=== PATIENT | female | born 1945 | race Caucasian/White ===

== ENCOUNTER → 2017-11-16 14:58 | Outpatient (CLI) | payer MEDICARE, OTHER, SELFPAY ==
--- NOTE | 2017-11-16 15:06 | RAD_ITS ---
STUDY: X-RAY - RIGHT KNEE REASON FOR EXAM: Female, 71 years old. Fall one month ago. Continued pain TECHNIQUE: 4 view(s) of the knee. COMPARISON: None. FINDINGS: Normal visualized distal femur. Normal visualized proximal tibia and fibula. Normal proximal tibiofibular articulation. Normal medial femorotibial compartment. There is mild degenerative arthrosis of the lateral femorotibial compartment. There is moderate degenerative arthrosis of the patellofemoral articulation. There is no demonstrated joint effusion. The soft tissue structures are unremarkable. RAD/Knee 4 or More Views IMPRESSION: Mild arthrosis of the lateral compartment. Moderate arthrosis of the patellofemoral joint. No acute lesions are seen Electronically Signed: Bran Harry MD, FACR at 15:43 EST , Service support ,
== END ==
PROVIDERS: Family Provider Family Medicine Geriatric Medicine; PCP Family Medicine Geriatric Medicine; Visit Provider Family Medicine Geriatric Medicine
DX: M25.561 Pain in right knee (principal)
CPT/HCPCS: 73564

== ENCOUNTER 2017-11-21 12:14 | Emergency (ER) | payer MEDICARE, OTHER, SELFPAY ==
[2017-11-21 12:16] VITALS: BP 106/62; PULSE 72; RESP 16; TEMP 36.5; O2SAT 100; BMI 28.3
--- NOTE | 2017-11-21 13:49 | ED.RN ---
ATTEMPTED TO AMBULATE PATIENT WITH WALKER. GAIT STEADY BUT VERY SLOW. TOOK APPROX 5 STEPS IN 2-3 MINUTES. C/O SEVERE PAIN TO RIGHT KNEE. DR. JHONY CHAUDHARY.
--- NOTE | 2017-11-21 14:20 | ED.VISSUMM ---
- ER Visit Summary Date of Service: 11/21/17 Chief Complaint: Right knee pain and inability to bear weight History of Present Illness: The patient is a 71 F seen by her PCP and had x-rays of the knee on Monday. X-rays were reviewed prior to seeing the patient and there is evidence of osteoarthritis. No fracture is noted. Patient complains of severe pain. She denies fever, chills night sweats. She denies history of gout or pseudogout. She does have history of fibromyalgia. She does walk with a walker. She has an appointment with her PCP that is scheduled for today as well as Dr. Piper her pain management physician. Physical Examination: Vital signs were noted and unremarkable. Right knee is swollen compared to left. She is able to extend 180? and flex to 90?. The patella is not ballotable. There is no effusion. She has minimal joint line tenderness. There is no laxity with varus valgus stress testing. Denita's test is negative. Modified Mar's test is negative. There is no pain the patient the popliteal fossa. There is no palpable pulsatile mass in the popliteal fossa. Distal pulses were palpable. Test Results: None since she had x-rays on Monday that were reviewed Emergency Department Course and Treatment: Was medicated with morphine. I was informed at 1420 the patient was able to make her way to Dr. Piper's office. Treatment Plan: Patient left prior to her receiving home-going instructions Disposition: Discharge to see position at his office Impression: Right knee pain secondary to osteoarthritis This note was generated with [employer] dictation software. It may contain incorrect words, spelling, and punctuation that were not noted in review of the chart prior to signing ED Disposition - Plan for ED Patient: Chief Complaint: Other, Pain/Inj Referrals: Abhijit Jett Chi, MD [Primary Care Provider] -
--- NOTE | 2017-11-21 14:24 | ED.DCSUM_ITS ---
- ER Visit Summary Date of Service: 11/21/17 Chief Complaint: Right knee pain and inability to bear weight History of Present Illness: The patient is a 71 F seen by her PCP and had x- rays of the knee on Monday. X-rays were reviewed prior to seeing the patient and there is evidence of osteoarthritis. No fracture is noted. Patient complains of severe pain. She denies fever, chills night sweats. She denies history of gout or pseudogout. She does have history of fibromyalgia. She does walk with a walker. She has an appointment with her PCP that is scheduled for today as well as Dr. Piper her pain management physician. Physical Examination: Vital signs were noted and unremarkable. Right knee is swollen compared to left. She is able to extend 180? and flex to 90?. The patella is not ballotable. There is no effusion. She has minimal joint line tenderness. There is no laxity with varus valgus stress testing. Denita's test is negative. Modified Mar's test is negative. There is no pain the patient the popliteal fossa. There is no palpable pulsatile mass in the popliteal fossa. Distal pulses were palpable. Test Results: None since she had x-rays on Monday that were reviewed Emergency Department Course and Treatment: Was medicated with morphine. I was informed at 1420 the patient was able to make her way to Dr. Piper's office. Treatment Plan: Patient left prior to her receiving home-going instructions Disposition: Discharge to see position at his office Impression: Right knee pain secondary to osteoarthritis This note was generated with [employer] dictation software. It may contain incorrect words, spelling, and punctuation that were not noted in review of the chart prior to signing ED Disposition - Plan for ED Patient: Chief Complaint: Other, Pain/Inj Referrals: Abhijit Jett Chi, MD [Primary Care Provider] -
== END 2017-11-21 14:33 | disposition home or self-care (01) ==
LOC: ED 12:31
PROVIDERS: Emergency Provider Emergency Medicine; Family Provider Family Medicine Geriatric Medicine; PCP Family Medicine Geriatric Medicine
DX: M17.11 Unilateral primary osteoarthritis, right knee (principal); M25.561 Pain in right knee; I25.10 Atherosclerotic heart disease of native coronary artery without angina pectoris; I13.2 Hypertensive heart and chronic kidney disease with heart failure and with stage 5 chronic kidney disease, or end stage renal disease; N18.6 End stage renal disease; I50.9 Heart failure, unspecified; I25.2 Old myocardial infarction; E78.00 Pure hypercholesterolemia, unspecified; M79.7 Fibromyalgia; M06.9 Rheumatoid arthritis, unspecified; K58.9 Irritable bowel syndrome, unspecified; Z79.899 Other long term (current) drug therapy
CPT/HCPCS: 96374; 99284; A4216

== ENCOUNTER 2017-12-27 09:27 | Inpatient (IN) | payer MEDICARE, OTHER, SELFPAY ==
[2017-12-27] VITALS (16 sets, daily range): BP systolic 88–124; BP diastolic 43–77; PULSE 64–75; RESP 9–18; TEMP 35.9–37.3; O2SAT 80–97; BMI 28.7; BMI 27.9
--- NOTE | 2017-12-27 09:44 | RAD_ITS ---
STUDY: X-RAY CHEST REASON FOR EXAM: Female, 72 years old. Hypoxia. Hypotension. TECHNIQUE: Single AP portable view of the chest. COMPARISON: Comparison is made with prior study dated October 08, 2017. FINDINGS: EKG electrodes are seen. Elevation of the right hemidiaphragm. There is no demonstrated pleural abnormality. There is borderline cardiomegaly. There are calcified mediastinal lymph nodes. Normal visualized pulmonary arteries. There is atherosclerotic tortuosity of the aortic arch and descending thoracic aorta. Normal visualized thoracic spine. Normal visualized ribs, clavicles, and shoulders. There is no demonstrated abnormality of the visualized soft tissue structures of the upper abdomen. RAD/Chest 1 View (Portable) IMPRESSION: No acute abnormality is seen. Electronically Signed: Yony Bonds MD at 10:08 EDT Tel [phone], Service support ,
--- NOTE | 2017-12-27 09:44 | EKG12_ITS ---
Test Reason : SOB Blood Pressure : / mmHG Vent. Rate : 113 BPM Atrial Rate : 082 BPM P-R Int : 188 ms QRS Dur : 074 ms QT Int : 410 ms P-R-T Axes : 047 027 015 degrees QTc Int : 562 ms Normal sinus rhythm Low voltage QRS Inferior infarct , age undetermined Prolonged QT Abnormal ECG Confirmed by MOODY VALVERDE ([id number]), medical transcription editor AVEL REYES ([id number]) on 01/01/2018 2:00:48 PM Referred By: TERRI Confirmed By:MOODY VALVERDE
[2017-12-27 10:03] LABS: Absolute Lymphocyte Count 2.71 X10^3/ul (0.83-4.51); Absolute Neutrophil Count 13.6 X10^3/uL (2.0-7.7); Basophil# 0.01 X10^3/uL; Basophil% 0.1 % (0-1); Eosinophil# 0.01 X10^3/uL; Eosinophils% 0.1 % (0-5); Hematocrit 37.1 % (37-47); Hemoglobin 11.4 g/dl (12.0-15.0); Lymphocyte # 2.71 X10^3/ul (4.0); Lymphocyte % 15.3 % (19-41); Mean Corp Hgb Conc 30.7 g/gl (32-36); Mean Corpuscular Hgb 27.9 pg (27.0-32.0); Mean Corpuscular Volume 90.9 fL (81-99); Monocyte# 1.33 X10^3/uL; Monocyte% 7.5 % (0-10); Neutrophil # 13.59 X10^3/uL (2.7-7.7); Neutrophil % 76.7 % (47-70); POSITIVE COUNT NO; POSITIVE DIFFERENTIAL NO; POSITIVE MORPHOLOGY NO; Platelet Count 247 K/mm3 (150-450); RBC Distribution Width CV 13.9 % (11.6-14.6); RBC Distribution Width SD 46.1 fl (35.1-43.9); Red Blood Count 4.08 M/mm3 (4.2-5.4); White Blood Count 17.7 K/mm3 (4.4-11.0)
[2017-12-27] MEDS: 0.9% Normal Saline 1,000 ML 150 ML IV (10:10)
[2017-12-27 10:11] LABS: International Normalized Ratio 1.3; Prothrombin Time (Protime)PT. 16.3 SECONDS (11.7-14.9)
[2017-12-27 10:12] LABS: Partial Thromboplast Time 42.1 Seconds (24.1-36.2)
[2017-12-27 10:23] LABS: Lactic Acid 1.4 mmol/L (0.4-2.0)
[2017-12-27 10:24] LABS: ALB/GLOB Ratio 0.9 RATIO (0.9-2.4); AST(SGOT) 241 U/L (15-37); Alanine Aminotransfer ALT/SGPT 131 U/L (13-56); Albumin, Serum 2.9 g/dL (3.2-5.0); Alkaline Phosphatase 156 U/L (45-117); Anion Gap 11 (5-15); BUN 29 mg/dL (7-18); BUN/Creat Ratio 11.3 RATIO (10-20); Chloride 96 mmol/L (98-107); Creatinine, Serum 2.56 mg/dL (0.55-1.02); EST Glomerular Filtration Rate 20 mL/min (>60); Est Glom Filt Rate - Afr Amer 24 mL/min (>60); Estimated Creatinine Clearance 18.05 ml/min; Globulin 3.3 g/dL (2.2-4.2); Glucose 96 mg/dL (74-106); Potassium 6.8 mmol/L (3.5-5.1); Protein, Total 6.2 g/dL (6.4-8.2); Sodium Level 133 mmol/L (136-145)
[2017-12-27] MEDS: Albuterol 2.5 MG/3 ML VIAL.NEB. INHALATION (10:44)
[2017-12-27 10:50] LABS: Color, Urine Yellow (Yellow); Glucose, Dipstick Normal (Normal); Ketone-Dipstick Negative (Negative); Leukocyte Esterase-Dipstick 500 /ul (Negative); Mucous, Urine 0 SEEN /hpf (<or=2+); Nitrite-Dipstick Positive (Negative); Occult Blood-Urine 10 /ul (Negative); Protein-Dipstick 30 mg/dl (Negative); Urine Bilirubin Dipstick Negative (Negative); Urine Clarity Sl. Cloudy (Clear); Urine Urobilinogen Normal (Normal)
[2017-12-27 10:59] LABS: Red Blood Cells-Urine 0-5 SEEN /hpf (0-5); White Blood Cells >100 SEEN /hpf (0-5)
[2017-12-27 11:00] LABS: Bacteria 4+ /hpf (None Seen); Squamous Epithelial Cells - UA 0-5 SEEN /hpf (5-10)
--- NOTE | 2017-12-27 11:18 | ED.DCSUM_ITS ---
- ER Visit Summary Date of Service: 12/27/17 Chief Complaint: Low blood pressure and oxygen saturation History of Present Illness: The patient is a [address] Jett. [facility] reports that this morning the patient has had a low blood pressure and a pulse ox of 81%. He also reports patient has not had any urine output for the past 24 hours. The patient is a poor informant. Patient complains of subjective fever and chills. She does admit to abdominal pain, but states I do not know the severity. She has had nausea and vomiting. She denies any diarrhea or melena. She has a headache that is 9 out of 10 severity. Physical Examination: Vitals: Stable. Afebrile. General: Well-nourished and well-developed. Head: Normocephalic atraumatic. Neck: Supple, no lymphadenopathy. No JVD. Nontender. Cardiovascular: Regular rate and rhythm. 2 out of 6 systolic murmur. Respiratory: No respiratory distress. Clear to auscultation bilaterally. Abdominal: Soft, nontender, nondistended, normal bowel sounds. No guarding, rebound, or peritoneal signs. Back: Nontender. Extremities: Nontender, no edema. Skin: Normal color, no rash. Neurologic: Alert and oriented ?3. Cranial nerves II through XII are intact. Normal strength and sensation. Psych: Normal affect. Test Results: EKG is sinus in the 70s with nonspecific ST changes and her QRS interval was 74. Chem-7 is marked for potassium was 6.8, BUN 29, creatinine 2.56. 2017 her creatinine ranged between 1.212.58. LFTs marked for total protein 6.2, albumin 2.9, alk phos 156, ALT 131, AST of 241. INR is 1.3. UA is obviously infected with greater than 100 whites and 4+ bacteria. CBC is marked for white count 17.7 hemoglobin 11.4. Chest x-ray shows chronic changes. Lactic acid is 1.4. Emergency Department Course and Treatment: Patient responded well to 500 cc bolus of normal saline. Her systolic pressures in the 140s. The fpc sent along the urine culture from December 22 that shows Klebsiella is resistant to ampicillin only. She was treated with Rocephin IV. Her hyperkalemia was treated with albuterol aerosol, D50, and insulin IV. She is resting comfortably. Treatment Plan: Due to the fact the patient's creatinine has more than doubled from her baseline she meets criteria for severe sepsis. She will be admitted to the hospital for further evaluation and treatment. Disposition: Admitted in improved condition. Impression: 1. Severe sepsis. 2. Pyelonephritis. 3. Hypoxia. 4. Hyperkalemia. 5. Acute kidney injury. 6. Critical care time 30 minutes. This note was generated with [employer] dictation software. It may contain incorrect words, spelling, and punctuation that were not noted in review of the chart prior to signing ED Disposition - Plan for ED Patient: Chief Complaint: Hypotension Referrals: Abhijit Jett Chi, MD [Primary Care Provider] -
[2017-12-27] MEDS: Dextrose 50%-Water 25 GM/50 ML DISP.SYRIN IV (11:24)
[2017-12-27] MEDS: SUMAtriptan 6 MG/0.5 ML Vial SC (11:24)
--- NOTE | 2017-12-27 11:24 | NURSING ---
DR AVILA MURRAY
--- NOTE | 2017-12-27 11:28 | NURSING ---
PCU UTI, HYPERKALEMIA AVILA
[2017-12-27] MEDS: Sodium Polystyrene Sulfonate 15 GM/60 ML UDC 30 GM PO (11:37)
--- NOTE | 2017-12-27 12:17 | HP.PCM_ITS ---
Problem List (1) IBS (irritable bowel syndrome) Status: Chronic (2) Metabolic acidosis Status: Chronic (3) CKD (chronic kidney disease), stage III Status: Chronic (4) Cephalalgia Status: Chronic (5) Diastolic CHF Status: Chronic (6) Dyslipidemia Status: Chronic (7) Fibromyalgia Status: Chronic (8) HTN (hypertension) Status: Chronic (9) History of radiofrequency ablation (RFA) procedure for cardiac arrhythmia Status: Chronic (10) Myocardial infarct, old Status: Chronic (11) Osteoarthritis Status: Chronic (12) Rheumatoid arthritis Status: Chronic Comment: on no medications for RA - diagnosed in [place] many years ago (13) Sjogren's syndrome Status: Chronic (14) history of PULMONARY EMBOLI Status: Chronic (15) PUD (peptic ulcer disease) Status: Suspected (16) UTI (urinary tract infection) Status: Acute (17) Hyperkalemia Status: Acute History of Present Illness Date of Admission: 12/27/17 Chief Complaint: Low blood pressure The patient is a 72 year old F who comorbidities currently residing at an extended care facility who was brought to the emergency department from an [facility] with low blood pressure. Patient had apparently been diagnosed with a bladder infection a couple of days prior to his admission urine cultures since grew Klebsiella patient was apparently treated with antibiotics. However on the morning of her presentation found to be more lethargic than usual blood pressure was apparently in the 70s the squad was called and patient was brought to the emergency department in the ED patient patient systolic blood pressure was in the mid 100s. She was found to have impaired kidney function with hyperkalemia treatment of hyperkalemia was initiated in the ED prior to patient being admitted. She was also found to have acute cystitis started on Rocephin and admitted to monitored bed for further management. Past Medical History Past Medical History (Chronic Problems): Chronic Problems (Last Updated 10/25/17 @ 16:34 by Noris Nunez) Fibromyalgia (Chronic) HTN (hypertension) (Chronic) Rheumatoid arthritis (Chronic) on no medications for RA - diagnosed in [place] many years ago Dyslipidemia (Chronic) Sjogren's syndrome (Chronic) Myocardial infarct, old (Chronic) CKD (chronic kidney disease), stage III (Chronic) history of PULMONARY EMBOLI (Chronic) Diastolic CHF (Chronic) Cephalalgia (Chronic) Metabolic acidosis (Chronic) IBS (irritable bowel syndrome) (Chronic) Osteoarthritis (Chronic) History of radiofrequency ablation (RFA) procedure for cardiac arrhythmia ( Chronic) Allergies acetaminophen [From Tylox] Allergy (Verified 08/20/17 11:47) Other amoxicillin Allergy (Verified 08/20/17 11:47) Hives ciprofloxacin [From Cipro] Allergy (Verified 08/20/17 11:46) Other ciprofloxacin HCl [From Cipro] Allergy (Verified 08/20/17 11:46) Other indomethacin Allergy (Verified 12/27/17 09:39) Unknown nortriptyline HCl [From Pamelor] Allergy (Verified 08/20/17 11:46) Unknown oxycodone [From Tylox] Allergy (Verified 08/20/17 11:47) Other Sulfa (Sulfonamide Antibiotics) Allergy (Verified 08/20/17 11:46) Unknown iodine Adverse Reaction (Verified 08/20/17 11:46) Itching nortriptyline [Nortriptyline] Adverse Reaction (Verified 08/20/17 11:46) Itching warfarin sodium [From Coumadin] Adverse Reaction (Verified 08/20/17 11:46) Itching Home Medications: Ambulatory Orders Medication Instructions Recorded Alendronate Sodium [Fosamax] 70 mg PO QWEEK 11/21/17 Atorvastatin Calcium 20 mg PO DAILY 11/21/17 Hydroxyzine HCl 50 mg PO DAILY PRN 11/21/17 Methadone HCl [(None)] 10 mg PO 4X/DAY 11/21/17 Multivit-Min/FA/Lycopen/Lutein 1 each PO DAILY 11/21/17 [Centrum Silver Tablet] Pregabalin [Lyrica] 100 mg PO BID 11/21/17 Sertraline HCl [Zoloft] 100 mg PO DAILY 11/21/17 Sodium Bicarbonate 1 tab PO DAILY 11/21/17 Sumatriptan Succinate [Imitrex] 100 mg PO .X1 PRN 11/21/17 Timolol 0.5% [Timoptic] 1 drop EACH EYE BID 11/21/17 Topiramate [Topamax] 25 mg PO DAILY 11/21/17 Ascorbic Acid [Vitamin C] 500 mg PO DAILY@0800 12/27/17 Calcium Carbonate/Vitamin D3 1 each PO BID 12/27/17 [Calcium 600 with Vit D Chew Tb] Ferrous Sulfate 325 mg PO DAILY@0800 12/27/17 Surgical History: angioplasty - pt denies this - she says that she only had an ablation and she does not have any hx of CAD., appendectomy, hysterectomy, total hip arthroplasty - recent right hip replacement, tonsillectomy, - - craniotomy to remove blood clots after a fall. 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 Dyspnea Respiratory: Denies: Cough, Shortness of breath at rest, Shortness of breath upon exertion, Sputum production Gastrointestinal: Denies: Abdominal Pain, Hematemesis, Hematochezia, Nausea, Melena, Vomiting Genitourinary: Denies: Dysuria, Frequency, Hematuria, Urgency Musculoskeletal: Reports: Joint swelling Skin: Denies: Rash Psychiatric: Denies: Homicidal Ideations, Suicidal Ideations Hematologic/ Lymphatic: Denies: Easy Bruising, Easy Bleeding VTE Information - Inpt Only VTE Present on Admission: No VTE Mechan Device Prophylaxis: Knee High LUIS M Hose VTE Pharm Prophylaxis ordered?: Yes Patient Problems: Active and Suspected Problems (Last Updated 10/25/17 @ 16:34 by Noris Nunez) Hyperkalemia (Acute) Objective: GENERAL: cooperative and alert, HEENT: neck is supple, normal thyroid, CHEST: Diminished to auscultation bilaterally, HEART: Regular S1 S2, no audible murmurs and rubs, ABDOMEN: soft, non-tender, normoactive bowel sounds, RECTAL: deferred EXTREMITIES: Right ankle bruised and slightly swollen and tender PLUMBING AND HEATING MECHANIC: Awake, alert and oriented to time, SKIN: As described above - Physical Exam Vital Signs Temp Pulse Resp BP Pulse Ox 99.2 F H 66 18 105/70 93 12/27/17 11:27 12/27/17 12:07 12/27/17 11:27 12/27/17 12:07 12/27/17 12:07 Oxygen Flow Rate (L/min) 2 Oxygen Delivery Method Nasal Cannula Assessment/Plan Active and Suspected Problems (Last Updated 10/25/17 @ 16:34 by Noris Nunez) Hyperkalemia (Acute) Patient is a 72-year-old lady resident of an [facility] with multiple comorbidities who was brought to the emergency department with progressive generalized weakness and associated hypotension patient was found to have acute kidney injury, acute cystitis as well as hyperkalemia admitted to a monitored bed for further management 1. Acute cystitis patient urine cultures have recently grown Klebsiella repeat cultures obtained and admission started on Rocephin 2. Acute kidney injury patient has underlying history of chronic kidney disease stage III with baseline creatinine around 1.5. Started on IV hydration with monitoring of electrolyte 3. Hyperkalemia secondary to #2 patient did receive treatment in the ED in addition to Kayexalate ordered serial BMPs to follow potassium levels which is already trending now 4. Chronic diastolic congestive heart failure currently compensated 5. Hypertension blood pressure stable at this point 6. Sjogren's syndrome by history 7. Rheumatoid Arthritis by history 8. GERD: Continue omeprazole 9. History of bilateral hip replacement 10. Dyslipidemia-patient is on statin therapy, continued at home dose 11. Chronic kidney disease stage III 12. History of paroxysmal A. fib status post ablation 13. History of DVT 14. Recent Trauma involving the right ankle imaging studies ordered with consultation placed to orthopedic surgery 15. DVT prophylaxis:SC Heparin Code Visit Inpatient E&M: 74702 Init Hosp L3
[2017-12-27] MEDS: 0.9% Normal Saline 1,000 ML 100 ML IV ×2 (13:08→22:19)
[2017-12-27 13:25] LABS: Anion Gap 7 (5-15); BUN 28 mg/dL (7-18); BUN/Creat Ratio 10.3 RATIO (10-20); Calcium,Total 8.2 mg/dL (8.5-10.1); Chloride 98 mmol/L (98-107); Creatinine, Serum 2.72 mg/dL (0.55-1.02); EST Glomerular Filtration Rate 18 mL/min (>60); Est Glom Filt Rate - Afr Amer 22 mL/min (>60); Estimated Creatinine Clearance 16.99 ml/min; Glucose 129 mg/dL (74-106); Potassium 4.9 mmol/L (3.5-5.1); Sodium Level 133 mmol/L (136-145)
--- NOTE | 2017-12-27 15:55 | RAD_ITS ---
STUDY: X-RAY - RIGHT ANKLE REASON FOR EXAM: Female, 72 years old. Pain. Fall. History of previous fracture. TECHNIQUE: 3 view(s) of the ankle. COMPARISON: Right ankle, November 04, 2015. FINDINGS: There is evidence of an old healed fracture of the distal fibula. There is no evidence of acute fracture or dislocation. Normal medial and lateral malleoli. Normal tibiotalar articulation and ankle mortise. Normal visualized talus and calcaneus. The visualized subtalar, talonavicular, calcaneocuboid and tarsal articulations are normal. Question of minimal soft tissue prominence over the lateral ankle. RAD/Ankle min 3 Views IMPRESSION: Question minimal lateral soft tissue prominence. There is no acute fracture or dislocation. There is interval healing of the fibular fracture noted on the previous study. Electronically Signed: Jatinder Hinkle DO at 16:47 EDT Tel [phone], Service support ,
--- NOTE | 2017-12-27 16:10 | RAD_ITS ---
STUDY: X-RAY - RIGHT KNEE REASON FOR EXAM: Female, 72 years old. Pain. History of fall. TECHNIQUE: 2 view(s) of the knee. COMPARISON: Right knee, November 16, 2017. FINDINGS: Normal visualized distal femur. Normal visualized proximal tibia and fibula. Normal proximal tibiofibular articulation. There is no acute fracture, dislocation or destructive osseous pathology. Normal medial femorotibial compartment. There is mild degenerative arthrosis of the lateral femorotibial compartment. There is moderate degenerative arthrosis of the patellofemoral articulation. There is no demonstrated joint effusion. The soft tissue structures are unremarkable. RAD/Knee 1 or 2 Views IMPRESSION: Stable degenerative changes right knee without acute fracture or dislocation. Electronically Signed: Jatinder Hinkle DO at 17:03 EDT Tel [phone], Service support ,
[2017-12-27] MEDS: Calcium Carb/Vitamin D 1 TABLET Tablet PO (17:28)
[2017-12-27] MEDS: Atorvastatin Calcium 20 MG Tablet PO (22:20)
[2017-12-27] MEDS: Heparin Injection 5,000 UNITS/ML Syringe 5000 UNITS SC (22:20)
[2017-12-27] MEDS: Pregabalin 50 MG Capsule 100 MG PO (22:21)
[2017-12-27] MEDS: Timolol 0.5% 5ML OPTH.BTL 1 DRP EACH EYE (22:21)
[2017-12-28] VITALS (12 sets, daily range): BP systolic 98–120; BP diastolic 52–73; PULSE 50–79; RESP 12–16; TEMP 36.7–36.9; O2SAT 95–99
[2017-12-28] MEDS: Methadone 10 MG Tablet PO ×5 (00:15→23:20)
[2017-12-28] MEDS: Acetaminophen 325 MG Tablet 650 MG PO (04:36)
[2017-12-28 08:13] LABS: Hematocrit 30.1 % (37-47); Hemoglobin 9.4 g/dl (12.0-15.0); Mean Corp Hgb Conc 31.2 g/gl (32-36); Mean Corpuscular Volume 89.6 fL (81-99); Mean Platelet Vol. 9.2 fl (6.2-12.0); Platelet Count 215 K/mm3 (150-450); RBC Distribution Width SD 45.7 fl (35.1-43.9); Red Blood Count 3.36 M/mm3 (4.2-5.4); White Blood Count 10.5 K/mm3 (4.4-11.0)
[2017-12-28 08:14] LABS: Scan Indicated on CBC? Y/N NO
[2017-12-28 08:19] LABS: Anion Gap 9 (5-15); BUN 25 mg/dL (7-18); BUN/Creat Ratio 13.8 RATIO (10-20); Calcium,Total 7.5 mg/dL (8.5-10.1); Chloride 105 mmol/L (98-107); Creatinine, Serum 1.81 mg/dL (0.55-1.02); EST Glomerular Filtration Rate 29 mL/min (>60); Est Glom Filt Rate - Afr Amer 35 mL/min (>60); Estimated Creatinine Clearance 25.53 ml/min; Glucose 97 mg/dL (74-106); Potassium 3.7 mmol/L (3.5-5.1); Sodium Level 140 mmol/L (136-145)
[2017-12-28] MEDS: Senna/Docusate Sodium 1 Tablet 2 TABLET PO (08:38)
[2017-12-28] MEDS: 0.9% Normal Saline 1,000 ML 100 ML IV ×2 (08:38→18:42)
[2017-12-28] MEDS: Ferrous Sulfate 325 MG Tablet PO (08:39)
[2017-12-28] MEDS: Multivitamins,Ther W-Minerals Tablet 1 TABLET PO (08:39)
[2017-12-28] MEDS: Calcium Carb/Vitamin D 1 TABLET Tablet PO ×2 (08:39→17:07)
[2017-12-28] MEDS: Ascorbic Acid 500 MG Tablet PO (08:39)
--- NOTE | 2017-12-28 08:44 | PCM.CONS.R ---
Consultation - Renal 12/28/17 PCP/ Referring MD: Requesting physician: Devin Simon Primary care physician: Abhijit Jett Reason for Consultation:: [place] - History of Present Illness History of Present Illness: The patient is a 72 year old F known to me with CKD stage III baseline creatinine 1.0 back in 2016 when she was last seen in my office presents with hypotension and hyperkalemia. She is at [facility] following right ankle injury from a recent fall. She denied any diarrhea. She denied consuming foods high in potassium. She states her urine output was down past 24 hours prior to admission. She denied any lightheadedness or dizziness. Potassium improved from 6.8-3.7 with Kayexalate. Blood pressure is improved with IV fluid resuscitation. Renal function improved from creatinine of 2.7-1.8 today. She has a history of Klebsiella UTI. She denied any urinary complaints. Lethargic on presentation to emergency room. Her mental status returned to baseline today. She is a poor historian. Chart reviewed. Leukocytosis improved with IV antibiotic therapy on admission. - Allergies Allergies: Allergies acetaminophen [From Tylox] Allergy (Verified 08/20/17 11:47) Other amoxicillin Allergy (Verified 08/20/17 11:47) Hives ciprofloxacin [From Cipro] Allergy (Verified 08/20/17 11:46) Other ciprofloxacin HCl [From Cipro] Allergy (Verified 08/20/17 11:46) Other indomethacin Allergy (Verified 12/27/17 09:39) Unknown nortriptyline HCl [From Pamelor] Allergy (Verified 08/20/17 11:46) Unknown oxycodone [From Tylox] Allergy (Verified 08/20/17 11:47) Other Sulfa (Sulfonamide Antibiotics) Allergy (Verified 08/20/17 11:46) Unknown iodine Adverse Reaction (Verified 08/20/17 11:46) Itching nortriptyline [Nortriptyline] Adverse Reaction (Verified 08/20/17 11:46) Itching warfarin sodium [From Coumadin] Adverse Reaction (Verified 08/20/17 11:46) Itching - Current Medications Current Medications: Current Medications Acetaminophen (Tylenol) 650 mg PO Q6H PRN PRN PRN Reason: Mild Pain (scale 0-3)/T>100.7 Last Admin: 12/28/17 04:36 Dose: 650 mg Al Hydroxide/Mg Hydroxide (Mylanta Ii) 30 ml PO Q6H PRN PRN PRN Reason: Gastric burning Ascorbic Acid (Vitamin C) 500 mg PO DAILY@0800 [facility] Last Admin: 12/28/17 08:39 Dose: 500 mg Atorvastatin Calcium (Lipitor) 20 mg PO HS [facility] Last Admin: 12/27/17 22:20 Dose: 20 mg Calcium/Vitamin D ([facility]mg + D[facility] Admin: 12/28/17 08:39 Dose: 1 tablet Ferrous Sulfate (Ferrous Sulfate) 325 mg PO DAILY@0800 [facility] Last Admin: 12/28/17 08:39 Dose: 325 mg Heparin Sodium (Porcine) () 5,000 units SC BID [facility] Last Admin: 12/27/17 22:20 Dose: 5,000 units Hydroxyzine Pamoate (Vistaril) 50 mg PO DAILY PRN PRN PRN Reason: ITCHING Ceftriaxone Sodium (Rocephin) 1 gm in 50 mls @ 100 mls/hr IV Q24 [facility] Sodium Chloride () 1,000 mls @ 100 mls/hr IV .Q10H [facility] Last Admin: 12/28/17 08:38 Dose: 100 mls/hr Magnesium Hydroxide (Milk Of Magnesia) 30 ml PO DAILY PRN PRN Reason: Constipation Methadone HCl () 10 mg PO Q6 [facility] Last Admin: 12/28/17 06:06 Dose: 10 mg Multivitamins/Minerals (Multivitamin With Minerals) 1 tablet PO DAILY@0800 [facility] Last Admin: 12/28/17 08:39 Dose: 1 tablet Pregabalin (Lyrica) 100 mg PO BID [facility] Last Admin: 12/27/17 22:21 Dose: 100 mg Promethazine HCl (Phenergan (Ll)) 12.5 mg IV Q6H PRN PRN PRN Reason: NAUSEA/VOMITING Psyllium Hydrophilic Mucilloid (Metamucil) 1 packet PO DAILY PRN PRN PRN Reason: CONSTIPATION Senna/Docusate Sodium (Senokot-S, Jade-Colace) 2 tablet PO BID [facility] Last Admin: 12/28/17 08:38 Dose: 2 tablet Sertraline HCl (Zoloft) 100 mg PO DAILY [facility] Sodium Chloride () 5 - 30 ml IV UD PRN PRN Reason: SALINE FLUSH Timolol Maleate (Timoptic) 1 drop EACH EYE BID [facility] Last Admin: 12/27/17 22:21 Dose: 1 drop Topiramate (Topamax) 25 mg PO DAILY [facility] Zolpidem Tartrate (Ambien (Generic)) 5 mg PO QHS PRN PRN PRN Reason: INSOMNIA - Past Medical History Past Medical History (Chronic Problems): Chronic Problems (Last Updated 10/25/17 @ 16:34 by Noris Nunez) Fibromyalgia (Chronic) HTN (hypertension) (Chronic) Rheumatoid arthritis (Chronic) on no medications for RA - diagnosed in [place] many years ago Dyslipidemia (Chronic) Sjogren's syndrome (Chronic) Myocardial infarct, old (Chronic) CKD (chronic kidney disease), stage III (Chronic) history of PULMONARY EMBOLI (Chronic) Diastolic CHF (Chronic) Cephalalgia (Chronic) Metabolic acidosis (Chronic) IBS (irritable bowel syndrome) (Chronic) Osteoarthritis (Chronic) History of radiofrequency ablation (RFA) procedure for cardiac arrhythmia (Chronic) - Past Surgical History Surgical History: angioplasty - pt denies this - she says that she only had an ablation and she does not have any hx of CAD., appendectomy, hysterectomy, total hip arthroplasty - recent right hip replacement, tonsillectomy, - - craniotomy to remove blood clots after a fall. - Social History Smoking Status: Former smoker - Family History Sibling History Items: COPD Maternal History Items: No pertinent history, - Review of Systems Constitutional: Reports: Weakness, - - History of frequent falls. Denies: Anorexia, Chills, Fever HEENT: Denies: Difficulty Hearing, Head Aches Cardiovascular: Denies: Chest Pain, Edema Respiratory: Denies: Cough, Shortness of Breath Gastrointestinal: Denies: Abdominal Pain, Diarrhea, Nausea, Vomiting Genitourinary: Reports: - - Recently treated for Klebsiella UTI. Denies: Dysuria Skin: Denies: Rash Neurological: Reports: Balance problems, - - Frequent falls Psychiatric: Reports: Anxiety, Depression Hematologic/ Lymphatic: Reports: Anemia Patient Problems: Active and Suspected Problems (Last Updated 10/25/17 @ 16:34 by Noris Nunez) Hyperkalemia (Acute) - Physical Exam General: Alert, Oriented x3, Cooperative, - - Limited historian HEENT: PERRLA, EOMI Neck: Supple Lungs: Clear to auscultation Cardiovascular: Regular rate Abdomen: Bowel Sounds Present, Soft, Non Tender, Non-Distended Extremities: Edema - Mild ankle swelling Skin: No rashes Musculoskeletal: Muscle Wasting, - - Tender right ankle to palpation Neurological: Cranial nerves II-XII grossly intact Psych/Mental Status: Normal Affect, Appropriate, Alert and oriented to time, place, person, mood and affect Vital Signs Temp Pulse Resp BP Pulse Ox 98.2 F 69 12 120/59 L 95 12/28/17 04:11 12/28/17 07:46 12/28/17 04:11 12/28/17 04:11 12/28/17 07:33 Oxygen Flow Rate (L/min) 2 Oxygen Delivery Method Nasal Cannula Weight: 78.8 kg Body Mass Index (BMI) 27.9 Intake and Output for Last 24 Hours 12/26/17 12/27/17 12/28/17 23:59 23:59 23:59 Intake Total 1354 / 1354 718 / 718 Output Total 525 / 525 180 / 180 Balance 829 / 829 538 / 538 Laboratory Tests Past 24 Hrs 12/27/17 12/28/17 12/28/17 12:35 07:37 07:37 WBC 10.5 RBC 3.36 L Hgb 9.4 L Hct 30.1 L MCV 89.6 MCH 28.0 MCHC 31.2 L RDW 14.0 RDW Differential 45.7 H Plt Count 215 MPV 9.2 Sodium 133 L 140 Potassium 4.9 3.7 Chloride 98 105 Carbon Dioxide 28.0 26.0 Anion Gap 7 9 BUN 28 H 25 H Creatinine 2.72 H 1.81 H Estim Creat Clear Calc 16.99 25.53 Est GFR (MDRD) Af Amer 22 L 35 L Est GFR (MDRD) Non-Af 18 L 29 L BUN/Creatinine Ratio 10.3 13.8 Glucose 129 H 97 Calcium 8.2 L 7.5 L Clinical Impression(s) from Imaging Studies Chest X-Ray 12/27/17 09:44 IMPRESSION: No acute abnormality is seen. Electronically Signed: Yony Bonds MD at 10:08 EDT Tel [phone], Service support , Ankle X-Ray 12/27/17 15:55 IMPRESSION: Question minimal lateral soft tissue prominence. There is no acute fracture or dislocation. There is interval healing of the fibular fracture noted on the previous study. Electronically Signed: Jatinder Hinkle DO at 16:47 EDT Tel [phone], Service support , Knee X-Ray 12/27/17 16:10 IMPRESSION: Stable degenerative changes right knee without acute fracture or dislocation. Electronically Signed: Jatinder Hinkle DO at 17:03 EDT Tel [phone], Service support , Assessment/Plan Active and Suspected Problems (Last Updated 10/25/17 @ 16:34 by Noris Nunez) Hyperkalemia (Acute) 1. Acute kidney injury suspect due to prerenal event from hypotension, dehydration. Creatinine improved from 2.7 down to 1.8 today. 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 2. Acute hypotension resolved with IV hydration. 3. Acute hyperkalemia resolved with medical management. Potassium 6.8 improved to 3.7 today. 4. Recent UTI with Klebsiella. Urine culture pending. 5. Leukocytosis improved with IV antibiotic therapy. Await cultures.
--- NOTE | 2017-12-28 08:52 | CON.PCM_ITS ---
Consultation - Renal 12/28/17 PCP/ Referring MD: Requesting physician: Devin Simon Primary care physician: Abhijit Jett Reason for Consultation:: [place] - History of Present Illness History of Present Illness: The patient is a 72 year old F known to me with CKD stage III baseline creatinine 1.0 back in 2016 when she was last seen in my office presents with hypotension and hyperkalemia. She is at [facility] following right ankle injury from a recent fall. She denied any diarrhea. She denied consuming foods high in potassium. She states her urine output was down past 24 hours prior to admission. She denied any lightheadedness or dizziness. Potassium improved from 6.8-3.7 with Kayexalate. Blood pressure is improved with IV fluid resuscitation. Renal function improved from creatinine of 2.7- 1.8 today. She has a history of Klebsiella UTI. She denied any urinary complaints. Lethargic on presentation to emergency room. Her mental status returned to baseline today. She is a poor historian. Chart reviewed. Leukocytosis improved with IV antibiotic therapy on admission. - Allergies Allergies: Allergies acetaminophen [From Tylox] Allergy (Verified 08/20/17 11:47) Other amoxicillin Allergy (Verified 08/20/17 11:47) Hives ciprofloxacin [From Cipro] Allergy (Verified 08/20/17 11:46) Other ciprofloxacin HCl [From Cipro] Allergy (Verified 08/20/17 11:46) Other indomethacin Allergy (Verified 12/27/17 09:39) Unknown nortriptyline HCl [From Pamelor] Allergy (Verified 08/20/17 11:46) Unknown oxycodone [From Tylox] Allergy (Verified 08/20/17 11:47) Other Sulfa (Sulfonamide Antibiotics) Allergy (Verified 08/20/17 11:46) Unknown iodine Adverse Reaction (Verified 08/20/17 11:46) Itching nortriptyline [Nortriptyline] Adverse Reaction (Verified 08/20/17 11:46) Itching warfarin sodium [From Coumadin] Adverse Reaction (Verified 08/20/17 11:46) Itching - Current Medications Current Medications: Current Medications Acetaminophen (Tylenol) 650 mg PO Q6H PRN PRN PRN Reason: Mild Pain (scale 0-3)/T>100.7 Last Admin: 12/28/17 04:36 Dose: 650 mg Al Hydroxide/Mg Hydroxide (Mylanta Ii) 30 ml PO Q6H PRN PRN PRN Reason: Gastric burning Ascorbic Acid (Vitamin C) 500 mg PO DAILY@0800 [facility] Last Admin: 12/28/17 08:39 Dose: 500 mg Atorvastatin Calcium (Lipitor) 20 mg PO HS [facility] Last Admin: 12/27/17 22:20 Dose: 20 mg Calcium/Vitamin D (Os-Salty 500mg + D) [facility] Last Admin: 12/28/17 08:39 Dose: 1 tablet Ferrous Sulfate (Ferrous Sulfate) 325 mg PO DAILY@0800 [facility] Last Admin: 12/28/17 08:39 Dose: 325 mg Heparin Sodium (Porcine) () 5,000 units SC BID [facility] Last Admin: 12/27/17 22:20 Dose: 5,000 units Hydroxyzine Pamoate (Vistaril) 50 mg PO DAILY PRN PRN PRN Reason: ITCHING Ceftriaxone Sodium (Rocephin) 1 gm in 50 mls @ 100 mls/hr IV Q24 [facility] Sodium Chloride () 1,000 mls @ 100 mls/hr IV .Q10H [facility] Last Admin: 12/28/17 08:38 Dose: 100 mls/hr Magnesium Hydroxide (Milk Of Magnesia) 30 ml PO DAILY PRN PRN Reason: Constipation Methadone HCl () 10 mg PO Q6 [facility] Last Admin: 12/28/17 06:06 Dose: 10 mg Multivitamins/Minerals (Multivitamin With Minerals) 1 tablet PO DAILY@0800 [facility] Last Admin: 12/28/17 08:39 Dose: 1 tablet Pregabalin (Lyrica) 100 mg PO BID [facility] Last Admin: 12/27/17 22:21 Dose: 100 mg Promethazine HCl (Phenergan (Ll)) 12.5 mg IV Q6H PRN PRN PRN Reason: NAUSEA/VOMITING Psyllium Hydrophilic Mucilloid (Metamucil) 1 packet PO DAILY PRN PRN PRN Reason: CONSTIPATION Senna/Docusate Sodium (Senokot-S, Jade-Colace) 2 tablet PO BID [facility] Last Admin: 12/28/17 08:38 Dose: 2 tablet Sertraline HCl (Zoloft) 100 mg PO DAILY [facility] Sodium Chloride () 5 - 30 ml IV UD PRN PRN Reason: SALINE FLUSH Timolol Maleate (Timoptic) 1 drop EACH EYE BID [facility] Last Admin: 12/27/17 22:21 Dose: 1 drop Topiramate (Topamax) 25 mg PO DAILY [facility] Zolpidem Tartrate (Ambien (Generic)) 5 mg PO QHS PRN PRN PRN Reason: INSOMNIA - Past Medical History Past Medical History (Chronic Problems): Chronic Problems (Last Updated 10/25/17 @ 16:34 by Noris Nunez) Fibromyalgia (Chronic) HTN (hypertension) (Chronic) Rheumatoid arthritis (Chronic) on no medications for RA - diagnosed in [place] many years ago Dyslipidemia (Chronic) Sjogren's syndrome (Chronic) Myocardial infarct, old (Chronic) CKD (chronic kidney disease), stage III (Chronic) history of PULMONARY EMBOLI (Chronic) Diastolic CHF (Chronic) Cephalalgia (Chronic) Metabolic acidosis (Chronic) IBS (irritable bowel syndrome) (Chronic) Osteoarthritis (Chronic) History of radiofrequency ablation (RFA) procedure for cardiac arrhythmia ( Chronic) - Past Surgical History Surgical History: angioplasty - pt denies this - she says that she only had an ablation and she does not have any hx of CAD., appendectomy, hysterectomy, total hip arthroplasty - recent right hip replacement, tonsillectomy, - - craniotomy to remove blood clots after a fall. - Social History Smoking Status: Former smoker - Family History Sibling History Items: COPD Maternal History Items: No pertinent history, - Review of Systems Constitutional: Reports: Weakness, - - History of frequent falls. Denies: Anorexia, Chills, Fever HEENT: Denies: Difficulty Hearing, Head Aches Cardiovascular: Denies: Chest Pain, Edema Respiratory: Denies: Cough, Shortness of Breath Gastrointestinal: Denies: Abdominal Pain, Diarrhea, Nausea, Vomiting Genitourinary: Reports: - - Recently treated for Klebsiella UTI. Denies: Dysuria Skin: Denies: Rash Neurological: Reports: Balance problems, - - Frequent falls Psychiatric: Reports: Anxiety, Depression Hematologic/ Lymphatic: Reports: Anemia Patient Problems: Active and Suspected Problems (Last Updated 10/25/17 @ 16:34 by Noris Nunez) Hyperkalemia (Acute) - Physical Exam General: Alert, Oriented x3, Cooperative, - - Limited historian HEENT: PERRLA, EOMI Neck: Supple Lungs: Clear to auscultation Cardiovascular: Regular rate Abdomen: Bowel Sounds Present, Soft, Non Tender, Non-Distended Extremities: Edema - Mild ankle swelling Skin: No rashes Musculoskeletal: Muscle Wasting, - - Tender right ankle to palpation Neurological: Cranial nerves II-XII grossly intact Psych/Mental Status: Normal Affect, Appropriate, Alert and oriented to time, place, person, mood and affect Vital Signs Temp Pulse Resp BP Pulse Ox 98.2 F 69 12 120/59 L 95 12/28/17 04:11 12/28/17 07:46 12/28/17 04:11 12/28/17 04:11 12/28/17 07:33 Oxygen Flow Rate (L/min) 2 Oxygen Delivery Method Nasal Cannula Weight: 78.8 kg Body Mass Index (BMI) 27.9 Intake and Output for Last 24 Hours 12/26/17 12/27/17 12/28/17 23:59 23:59 23:59 Intake Total 1354 / 1354 718 / 718 Output Total 525 / 525 180 / 180 Balance 829 / 829 538 / 538 Laboratory Tests Past 24 Hrs 12/27/17 12/28/17 12/28/17 12:35 07:37 07:37 WBC 10.5 RBC 3.36 L Hgb 9.4 L Hct 30.1 L MCV 89.6 MCH 28.0 MCHC 31.2 L RDW 14.0 RDW Differential 45.7 H Plt Count 215 MPV 9.2 Sodium 133 L 140 Potassium 4.9 3.7 Chloride 98 105 Carbon Dioxide 28.0 26.0 Anion Gap 7 9 BUN 28 H 25 H Creatinine 2.72 H 1.81 H Estim Creat Clear Calc 16.99 25.53 Est GFR (MDRD) Af Amer 22 L 35 L Est GFR (MDRD) Non-Af 18 L 29 L BUN/Creatinine Ratio 10.3 13.8 Glucose 129 H 97 Calcium 8.2 L 7.5 L Clinical Impression(s) from Imaging Studies Chest X-Ray 12/27/17 09:44 IMPRESSION: No acute abnormality is seen. Electronically Signed: Yony Bonds MD at 10:08 EDT Tel [phone], Service support , Ankle X-Ray 12/27/17 15:55 IMPRESSION: Question minimal lateral soft tissue prominence. There is no acute fracture or dislocation. There is interval healing of the fibular fracture noted on the previous study. Electronically Signed: Jatinder Hinkle DO at 16:47 EDT Tel [phone], Service support , Knee X-Ray 12/27/17 16:10 IMPRESSION: Stable degenerative changes right knee without acute fracture or dislocation. Electronically Signed: Jatinder Hinkle DO at 17:03 EDT Tel [phone], Service support , Assessment/Plan Active and Suspected Problems (Last Updated 10/25/17 @ 16:34 by Noris Nunez) Hyperkalemia (Acute) 1. Acute kidney injury suspect due to prerenal event from hypotension, dehydration. Creatinine improved from 2.7 down to 1.8 today. 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 2. Acute hypotension resolved with IV hydration. 3. Acute hyperkalemia resolved with medical management. Potassium 6.8 improved to 3.7 today. 4. Recent UTI with Klebsiella. Urine culture pending. 5. Leukocytosis improved with IV antibiotic therapy. Await cultures.
[2017-12-28] MEDS: Heparin Injection 5,000 UNITS/ML Syringe 5000 UNITS SC ×2 (10:40→21:55)
[2017-12-28] MEDS: Timolol 0.5% 5ML OPTH.BTL 1 DRP EACH EYE ×2 (10:40→21:56)
[2017-12-28] MEDS: Sertraline 100 MG Tablet PO (10:41)
[2017-12-28] MEDS: Topiramate 25 MG Tablet PO (10:41)
[2017-12-28] MEDS: Pregabalin 50 MG Capsule 100 MG PO ×2 (10:46→21:55)
[2017-12-28] MEDS: Ceftriaxone 1 GM/50 ML BAG IV (10:46)
--- NOTE | 2017-12-28 11:00 | PN_ITS ---
Patient Problems: Active and Suspected Problems (Last Updated 10/25/17 @ 16:34 by Noris Nunez) Hyperkalemia (Acute) Subjective: Patient seen still remains frail hyperkalemia has corrected. Urine cultures so far positive for gram-negative rods final identification and sensitivities pending. Imaging studies involving the right ankle and knee did not demonstrate any acute fracture Objective: GENERAL: cooperative and alert, HEENT: neck is supple, normal thyroid, CHEST: Diminished to auscultation bilaterally, HEART: Regular S1 S2, no audible murmurs and rubs, ABDOMEN: soft, non-tender, normoactive bowel sounds, RECTAL: deferred EXTREMITIES: Right ankle bruised and slightly swollen and tender [employer]: Awake, alert and oriented to time, SKIN: As described above Vitals/I&O's: Vital Signs Temp Pulse Resp BP Pulse Ox 98.0 F 79 16 98/54 L 97 12/28/17 10:11 12/28/17 10:11 12/28/17 10:11 12/28/17 10:11 12/28/17 10:11 Oxygen Flow Rate (L/min) 2 Oxygen Delivery Method Nasal Cannula Weight: 78.8 kg Body Mass Index (BMI) 27.9 Intake and Output for Last 24 Hours 12/26/17 12/27/17 12/28/17 23:59 23:59 23:59 Intake Total 1354 / 1354 718 / 718 Output Total 525 / 525 180 / 180 Balance 829 / 829 538 / 538 Laboratory Results 12/27/17 12:35: Sodium 133 L, Potassium 4.9, Chloride 98, Carbon Dioxide 28.0, Anion Gap 7, BUN 28 H, Creatinine 2.72 H, Estim Creat Clear Calc 16.99, Est GFR (MDRD) Af Amer 22 L, Est GFR (MDRD) Non-Af 18 L, BUN/Creatinine Ratio 10.3, Glucose 129 H, Calcium 8.2 L 12/28/17 07:37: Sodium 140, Potassium 3.7, Chloride 105, Carbon Dioxide 26.0, Anion Gap 9, BUN 25 H, Creatinine 1.81 H, Estim Creat Clear Calc 25.53, Est GFR (MDRD) Af Amer 35 L, Est GFR (MDRD) Non-Af 29 L, BUN/Creatinine Ratio 13.8, Glucose 97, Calcium 7.5 L 12/28/17 07:37: WBC 10.5, RBC 3.36 L, Hgb 9.4 L, Hct 30.1 L, MCV 89.6, MCH 28.0 , MCHC 31.2 L, RDW 14.0, RDW Differential 45.7 H, Plt Count 215, MPV 9.2 Current Medications Acetaminophen (Tylenol) 650 mg PO Q6H PRN PRN PRN Reason: Mild Pain (scale 0-3)/T>100.7 Last Admin: 12/28/17 04:36 Dose: 650 mg Al Hydroxide/Mg Hydroxide (Mylanta Ii) 30 ml PO Q6H PRN PRN PRN Reason: Gastric burning Ascorbic Acid (Vitamin C) 500 mg PO DAILY@0800 [facility] Last Admin: 12/28/17 08:39 Dose: 500 mg Atorvastatin Calcium (Lipitor) 20 mg PO HS [facility] Last Admin: 12/27/17 22:20 Dose: 20 mg Calcium/Vitamin D (Os-Salty 500mg + D) 1 tablet PO BIDCM [facility] Last Admin: 12/28/17 08:39 Dose: 1 tablet Ferrous Sulfate (Ferrous Sulfate) 325 mg PO DAILY@0800 [facility] Last Admin: 12/28/17 08:39 Dose: 325 mg Heparin Sodium (Porcine) () 5,000 units SC BID [facility] Last Admin: 12/28/17 10:40 Dose: 5,000 units Hydroxyzine Pamoate (Vistaril) 50 mg PO DAILY PRN PRN PRN Reason: ITCHING Ceftriaxone Sodium (Rocephin) 1 gm in 50 mls @ 100 mls/hr IV Q24 [facility] Last Admin: 12/28/17 10:46 Dose: 100 mls/hr Sodium Chloride () 1,000 mls @ 100 mls/hr IV .Q10H [facility] Last Admin: 12/28/17 08:38 Dose: 100 mls/hr Magnesium Hydroxide (Milk Of Magnesia) 30 ml PO DAILY PRN PRN Reason: Constipation Methadone HCl () 10 mg PO Q6 [facility] Last Admin: 12/28/17 06:06 Dose: 10 mg Multivitamins/Minerals (Multivitamin With Minerals) 1 tablet PO DAILY@0800 [facility] Last Admin: 12/28/17 08:39 Dose: 1 tablet Pregabalin (Lyrica) 100 mg PO BID [facility] Last Admin: 12/28/17 10:46 Dose: 100 mg Promethazine HCl (Phenergan (Ll)) 12.5 mg IV Q6H PRN PRN PRN Reason: NAUSEA/VOMITING Psyllium Hydrophilic Mucilloid (Metamucil) 1 packet PO DAILY PRN PRN PRN Reason: CONSTIPATION Senna/Docusate Sodium (Senokot-S, Jade-Colace) 2 tablet PO BID [facility] Last Admin: 12/28/17 08:38 Dose: 2 tablet Sertraline HCl (Zoloft) 100 mg PO DAILY [facility] Last Admin: 12/28/17 10:41 Dose: 100 mg Sodium Chloride () 5 - 30 ml IV UD PRN PRN Reason: SALINE FLUSH Timolol Maleate (Timoptic) 1 drop EACH EYE BID [facility] Last Admin: 12/28/17 10:40 Dose: 1 drop Topiramate (Topamax) 25 mg PO DAILY [facility] Last Admin: 12/28/17 10:41 Dose: 25 mg Zolpidem Tartrate (Ambien (Generic)) 5 mg PO QHS PRN PRN PRN Reason: INSOMNIA Assessment/Plan Active and Suspected Problems (Last Updated 10/25/17 @ 16:34 by Noris Nunez) Hyperkalemia (Acute) Patient is a 72-year-old lady resident of an [facility] with multiple comorbidities who was brought to the emergency department with progressive generalized weakness and associated hypotension patient was found to have acute kidney injury, acute cystitis as well as hyperkalemia admitted to a monitored bed for further management 1. Acute cystitis patient with gram-negative organisms final identification and sensitivities pending patient is on Rocephin 2. Acute kidney injury patient has underlying history of chronic kidney disease stage III with baseline creatinine around 1.5. Started on IV hydration with monitoring of electrolyte. Patient was seen in consultation by Dr. Marlee Pearson with nephrology 3. Hyperkalemia secondary to #2 patient did receive treatment in the ED in addition to Kayexalate ordered serial BMPs to follow potassium levels which is already trending now hypokalemia resolved as of 12/28/2017 4. Chronic diastolic congestive heart failure currently compensated 5. Hypertension blood pressure stable at this point 6. Sjogren's syndrome by history 7. Rheumatoid Arthritis by history 8. GERD: Continue omeprazole 9. History of bilateral hip replacement 10. Dyslipidemia-patient is on statin therapy, continued at home dose 11. Chronic kidney disease stage III 12. History of paroxysmal A. fib status post ablation 13. History of DVT 14. Recent Trauma involving the right ankle imaging studies ordered with consultation placed to orthopedic surgery 15. DVT prophylaxis:SC Heparin Clinical Impression(s) from Imaging Studies Chest X-Ray 12/27/17 09:44 IMPRESSION: No acute abnormality is seen. Electronically Signed: Yony Bonds MD at 10:08 EDT Tel [phone], Service support , Ankle X-Ray 12/27/17 15:55 IMPRESSION: Question minimal lateral soft tissue prominence. There is no acute fracture or dislocation. There is interval healing of the fibular fracture noted on the previous study. Electronically Signed: Jatinder Hinkle DO at 16:47 EDT Tel [phone], Service support , Knee X-Ray 12/27/17 16:10 IMPRESSION: Stable degenerative changes right knee without acute fracture or dislocation. Electronically Signed: Jatinder Hinkle DO at 17:03 EDT Tel [phone], Service support , Code Visit Inpatient E&M: 29572 Subs Hosp L3
--- NOTE | 2017-12-28 12:03 | EKG12_ITS ---
Test Reason : ARRHYTHMIA Blood Pressure : / mmHG Vent. Rate : 070 BPM Atrial Rate : 326 BPM P-R Int : 000 ms QRS Dur : 078 ms QT Int : 426 ms P-R-T Axes : 000 000 -20 degrees QTc Int : 460 ms Atrial fibrillation Abnormal ECG When compared with ECG of 27-DEC-2017 09:49, MANUAL COMPARISON REQUIRED, DATA IS UNCONFIRMED Confirmed by MOODY VALVERDE ([id number]), acquisition editor AVEL REYES ([id number]) on 01/01/2018 2:49:42 PM Referred By: AVILA Confirmed By:MOODY VALVERDE
--- NOTE | 2017-12-28 15:25 | CASEMGMT ---
Social Work Met with pt in room and introduced self and role of SW. Pt states she is currently in skilled care at [facility] with plans to return home when therapy is complete. Pt plans to return to [place] when discharged from the hospital. With permission, phone call placed to pt jose Carrizales and she confirms plan is to return to [facility]. Phone call to Roseline at [facility]. Pt has placed a bed hold and they can accept back when medically stable. Clinical update faxed. SW will follow for SNF placement. Plan: [facility] when medically ready [place]
[2017-12-28 16:26] LABS: Urine Sodium 63 mmol/L (Not Establ.)
[2017-12-28] MEDS: Atorvastatin Calcium 20 MG Tablet PO (21:55)
[2017-12-29] VITALS (7 sets, daily range): BP systolic 129–136; BP diastolic 67–68; PULSE 50–53; RESP 10–14; TEMP 36.6–36.7; O2SAT 96–100
[2017-12-29 06:32] LABS: Anion Gap 7 (5-15); BUN 19 mg/dL (7-18); BUN/Creat Ratio 14.5 RATIO (10-20); Calcium,Total 7.9 mg/dL (8.5-10.1); Chloride 106 mmol/L (98-107); Creatinine, Serum 1.31 mg/dL (0.55-1.02); EST Glomerular Filtration Rate 42 mL/min (>60); Est Glom Filt Rate - Afr Amer 51 mL/min (>60); Estimated Creatinine Clearance 35.27 ml/min; Glucose 81 mg/dL (74-106); Potassium 3.9 mmol/L (3.5-5.1); Sodium Level 139 mmol/L (136-145)
[2017-12-29] MEDS: Methadone 10 MG Tablet PO ×2 (06:37→11:39)
[2017-12-29] MEDS: 0.9% Normal Saline 1,000 ML 100 ML IV (06:44)
[2017-12-29] MEDS: Ferrous Sulfate 325 MG Tablet PO (10:10)
[2017-12-29] MEDS: Heparin Injection 5,000 UNITS/ML Syringe 5000 UNITS SC (10:11)
[2017-12-29] MEDS: Calcium Carb/Vitamin D 1 TABLET Tablet PO (10:11)
[2017-12-29] MEDS: Multivitamins,Ther W-Minerals Tablet 1 TABLET PO (10:11)
[2017-12-29] MEDS: Ceftriaxone 1 GM/50 ML BAG IV (10:11)
[2017-12-29] MEDS: Ascorbic Acid 500 MG Tablet PO (10:11)
[2017-12-29] MEDS: Sertraline 100 MG Tablet PO (10:12)
[2017-12-29] MEDS: Timolol 0.5% 5ML OPTH.BTL 1 DRP EACH EYE (10:12)
[2017-12-29] MEDS: Topiramate 25 MG Tablet PO (10:12)
[2017-12-29] MEDS: Pregabalin 50 MG Capsule 100 MG PO (10:14)
--- NOTE | 2017-12-29 10:28 | TREXTCAR_ITS ---
- Diet 12/27/17 12:11 Diet: Cardiac/Low Cholesterol Food consistency:: Regular Liquid Consistency:: Regular/Thin - Routine Orders/Code Status Code Status: Full Code - Problem/Diagnosis (1) IBS (irritable bowel syndrome) Status: Chronic Current Visit: No (2) Metabolic acidosis Status: Chronic Current Visit: No (3) CKD (chronic kidney disease), stage III Status: Chronic Current Visit: No (4) Cephalalgia Status: Chronic Current Visit: No (5) Diastolic CHF Status: Chronic Current Visit: No (6) Dyslipidemia Status: Chronic Current Visit: No (7) Fibromyalgia Status: Chronic Current Visit: No (8) HTN (hypertension) Status: Chronic Current Visit: No (9) History of radiofrequency ablation (RFA) procedure for cardiac arrhythmia Status: Chronic Current Visit: No (10) Myocardial infarct, old Status: Chronic Current Visit: No (11) Osteoarthritis Status: Chronic Current Visit: No (12) Rheumatoid arthritis Status: Chronic Comment: on no medications for RA - diagnosed in [place] many years ago Current Visit: No (13) Sjogren's syndrome Status: Chronic Current Visit: No (14) history of PULMONARY EMBOLI Status: Chronic Current Visit: No (15) PUD (peptic ulcer disease) Status: Suspected Current Visit: No (16) UTI (urinary tract infection) Status: Acute Current Visit: No (17) Hyperkalemia Status: Acute Current Visit: Yes - Allergies/Procedures Done in Hospital Allergies/Adverse Reactions: Allergies acetaminophen [From Tylox] Allergy (Verified 08/20/17 11:47) Other amoxicillin Allergy (Verified 08/20/17 11:47) Hives ciprofloxacin [From Cipro] Allergy (Verified 08/20/17 11:46) Other ciprofloxacin HCl [From Cipro] Allergy (Verified 08/20/17 11:46) Other indomethacin Allergy (Verified 12/27/17 09:39) Unknown nortriptyline HCl [From Pamelor] Allergy (Verified 08/20/17 11:46) Unknown oxycodone [From Tylox] Allergy (Verified 08/20/17 11:47) Other Sulfa (Sulfonamide Antibiotics) Allergy (Verified 08/20/17 11:46) Unknown iodine Adverse Reaction (Verified 08/20/17 11:46) Itching nortriptyline [Nortriptyline] Adverse Reaction (Verified 08/20/17 11:46) Itching warfarin sodium [From Coumadin] Adverse Reaction (Verified 08/20/17 11:46) Itching - Type of Care/Length of Stay Estimated LOS: Convalescent Care Less Than 30 days Type of Care Needed: Skilled Rehab Potential: Fair Prognosis: Fair - Additional Orders/Day of Discharge Day of Discharge: 12/29/17 - Dietary and Speech Recommendations Dietitian Recommendations/Changes: Recommend liberalize diet to Low Sodium as PO intake compromised. - Follow Up Care Primary Care Physician: Abhijit Jett Chi, MD [Primary Care Provider] - Please follow up with your Primary Care Physician in: in 5-7 days
--- NOTE | 2017-12-29 10:36 | PCM.DC.SUM ---
Discharge Date and Diagnosis - Problem List Patient Problems: Active and Suspected Problems (Last Updated 10/25/17 @ 16:34 by Noris Nunez) Hyperkalemia (Acute) Date of Admission: 12/27/17 Date of Discharge: 12/29/17 - Primary Discharge Diagnosis Active and Suspected Problems (Last Updated 10/25/17 @ 16:34 by Noris Nunez) Hyperkalemia (Acute) - Secondary Discharge Diagnosis Chronic Problems (Last Updated 10/25/17 @ 16:34 by Noris Nunez) Fibromyalgia (Chronic) HTN (hypertension) (Chronic) Rheumatoid arthritis (Chronic) on no medications for RA - diagnosed in [place] many years ago Dyslipidemia (Chronic) Sjogren's syndrome (Chronic) Myocardial infarct, old (Chronic) CKD (chronic kidney disease), stage III (Chronic) history of PULMONARY EMBOLI (Chronic) Diastolic CHF (Chronic) Cephalalgia (Chronic) Metabolic acidosis (Chronic) IBS (irritable bowel syndrome) (Chronic) Osteoarthritis (Chronic) History of radiofrequency ablation (RFA) procedure for cardiac arrhythmia (Chronic) Hospital Course and Treatment Imaging Results: Clinical Impression(s) from Imaging Studies Chest X-Ray 12/27/17 09:44 IMPRESSION: No acute abnormality is seen. Electronically Signed: Yony Bonds MD at 10:08 EDT Tel [phone], Service support , Ankle X-Ray 12/27/17 15:55 IMPRESSION: Question minimal lateral soft tissue prominence. There is no acute fracture or dislocation. There is interval healing of the fibular fracture noted on the previous study. Electronically Signed: Jatinder Hinkle DO at 16:47 EDT Tel [phone], Service support , Knee X-Ray 12/27/17 16:10 IMPRESSION: Stable degenerative changes right knee without acute fracture or dislocation. Electronically Signed: Jatinder Hinkle DO at 17:03 EDT Tel [phone], Service support , Microbiology 12/27/17 10:38 Urine Catheter - Garcia Urine Culture - Final Klebsiella pneumoniae sp pneum Operations: None, - - Right hip hemiarthroplasty 09/07/13 Summary of Care Provided: Patient is a 72-year-old lady resident of an [facility] with multiple comorbidities who was brought to the emergency department with progressive generalized weakness and associated hypotension patient was found to have acute kidney injury, acute cystitis as well as hyperkalemia admitted to a monitored bed for further management 1. Acute cystitis patient with With Klebsiella pneumonia. Patient was treated with Rocephin and switched to Keflex on discharge 2. Acute kidney injury patient has underlying history of chronic kidney disease stage III with baseline creatinine around 1.5. Started on IV hydration with monitoring of electrolyte. Patient was seen in consultation by Dr. Marlee Pearson with nephrology 3. Hyperkalemia secondary to #2 patient did receive treatment in the ED in addition to Kayexalate ordered serial BMPs to follow potassium levels which is already trending now hypokalemia resolved as of 12/28/2017 4. Chronic diastolic congestive heart failure currently compensated 5. Hypertension blood pressure stable at this point 6. Sjogren's syndrome by history 7. Rheumatoid Arthritis by history 8. GERD: Continue omeprazole 9. History of bilateral hip replacement 10. Dyslipidemia-patient is on statin therapy, continued at home dose 11. Chronic kidney disease stage III 12. History of paroxysmal A. fib status post ablation 13. History of DVT 14. Recent Trauma involving the right ankle imaging studies ordered with consultation placed to orthopedic surgery 15. DVT prophylaxis:SC Heparin Discharge Diet: No Restrictions Home Medications: Medications to take at Discharge Alendronate Sodium [Fosamax] 70 mg PO QWEEK 11/21/17 Atorvastatin Calcium 20 mg PO DAILY 11/21/17 Hydroxyzine HCl 50 mg PO DAILY 11/21/17 Methadone HCl 10 mg PO TID 11/21/17 Multivit-Min/FA/Lycopen/Lutein [Centrum Silver Tablet] 1 each PO DAILY 11/21/17 Pregabalin [Lyrica] 100 mg PO BID 11/21/17 Sertraline HCl [Zoloft] 100 mg PO DAILY 11/21/17 Sumatriptan Succinate [Imitrex] 100 mg PO DAILY 11/21/17 Timolol 0.5% [Timoptic] 1 drop EACH EYE DAILY 11/21/17 Ascorbic Acid [Vitamin C] 500 mg PO BID 12/27/17 Calcium Carbonate/Vitamin D3 [Calcium 600 with Vit D Chew Tb] 1 each PO BID 12/27/17 Ferrous Sulfate 325 mg PO BID 12/27/17 Acetaminophen [Tylenol Tablet] 650 mg PO Q6H PRN PRN tablet 12/29/17 Cephalexin [Keflex] 500 mg PO Q12 #10 cap 12/29/17 Following Prescrptions Were Given to Patient: Cephalexin [Keflex] 500 mg PO Q12 #10 cap Primary Care Physician: Abhijit Jett Chi, MD [Primary Care Provider] - Please follow up with your Primary Care Physician in: in 5-7 days Disposition: [facility] facility Minutes spent on discharge:: 35 Patient Condition:: Stable Meaningful Use Info Meaningful Use Diagnoses (Choose all that apply): None applicable Code Visit Inpatient E&M: 45660 Disch Hosp Patient Problems: Active and Suspected Problems (Last Updated 10/25/17 @ 16:34 by Noris Nunez) Hyperkalemia (Acute) - Physical Exam General: Alert, No apparent distress HEENT: Atraumatic Lungs: Diminished Cardiovascular: Regular rate, Regular Rhythm Neurological: Neuro grossly intact Vital Signs Temp Pulse Resp BP Pulse Ox 97.8 F 51 L 14 136/68 H 97 12/29/17 10:07 12/29/17 10:07 12/29/17 10:07 12/29/17 10:07 12/29/17 10:07 Oxygen Flow Rate (L/min) 2 Oxygen Delivery Method Room Air Weight: 78.8 kg Body Mass Index (BMI) 27.9 Intake and Output for Last 24 Hours 12/27/17 12/28/17 12/29/17 23:59 23:59 23:59 Intake Total 1354 / 1354 2776 / 2776 575 / 575 Output Total 525 / 525 1055 / 1055 275 / 275 Balance 829 / 829 1721 / 1721 300 / 300 Laboratory Tests Past 24 Hrs 12/28/17 12/28/17 12/29/17 15:39 15:39 05:55 Sodium 139 Potassium 3.9 Chloride 106 Carbon Dioxide 26.0 Anion Gap 7 BUN 19 H Creatinine 1.31 H Estim Creat Clear Calc 35.27 Est GFR (MDRD) Af Amer 51 L Est GFR (MDRD) Non-Af 42 L BUN/Creatinine Ratio 14.5 Glucose 81 Calcium 7.9 L Ur Random Sodium 63 Urine Creatinine 85.80
--- NOTE | 2017-12-29 10:40 | DS.PCM_ITS ---
Discharge Date and Diagnosis - Problem List Patient Problems: Active and Suspected Problems (Last Updated 10/25/17 @ 16:34 by Noris Nunez) Hyperkalemia (Acute) Date of Admission: 12/27/17 Date of Discharge: 12/29/17 - Primary Discharge Diagnosis Active and Suspected Problems (Last Updated 10/25/17 @ 16:34 by Noris Nunez) Hyperkalemia (Acute) - Secondary Discharge Diagnosis Chronic Problems (Last Updated 10/25/17 @ 16:34 by Noris Nunez) Fibromyalgia (Chronic) HTN (hypertension) (Chronic) Rheumatoid arthritis (Chronic) on no medications for RA - diagnosed in [place] many years ago Dyslipidemia (Chronic) Sjogren's syndrome (Chronic) Myocardial infarct, old (Chronic) CKD (chronic kidney disease), stage III (Chronic) history of PULMONARY EMBOLI (Chronic) Diastolic CHF (Chronic) Cephalalgia (Chronic) Metabolic acidosis (Chronic) IBS (irritable bowel syndrome) (Chronic) Osteoarthritis (Chronic) History of radiofrequency ablation (RFA) procedure for cardiac arrhythmia ( Chronic) Hospital Course and Treatment Imaging Results: Clinical Impression(s) from Imaging Studies Chest X-Ray 12/27/17 09:44 IMPRESSION: No acute abnormality is seen. Electronically Signed: Yony Bonds MD at 10:08 EDT Tel [phone], Service support , Ankle X-Ray 12/27/17 15:55 IMPRESSION: Question minimal lateral soft tissue prominence. There is no acute fracture or dislocation. There is interval healing of the fibular fracture noted on the previous study. Electronically Signed: Jatinder Hinkle DO at 16:47 EDT Tel [phone], Service support , Knee X-Ray 12/27/17 16:10 IMPRESSION: Stable degenerative changes right knee without acute fracture or dislocation. Electronically Signed: Jatinder Hinkel DO at 17:03 EDT Tel [phone], Service support , Microbiology 12/27/17 10:38 Urine Catheter - Garcia Urine Culture - Final Klebsiella pneumoniae sp pneum Operations: None, - - Right hip hemiarthroplasty 09/07/13 Summary of Care Provided: Patient is a 72-year-old lady resident of an [facility] with multiple comorbidities who was brought to the emergency department with progressive generalized weakness and associated hypotension patient was found to have acute kidney injury, acute cystitis as well as hyperkalemia admitted to a monitored bed for further management 1. Acute cystitis patient with With Klebsiella pneumonia. Patient was treated with Rocephin and switched to Keflex on discharge 2. Acute kidney injury patient has underlying history of chronic kidney disease stage III with baseline creatinine around 1.5. Started on IV hydration with monitoring of electrolyte. Patient was seen in consultation by Dr. Marlee Pearson with nephrology 3. Hyperkalemia secondary to #2 patient did receive treatment in the ED in addition to Kayexalate ordered serial BMPs to follow potassium levels which is already trending now hypokalemia resolved as of 12/28/2017 4. Chronic diastolic congestive heart failure currently compensated 5. Hypertension blood pressure stable at this point 6. Sjogren's syndrome by history 7. Rheumatoid Arthritis by history 8. GERD: Continue omeprazole 9. History of bilateral hip replacement 10. Dyslipidemia-patient is on statin therapy, continued at home dose 11. Chronic kidney disease stage III 12. History of paroxysmal A. fib status post ablation 13. History of DVT 14. Recent Trauma involving the right ankle imaging studies ordered with consultation placed to orthopedic surgery 15. DVT prophylaxis:SC Heparin Discharge Diet: No Restrictions Home Medications: Medications to take at Discharge Alendronate Sodium [Fosamax] 70 mg PO QWEEK 11/21/17 Atorvastatin Calcium 20 mg PO DAILY 11/21/17 Hydroxyzine HCl 50 mg PO DAILY 11/21/17 Methadone HCl 10 mg PO TID 11/21/17 Multivit-Min/FA/Lycopen/Lutein [Centrum Silver Tablet] 1 each PO DAILY 11/21/17 Pregabalin [Lyrica] 100 mg PO BID 11/21/17 Sertraline HCl [Zoloft] 100 mg PO DAILY 11/21/17 Sumatriptan Succinate [Imitrex] 100 mg PO DAILY 11/21/17 Timolol 0.5% [Timoptic] 1 drop EACH EYE DAILY 11/21/17 Ascorbic Acid [Vitamin C] 500 mg PO BID 12/27/17 Calcium Carbonate/Vitamin D3 [Calcium 600 with Vit D Chew Tb] 1 each PO BID Ferrous Sulfate 325 mg PO BID 12/27/17 Acetaminophen [Tylenol Tablet] 650 mg PO Q6H PRN PRN tablet 12/29/17 Cephalexin [Keflex] 500 mg PO Q12 #10 cap 12/29/17 Following Prescrptions Were Given to Patient: Cephalexin [Keflex] 500 mg PO Q12 #10 cap Primary Care Physician: Abhijit Jett Chi, MD [Primary Care Provider] - Please follow up with your Primary Care Physician in: in 5-7 days Disposition: Care Home facility Minutes spent on discharge:: 35 Patient Condition:: Stable Meaningful Use Info Meaningful Use Diagnoses (Choose all that apply): None applicable Code Visit Inpatient E&M: 81181 Disch Hosp Patient Problems: Active and Suspected Problems (Last Updated 10/25/17 @ 16:34 by Noris Nunez) Hyperkalemia (Acute) - Physical Exam General: Alert, No apparent distress HEENT: Atraumatic Lungs: Diminished Cardiovascular: Regular rate, Regular Rhythm Neurological: Neuro grossly intact Vital Signs Temp Pulse Resp BP Pulse Ox 97.8 F 51 L 14 136/68 H 97 12/29/17 10:07 12/29/17 10:07 12/29/17 10:07 12/29/17 10:07 12/29/17 10:07 Oxygen Flow Rate (L/min) 2 Oxygen Delivery Method Room Air Weight: 78.8 kg Body Mass Index (BMI) 27.9 Intake and Output for Last 24 Hours 12/27/17 12/28/17 12/29/17 23:59 23:59 23:59 Intake Total 1354 / 1354 2776 / 2776 575 / 575 Output Total 525 / 525 1055 / 1055 275 / 275 Balance 829 / 829 1721 / 1721 300 / 300 Laboratory Tests Past 24 Hrs 12/28/17 12/28/17 12/29/17 15:39 15:39 05:55 Sodium 139 Potassium 3.9 Chloride 106 Carbon Dioxide 26.0 Anion Gap 7 BUN 19 H Creatinine 1.31 H Estim Creat Clear Calc 35.27 Est GFR (MDRD) Af Amer 51 L Est GFR (MDRD) Non-Af 42 L BUN/Creatinine Ratio 14.5 Glucose 81 Calcium 7.9 L Ur Random Sodium 63 Urine Creatinine 85.80
--- NOTE | 2017-12-29 11:17 | CASEMGMT ---
Patient is ready for d/c back to [facility]. YAHAIRA faxed orders to [facility]. Called [facility] and arranged for patient to get picked up at 145p via wc. YAHAIRA spoke with patient and let her know this information. YAHAIRA also told her that insurance does not pay for van and it would be around a $45 base fee and $4.50 per mile. She verbalized understanding. YAHAIRA notified RN, sales secretary, and notified Shannan at [facility] who will let Roseline know. Plan: d/c back to [facility] under skilled level of care. [facility] transported patient via wc van. Yee MIDDLETON
--- NOTE | 2017-12-29 11:18 | NURSING ---
report called to Yolanda GONZALEZ at [facility]
[2017-12-29 11:49] LABS: Hematocrit 33.8 % (37-47); Hemoglobin 10.5 g/dl (12.0-15.0); Mean Corp Hgb Conc 31.1 g/gl (32-36); Mean Corpuscular Hgb 28.3 pg (27.0-32.0); Mean Corpuscular Volume 91.1 fL (81-99); Mean Platelet Vol. 9.6 fl (6.2-12.0); Platelet Count 245 K/mm3 (150-450); RBC Distribution Width CV 13.9 % (11.6-14.6); RBC Distribution Width SD 45.3 fl (35.1-43.9); Red Blood Count 3.71 M/mm3 (4.2-5.4)
[2017-12-29 11:50] LABS: Scan Indicated on CBC? Y/N NO
--- NOTE | 2017-12-29 12:23 | PCM.PN.REN ---
Patient Problems: Active and Suspected Problems (Last Updated 10/25/17 @ 16:34 by Noris Nunez) Hyperkalemia (Acute) Subjective: feeling better, tolerating diet. Renal function and potassium improved. - Physical Exam Neck: Supple Lungs: Clear to auscultation Cardiovascular: Regular rate Abdomen: Bowel Sounds Present, Soft, Non Tender, Non-Distended Extremities: No edema Musculoskeletal: Muscle Wasting Neurological: Unsteady Gait Vital Signs Temp Pulse Resp BP Pulse Ox 97.8 F 53 L 14 136/68 H 97 12/29/17 10:07 12/29/17 11:00 12/29/17 10:07 12/29/17 10:07 12/29/17 10:07 Oxygen Flow Rate (L/min) 2 Oxygen Delivery Method Room Air Weight: 78.8 kg Body Mass Index (BMI) 27.9 Intake and Output for Last 24 Hours 12/27/17 12/28/17 12/29/17 23:59 23:59 23:59 Intake Total 1354 / 1354 2776 / 2776 1065 / 1065 Output Total 525 / 525 1055 / 1055 525 / 525 Balance 829 / 829 1721 / 1721 540 / 540 Laboratory Tests Past 24 Hrs 12/28/17 12/28/17 12/29/17 15:39 15:39 05:55 WBC RBC Hgb Hct MCV MCH MCHC RDW RDW Differential Plt Count MPV Sodium 139 Potassium 3.9 Chloride 106 Carbon Dioxide 26.0 Anion Gap 7 BUN 19 H Creatinine 1.31 H Estim Creat Clear Calc 35.27 Est GFR (MDRD) Af Amer 51 L Est GFR (MDRD) Non-Af 42 L BUN/Creatinine Ratio 14.5 Glucose 81 Calcium 7.9 L Ur Random Sodium 63 Urine Creatinine 85.80 12/29/17 10:55 WBC 10.0 RBC 3.71 L Hgb 10.5 L Hct 33.8 L MCV 91.1 MCH 28.3 MCHC 31.1 L RDW 13.9 RDW Differential 45.3 H Plt Count 245 MPV 9.6 Sodium Potassium Chloride Carbon Dioxide Anion Gap BUN Creatinine Estim Creat Clear Calc Est GFR (MDRD) Af Amer Est GFR (MDRD) Non-Af BUN/Creatinine Ratio Glucose Calcium Ur Random Sodium Urine Creatinine Assessment/Plan Active and Suspected Problems (Last Updated 10/25/17 @ 16:34 by Noris Nunez) Hyperkalemia (Acute) 1. Acute kidney injury due to prerenal event from hypotension, dehydration. Creatinine improved to 1.3 today. 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 2. Acute hypotension resolved with IV hydration. 3. Acute hyperkalemia resolved with medical management. 4. Leukocytosis improved with IV antibiotic therapy. DC back to ECF on keflex for Klebsiella UTI.
== END 2017-12-29 13:46 | disposition skilled nursing facility (03) | DRG 683 ==
LOC: ED 10:21 → PCU 11:54
PROVIDERS: Internal Medicine Nephrology; Admitting Provider Internal Medicine; Emergency Provider Emergency Medicine; Family Provider Family Medicine Geriatric Medicine; PCP Family Medicine Geriatric Medicine; Visit Provider Internal Medicine
DX: N17.9 Acute kidney failure, unspecified (principal); I13.0 Hypertensive heart and chronic kidney disease with heart failure and stage 1 through stage 4 chronic kidney disease, or unspecified chronic kidney disease; I50.32 Chronic diastolic (congestive) heart failure; N30.00 Acute cystitis without hematuria; I95.9 Hypotension, unspecified; E87.5 Hyperkalemia; R06.89 Other abnormalities of breathing; M35.00 Sjogren syndrome, unspecified; B96.1 Klebsiella pneumoniae [K. pneumoniae] as the cause of diseases classified elsewhere; E86.0 Dehydration; M06.9 Rheumatoid arthritis, unspecified; N18.3 Chronic kidney disease, stage 3 (moderate); R09.02 Hypoxemia; E78.5 Hyperlipidemia, unspecified; Z96.643 Presence of artificial hip joint, bilateral; M79.7 Fibromyalgia; K21.9 Gastro-esophageal reflux disease without esophagitis; Z87.891 Personal history of nicotine dependence; I25.2 Old myocardial infarction; Z79.899 Other long term (current) drug therapy
CPT/HCPCS: 36415; 51702; 71045; 73560; 73610; 80048; 80053; 81001; 82570; 83605; 84300; 85025; 85027; 85610; 85730; 87040; 87077; 87086; 87088; 87186; 93005; 94640; 97162; 97166; 99251; 99285; J7030; J7040; A4216; G0463; J0696; J3030

== ENCOUNTER 2018-01-14 04:22 | Inpatient (IN) | payer MEDICARE, OTHER, SELFPAY ==
[2018-01-14] VITALS (17 sets, daily range): BP systolic 114–153; BP diastolic 56–109; PULSE 48–130; RESP 10–20; TEMP 36.2–37.3; O2SAT 87–100; BMI 27.4; BMI 27.3
--- NOTE | 2018-01-14 04:25 | RAD_ITS ---
STUDY: X-RAY CHEST REASON FOR EXAM: Female, 72 years old. Confusion. Cough. TECHNIQUE: Single AP portable view of the chest. Patient is rotated to the left. COMPARISON: 12/27/2017. FINDINGS: There is mild chronic interstitial prominence in the lungs. Overlying mild CHF is thought to be likely. There is no demonstrated pleural abnormality. There is mild cardiac enlargement. Normal mediastinum and maged. Normal visualized pulmonary arteries. Normal visualized aortic arch and descending thoracic aorta. There is kyphoplasty cement overlying a thoracic vertebral body. Normal visualized ribs, clavicles, and shoulders. There is no demonstrated abnormality of the visualized soft tissue structures of the upper abdomen. RAD/Chest 1 View (Portable) IMPRESSION: Cardiomegaly with mild CHF, overlying more chronic interstitial lung disease. Electronically Signed: Keith Luna MD at 6:00 EDT , Service support ,
[2018-01-14 04:49] LABS: Bacteria 0 SEEN /hpf (None Seen); Mucous, Urine 0 SEEN /hpf (<or=2+); Red Blood Cells-Urine 0 SEEN /hpf (0-5); Squamous Epithelial Cells - UA 0 SEEN /hpf (5-10)
[2018-01-14] MEDS: LORazepam 2 MG/ML Syringe 1 MG IV ×2 (04:51→23:29)
[2018-01-14] MEDS: 0.9% Normal Saline 1,000 ML 1000 ML IV (04:53)
[2018-01-14 04:56] LABS: Color, Urine Yellow (Yellow); Glucose, Dipstick Normal (Normal); Ketone-Dipstick Negative (Negative); Leukocyte Esterase-Dipstick 500 /ul (Negative); Nitrite-Dipstick Negative (Negative); Occult Blood-Urine Negative /ul (Negative); Protein-Dipstick Negative (Negative); Urine Bilirubin Dipstick Negative (Negative); Urine Clarity Sl. Cloudy (Clear); Urine Urobilinogen Normal (Normal)
[2018-01-14 05:02] LABS: White Blood Cells 5-10 SEEN /hpf (0-5)
[2018-01-14 05:32] LABS: Absolute Neutrophil Count 10.2 X10^3/uL (2.0-7.7); Basophil# 0.02 X10^3/uL; Basophil% 0.2 % (0-1); Eosinophil# 0.04 X10^3/uL; Eosinophils% 0.3 % (0-5); Hematocrit 40.4 % (37-47); Hemoglobin 12.3 g/dl (12.0-15.0); Lymphocyte % 13.4 % (19-41); Mean Corp Hgb Conc 30.4 g/gl (32-36); Mean Corpuscular Hgb 28.4 pg (27.0-32.0); Mean Corpuscular Volume 93.3 fL (81-99); Mean Platelet Vol. 10.2 fl (6.2-12.0); Monocyte# 0.78 X10^3/uL; Monocyte% 6.1 % (0-10); Neutrophil # 10.17 X10^3/uL (2.7-7.7); Neutrophil % 79.8 % (47-70); Platelet Count 276 K/mm3 (150-450); RBC Distribution Width CV 13.9 % (11.6-14.6); RBC Distribution Width SD 45.5 fl (35.1-43.9); Red Blood Count 4.33 M/mm3 (4.2-5.4); White Blood Count 12.7 K/mm3 (4.4-11.0)
[2018-01-14 05:39] LABS: POSITIVE COUNT NO; POSITIVE DIFFERENTIAL NO; POSITIVE MORPHOLOGY NO
--- NOTE | 2018-01-14 05:51 | ED.VISSUMM ---
- ER Visit Summary Date of Service: 01/14/18 Chief Complaint: [] Confusion, UTI History of Present Illness: The patient is a 72 F [] presents via EMS from a assisted facility after change in mental status and delirium after being treated with intramuscular Rocephin for a reported UTI. History is limited secondary to the patient's change in mental status. According to assisted facility staff the patient is typically alert and oriented ?3. She presents screaming nonsensical statements. We were provided laboratory work and x-ray reading from recently done testing that indicated a urine tract infection and a right lower lobe infiltrates. It appears the patient was treated only for the urinary tract infection. Family member at the bedside reports that she is the power of regulatory attorney and reports that the patient is DNR-CCA. Physical Examination: [] Elderly female in no acute distress with obvious delirium. Cardiovascular exam is regular rate and rhythm. Lungs are clear to auscultation with diminished breath sounds at the bases. Abdomen is soft and nontender. No lower extremity edema. Test Results: [] Chest x-ray: Labs: Emergency Department Course and Treatment: [] After patient's diagnostic and laboratory testing was both reviewed and repeated patient was treated with intravenous vancomycin and intravenous meropenem for healthcare associated pneumonia and urinary tract infection. Treatment Plan: [] Intravenous antibiotics, admission, observation. Disposition: [] Admit, medical floor. Stable. Impression: [] Delirium Healthcare associated pneumonia UTI This note was generated with [employer] dictation software. It may contain incorrect words, spelling, and punctuation that were not noted in review of the chart prior to signing ED Disposition - Plan for ED Patient: Chief Complaint: Confusion Referrals: Pebbles Weiss MD [Primary Care Provider] -
[2018-01-14 05:54] LABS: ALB/GLOB Ratio 0.8 RATIO (0.9-2.4); AST(SGOT) 18 U/L (15-37); Alanine Aminotransfer ALT/SGPT 19 U/L (13-56); Albumin, Serum 3.3 g/dL (3.2-5.0); Alkaline Phosphatase 130 U/L (45-117); Anion Gap 5 (5-15); BUN 14 mg/dL (7-18); BUN/Creat Ratio 11.5 RATIO (10-20); Chloride 102 mmol/L (98-107); Creatinine, Serum 1.22 mg/dL (0.55-1.02); EST Glomerular Filtration Rate 46 mL/min (>60); Est Glom Filt Rate - Afr Amer 55 mL/min (>60); Estimated Creatinine Clearance 39.34 ml/min; Globulin 4.2 g/dL (2.2-4.2); Glucose 91 mg/dL (74-106); Potassium 4.9 mmol/L (3.5-5.1); Protein, Total 7.5 g/dL (6.4-8.2); Sodium Level 138 mmol/L (136-145)
--- NOTE | 2018-01-14 05:54 | ED.DCSUM_ITS ---
- ER Visit Summary Date of Service: 01/14/18 Chief Complaint: [] Confusion, UTI History of Present Illness: The patient is a 72 F [] presents via EMS from a nursing home facility after change in mental status and delirium after being treated with intramuscular Rocephin for a reported UTI. History is limited secondary to the patient's change in mental status. According to nursing home facility staff the patient is typically alert and oriented ?3. She presents screaming nonsensical statements. We were provided laboratory work and x-ray reading from recently done testing that indicated a urine tract infection and a right lower lobe infiltrates. It appears the patient was treated only for the urinary tract infection. Family member at the bedside reports that she is the power of civil attorney and reports that the patient is DNR- CCA. Physical Examination: [] Elderly female in no acute distress with obvious delirium. Cardiovascular exam is regular rate and rhythm. Lungs are clear to auscultation with diminished breath sounds at the bases. Abdomen is soft and nontender. No lower extremity edema. Test Results: [] Chest x-ray: Labs: Emergency Department Course and Treatment: [] After patient's diagnostic and laboratory testing was both reviewed and repeated patient was treated with intravenous vancomycin and intravenous meropenem for healthcare associated pneumonia and urinary tract infection. Treatment Plan: [] Intravenous antibiotics, admission, observation. Disposition: [] Admit, medical floor. Stable. Impression: [] Delirium Healthcare associated pneumonia UTI This note was generated with [employer] dictation software. It may contain incorrect words, spelling, and punctuation that were not noted in review of the chart prior to signing ED Disposition - Plan for ED Patient: Chief Complaint: Confusion Referrals: Pebbles Weiss MD [Primary Care Provider] -
--- NOTE | 2018-01-14 06:58 | HP.PCM_ITS ---
Problem List (1) HCAP (healthcare-associated pneumonia) Status: Acute (2) UTI (urinary tract infection) Status: Acute (3) Altered mental state Status: Acute (4) CKD (chronic kidney disease), stage III Status: Chronic (5) Diastolic CHF Status: Chronic (6) Dyslipidemia Status: Chronic (7) Fibromyalgia Status: Chronic (8) HTN (hypertension) Status: Chronic (9) Rheumatoid arthritis Status: Chronic Comment: on no medications for RA - diagnosed in [place] many years ago (10) Sjogren's syndrome Status: Chronic History of Present Illness Date of Admission: 01/14/18 Chief Complaint: HCAP The patient is a 72 year old female w/ h/o dementia, chronic diastolic heart failure, HTN, and sjogren's syndrome admitted for HCAP. Pt is a poor historian and unable to provide history. Per report, she was alert and orientated x 3. She had n/v 2 days ago and nothing appeared to make it better or worse. She had UTI prior and was treated with ceftriaxone IM. However today, she was brought into the ED screaming nonsensical statement. Past Medical History Past Medical History (Chronic Problems): Chronic Problems (Last Updated 10/25/17 @ 16:34 by Noris Nunez) Fibromyalgia (Chronic) HTN (hypertension) (Chronic) Rheumatoid arthritis (Chronic) on no medications for RA - diagnosed in [place] many years ago Dyslipidemia (Chronic) Sjogren's syndrome (Chronic) Myocardial infarct, old (Chronic) CKD (chronic kidney disease), stage III (Chronic) history of PULMONARY EMBOLI (Chronic) Diastolic CHF (Chronic) Cephalalgia (Chronic) Metabolic acidosis (Chronic) IBS (irritable bowel syndrome) (Chronic) Osteoarthritis (Chronic) History of radiofrequency ablation (RFA) procedure for cardiac arrhythmia ( Chronic) Allergies acetaminophen [From Tylox] Allergy (Verified 08/20/17 11:47) Other amoxicillin Allergy (Verified 08/20/17 11:47) Hives ciprofloxacin [From Cipro] Allergy (Verified 08/20/17 11:46) Other ciprofloxacin HCl [From Cipro] Allergy (Verified 08/20/17 11:46) Other indomethacin Allergy (Verified 12/27/17 09:39) Unknown nortriptyline HCl [From Pamelor] Allergy (Verified 08/20/17 11:46) Unknown oxycodone [From Tylox] Allergy (Verified 08/20/17 11:47) Other Sulfa (Sulfonamide Antibiotics) Allergy (Verified 08/20/17 11:46) Unknown warfarin [From Coumadin] Allergy (Verified 01/14/18 04:46) Unknown iodine Adverse Reaction (Verified 08/20/17 11:46) Itching nortriptyline [Nortriptyline] Adverse Reaction (Verified 08/20/17 11:46) Itching warfarin sodium [From Coumadin] Adverse Reaction (Verified 08/20/17 11:46) Itching Home Medications: Ambulatory Orders Medication Instructions Recorded Acetaminophen [Tylenol Extra 500 mg PO Q4H PRN 01/14/18 Strength] Alendronate Sodium 70 mg PO QWEEK 01/14/18 Ascorbic Acid [Vitamin C] 500 mg PO BIDCM 01/14/18 Atorvastatin Calcium [Lipitor] 20 mg PO DAILY 01/14/18 Calcium Carbonate/Vitamin D3 1 each PO BID 01/14/18 [Calcium 600-Vit D3 400 Tablet] Ceftriaxone [Rocephin] 1 gm IM DAILY 01/14/18 Cholecalciferol (Vitamin D3) 1,000 unit PO DAILY 01/14/18 [Vitamin D3] Ferrous Sulfate 325 mg PO BID 01/14/18 Furosemide [Lasix] 20 mg PO DAILY 01/14/18 Hydroxyzine HCl 50 mg PO DAILY 01/14/18 Mag Hydrox/Al Hydrox/Simeth 30 ml PO Q4H PRN PRN 01/14/18 [Mylanta II] Methadone HCl [(None)] 10 mg PO TID 01/14/18 Multivitamins,Therapeutic 1 tablet PO DAILY 01/14/18 [Multivitamin] Ondansetron [Zofran Odt] 4 mg PO Q6H PRN 01/14/18 Oxycodone HCl [Roxicodone] 5 mg PO Q8H PRN 01/14/18 Pregabalin [Lyrica] 100 mg PO BID 01/14/18 Rulox 30 ml PO Q4H PRN 01/14/18 Sertraline HCl [Zoloft] 100 mg PO DAILY 01/14/18 Sumatriptan Succinate [Imitrex] 100 mg PO DAILY 01/14/18 Timolol 0.5% [Timoptic] 1 drop EACH EYE DAILY 01/14/18 Surgical History: angioplasty - pt denies this - she says that she only had an ablation and she does not have any hx of CAD., appendectomy, hysterectomy, total hip arthroplasty - recent right hip replacement, tonsillectomy, - - craniotomy to remove blood clots after a fall. Smoking Status: Unknown if ever smoked - *Family History Sibling History Items: COPD Maternal History Items: No pertinent history, - Review of Systems Unable to obtain accurate/complete ROS d/t: Unable to obtain secondary to dementia VTE Information - Inpt Only VTE Present on Admission: No VTE Mechan Device Prophylaxis: SCD's VTE Pharm Prophylaxis ordered?: Yes Patient Problems: Active and Suspected Problems (Last Updated 10/25/17 @ 16:34 by Noris Nunez) HCAP (healthcare-associated pneumonia) (Acute) UTI (urinary tract infection) (Acute) Altered mental state (Acute) - Physical Exam General: Confused, Disoriented, Lethargic HEENT: Atraumatic, PERRLA, EOMI, Normocephalic Neck: Supple, No JVD, Negative Carotid Bruits Lungs: Clear to auscultation, Normal air movement Cardiovascular: Regular rate, No murmurs Abdomen: Bowel Sounds Present, Soft, Non Tender Extremities: No edema, Capillary Refill Less than 3 Seconds Skin: No rashes, No breakdown Musculoskeletal: No Tenderness to Palpation of Joints or Extremities Neurological: Cranial nerves II-XII grossly intact Psych/Mental Status: Normal Affect, Appropriate Vital Signs Temp Pulse Resp BP Pulse Ox 98.4 F 70 15 144/64 H 99 01/14/18 05:58 01/14/18 06:28 01/14/18 06:28 01/14/18 06:28 01/14/18 06:28 Oxygen Flow Rate (L/min) 2 Oxygen Delivery Method Nasal Cannula Weight: 79.6 kg Body Mass Index (BMI) 27.4 Finger Stick Blood Glucose 107 Laboratory Tests Past 24 Hrs 01/14/18 01/14/18 01/14/18 03:08 03:08 04:35 WBC 12.7 H RBC 4.33 Hgb 12.3 Hct 40.4 MCV 93.3 MCH 28.4 MCHC 30.4 L RDW 13.9 RDW Differential 45.5 H Plt Count 276 MPV 10.2 Immature Gran % (Auto) 0.200 Neut % (Auto) 79.8 H Lymph % (Auto) 13.4 L [place] % (Auto) 6.1 Eos % (Auto) 0.3 Baso % (Auto) 0.2 Absolute Neuts (auto) 10.2 H Absolute Lymphs (auto) 1.70 Total Counted Not Reportable Sodium 138 Potassium 4.9 Chloride 102 Carbon Dioxide 31.0 Anion Gap 5 BUN 14 Creatinine 1.22 H Estim Creat Clear Calc 39.34 Est GFR (MDRD) Af Amer 55 L Est GFR (MDRD) Non-Af 46 L BUN/Creatinine Ratio 11.5 Glucose 91 Calcium 9.0 Total Bilirubin 0.40 AST 18 ALT 19 Alkaline Phosphatase 130 H Troponin I < 0.02 Total Protein 7.5 Albumin 3.3 Globulin 4.2 Albumin/Globulin Ratio 0.8 L Urine Color Yellow Urine Clarity Sl. Cloudy Urine pH 6.0 Ur Specific [place] 1.020 Urine Protein Negative Urine Glucose (UA) Normal Urine Ketones Negative Urine Occult Blood Negative Urine Nitrite Negative Urine Bilirubin Negative Urine Urobilinogen Normal Ur Leukocyte Esterase 500 H Urine RBC 0 SEEN Urine WBC 5-10 SEEN Ur Squamous Epith Cells 0 SEEN Urine Bacteria 0 SEEN Urine Mucus 0 SEEN Assessment/Plan Active and Suspected Problems (Last Updated 10/25/17 @ 16:34 by Noris Nunez) HCAP (healthcare-associated pneumonia) (Acute) UTI (urinary tract infection) (Acute) Altered mental state (Acute) 72 year old female w/ h/o dementia, chronic diastolic heart failure, HTN, and sjogren's syndrome admitted for HCAP. 1) HCAP: Chest xray disclosed cardiomegaly with mild CHF, overlying more chronic interstitial lung disease. Possible right lower lobe infiltrate. No cough or SOB noted. Will get cultures. C/w zosyn and vanco. 2) Chronic diastolic heart failure: No acute exacerbation. Will give a spot dose lasix 40mg IV x 1 given probably congest ion on xray. Resume home meds. 3) UTI: C/w zosyn and vanco. Cultures pending. 4) Metabolic encephalopathy: Most likely secondary to infection. Will consider further workup, ie ammonia, TSH, cortisol, RPR, B12 if no improvement within the next 24-48hrs. Pt on high dose sedative meds. Will hold sedative meds. Supportive care. 5) Prophylaxis: Heparin / SCD. 6) DNR-CCA
[2018-01-14] MEDS: Furosemide 40 MG/4 ML Vial IV (08:06)
--- NOTE | 2018-01-14 11:01 | NURSING ---
Pt's niece who is POA, called in for update on pt at this time. Sofie gave cell phone number she can be reached on- [phone]
[2018-01-14] MEDS: Dext 5%-0.45% NS 1,000 ML 75 ML IV (12:50)
[2018-01-14] MEDS: Timolol 0.5% 5ML OPTH.BTL 1 DRP EACH EYE (13:00)
[2018-01-14] MEDS: Heparin Injection 5,000 UNITS/ML Syringe 5000 UNITS SC ×2 (13:00→22:27)
--- NOTE | 2018-01-14 14:46 | PCM.HOSP.N ---
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 Patient has history of paroxysmal A. fib status post radiofrequency ablation. secured entrance monitor shows A. fib with RVR, heart rate 110- 120/min; started on Lopressor 2.5 mg every 6 hourly as needed for heart rate more than 120/min. She is sedated with 1 mg of IV Ativan received transformer repairer today. Avoid benzodiazepines. The patient is admitted with right lower lobe healthcare acid pneumonia with chronic interstitial lung disease. On vancomycin and Zosyn. MRSA nasal screen ordered. Patient has multiple comorbidities including chronic diastolic heart failure, proximal A. fib, fibromyalgia and rheumatoid arthritis and Sjogren's syndrome Microbiology Past 72 Hours 01/14/18 08:05 Interface Orders Influenza Types A,B Direct FA (THAI) - Final 01/14/18 04:45 Urine Catheter - Garcia Streptococcus pneumoniae Antigen (M - Final 01/14/18 04:35 Urine Catheter - Catheter Legionella Antigen - Final Laboratory Results 01/14/18 03:08: WBC 12.7 H, RBC 4.33, Hgb 12.3, Hct 40.4, MCV 93.3, MCH 28.4, MCHC 30.4 L, RDW 13.9, RDW Differential 45.5 H, Plt Count 276, MPV 10.2, Immature Gran % (Auto) 0.200, Neut % (Auto) 79.8 H, Lymph % (Auto) 13.4 L, [place] % (Auto) 6.1, Eos % (Auto) 0.3, Baso % (Auto) 0.2, Absolute Neuts (auto) 10.2 H, Absolute Lymphs (auto) 1.70, Total Counted Not Reportable 01/14/18 03:08: Sodium 138, Potassium 4.9, Chloride 102, Carbon Dioxide 31.0, Anion Gap 5, BUN 14, Creatinine 1.22 H, Estim Creat Clear Calc 39.34, Est GFR (MDRD) Af Amer 55 L, Est GFR (MDRD) Non-Af 46 L, BUN/Creatinine Ratio 11.5, Glucose 91, Calcium 9.0, Total Bilirubin 0.40, AST 18, ALT 19, Alkaline Phosphatase 130 H, Troponin I < 0.02, Total Protein 7.5, Albumin 3.3, Globulin 4.2, Albumin/Globulin Ratio 0.8 L 01/14/18 04:35: Urine Color Yellow, Urine Clarity Sl. Cloudy, Urine pH 6.0, Ur Specific [place] 1.020, Urine Protein Negative, Urine Glucose (UA) Normal, Urine Ketones Negative, Urine Occult Blood Negative, Urine Nitrite Negative, Urine Bilirubin Negative, Urine Urobilinogen Normal, Ur Leukocyte Esterase 500 H, Urine RBC 0 SEEN, Urine WBC 5-10 SEEN, Ur Squamous Epith Cells 0 SEEN, Urine Bacteria 0 SEEN, Urine Mucus 0 SEEN 01/14/18 10:25: MRSA (PCR) Pending Clinical Impression(s) from Imaging Studies Chest X-Ray 01/14/18 04:25 IMPRESSION: Cardiomegaly with mild CHF, overlying more chronic interstitial lung disease. Electronically Signed: Keith Luna MD at 6:00 EDT , Service support ,
--- NOTE | 2018-01-14 14:50 | CCHN_ITS ---
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 Patient has history of paroxysmal A. fib status post radiofrequency ablation. program developer shows A. fib with RVR, heart rate 110- 120/min; started on Lopressor 2.5 mg every 6 hourly as needed for heart rate more than 120/min. She is sedated with 1 mg of IV Ativan received baggage checker today. Avoid benzodiazepines. The patient is admitted with right lower lobe healthcare acid pneumonia with chronic interstitial lung disease. On vancomycin and Zosyn. MRSA nasal screen ordered. Patient has multiple comorbidities including chronic diastolic heart failure, proximal A. fib, fibromyalgia and rheumatoid arthritis and Sjogren's syndrome Microbiology Past 72 Hours 01/14/18 08:05 Interface Orders Influenza Types A,B Direct FA (THAI) - Final 01/14/18 04:45 Urine Catheter - Garcia Streptococcus pneumoniae Antigen (M - Final 01/14/18 04:35 Urine Catheter - Catheter Legionella Antigen - Final Laboratory Results 01/14/18 03:08: WBC 12.7 H, RBC 4.33, Hgb 12.3, Hct 40.4, MCV 93.3, MCH 28.4, MCHC 30.4 L, RDW 13.9, RDW Differential 45.5 H, Plt Count 276, MPV 10.2, Immature Gran % (Auto) 0.200, Neut % (Auto) 79.8 H, Lymph % (Auto) 13.4 L, [place] % (Auto) 6.1, Eos % (Auto) 0.3, Baso % (Auto) 0.2, Absolute Neuts (auto) 10.2 H , Absolute Lymphs (auto) 1.70, Total Counted Not Reportable 01/14/18 03:08: Sodium 138, Potassium 4.9, Chloride 102, Carbon Dioxide 31.0, Anion Gap 5, BUN 14, Creatinine 1.22 H, Estim Creat Clear Calc 39.34, Est GFR ( MDRD) Af Amer 55 L, Est GFR (MDRD) Non-Af 46 L, BUN/Creatinine Ratio 11.5, Glucose 91, Calcium 9.0, Total Bilirubin 0.40, AST 18, ALT 19, Alkaline Phosphatase 130 H, Troponin I < 0.02, Total Protein 7.5, Albumin 3.3, Globulin 4.2, Albumin/Globulin Ratio 0.8 L 01/14/18 04:35: Urine Color Yellow, Urine Clarity Sl. Cloudy, Urine pH 6.0, Ur Specific [place] 1.020, Urine Protein Negative, Urine Glucose (UA) Normal, Urine Ketones Negative, Urine Occult Blood Negative, Urine Nitrite Negative, Urine Bilirubin Negative, Urine Urobilinogen Normal, Ur Leukocyte Esterase 500 H , Urine RBC 0 SEEN, Urine WBC 5-10 SEEN, Ur Squamous Epith Cells 0 SEEN, Urine Bacteria 0 SEEN, Urine Mucus 0 SEEN 01/14/18 10:25: MRSA (PCR) Pending Clinical Impression(s) from Imaging Studies Chest X-Ray 01/14/18 04:25 IMPRESSION: Cardiomegaly with mild CHF, overlying more chronic interstitial lung disease. Electronically Signed: Keith Luna MD at 6:00 EDT , Service support ,
--- NOTE | 2018-01-14 15:09 | NURSING ---
Pt's VERNON Carrizales called in at this time to check on pt's status. Discussed pt's current vital signs and resting state. Discussed with Sofie pt's code status of [id number] and what that means; she states she was in the ER last night when the pt was admitted and she understands.
--- NOTE | 2018-01-14 15:41 | PCM.RX.CS ---
Consult Pharmacy has been consulted to manage selected antiobiotic: Vancomycin Type of Consult: New start Suspected Infection: Pneumonia Prior Doses of Antibiotics Received/Current Regimen: Received vancomycin 1000mg IV in ED on 01/14/18 at 06:40 Labs: Sodium 138 mmol/L (136-145) 01/14/18 03:08 Potassium 4.9 mmol/L (3.5-5.1) 01/14/18 03:08 Chloride 102 mmol/L (98-107) 01/14/18 03:08 Carbon Dioxide 31.0 mmol/L (21.0-32.0) 01/14/18 03:08 Anion Gap 5 (5-15) 01/14/18 03:08 BUN 14 mg/dL (7-18) 01/14/18 03:08 Creatinine 1.22 mg/dL (0.55-1.02) H 01/14/18 03:08 Est GFR (MDRD) Af Amer 55 mL/min (>60) L 01/14/18 03:08 Est GFR (MDRD) Non-Af 46 mL/min (>60) L 01/14/18 03:08 BUN/Creatinine Ratio 11.5 RATIO (10-20) 01/14/18 03:08 Glucose 91 mg/dL (74-106) 01/14/18 03:08 Microbiology: Microbiology 01/14/18 08:05 Interface Orders Influenza Types A,B Direct FA (THAI) - Final Weight used for dosin.6 kg Estimated Creatinine Clearance: 39 ml/min Goal Trough: 15-20 mcg/mL Pharmacy Plan for Drug Dosing: Will dose vancomycin at 1250mg IV q24h to start on 01/15/18 at 04:00. Pharmacy Service will continue to monitor and adjust dosing as required. Follow-Up Labs: Trough Vancomycin Labs to be done on [date and time ordered]: 01/17/18 at 03:30
[2018-01-14 16:08] LABS: M R Staph aureus DNA By PCR Negative (Negative); Probe Check PASS; Specimen Processing Control PASS
--- NOTE | 2018-01-14 22:30 | NURSING ---
pt oriented to self but unable to answer any other questions. pt calling out for didi Pintou. Asking for people to take her out of here. pt does not acknowledge staff talking to her and continues to move around in bed and having rambling.
[2018-01-14] MEDS: 0.9% NaCl Peripheral Flush Adult/Peds IV (23:29)
[2018-01-15] VITALS: PULSE 80
--- NOTE | 2018-01-15 03:34 | NURSING ---
Sofie JUNIOR, called in to check on pt. She states that normally she is pretty independent unless she gets a UTI then she talks out of head. She asked if we had given Ativan. I advised her that we had and would probably be giving her some more. She was at work at this time but states she gets off at 1400 and will be in to see pt.
[2018-01-15 04:00] VITALS: PULSE 76
[2018-01-15] MEDS: LORazepam 2 MG/ML Syringe 1 MG IV ×4 (04:04→23:07)
[2018-01-15] MEDS: Dext 5%-0.45% NS 1,000 ML 75 ML IV ×2 (04:04→14:29)
[2018-01-15 04:06] VITALS: BP 138/71; PULSE 90; RESP 20; TEMP 37.3; O2SAT 96
--- NOTE | 2018-01-15 04:11 | NURSING ---
Pt restless and became combative and spitting when RN attempted care. Additional staff came to assist with providing care. Also pt pulled out Garcia.
--- NOTE | 2018-01-15 05:59 | RAD_ITS ---
STUDY: X-RAY CHEST REASON FOR EXAM: Female, 72 years old. Dyspnea TECHNIQUE: Frontal and lateral views of the chest. COMPARISON: Jan 14 2018 4:52am FINDINGS: Subsegmental atelectasis are noted in the right and left lung bases. Ill-defined groundglass opacities are seen in the right lower lung upper lobe and left lung lower lobe may represent bilateral pneumonia. Increased interstitial markings are seen in lung bases may represent chronic interstitial lung disease. There is no demonstrated pleural abnormality. Normal size heart. Normal mediastinum and maged. Normal visualized pulmonary arteries. Normal visualized aortic arch and descending thoracic aorta. Normal visualized thoracic spine. Normal visualized ribs, clavicles, and shoulders. There is no demonstrated abnormality of the visualized soft tissue structures of the upper abdomen. RAD/Chest PA and Lateral IMPRESSION: Chronic interstitial lung disease. Bilateral pneumonia. Electronically Signed: Aditya Pizarro MD at 9:47 EDT Tel , Service support ,
[2018-01-15] MEDS: Heparin Injection 5,000 UNITS/ML Syringe 5000 UNITS SC ×2 (06:05→23:11)
[2018-01-15 06:29] LABS: Anion Gap 9 (5-15); BUN 12 mg/dL (7-18); BUN/Creat Ratio 10.5 RATIO (10-20); Calcium,Total 8.7 mg/dL (8.5-10.1); Chloride 98 mmol/L (98-107); Creatinine, Serum 1.14 mg/dL (0.55-1.02); EST Glomerular Filtration Rate 50 mL/min (>60); Est Glom Filt Rate - Afr Amer 60 mL/min (>60); Estimated Creatinine Clearance 40.53 ml/min; Glucose 78 mg/dL (74-106); Potassium 3.9 mmol/L (3.5-5.1); Sodium Level 135 mmol/L (136-145)
[2018-01-15 06:47] LABS: Absolute Lymphocyte Count 2.95 X10^3/ul (0.83-4.51); Basophil# 0.03 X10^3/uL; Basophil% 0.3 % (0-1); Eosinophil# 0.13 X10^3/uL; Eosinophils% 1.2 % (0-5); Hematocrit 36.6 % (37-47); Hemoglobin 11.3 g/dl (12.0-15.0); Lymphocyte # 2.95 X10^3/ul (4.0); Lymphocyte % 26.6 % (19-41); Mean Corp Hgb Conc 30.9 g/gl (32-36); Mean Corpuscular Volume 90.6 fL (81-99); Mean Platelet Vol. 10.8 fl (6.2-12.0); Monocyte# 0.96 X10^3/uL; Monocyte% 8.7 % (0-10); Neutrophil # 6.98 X10^3/uL (2.7-7.7); POSITIVE COUNT NO; POSITIVE DIFFERENTIAL NO; POSITIVE MORPHOLOGY NO; Platelet Count 283 K/mm3 (150-450); RBC Distribution Width CV 13.2 % (11.6-14.6); RBC Distribution Width SD 42.6 fl (35.1-43.9); Red Blood Count 4.04 M/mm3 (4.2-5.4); White Blood Count 11.1 K/mm3 (4.4-11.0)
[2018-01-15 08:05] VITALS: PULSE 73
--- NOTE | 2018-01-15 08:36 | NURSING ---
pt found naked in bed, anxious,mumbling thats not my gun, thats not my dog unable to answer simple questions, unable to express needs, refuses to eat or take meds, restless and picking at self-medicated with ativan for anxiety-bed exit is set-Dr Rawls informed pt is refusing po intake including her meds
[2018-01-15 10:00] VITALS: BP 132/81; PULSE 99; RESP 18; TEMP 36.7; O2SAT 97
--- NOTE | 2018-01-15 10:22 | NURSING ---
PT CONTINUES TO UNDRESS, PULLING EKG ELECTRODES OFF, PT HAS RIPPED OUT HER IV ON L FA, BED EXIT IS SET-PT ALSO CONTINUES TO FORM SPIT ON LIPS AND SPIT AT STAFF-PT ASKED NOT TO SPIT AT STAFF BUT WILL NOT STOP
--- NOTE | 2018-01-15 11:17 | NURSING ---
ATTEMPT TO REORIENT PT TO HOSPITAL SETTING, PT STATES YA, I M HERE TO SEE MY SISTER-TOLD MOVIE ACTOR WHO WAS ASSISTING THAT SHE WOULD KILL HER
[2018-01-15] MEDS: Sertraline 100 MG Tablet PO (13:40)
--- NOTE | 2018-01-15 13:44 | CASEMGMT ---
Social Work Note YAHAIRA met with pt to discuss d/c planning. Pt is from [facility]. Pt states that her plan is to return to [facility] at discharge. YAHAIRA called [facility] and spoke with Sera. Per Sera, pt doesn't need to be at hospital for three midnights and will be able to return to the facility at discharge. YAHAIRA faxed clinicals to [facility]. Plan: Discharge to [facility] Xochitl Velez TOLL GATE TENDER, TOOL GRINDER OPERATOR SURFACE.
--- NOTE | 2018-01-15 13:44 | PCA ---
Placed updated HCPOA and living will papers in pt chart under Advanced directives
[2018-01-15] MEDS: Methadone 10 MG Tablet PO ×2 (14:03→23:11)
--- NOTE | 2018-01-15 14:14 | NURSING ---
DR CASTRO MADE AWARE FAMILY IS IN ROOM AND WISH TO TALK TO HIM
[2018-01-15] MEDS: Piperacil/Tazobactam 3.375 GM/50 ML ML IV ×2 (14:29→23:11)
--- NOTE | 2018-01-15 14:37 | CT_ITS ---
STUDY: CT BRAIN WITHOUT CONTRAST REASON FOR EXAM: Female, 72 years old. Confusion RADIATION DOSAGE (If Supplied By Facility): CTDIvol = ( 44.99 ) mGy, DLP = ( 779.24 ) mGycm TECHNIQUE: Transaxial CT imaging of the brain was performed without administration of intravenous contrast material. Individualized dose optimization techniques were used for this CT. COMPARISON: Previous study of 08/21/2017 FINDINGS: Normal soft tissue structures. There are status post craniotomy changes of the left frontal, temporal, and parietal bones. Normal size ventricles and extra-axial spaces for the patient's age. There are areas of decreased attenuation within the white matter tracts of the supratentorial brain, consistent with microvascular disease changes. Normal basal ganglia and thalami. Normal brainstem. Normal cerebellum. There is no intracranial hemorrhage. There are no findings of an acute ischemic infarction. Normal visualized paranasal sinuses. CT/Brain/Head without Contrast IMPRESSION: Chronic involutional changes of the brain. Status post left frontal, parietal, and temporal craniotomy. There is no evidence of intracranial hemorrhage or acute infarct. Findings are stable in the interval. Electronically Signed: Yvan Wheatley MD at 16:11 EDT , Service support ,
--- NOTE | 2018-01-15 14:41 | PN_ITS ---
Patient Problems: Active and Suspected Problems (Last Updated 10/25/17 @ 16:34 by Noris Nunez) HCAP (healthcare-associated pneumonia) (Acute) UTI (urinary tract infection) (Acute) Altered mental state (Acute) Subjective: CC: Mental status changes Objective: This is a 72-year-old female with dementia who was admitted with acute mental status changes. She is found to have pneumonia and urinary tract infection is receiving IV antibiotics. She is quite significantly confused, family reports this is not her baseline. Vitals/I&O's: Vital Signs Temp Pulse Resp BP Pulse Ox 98.1 F 99 18 132/81 H 97 01/15/18 10:00 01/15/18 10:00 01/15/18 10:00 01/15/18 10:00 01/15/18 10:00 Oxygen Flow Rate (L/min) 2 Oxygen Delivery Method Room Air Weight: 79.197 kg Body Mass Index (BMI) 27.3 Intake and Output for Last 24 Hours 01/13/18 01/14/18 01/15/18 23:59 23:59 23:59 Intake Total 918 / 918 1142 / 1142 Output Total 3600 / 3600 500 / 500 Balance -2682 / -2682 642 / 642 General: Alert, Oriented x3 HEENT: Atraumatic Oral: Moist Mucosa Neck: Supple, No JVD Lungs: Clear to auscultation, No wheeze Cardiovascular: Regular rate, Regular Rhythm, Normal S1, Normal S2 Abdomen: Bowel Sounds Present, Soft, Non Tender, Non-Distended Extremities: No edema Microbiology Past 72 Hours 01/14/18 18:10 Sputum, Expectorated/Coughed Gram Stain - Final 01/14/18 08:05 Interface Orders Influenza Types A,B Direct FA (THAI) - Final Laboratory Results 01/14/18 10:25: MRSA (PCR) Negative 01/15/18 05:56: WBC 11.1 H, RBC 4.04 L, Hgb 11.3 L, Hct 36.6 L, MCV 90.6, MCH 28.0, MCHC 30.9 L, RDW 13.2, RDW Differential 42.6, Plt Count 283, MPV 10.8, Immature Gran % (Auto) 0.200, Neut % (Auto) 63.0, Lymph % (Auto) 26.6, [place] % ( Auto) 8.7, Eos % (Auto) 1.2, Baso % (Auto) 0.3, Absolute Neuts (auto) 7.0, Absolute Lymphs (auto) 2.95, Total Counted Not Reportable 01/15/18 05:56: Sodium 135 L, Potassium 3.9, Chloride 98, Carbon Dioxide 28.0, Anion Gap 9, BUN 12, Creatinine 1.14 H, Estim Creat Clear Calc 40.53, Est GFR ( MDRD) Af Amer 60, Est GFR (MDRD) Non-Af 50 L, BUN/Creatinine Ratio 10.5, Glucose 78, Calcium 8.7 Current Medications Acetaminophen (Tylenol) 500 mg PO Q4H PRN PRN Reason: PAIN/FEVER Al Hydroxide/Mg Hydroxide (Mylanta Ii) 30 ml PO Q4H PRN PRN PRN Reason: GI UPSET Alendronate Sodium (Fosamax) 70 mg PO Fr@0700 [facility] Last Admin: 01/15/18 14:30 Dose: Not Given Atorvastatin Calcium (Lipitor) 20 mg PO DAILY [facility] Last Admin: 01/15/18 08:40 Dose: Not Given Calcium/Vitamin D (Os-Salty 500mg + D) [facility] Last Admin: 01/15/18 14:29 Dose: Not Given Cholecalciferol (Vitamin D) 1,[facility] Last Admin: 01/15/18 08:40 Dose: Not Given Ferrous Sulfate (Ferrous Sulfate) [facility] Last Admin: 01/15/18 14:29 Dose: Not Given Furosemide (Lasix) 20 mg PO DAILY [facility] Last Admin: 01/15/18 08:40 Dose: Not Given Heparin Sodium (Porcine) () 5,000 units SC Q8 [facility] Last Admin: 01/15/18 13:40 Dose: Not Given Hydroxyzine Pamoate (Vistaril Pamoate Capsule) 50 mg PO DAILY [facility] Last Admin: 01/15/18 13:40 Dose: Not Given Dextrose/Sodium Chloride () 1,000 mls @ 75 mls/hr IV .[id number] [facility] Last Admin: 01/15/18 14:29 Dose: 75 mls/hr Piperacillin Sod/Tazobactam Sod (Zosyn) 3.375 gm in 50 mls @ 12.5 mls/hr IV Q8 [facility] Last Admin: 01/15/18 14:29 Dose: 12.5 mls/hr Lorazepam (Ativan) 1 mg IV Q4H PRN PRN PRN Reason: AGITATION Last Admin: 01/15/18 13:39 Dose: 1 mg Magnesium Hydroxide (Milk Of Magnesia) 30 ml PO DAILY PRN PRN PRN Reason: Constipation Methadone HCl () 10 mg PO TID [facility] Last Admin: 01/15/18 14:03 Dose: 10 mg Metoprolol Tartrate (Lopressor (Beta Fito)) 2.5 mg IV Q6H PRN PRN Reason: HR >120/m Multivitamins (Multivitamin) 1 tablet PO DAILYCM [facility] Last Admin: 01/15/18 08:39 Dose: Not Given Ondansetron HCl (Zofran Odt) 4 mg PO Q6H PRN PRN Reason: NAUSEA/VOMITING Oxycodone HCl (Oxyir) 5 mg PO Q8H PRN PRN Reason: PAIN Pregabalin (Lyrica) 100 mg PO BID [facility] Last Admin: 01/15/18 08:40 Dose: Not Given Quetiapine Fumarate (Seroquel) 25 mg PO QHS [facility] Sertraline HCl (Zoloft) 100 mg PO DAILY [facility] Last Admin: 01/15/18 13:40 Dose: 100 mg Sodium Chloride () 5 - 30 ml IV UD PRN PRN Reason: SALINE FLUSH Last Admin: 01/14/18 23:29 Dose: 10 ml Timolol Maleate (Timoptic) 1 drop EACH EYE DAILY [facility] Last Admin: 01/15/18 13:39 Dose: Not Given Medical Necessity - Tobacco Use Smoking Status: Unknown if ever smoked Assessment/Plan Active and Suspected Problems (Last Updated 10/25/17 @ 16:34 by Noris Nunez) HCAP (healthcare-associated pneumonia) (Acute) UTI (urinary tract infection) (Acute) Altered mental state (Acute) 1. Acute mental status change; this may be due to urinary tract infection and pneumonia evaluate to rule out an acute intracranial process, will attempt to obtain a CT scan of the brain. 2. Pneumonia, HCAP; she is receiving IV Zosyn. 3. Enterococcal UTI; continue on Zosyn. 4. Dementia; supportive management. 5. DVT prophylaxis with subcutaneous heparin.
[2018-01-15] MEDS: LORazepam 2 MG/ML Syringe IV (15:07)
--- NOTE | 2018-01-15 15:45 | NURSING ---
SITTER REMAINS AT BEDSIDE, TO CT VIA BED FOR SCAN OF HEAD
--- NOTE | 2018-01-15 17:06 | NURSING ---
PT CURRENTLY SLEEPING, COOL MIST AT BEDSIDE TO SOOTH PT HOARSE THROAT
[2018-01-15 22:45] VITALS: BP 108/72; PULSE 105; RESP 18; TEMP 36.8; O2SAT 95
[2018-01-15] MEDS: QUEtiapine 25 MG Tablet PO (23:11)
[2018-01-16] MEDS: LORazepam 2 MG/ML Syringe 1 MG IV (04:06)
[2018-01-16] MEDS: 0.9% NaCl Peripheral Flush Adult/Peds IV ×3 (04:06→21:57)
[2018-01-16 04:27] VITALS: BP 127/81; PULSE 102; RESP 20; TEMP 36.6; O2SAT 96
--- NOTE | 2018-01-16 05:27 | NURSING ---
Family member called to get update on pt, spoke with procedures analyst.
[2018-01-16] MEDS: Piperacil/Tazobactam 3.375 GM/50 ML ML IV (06:40)
--- NOTE | 2018-01-16 07:15 | PCA ---
pt is restless in bed just had pt on bedpan and changed attends. Repositioned pt onto back this motorboat mechanic inboard is sitting with this pt
[2018-01-16] MEDS: hydrOXYzine PAM 25 MG Capsule 50 MG PO (07:49)
[2018-01-16] MEDS: Pregabalin 50 MG Capsule 100 MG PO ×2 (07:50→21:57)
[2018-01-16] MEDS: Methadone 10 MG Tablet PO ×3 (07:50→21:57)
[2018-01-16 08:13] VITALS: BP 118/74; PULSE 98; RESP 18; TEMP 36.7; O2SAT 98
[2018-01-16 08:14] VITALS: RESP 18; O2SAT 98
--- NOTE | 2018-01-16 08:55 | CASEMGMT ---
Social Work Note 01/15/2018 Per LISA Herbert, crisis needs to be consulted due to pt's behaviors. YAHAIRA placed call to crisis at [facility] and informed them of pt needing to be evaluated. [facility] states that they will be in to see pt sometime tonight. YAHAIRA informed LISA Herbert of this. 01/16/2018 YAHAIRA received call from Raffi with crisis asking if pt is medically cleared to be seen by crisis. This worker states that she will talk to pt's nurse and call Raffi back with an answer. YAHAIRA spoke with LISA Herbert who states to check with Charge Nurse Kristen as she thinks that the doctor hasn't been up to round yet and nothing has changed with pt since last night. Floral Design Teacher spoke with Charge Nurse Kristen who states the doctor hasn't rounded yet and pt is not medically cleared yet. Floral Design Teacher updated Raffi of this in crisis and will continue to follow. Plan: Return to [facility] at discharge. Xochitl eVlez COTTAGE SUPERVISOR, CERTIFIED HYPERBARIC TECHNOLOGIST
--- NOTE | 2018-01-16 12:50 | NURSING ---
SPOKE WITH DAUGHTER ON PHONE AND GAVE UPDATE ON CONDITION
[2018-01-16] MEDS: Dext 5%-0.45% NS 1,000 ML 75 ML IV (15:24)
[2018-01-16] MEDS: oxyCODONE 5 MG Tablet PO (15:25)
[2018-01-16 15:37] VITALS: BP 121/71; PULSE 96; RESP 18; TEMP 36.7; O2SAT 98
--- NOTE | 2018-01-16 16:24 | PCM.PN.HOSP ---
Patient Problems: Active and Suspected Problems (Last Updated 10/25/17 @ 16:34 by Noris Nunez) HCAP (healthcare-associated pneumonia) (Acute) UTI (urinary tract infection) (Acute) Altered mental state (Acute) Vitals/I&O's: Vital Signs Temp Pulse Resp BP Pulse Ox 98.0 F 96 18 121/71 H 98 01/16/18 15:37 01/16/18 15:37 01/16/18 15:37 01/16/18 15:37 01/16/18 15:37 Oxygen Flow Rate (L/min) 2 Oxygen Delivery Method Room Air Weight: 79.197 kg Body Mass Index (BMI) 27.3 Intake and Output for Last 24 Hours 01/14/18 01/15/18 01/16/18 23:59 23:59 23:59 Intake Total 918 / 918 1525 / 1525 754 / 754 Output Total 3600 / 3600 500 / 500 800 / 800 Balance -2682 / -2682 1025 / 1025 -46 / -46 Microbiology Past 72 Hours 01/14/18 18:10 Sputum, Expectorated/Coughed Gram Stain - Final 01/14/18 18:10 Sputum, Expectorated/Coughed Respiratory Culture - Preliminary Presumptive C albicans 01/14/18 08:05 Interface Orders Influenza Types A,B Direct FA (THAI) - Final Current Medications Acetaminophen (Tylenol) 500 mg PO Q4H PRN PRN Reason: PAIN/FEVER Al Hydroxide/Mg Hydroxide (Mylanta Ii) 30 ml PO Q4H PRN PRN PRN Reason: GI UPSET Alendronate Sodium (Fosamax) 70 mg PO Fr@0700 [facility] Ascorbic [facility] ([facility]itamin C) [facility] Last Admin: 01/16/18 08:21 Dose: Not Given Atorvastatin Calcium (Lipitor) 20 mg PO DAILY [facility] Last Admin: 01/16/18 08:22 Dose: Not Given Calcium/Vitamin D (Os-Salty 500mg + D) [facility] Last Admin: 01/16/18 08:21 Dose: Not Given Cholecalciferol (Vitamin D) 1,[facility] Last Admin: 01/16/18 08:21 Dose: Not Given Ferrous Sulfate (Ferrous Sulfate) 325 [facility] Last Admin: 01/16/18 08:21 Dose: Not Given Furosemide (Lasix) 20 mg PO DAILY [facility] Last Admin: 01/16/18 08:22 Dose: Not Given Heparin Sodium (Porcine) () 5,000 units SC Q8 [facility] Last Admin: 01/16/18 13:10 Dose: Not Given Hydroxyzine Pamoate (Vistaril Pamoate Capsule) 50 mg PO DAILY [facility] Last Admin: 01/16/18 07:49 Dose: 50 mg Dextrose/Sodium Chloride () 1,000 mls @ 75 mls/hr IV .[id number] [facility] Last Admin: 01/16/18 15:24 Dose: 75 mls/hr Ampicillin Sodium 1,000 mg/ (Sodium Chloride) 50 mls @ 150 mls/hr IV Q8 [facility] Lorazepam (Ativan) 1 mg IV Q4H PRN PRN PRN Reason: AGITATION Last Admin: 01/16/18 04:06 Dose: 1 mg Magnesium Hydroxide (Milk Of Magnesia) 30 ml PO DAILY PRN PRN PRN Reason: Constipation Methadone HCl () 10 mg PO TID [facility] Last Admin: 01/16/18 15:24 Dose: 10 mg Metoprolol Tartrate (Lopressor (Beta Fito)) 2.5 mg IV Q6H PRN PRN Reason: HR >120/m Multivitamins ([facility]ivitamin) [facility] Last Admin: 01/16/18 08:21 Dose: Not Given Ondansetron HCl (Zofran Odt) 4 mg PO Q6H PRN PRN Reason: NAUSEA/VOMITING Oxycodone HCl (Oxyir) 5 mg PO Q8H PRN PRN Reason: PAIN Last Admin: 01/16/18 15:25 Dose: 5 mg Pregabalin (Lyrica) 100 mg PO BID [facility] Last Admin: 01/16/18 07:50 Dose: 100 mg Quetiapine Fumarate (Seroquel) 25 mg PO QHS [facility] Last Admin: 01/15/18 23:11 Dose: 25 mg Sertraline HCl (Zoloft) 100 mg PO DAILY [facility] Last Admin: 01/16/18 13:10 Dose: Not Given Sodium Chloride () 5 - 30 ml IV UD PRN PRN Reason: SALINE FLUSH Last Admin: 01/16/18 04:24 Dose: 20 ml Timolol Maleate (Timoptic) 1 drop EACH EYE DAILY [facility] Last Admin: 01/16/18 13:10 Dose: Not Given Medical Necessity - Tobacco Use Smoking Status: Unknown if ever smoked Assessment/Plan Active and Suspected Problems (Last Updated 10/25/17 @ 16:34 by Noris Nunez) HCAP (healthcare-associated pneumonia) (Acute) UTI (urinary tract infection) (Acute) Altered mental state (Acute) 1. Acute mental status change; this may be due to withdrawal from medications that was recently discontinued, stent is unremarkable. 2. Dementia with behavioral disturbance; continue current antipsychotic medications supportive management. 3. Enterococcal UTI; antibiotic changed to Ampicillin. 4. Presumptive pneumonia; continue current antibiotics 5. Chronic pain syndrome; she is on methadone and oxycodone 6. DVT prophylaxis with subcutaneous heparin.
--- NOTE | 2018-01-16 16:30 | PN_ITS ---
Patient Problems: Active and Suspected Problems (Last Updated 10/25/17 @ 16:34 by Noris Nunez) HCAP (healthcare-associated pneumonia) (Acute) UTI (urinary tract infection) (Acute) Altered mental state (Acute) Vitals/I&O's: Vital Signs Temp Pulse Resp BP Pulse Ox 98.0 F 96 18 121/71 H 98 01/16/18 15:37 01/16/18 15:37 01/16/18 15:37 01/16/18 15:37 01/16/18 15:37 Oxygen Flow Rate (L/min) 2 Oxygen Delivery Method Room Air Weight: 79.197 kg Body Mass Index (BMI) 27.3 Intake and Output for Last 24 Hours 01/14/18 01/15/18 01/16/18 23:59 23:59 23:59 Intake Total 918 / 918 1525 / 1525 754 / 754 Output Total 3600 / 3600 500 / 500 800 / 800 Balance -2682 / -2682 1025 / 1025 -46 / -46 Microbiology Past 72 Hours 01/14/18 18:10 Sputum, Expectorated/Coughed Gram Stain - Final 01/14/18 18:10 Sputum, Expectorated/Coughed Respiratory Culture - Preliminary Presumptive C albicans 01/14/18 08:05 Interface Orders Influenza Types A,B Direct FA (THAI) - Final Current Medications Acetaminophen (Tylenol) 500 mg PO Q4H PRN PRN Reason: PAIN/FEVER Al Hydroxide/Mg Hydroxide (Mylanta Ii) 30 ml PO Q4H PRN PRN PRN Reason: GI UPSET Alendronate Sodium (Fosamax) 70 mg PO Fr@0700 [facility] Asc[facility]it[facility]) [facility] Last Admin: 01/16/18 08:21 Dose: Not Given Atorvastatin Calcium (Lipitor) 20 mg PO DAILY [facility] Last Admin: 01/16/18 08:22 Dose: Not Given Calcium/Vitamin D (Os-Salty 500mg + D) [facility] Last Admin: 01/16/18 08:21 Dose: Not Given Cholecalciferol (Vitamin D) 1,[facility] Last Admin: 01/16/18 08:21 Dose: Not Given Ferrous Sulfate (Ferrous Sulfate) [facility] Last Admin: 01/16/18 08:21 Dose: Not Given Furosemide (Lasix) 20 mg PO DAILY [facility] Last Admin: 01/16/18 08:22 Dose: Not Given Heparin Sodium (Porcine) () 5,000 units SC Q8 [facility] Last Admin: 01/16/18 13:10 Dose: Not Given Hydroxyzine Pamoate (Vistaril Pamoate Capsule) 50 mg PO DAILY [facility] Last Admin: 01/16/18 07:49 Dose: 50 mg Dextrose/Sodium Chloride () 1,000 mls @ 75 mls/hr IV .[id number] [facility] Last Admin: 01/16/18 15:24 Dose: 75 mls/hr Ampicillin Sodium 1,000 mg/ (Sodium Chloride) 50 mls @ 150 mls/hr IV Q8 [facility] Lorazepam (Ativan) 1 mg IV Q4H PRN PRN PRN Reason: AGITATION Last Admin: 01/16/18 04:06 Dose: 1 mg Magnesium Hydroxide (Milk Of Magnesia) 30 ml PO DAILY PRN PRN PRN Reason: Constipation Methadone HCl () 10 mg PO TID [facility] Last Admin: 01/16/18 15:24 Dose: 10 mg Metoprolol Tartrate (Lopressor (Beta Fito)) 2.5 mg IV Q6H PRN PRN Reason: HR >120/m [facility]ivitamins ([facility]ivitamin) [facility] Last Admin: 01/16/18 08:21 Dose: Not Given Ondansetron HCl (Zofran Odt) 4 mg PO Q6H PRN PRN Reason: NAUSEA/VOMITING Oxycodone HCl (Oxyir) 5 mg PO Q8H PRN PRN Reason: PAIN Last Admin: 01/16/18 15:25 Dose: 5 mg Pregabalin (Lyrica) 100 mg PO BID [facility] Last Admin: 01/16/18 07:50 Dose: 100 mg Quetiapine Fumarate (Seroquel) 25 mg PO QHS [facility] Last Admin: 01/15/18 23:11 Dose: 25 mg Sertraline HCl (Zoloft) 100 mg PO DAILY [facility] Last Admin: 01/16/18 13:10 Dose: Not Given Sodium Chloride () 5 - 30 ml IV UD PRN PRN Reason: SALINE FLUSH Last Admin: 01/16/18 04:24 Dose: 20 ml Timolol Maleate (Timoptic) 1 drop EACH EYE DAILY [facility] Last Admin: 01/16/18 13:10 Dose: Not Given Medical Necessity - Tobacco Use Smoking Status: Unknown if ever smoked Assessment/Plan Active and Suspected Problems (Last Updated 10/25/17 @ 16:34 by Noris Nunez) HCAP (healthcare-associated pneumonia) (Acute) UTI (urinary tract infection) (Acute) Altered mental state (Acute) 1. Acute mental status change; this may be due to withdrawal from medications that was recently discontinued, stent is unremarkable. 2. Dementia with behavioral disturbance; continue current antipsychotic medications supportive management. 3. Enterococcal UTI; antibiotic changed to Ampicillin. 4. Presumptive pneumonia; continue current antibiotics 5. Chronic pain syndrome; she is on methadone and oxycodone 6. DVT prophylaxis with subcutaneous heparin.
[2018-01-16 21:20] VITALS: BP 143/84; PULSE 105; RESP 16; TEMP 37; O2SAT 95
[2018-01-16] MEDS: QUEtiapine 25 MG Tablet PO (22:03)
[2018-01-16] MEDS: Heparin Injection 5,000 UNITS/ML Syringe 5000 UNITS SC (22:03)
[2018-01-17] MEDS: Dext 5%-0.45% NS 1,000 ML 75 ML IV ×3 (01:30→22:08)
[2018-01-17 04:39] VITALS: BP 135/68; PULSE 71; RESP 16; TEMP 36.6; O2SAT 95
[2018-01-17] MEDS: Heparin Injection 5,000 UNITS/ML Syringe 5000 UNITS SC ×3 (05:41→22:07)
[2018-01-17] MEDS: Methadone 10 MG Tablet PO ×3 (05:42→22:07)
[2018-01-17] MEDS: Ferrous Sulfate 325 MG Tablet PO ×2 (07:49→18:11)
[2018-01-17] MEDS: Multivitamins,Therapeutic Tablet 1 TABLET PO (07:49)
[2018-01-17] MEDS: Calcium Carb/Vitamin D 1 TABLET Tablet PO ×2 (07:49→18:11)
[2018-01-17] MEDS: Ascorbic Acid 500 MG Tablet PO ×2 (07:50→18:53)
--- NOTE | 2018-01-17 09:55 | CASEMGMT ---
Social Work Note YAHAIRA faxed updated progress notes and Pt/Ot notes to [facility]. YAHAIRA asked Charge Nurse Kristen if pt has been medically cleared yet to see Crisis. Per Kristen she is unsure if pt has been medically cleared but will ask Dr. Presley. Manager Creative Services will continue to follow. Plan: Return to [facility] at discharge. Xochitl Velez ESOL TEACHER ASSISTANT, INJECTION MOLDING OPERATOR
[2018-01-17 09:58] VITALS: BP 125/74; PULSE 86; RESP 18; TEMP 36.9; O2SAT 97
[2018-01-17] MEDS: Pregabalin 50 MG Capsule 100 MG PO ×2 (10:55→22:07)
[2018-01-17] MEDS: Furosemide 20 MG Tablet PO (10:56)
[2018-01-17] MEDS: Atorvastatin Calcium 20 MG Tablet PO (10:56)
[2018-01-17] MEDS: hydrOXYzine PAM 25 MG Capsule 50 MG PO (10:56)
[2018-01-17] MEDS: Sertraline 100 MG Tablet PO (10:56)
[2018-01-17] MEDS: Timolol 0.5% 5ML OPTH.BTL 1 DRP EACH EYE (10:57)
--- NOTE | 2018-01-17 11:44 | CASEMGMT ---
Social Work Note Per Charge Nurse Raine, Dr. Presley has medically cleared pt to be seen by crisis. SW placed call to Crisis at [facility] stating that pt is medically cleared now and is able to be seen by crisis. [facility] states that they will send someone over to see pt when someone is available. Plan: Crisis consulted. Discharge to [facility] at discharge. Xochitl Velez CELL COVERER, FIELD ENUMERATOR.
--- NOTE | 2018-01-17 15:37 | CASEMGMT ---
Social Work Note Raffi from crisis in to see pt and to complete evaluation. Raffi is requesting to speak to pt's doctor about pt. SW sent page to Dr. Presley stating that crisis would like to talk to him. Chest Painting Leader waiting for call back from Dr. Presley. Xochitl Velez DIRECTOR TRIAL, KILN OPERATOR
--- NOTE | 2018-01-17 15:39 | PCM.PN.HOSP ---
Patient Problems: Active and Suspected Problems (Last Updated 10/25/17 @ 16:34 by Noris Nunez) HCAP (healthcare-associated pneumonia) (Acute) UTI (urinary tract infection) (Acute) Altered mental state (Acute) Vitals/I&O's: Vital Signs Temp Pulse Resp BP Pulse Ox 98.5 F 86 18 125/74 H 97 01/17/18 09:58 01/17/18 09:58 01/17/18 09:58 01/17/18 09:58 01/17/18 09:58 Oxygen Flow Rate (L/min) 2 Oxygen Delivery Method Room Air Weight: 79.197 kg Body Mass Index (BMI) 27.3 Intake and Output for Last 24 Hours 01/15/18 01/16/18 01/17/18 23:59 23:59 23:59 Intake Total 1525 / 1525 1107 / 1107 1888 Output Total 500 / 500 1125 / 1125 Balance 1025 / 1025 -1888 General: Alert, Oriented x3 HEENT: PERRLA Oral: Moist Mucosa Neck: Supple Lungs: Clear to auscultation Cardiovascular: Regular rate, Normal S1, Normal S2 Abdomen: Bowel Sounds Present, Non Tender Microbiology Past 72 Hours 01/14/18 18:10 Sputum, Expectorated/Coughed Gram Stain - Final 01/14/18 18:10 Sputum, Expectorated/Coughed Respiratory Culture - Final Presumptive C albicans Laboratory Results 01/17/18 03:30: Vancomycin Trough 9.0 Current Medications Acetaminophen (Tylenol) 500 mg PO Q4H PRN PRN Reason: PAIN/FEVER Al Hydroxide/Mg Hydroxide (Mylanta Ii) 30 ml PO Q4H PRN PRN PRN Reason: GI UPSET Alendronate Sodium (Fosamax) 70 mg PO Fr@0700 [facility] Ascorbic Acid (Vitamin C) [facility] Last Admin: 01/17/18 07:50 Dose: 500 mg Atorvastatin Calcium (Lipitor) 20 mg PO DAILY [facility] Last Admin: 01/17/18 10:56 Dose: 20 mg Calcium/Vitamin D (Os-Salty 500mg + D) 1 tablet [facility]ID[facility] Last Admin: 01/17/18 07:49 Dose: 1 tablet Cholecalciferol (Vitamin D) 1,000 unit PO DAILY[facility] Last Admin: 01/17/18 07:50 Dose: 1,000 unit Ferrous Sulfate (Ferrous Sulfate) 325 mg [facility]ID[facility] Last Admin: 01/17/18 07:49 Dose: 325 mg Furosemide (Lasix) 20 mg PO DAILY [facility] Last Admin: 01/17/18 10:56 Dose: 20 mg Heparin Sodium (Porcine) () 5,000 units SC Q8 [facility] Last Admin: 01/17/18 14:53 Dose: 5,000 units Hydroxyzine Pamoate (Vistaril Pamoate Capsule) 50 mg PO DAILY [facility] Last Admin: 01/17/18 10:56 Dose: 50 mg Dextrose/Sodium Chloride () 1,000 mls @ 75 mls/hr IV .[id number] [facility] Last Admin: 01/17/18 14:46 Dose: 75 mls/hr Ampicillin Sodium 1,000 mg/ (Sodium Chloride) 50 mls @ 150 mls/hr IV Q8 [facility] Last Admin: 01/17/18 14:46 Dose: 150 mls/hr Lorazepam (Ativan) 1 mg IV Q4H PRN PRN PRN Reason: AGITATION Last Admin: 01/16/18 04:06 Dose: 1 mg Magnesium Hydroxide (Milk Of Magnesia) 30 ml PO DAILY PRN PRN PRN Reason: Constipation Methadone HCl () 10 mg PO TID [facility] Last Admin: 01/17/18 14:46 Dose: 10 mg Metoprolol Tartrate (Lopressor (Beta Fito)) 2.5 mg IV Q6H PRN PRN Reason: HR >120/m Multivitamins (Multivitamin) 1 tablet [facility]ILY[facility] Last Admin: 01/17/18 07:49 Dose: 1 tablet Ondansetron HCl (Zofran Odt) 4 mg PO Q6H PRN PRN Reason: NAUSEA/VOMITING Oxycodone HCl (Oxyir) 5 mg PO Q8H PRN PRN Reason: PAIN Last Admin: 01/16/18 15:25 Dose: 5 mg Pregabalin (Lyrica) 100 mg PO BID [facility] Last Admin: 01/17/18 10:55 Dose: 100 mg Quetiapine Fumarate (Seroquel) 25 mg PO QHS [facility] Last Admin: 01/16/18 22:03 Dose: 25 mg Sertraline HCl (Zoloft) 100 mg PO DAILY [facility] Last Admin: 01/17/18 10:56 Dose: 100 mg Sodium Chloride () 5 - 30 ml IV UD PRN PRN Reason: SALINE FLUSH Last Admin: 01/16/18 21:57 Dose: 10 ml Timolol Maleate (Timoptic) 1 drop EACH EYE DAILY [facility] Last Admin: 01/17/18 10:57 Dose: 1 drop Medical Necessity - Tobacco Use Smoking Status: Unknown if ever smoked Assessment/Plan Active and Suspected Problems (Last Updated 10/25/17 @ 16:34 by Noris Nunez) HCAP (healthcare-associated pneumonia) (Acute) UTI (urinary tract infection) (Acute) Altered mental state (Acute) 1. Acute mental status change; this may be due to withdrawal from medications that was recently discontinued, patient is improving. 2. Dementia with behavioral disturbance; continue current antipsychotic medications supportive management. 3. Enterococcal UTI; he is receiving IV ampicillin which will be changed to oral medication at the time of discharge.. 4. Presumptive pneumonia; continue current antibiotics 5. Chronic pain syndrome; she is on methadone and oxycodone 6. DVT prophylaxis with subcutaneous heparin. 7. discharge to [facility] soon. Code Visit Inpatient E&M: 91112 Subs Hosp L2
--- NOTE | 2018-01-17 15:42 | PN_ITS ---
Patient Problems: Active and Suspected Problems (Last Updated 10/25/17 @ 16:34 by Noris Nunez) HCAP (healthcare-associated pneumonia) (Acute) UTI (urinary tract infection) (Acute) Altered mental state (Acute) Vitals/I&O's: Vital Signs Temp Pulse Resp BP Pulse Ox 98.5 F 86 18 125/74 H 97 01/17/18 09:58 01/17/18 09:58 01/17/18 09:58 01/17/18 09:58 01/17/18 09:58 Oxygen Flow Rate (L/min) 2 Oxygen Delivery Method Room Air Weight: 79.197 kg Body Mass Index (BMI) 27.3 Intake and Output for Last 24 Hours 01/15/18 01/16/18 01/17/18 23:59 23:59 23:59 Intake Total 1525 / 1525 1107 / 1107 1888 Output Total 500 / 500 1125 / 1125 Balance 1025 / 1025 -1888 General: Alert, Oriented x3 HEENT: PERRLA Oral: Moist Mucosa Neck: Supple Lungs: Clear to auscultation Cardiovascular: Regular rate, Normal S1, Normal S2 Abdomen: Bowel Sounds Present, Non Tender Microbiology Past 72 Hours 01/14/18 18:10 Sputum, Expectorated/Coughed Gram Stain - Final 01/14/18 18:10 Sputum, Expectorated/Coughed Respiratory Culture - Final Presumptive C albicans Laboratory Results 01/17/18 03:30: Vancomycin Trough 9.0 Current Medications Acetaminophen (Tylenol) 500 mg PO Q4H PRN PRN Reason: PAIN/FEVER Al Hydroxide/Mg Hydroxide (Mylanta Ii) 30 ml PO Q4H PRN PRN PRN Reason: GI UPSET Alendronate Sodium (Fosamax) 70 mg PO Fr@0700 [facility] Ascorbic Acid (Vitamin C) [facility] Last Admin: 01/17/18 07:50 Dose: 500 mg Atorvastatin Calcium (Lipitor) 20 mg PO DAILY [facility] Last Admin: 01/17/18 10:56 Dose: 20 mg Calcium/Vitamin D (Os-Salty 500mg + D) [facility] Last Admin: 01/17/18 07:49 Dose: 1 tablet Cholecalciferol (Vitamin D) 1,000 [facility] Last Admin: 01/17/18 07:50 Dose: 1,000 unit Ferrous Sulfate (Ferrous Sulfate) [facility] Last Admin: 01/17/18 07:49 Dose: 325 mg Furosemide (Lasix) 20 mg PO DAILY [facility] Last Admin: 01/17/18 10:56 Dose: 20 mg Heparin Sodium (Porcine) () 5,000 units SC Q8 [facility] Last Admin: 01/17/18 14:53 Dose: 5,000 units Hydroxyzine Pamoate (Vistaril Pamoate Capsule) 50 mg PO DAILY [facility] Last Admin: 01/17/18 10:56 Dose: 50 mg Dextrose/Sodium Chloride () 1,000 mls @ 75 mls/hr IV .[id number] [facility] Last Admin: 01/17/18 14:46 Dose: 75 mls/hr Ampicillin Sodium 1,000 mg/ (Sodium Chloride) 50 mls @ 150 mls/hr IV Q8 [facility] Last Admin: 01/17/18 14:46 Dose: 150 mls/hr Lorazepam (Ativan) 1 mg IV Q4H PRN PRN PRN Reason: AGITATION Last Admin: 01/16/18 04:06 Dose: 1 mg Magnesium Hydroxide (Milk Of Magnesia) 30 ml PO DAILY PRN PRN PRN Reason: Constipation Methadone HCl () 10 mg PO TID [facility] Last Admin: 01/17/18 14:46 Dose: 10 mg Metoprolol Tartrate (Lopressor (Beta Fito)) 2.5 mg IV Q6H PRN PRN Reason: HR >120/m Multivitamins (Multivitamin) [facility] Last Admin: 01/17/18 07:49 Dose: 1 tablet Ondansetron HCl (Zofran Odt) 4 mg PO Q6H PRN PRN Reason: NAUSEA/VOMITING Oxycodone HCl (Oxyir) 5 mg PO Q8H PRN PRN Reason: PAIN Last Admin: 01/16/18 15:25 Dose: 5 mg Pregabalin (Lyrica) 100 mg PO BID [facility] Last Admin: 01/17/18 10:55 Dose: 100 mg Quetiapine Fumarate (Seroquel) 25 mg PO QHS [facility] Last Admin: 01/16/18 22:03 Dose: 25 mg Sertraline HCl (Zoloft) 100 mg PO DAILY [facility] Last Admin: 01/17/18 10:56 Dose: 100 mg Sodium Chloride () 5 - 30 ml IV UD PRN PRN Reason: SALINE FLUSH Last Admin: 01/16/18 21:57 Dose: 10 ml Timolol Maleate (Timoptic) 1 drop EACH EYE DAILY [facility] Last Admin: 01/17/18 10:57 Dose: 1 drop Medical Necessity - Tobacco Use Smoking Status: Unknown if ever smoked Assessment/Plan Active and Suspected Problems (Last Updated 10/25/17 @ 16:34 by Noris Nunez) HCAP (healthcare-associated pneumonia) (Acute) UTI (urinary tract infection) (Acute) Altered mental state (Acute) 1. Acute mental status change; this may be due to withdrawal from medications that was recently discontinued, patient is improving. 2. Dementia with behavioral disturbance; continue current antipsychotic medications supportive management. 3. Enterococcal UTI; he is receiving IV ampicillin which will be changed to oral medication at the time of discharge.. 4. Presumptive pneumonia; continue current antibiotics 5. Chronic pain syndrome; she is on methadone and oxycodone 6. DVT prophylaxis with subcutaneous heparin. 7. discharge to [facility] soon. Code Visit Inpatient E&M: 08776 Subs Hosp L2
--- NOTE | 2018-01-17 15:59 | CASEMGMT ---
Social Work Note Dr. Pinto responded to page by this worker and was able to talk to Raffi from crisis. Plan: Return to [facility] at discharge Xochitl Velez REAL ESTATE LOAN OFFICER, STAFF NURSE MIDWIFE
[2018-01-17 16:36] VITALS: BP 154/95; PULSE 74; RESP 18; TEMP 37.1; O2SAT 98
[2018-01-17] MEDS: QUEtiapine 25 MG Tablet PO (22:07)
[2018-01-17 23:06] VITALS: BP 125/50; PULSE 68; RESP 16; TEMP 36.9; O2SAT 95
[2018-01-18 05:06] VITALS: BP 113/56; PULSE 61; RESP 14; TEMP 36.6; O2SAT 93
[2018-01-18] MEDS: Methadone 10 MG Tablet PO ×2 (05:42→14:49)
[2018-01-18] MEDS: Heparin Injection 5,000 UNITS/ML Syringe 5000 UNITS SC ×2 (05:42→14:49)
--- NOTE | 2018-01-18 10:34 | DS.PCM_ITS ---
Discharge Date and Diagnosis Date of Admission: 01/14/18 Date of Discharge: 01/18/18 - Primary Discharge Diagnosis Active and Suspected Problems (Last Updated 10/25/17 @ 16:34 by Noris Nunez) HCAP (healthcare-associated pneumonia) (Acute) UTI (urinary tract infection) (Acute) Altered mental state (Acute) - Secondary Discharge Diagnosis Chronic Problems (Last Updated 10/25/17 @ 16:34 by Noris Nunez) Fibromyalgia (Chronic) HTN (hypertension) (Chronic) Rheumatoid arthritis (Chronic) on no medications for RA - diagnosed in [place] many years ago Dyslipidemia (Chronic) Sjogren's syndrome (Chronic) Myocardial infarct, old (Chronic) CKD (chronic kidney disease), stage III (Chronic) history of PULMONARY EMBOLI (Chronic) Diastolic CHF (Chronic) Cephalalgia (Chronic) Metabolic acidosis (Chronic) IBS (irritable bowel syndrome) (Chronic) Osteoarthritis (Chronic) History of radiofrequency ablation (RFA) procedure for cardiac arrhythmia ( Chronic) Hospital Course and Treatment Operations: None, - - Right hip hemiarthroplasty 09/07/13 Summary of Care Provided: 1. Acute mental status change; this may be due to withdrawal from medications that was recently discontinued, patient has now improved to baseline. improving. 2. Dementia with behavioral disturbance; continue current antipsychotic medications supportive management. 3. Enterococcal UTI; she is received IV ampicillin which was changed to oral medication at the time of discharge.. 4. Presumptive pneumonia; continue current antibiotics 5. Chronic pain syndrome; she is on methadone and oxycodone This is a a 72 year old female w/ h/o dementia, chronic diastolic heart failure , HTN, and sjogren's syndrome admitted to the hospital due to acute mental status change. The patient is a 72 F [] presents via EMS from a [place] [facility] facility after change in mental status and delirium after being treated with intramuscular Rocephin for a reported UTI. According to [place] [facility] staff the patient is typically alert and oriented ?3. She presents screaming nonsensical statements. Workup In the ED revealed possible pneumonia and urine tract infection . Her on intravenous antibiotics and admitted to the hospital. It appears the patient was treated only for the urinary tract infection. Acute mental status was due to possible withdrawal from her pain medications which was reintroduced the patient is now back to her baseline and she was discharged [facility] to the [facility] in a stable condition. Home Medications: Medications to take at Discharge Acetaminophen [Tylenol Extra Strength] 500 mg PO Q4H PRN 01/14/18 Alendronate Sodium 70 mg PO QWEEK 01/14/18 Ascorbic Acid [Vitamin C] 500 mg PO BIDCM 01/14/18 Atorvastatin Calcium [Lipitor] 20 mg PO DAILY 01/14/18 Calcium Carbonate/Vitamin D3 [Calcium 600-Vit D3 400 Tablet] 1 each PO BID 01/14 Cholecalciferol (Vitamin D3) [Vitamin D3] 1,000 unit PO DAILY 01/14/18 Ferrous Sulfate 325 mg PO BID 01/14/18 Furosemide [Lasix] 20 mg PO DAILY 01/14/18 Hydroxyzine HCl 50 mg PO DAILY 01/14/18 Maalox 30 ml PO Q4H PRN PRN 01/14/18 Mag Hydrox/Al Hydrox/Simeth [Mylanta II] 30 ml PO Q4H PRN PRN 01/14/18 Multivitamins,Therapeutic [Multivitamin] 1 tablet PO DAILY 01/14/18 Ondansetron [Zofran Odt] 4 mg PO Q6H PRN 01/14/18 Pregabalin [Lyrica] 100 mg PO BID 01/14/18 Rulox 30 ml PO Q4H PRN 01/14/18 Sertraline HCl [Zoloft] 100 mg PO DAILY 01/14/18 Sumatriptan Succinate [Imitrex] 100 mg PO DAILY PRN PRN 01/14/18 Timolol 0.5% [Timoptic] 1 drop EACH EYE DAILY 01/14/18 Ampicillin Trihydrate 500 mg PO [id number] Days capsule 01/18/18 Methadone HCl 10 mg PO TID #10 tab 01/18/18 Oxycodone HCl [Roxicodone] 5 mg PO Q8H PRN #10 tab 01/18/18 Quetiapine Fumarate [Seroquel] 25 mg PO QHS #0 tablet 01/18/18 Following Prescrptions Were Given to Patient: Oxycodone HCl [Roxicodone] 5 mg PO Q8H PRN #10 tab PRN Reason: Pain Ampicillin Trihydrate 500 mg PO [id number] 7 Days capsule Methadone HCl 10 mg PO TID #10 tab Primary Care Physician: Pebbles Weiss MD [Primary Care Provider] - Medical Necessity - Tobacco Use Smoking Status: Unknown if ever smoked Meaningful Use Info Meaningful Use Diagnoses (Choose all that apply): None applicable Code Visit Inpatient E&M: 00092 Disch Hosp
[2018-01-18 10:44] VITALS: BP 124/73; PULSE 74; RESP 16; TEMP 36.3; O2SAT 95
[2018-01-18] MEDS: Sertraline 100 MG Tablet PO (10:59)
[2018-01-18] MEDS: Timolol 0.5% 5ML OPTH.BTL 1 DRP EACH EYE (10:59)
[2018-01-18] MEDS: Pregabalin 50 MG Capsule 100 MG PO (10:59)
[2018-01-18] MEDS: Ascorbic Acid 500 MG Tablet PO (11:00)
[2018-01-18] MEDS: Multivitamins,Therapeutic Tablet 1 TABLET PO (11:00)
[2018-01-18] MEDS: Furosemide 20 MG Tablet PO (11:00)
[2018-01-18] MEDS: Ferrous Sulfate 325 MG Tablet PO (11:00)
[2018-01-18] MEDS: Calcium Carb/Vitamin D 1 TABLET Tablet PO (11:00)
[2018-01-18] MEDS: hydrOXYzine PAM 25 MG Capsule 50 MG PO (11:00)
[2018-01-18] MEDS: Atorvastatin Calcium 20 MG Tablet PO (11:00)
[2018-01-18] MEDS: Dext 5%-0.45% NS 1,000 ML 75 ML IV (11:09)
--- NOTE | 2018-01-18 11:41 | PCM.TXEXTCAR ---
- Diet 01/14/18 06:44 Diet: Regular Diet Food consistency:: Regular Liquid Consistency:: Regular/Thin - Wound(s) Left forearm Wound Type: old IV site Left outer su Wound Type: Skin Tear Right elbow Wound Type: Abrasion - Therapies Weight Bearing: Toe-touch weight bearing - Allergies/Procedures Done in Hospital Allergies/Adverse Reactions: Allergies acetaminophen [From Tylox] Allergy (Verified 08/20/17 11:47) Other amoxicillin Allergy (Verified 08/20/17 11:47) Hives ciprofloxacin [From Cipro] Allergy (Verified 08/20/17 11:46) Other ciprofloxacin HCl [From Cipro] Allergy (Verified 08/20/17 11:46) Other indomethacin Allergy (Verified 12/27/17 09:39) Unknown nortriptyline HCl [From Pamelor] Allergy (Verified 08/20/17 11:46) Unknown oxycodone [From Tylox] Allergy (Verified 08/20/17 11:47) Other Sulfa (Sulfonamide Antibiotics) Allergy (Verified 08/20/17 11:46) Unknown warfarin [From Coumadin] Allergy (Verified 01/14/18 04:46) Unknown iodine Adverse Reaction (Verified 08/20/17 11:46) Itching nortriptyline [Nortriptyline] Adverse Reaction (Verified 08/20/17 11:46) Itching warfarin sodium [From Coumadin] Adverse Reaction (Verified 08/20/17 11:46) Itching - Type of Care/Length of Stay Estimated LOS: Convalescent Care Less Than 30 days Type of Care Needed: Skilled Rehab Potential: Fair Prognosis: Fair - Additional Orders/Day of Discharge H&P will serve as current which was dated: 01/14/18 Day of Discharge: 01/18/18 - Dietary and Speech Recommendations Dietitian Recommendations/Changes: Rec cardiac/low sodium diet if PO improves at meals. Ensure Enlive w/medpass when pt taking PO--currently refusing PO. Consider TF support if pt continues to refuse PO at meals. - Follow Up Care Primary Care Physician: Pebbles Weiss MD [Primary Care Provider] -
--- NOTE | 2018-01-18 11:43 | PCM.DC.SUM ---
Discharge Date and Diagnosis - Problem List Patient Problems: Active and Suspected Problems (Last Updated 10/25/17 @ 16:34 by Noris Nunez) HCAP (healthcare-associated pneumonia) (Acute) UTI (urinary tract infection) (Acute) Altered mental state (Acute) Date of Admission: 01/14/18 - Primary Discharge Diagnosis Active and Suspected Problems (Last Updated 10/25/17 @ 16:34 by Noris Nunez) HCAP (healthcare-associated pneumonia) (Acute) UTI (urinary tract infection) (Acute) Altered mental state (Acute) - Secondary Discharge Diagnosis Chronic Problems (Last Updated 10/25/17 @ 16:34 by Noris Nunez) Fibromyalgia (Chronic) HTN (hypertension) (Chronic) Rheumatoid arthritis (Chronic) on no medications for RA - diagnosed in [place] many years ago Dyslipidemia (Chronic) Sjogren's syndrome (Chronic) Myocardial infarct, old (Chronic) CKD (chronic kidney disease), stage III (Chronic) history of PULMONARY EMBOLI (Chronic) Diastolic CHF (Chronic) Cephalalgia (Chronic) Metabolic acidosis (Chronic) IBS (irritable bowel syndrome) (Chronic) Osteoarthritis (Chronic) History of radiofrequency ablation (RFA) procedure for cardiac arrhythmia (Chronic) Hospital Course and Treatment Operations: None, - - Right hip hemiarthroplasty 09/07/13 Summary of Care Provided: The patient is a 72 year old F [] Home Medications: Medications to take at Discharge Acetaminophen [Tylenol Extra Strength] 500 mg PO Q4H PRN 01/14/18 Alendronate Sodium 70 mg PO QWEEK 01/14/18 Ascorbic Acid [Vitamin C] 500 mg PO BIDCM 01/14/18 Atorvastatin Calcium [Lipitor] 20 mg PO DAILY 01/14/18 Calcium Carbonate/Vitamin D3 [Calcium 600-Vit D3 400 Tablet] 1 each PO BID 01/14/18 Cholecalciferol (Vitamin D3) [Vitamin D3] 1,000 unit PO DAILY 01/14/18 Ferrous Sulfate 325 mg PO BID 01/14/18 Furosemide [Lasix] 20 mg PO DAILY 01/14/18 Hydroxyzine HCl 50 mg PO DAILY 01/14/18 Maalox 30 ml PO Q4H PRN PRN 01/14/18 Mag Hydrox/Al Hydrox/Simeth [Mylanta II] 30 ml PO Q4H PRN PRN 01/14/18 Multivitamins,Therapeutic [Multivitamin] 1 tablet PO DAILY 01/14/18 Ondansetron [Zofran Odt] 4 mg PO Q6H PRN 01/14/18 Pregabalin [Lyrica] 100 mg PO BID 01/14/18 Rulox 30 ml PO Q4H PRN 01/14/18 Sertraline HCl [Zoloft] 100 mg PO DAILY 01/14/18 Sumatriptan Succinate [Imitrex] 100 mg PO DAILY PRN PRN 01/14/18 Timolol 0.5% [Timoptic] 1 drop EACH EYE DAILY 01/14/18 Ampicillin Trihydrate 500 mg PO [id number] Days capsule 01/18/18 Methadone HCl 10 mg PO TID #10 tab 01/18/18 Oxycodone HCl [Roxicodone] 5 mg PO Q8H PRN #10 tab 01/18/18 Quetiapine Fumarate [Seroquel] 25 mg PO QHS #0 tablet 01/18/18 Following Prescrptions Were Given to Patient: Oxycodone HCl [Roxicodone] 5 mg PO Q8H PRN #10 tab PRN Reason: Pain Ampicillin Trihydrate 500 mg PO [id number] 7 Days capsule Methadone HCl 10 mg PO TID #10 tab Primary Care Physician: Pebbles Weiss MD [Primary Care Provider] - Medical Necessity - Tobacco Use Smoking Status: Unknown if ever smoked
--- NOTE | 2018-01-18 13:49 | CASEMGMT ---
Social Work Note YAHAIRA received discharge paperwork including signed medication list, scripts, and transfer summary. YAHAIRA faxed discharge paperwork to [facility]. YAHAIRA placed originals in SNF folder and placed copies on pt chart. Transportation set up for 3:30 via cot [facility] [place]. YAHAIRA informed Sera at [facility], LISA Gerard, Charge Nurse Brittney and pt that transportation is set for 3:30pm. Pt denied additional needs at this time. Plan: Return to [facility] Xochitl Velez MUSIC PUBLISHER, DATA WAREHOUSING ARCHITECT
[2018-01-18] MEDS: 0.9% NaCl Peripheral Flush Adult/Peds IV (14:50)
[2018-01-18 15:00] VITALS: BP 141/80; PULSE 77; RESP 18; TEMP 36.3; O2SAT 97
--- NOTE | 2018-01-18 15:13 | NURSING ---
Report called to Cassius Le.
== END 2018-01-18 15:35 | disposition skilled nursing facility (03) | DRG 193 ==
LOC: ED 04:42 → MS3 07:00
PROVIDERS: Internal Medicine; Admitting Provider Internal Medicine; Emergency Provider Emergency Medicine; Family Provider Family Medicine Geriatric Medicine; PCP Internal Medicine Geriatric Medicine; Visit Provider Internal Medicine
DX: J18.9 Pneumonia, unspecified organism (principal); G92 Toxic encephalopathy; J84.9 Interstitial pulmonary disease, unspecified; F03.91 Unspecified dementia, unspecified severity, with behavioral disturbance; I13.0 Hypertensive heart and chronic kidney disease with heart failure and stage 1 through stage 4 chronic kidney disease, or unspecified chronic kidney disease; I50.32 Chronic diastolic (congestive) heart failure; N39.0 Urinary tract infection, site not specified; I48.0 Paroxysmal atrial fibrillation; M06.9 Rheumatoid arthritis, unspecified; N18.3 Chronic kidney disease, stage 3 (moderate); B95.2 Enterococcus as the cause of diseases classified elsewhere; Z66 Do not resuscitate; E78.5 Hyperlipidemia, unspecified; M79.7 Fibromyalgia; M19.90 Unspecified osteoarthritis, unspecified site; M35.00 Sjogren syndrome, unspecified; I25.2 Old myocardial infarction; Z86.711 Personal history of pulmonary embolism; K58.9 Irritable bowel syndrome, unspecified; Z79.899 Other long term (current) drug therapy; G89.4 Chronic pain syndrome
CPT/HCPCS: 36415; 51702; 70450; 71045; 71046; 80048; 80053; 80202; 81001; 84484; 85025; 87040; 87070; 87077; 87086; 87088; 87186; 87205; 87449; 87641; 87804; 97162; 97165; 97802; 99285; J2185; J7030; J7050; A4216; J0290; J1940; J7799

== ENCOUNTER → 2018-02-20 15:17 | Outpatient (CLI) | payer MEDICARE, OTHER, SELFPAY ==
--- NOTE | 2018-02-20 15:21 | RAD_ITS ---
STUDY: X-RAY - THORACIC SPINE REASON FOR EXAM: Female, 72 years old. CHRONIC MID LOWER BACK PAIN, HX KYPHOPLASTY TECHNIQUE: 3 view(s) of the thoracic spine were obtained. COMPARISON: None. FINDINGS: There is an increase in the normal thoracic kyphosis. There is no substantial scoliosis. There is multilevel endplate spondylosis of the thoracic vertebrae. There is multilevel disc space narrowing of the thoracic spine. Kyphoplasty changes at T8. Compression deformity at T9.There is demineralization of the thoracic spine. The soft tissue structures are unremarkable. RAD/Thoracic Spine 3 Views IMPRESSION: There are degenerative changes as noted above. There is demineralization of the thoracic spine. Electronically Signed: Hipolito Leyva MD at 22:43 EDT , Service support ,
--- NOTE | 2018-02-20 15:21 | RAD_ITS ---
STUDY: X-RAY - LUMBAR SPINE REASON FOR EXAM: Female, 72 years old. CHRONIC MID LOWER BACK PAIN, HX KYPHOPLASTY TECHNIQUE: 3 view(s) of the lumbar spine were obtained. COMPARISON: None FINDINGS: There is straightening of the lumbar lordosis. There is no substantial scoliosis. There is a normal alignment of the vertebrae. There are multiple metallic clips in the right upper quadrant. This is consistent for a cholecystectomy. There is multilevel endplate spondylosis of the lumbar vertebrae. There is multi-level degenerative disc disease with multi-level disc space narrowing. There are atherosclerotic vascular calcifications. The soft tissue structures are unremarkable. RAD/Lumbar Spine 2 or 3 Views IMPRESSION: Degenerative changes of the spine, as detailed above. There is mild straightening of the normal lumbar lordosis. This can suggest back strain. Electronically Signed: Hipolito Leyva MD at 22:44 EDT , Service support ,
== END ==
PROVIDERS: Family Provider Family Medicine Geriatric Medicine; PCP Family Medicine Geriatric Medicine; Visit Provider Family Medicine Geriatric Medicine
DX: M54.5 Low back pain (principal); M54.6 Pain in thoracic spine
CPT/HCPCS: 72072; 72100

== ENCOUNTER 2018-02-25 09:47 | Inpatient (IN) | payer MEDICARE, OTHER, SELFPAY ==
[2018-02-25] VITALS (8 sets, daily range): BP systolic 103–137; BP diastolic 51–79; PULSE 65–83; RESP 15–18; TEMP 36.2–37.1; O2SAT 95–100; BMI 26.4; BMI 25.2
--- NOTE | 2018-02-25 09:49 | EKG12_ITS ---
Test Reason : WEAKNESS Blood Pressure : / mmHG Vent. Rate : 083 BPM Atrial Rate : 083 BPM P-R Int : 164 ms QRS Dur : 078 ms QT Int : 356 ms P-R-T Axes : 027 -09 -03 degrees QTc Int : 418 ms Normal sinus rhythm Inferior infarct , age undetermined Abnormal ECG Confirmed by CHASE COLEMAN, FELIX ([id number]), editor continuity and script AVEL REYES ([id number]) on 02/27/2018 1:27:05 PM Referred By: Abhijit Jett Confirmed By:FELIX STONE MD
--- NOTE | 2018-02-25 10:00 | RAD_ITS ---
STUDY: X-RAY CHEST REASON FOR EXAM: Female, 72 years old. Chest pain. TECHNIQUE: Single AP portable view of the chest. COMPARISON: January 15, 2018 FINDINGS: Cardiac monitoring leads are present. The lungs are underexpanded with crowding the bronchovascular markings and obscuration of lung bases. Consistently underexpanded lungs suggests sequela of restrictive lung disease. There are nodular areas in the right upper lobe that appears spiculated. There is interstitial thickening present in both lungs. There is no demonstrated pleural abnormality. There is mild cardiac enlargement. There are calcified mediastinal and hilar lymph nodes. Normal visualized pulmonary arteries. There is atherosclerotic calcification of the aortic arch with tortuosity. There is demineralization of the osseous structures. Normal visualized ribs, clavicles, and shoulders. There is no demonstrated abnormality of the visualized soft tissue structures of the upper abdomen. RAD/Chest 1 View (Portable) IMPRESSION: 1. Spiculated opacities in the right upper lobe may represent pulmonary nodules versus focal airspace disease. 2. Underexpanded lungs with mild pulmonary congestion. Electronically Signed: Paola Kwok MD at 10:52 EDT , Service support ,
--- NOTE | 2018-02-25 10:13 | ED.DCSUM_ITS ---
- ER Visit Summary Date of Service: 02/25/18 Chief Complaint: [] Whole body pain diarrhea History of Present Illness: The patient is a 72 F [] patient has a long history of back pain leg pain and whole body pain related to a variety of different elements including what looks like thoracic spine fracture diffuse spine disease , prior bilateral hip surgeries, bilateral arthritis involving every extremity and fibromyalgia she is on methadone 30 mg a day she indicates she fell the other day she was seen by her pain management as per Dr. Knowles evaluated x- rays were done that were negative, she had injection of her back that did not help any of her pain, because of the fact that her pain is not improved with the injection and not relief from methadone she comes into the emergency room via paramedics in addition she complains of a few days of loose diarrheal bowel movements no vomiting no chest pain no abdominal pain Basically indicates that her entire back hurts her all of her extremities hurt and her whole body hurts and this is baseline for her but her back pain is slightly worse since the fall, she has not been exposed anyone who is been ill no tainted food or antibiotics the diarrhea is watery started this morning with 3 loose bowel movements did not inform her physicians of the pain Physical Examination: [] No distress her vital signs are within normal range head neck chest unremarkable the lungs are clear the heart tones are normal abdomen soft nontender she has an incision in the midline thoracic back related to what sounds like a prior kyphoplasty she complains of pain in the lower thoracic upper lumbar area that is chronic no contusion or bruising here no real pain in the midline C-spine but rather diffuse back pain, her lungs are clear heart tones are normal abdomen soft nontender upper lower extremities are unremarkable except for complaints of diffuse pain she is able to move her extremities but complains of pain when she does Test Results: [] Emergency Department Course and Treatment: [] Differential is rather extensive she is on 30 mg a day of methadone of explained to this will complete her pain management and the emergency department really cannot fully manage her pain she will be given morphine and Zofran screening labs White count is 14,000 creatinine slightly elevated to 1.4, lipase is slightly elevated at 470 see those reports lumbar spine x-ray shows nothing acute questionable sacral insufficiency fracture but her pain is actually at the level of the high lumbar low T-spine, the patient reports really no improvement with her pain management with the morphine she was given have explained her pain management can be complicated because she has been on methadone for such a long time she indicates she does not feel well enough to be discharged home given all the above have asked the hospital see her further management Treatment Plan: [] Disposition: [] Pending hospitalist evaluation Impression: [] Intractable pain, elevated creatinine leukocytosis elevated lipase This note was generated with [employer] dictation software. It may contain incorrect words, spelling, and punctuation that were not noted in review of the chart prior to signing ED Disposition - Plan for ED Patient: Chief Complaint: Weakness Referrals: Abhijit Jett Chi, MD [Primary Care Provider] -
[2018-02-25 10:34] LABS: Absolute Lymphocyte Count 3.24 X10^3/ul (0.83-4.51); Absolute Neutrophil Count 8.8 X10^3/uL (2.0-7.7); Basophil# 0.04 X10^3/uL; Basophil% 0.3 % (0-1); Eosinophil# 1.03 X10^3/uL; Eosinophils% 7.1 % (0-5); Hematocrit 39.5 % (37-47); Hemoglobin 13.1 g/dl (12.0-15.0); Lymphocyte # 3.24 X10^3/ul (4.0); Lymphocyte % 22.5 % (19-41); Mean Corp Hgb Conc 33.2 g/gl (32-36); Mean Corpuscular Hgb 28.8 pg (27.0-32.0); Mean Corpuscular Volume 86.8 fL (81-99); Mean Platelet Vol. 10.5 fl (6.2-12.0); Monocyte# 1.25 X10^3/uL; Monocyte% 8.7 % (0-10); Neutrophil # 8.82 X10^3/uL (2.7-7.7); Neutrophil % 61.1 % (47-70); Platelet Count 251 K/mm3 (150-450); RBC Distribution Width SD 53.5 fl (35.1-43.9); Red Blood Count 4.55 M/mm3 (4.2-5.4); White Blood Count 14.4 K/mm3 (4.4-11.0)
[2018-02-25 10:35] LABS: POSITIVE COUNT NO; POSITIVE DIFFERENTIAL NO; POSITIVE MORPHOLOGY NO
[2018-02-25] MEDS: Ondansetron 4 MG/2 ML Vial IV (10:41)
[2018-02-25] MEDS: morphine 8 MG/ML Syringe IV (10:41)
[2018-02-25] MEDS: 0.9% Normal Saline 1,000 ML 150 ML IV (10:42)
[2018-02-25 10:49] LABS: Mucous, Urine 0 SEEN /hpf (<or=2+); Red Blood Cells-Urine 0 SEEN /hpf (0-5)
[2018-02-25 10:50] LABS: Color, Urine Straw (Yellow); Glucose, Dipstick Normal (Normal); Ketone-Dipstick Negative (Negative); Leukocyte Esterase-Dipstick 500 /ul (Negative); Nitrite-Dipstick Negative (Negative); Occult Blood-Urine Negative /ul (Negative); Protein-Dipstick Negative (Negative); Urine Bilirubin Dipstick Negative (Negative); Urine Clarity Sl. Cloudy (Clear); Urine Urobilinogen Normal (Normal)
[2018-02-25 10:53] LABS: AST(SGOT) 17 U/L (15-37); Alanine Aminotransfer ALT/SGPT 16 U/L (13-56); Albumin, Serum 3.2 g/dL (3.2-5.0); Alkaline Phosphatase 138 U/L (45-117); Anion Gap 11 (5-15); BUN 20 mg/dL (7-18); BUN/Creat Ratio 14.7 RATIO (10-20); Bilirubin, Direct 0.09 mg/dL (0.00-0.30); Calcium,Total 8.9 mg/dL (8.5-10.1); Chloride 113 mmol/L (98-107); Creatinine, Serum 1.36 mg/dL (0.55-1.02); EST Glomerular Filtration Rate 40 mL/min (>60); Est Glom Filt Rate - Afr Amer 49 mL/min (>60); Estimated Creatinine Clearance 35.29 ml/min; Globulin 4.3 g/dL (2.2-4.2); Glucose 91 mg/dL (74-106); Lipase 471 U/L (73-393); Potassium 3.6 mmol/L (3.5-5.1); Protein, Total 7.5 g/dL (6.4-8.2); Sodium Level 143 mmol/L (136-145)
[2018-02-25 10:55] LABS: Squamous Epithelial Cells - UA 0-5 SEEN /hpf (5-10); White Blood Cells 0-5 SEEN /hpf (0-5)
[2018-02-25 10:56] LABS: Bacteria RARE /hpf (None Seen)
--- NOTE | 2018-02-25 11:30 | RAD_ITS ---
STUDY: X-RAY - LUMBAR SPINE REASON FOR EXAM: Female, 72 years old. For TECHNIQUE: 3 view(s) of the lumbar spine were obtained. COMPARISON: Feb 20 2018 lumbar spine radiographs FINDINGS: Dextroconvex lumbar scoliotic curvature. Prior cholecystectomy clips. Degenerative changes in the lumbar spine with disc space narrowing at L3-4, L4-L5 and L5-S1 levels. Multilevel facet sclerosis. Hypertrophy of this process processes. Anterior and posterior osteophytic spurring. Asymmetric sclerotic appearance of the left sacrum concerning for a left-sided sacral insufficiency fracture however this appearance is not changed since previous examination from February 20, 2018 IMPRESSION: Suspect a left-sided sacral insufficiency fracture. Mild dextro convex lumbar scoliotic curvature with spondylotic changes. Diffuse osteopenia. Electronically Signed: Jose A Golden, at 11:55 EDT Tel , Service support , RAD/Lumbar Spine 2 or 3 Views
--- NOTE | 2018-02-25 14:05 | PCM.HP.STD ---
Problem List (1) Fibromyalgia Status: Chronic (2) HTN (hypertension) Status: Chronic (3) Rheumatoid arthritis Status: Chronic Comment: on no medications for RA - diagnosed in [place] many years ago (4) Dyslipidemia Status: Chronic (5) CKD (chronic kidney disease), stage III Status: Chronic (6) Cephalalgia Status: Chronic (7) IBS (irritable bowel syndrome) Status: Chronic (8) PUD (peptic ulcer disease) Status: Suspected (9) Osteoarthritis Status: Chronic History of Present Illness Date of Admission: 02/25/18 Chief Complaint: Fall, mid back pain. The patient is a 72 year old F with past medical history as mentioned above presented to the emergency room because of mid back pain. This past Monday, she had a fall and she started having back pain. She does have history of chronic back pain but this pain is different, it is in the mid back, grabbing pain, 10 out of 10 in severity, not radiating, no associated symptoms and no aggravating or relieving factors. The pain has been constant over the last week without any improvement. 3 days after the onset of the back pain, she saw Dr. Barone who is her PCP who gave her IM injections and she was started on prednisone. 2 days later, she saw Dr. Piper and she received cervical steroid injections according to the patient. She has been seeing him for long time for chronic pain management. She complains of generalized body pains and aches that has been going on for some time because of history of fibromyalgia and rheumatoid arthritis as well as osteoarthritis. She mentioned that she came in today because of this mid back pain that has not been improving over the last week. She reported chronic numbness and tingling of both legs secondary to chronic neuropathy. Denied bowel or bladder incontinence. She denied focal leg weakness. She denies fever or chills. In the emergency department, her vital signs were stable. Her routine blood work is remarkable for leukocytosis, creatinine 1.36. Her LFT was unremarkable. Troponin was negative. Lipase was 471. Urinalysis revealed cloudy urine, negative for nitrite, there was 500 leukocyte esterase, 0-5 WBCs and rare bacteria. EKG revealed normal sinus rhythm without evidence of acute ischemic changes or cardiac arrhythmias. Chest x-ray reported by radiology showing spiculated opacities in the right upper lobe. X-ray lumbar spine revealed suspected left-sided sacral fracture, osteopenia. She is being admitted for acute on chronic back pain, debility, suspected left sacral fracture and new findings on chest x-ray with spiculated opacities in the right upper lung. Past Medical History Past Medical History (Chronic Problems): Chronic Problems (Last Updated 10/25/17 @ 16:34 by Noris Nunez) Fibromyalgia (Chronic) HTN (hypertension) (Chronic) Rheumatoid arthritis (Chronic) on no medications for RA - diagnosed in [place] many years ago Dyslipidemia (Chronic) Sjogren's syndrome (Chronic) Myocardial infarct, old (Chronic) CKD (chronic kidney disease), stage III (Chronic) history of PULMONARY EMBOLI (Chronic) Diastolic CHF (Chronic) Cephalalgia (Chronic) IBS (irritable bowel syndrome) (Chronic) Osteoarthritis (Chronic) History of radiofrequency ablation (RFA) procedure for cardiac arrhythmia (Chronic) Allergies acetaminophen [From Tylox] Allergy (Verified 02/25/18 09:54) Other amoxicillin Allergy (Verified 02/25/18 09:54) Hives ciprofloxacin [From Cipro] Allergy (Verified 02/25/18 09:54) Other ciprofloxacin HCl [From Cipro] Allergy (Verified 02/25/18 09:54) Other indomethacin Allergy (Verified 02/25/18 09:54) Unknown nortriptyline HCl [From Pamelor] Allergy (Verified 02/25/18 09:54) Unknown oxycodone [From Tylox] Allergy (Verified 02/25/18 09:54) Other Sulfa (Sulfonamide Antibiotics) Allergy (Verified 02/25/18 09:54) Unknown warfarin [From Coumadin] Allergy (Verified 02/25/18 09:54) Unknown iodine Adverse Reaction (Verified 02/25/18 09:54) Itching nortriptyline [Nortriptyline] Adverse Reaction (Verified 02/25/18 09:54) Itching warfarin sodium [From Coumadin] Adverse Reaction (Verified 02/25/18 09:54) Itching Home Medications: Ambulatory Orders Medication Instructions Recorded Atorvastatin Calcium [Lipitor] 20 mg PO DAILY 01/14/18 Pregabalin [Lyrica] 100 mg PO QHS 01/14/18 Sertraline HCl [Zoloft] 200 mg PO DAILY 01/14/18 Baclofen 10 mg PO DAILY 02/25/18 Diclofenac [Voltaren] 50 mg PO BIDCM 02/25/18 Methadone HCl 10 mg PO 4X/DAY 02/25/18 Phenytoin Na [Dilantin] 200 mg PO BID 02/25/18 Prednisone 20 mg PO DAILY 02/25/18 Topiramate [Topiramate ER] 50 mg PO BID 02/25/18 Surgical History: angioplasty - pt denies this - she says that she only had an ablation and she does not have any hx of CAD., appendectomy, hysterectomy, total hip arthroplasty - recent right hip replacement, tonsillectomy, - - craniotomy to remove blood clots after a fall. 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 Denies: Anorexia, Chills, Fever Eyes: Denies: Blurred vision, Double vision, Drainage, Redness HEENT: Denies: Difficulty Hearing, Dysphasia, Ear Pain, Eye Pain, Nasal Congestion, Sore Throat Cardiovascular: Denies: Chest Pain, Chest Pressure, Chest Tightness, Heaviness, Paroxysmal Noc. Dyspnea, Syncope Respiratory: Denies: Cough, Pleuritic Pain, Shortness of Breath, Sputum production, Wheezing Gastrointestinal: Reports: Diarrhea. Denies: Abdominal Pain, Constipation, Nausea, Vomiting Genitourinary: Denies: Dysuria, Frequency, Hematuria Musculoskeletal: Reports: Back Pain. Denies: Arm Pain, Foot Pain, Joint Tenderness, Leg Pain, Shoulder Pain Skin: Denies: Dryness, Rash Neurological: Reports: Numbness, Tingling. Denies: Balance problems, Double vision, Change in Speech, Slurred speech, Confusion, Focal weakness, Headaches Psychiatric: Denies: Anxiety, Depression Endocrine: Denies: Change in Body Habitus, Polydipsia VTE Information - Inpt Only VTE Present on Admission: No VTE Mechan Device Prophylaxis: None VTE Pharm Prophylaxis ordered?: Yes - Physical Exam General: Alert, Oriented x3, Cooperative, No apparent distress HEENT: Atraumatic, PERRLA, EOMI Oral: Moist Mucosa, No Gingival or Mucosal Lesions/ Ulcerations Neck: Supple, No JVD, Negative Carotid Bruits, Trachea Midline, Thyroid Normal Size and Texture Lungs: Clear to auscultation, No rhonchi, No wheeze, No rales, Diminished Cardiovascular: Regular rate, Regular Rhythm, Normal S1, Normal S2, PMI Normal Abdomen: Bowel Sounds Present, Soft, Non Tender, Non-Distended, No Hepato-splenomegaly Extremities: No clubbing, No cyanosis, No edema Skin: No rashes, No breakdown Lymphatic: No Cervical, Supraclavicular, or Inguinal Adenopathy Neurological: Cranial nerves II-XII grossly intact, Motor Exam 5/5 strength throughout Psych/Mental Status: Normal Affect, Appropriate, Alert and oriented to time, place, person, mood and affect Vital Signs Temp Pulse Resp BP Pulse Ox 97.2 F L 75 15 131/79 H 98 02/25/18 09:48 02/25/18 13:58 02/25/18 13:58 02/25/18 13:58 02/25/18 13:58 Oxygen Flow Rate (L/min) 2 Oxygen Delivery Method Nasal Cannula Weight: 168 lb 6.931 oz Body Mass Index (BMI) 26.4 Finger Stick Blood Glucose 107 Laboratory Tests Past 24 Hrs 02/25/18 02/25/18 02/25/18 10:28 10:28 10:45 WBC 14.4 H RBC 4.55 Hgb 13.1 Hct 39.5 MCV 86.8 MCH 28.8 MCHC 33.2 RDW 17.0 H RDW Differential 53.5 H Plt Count 251 MPV 10.5 Immature Gran % (Auto) 0.300 Neut % (Auto) 61.1 Lymph % (Auto) 22.5 Smyth % (Auto) 8.7 Eos % (Auto) 7.1 H Baso % (Auto) 0.3 Absolute Neuts (auto) 8.8 H Absolute Lymphs (auto) 3.24 Total Counted Not Reportable Sodium 143 Potassium 3.6 Chloride 113 H Carbon Dioxide 19.0 L Anion Gap 11 BUN 20 H Creatinine 1.36 H Estim Creat Clear Calc 35.29 Est GFR (MDRD) Af Amer 49 L Est GFR (MDRD) Non-Af 40 L BUN/Creatinine Ratio 14.7 Glucose 91 Calcium 8.9 Total Bilirubin 0.30 Direct Bilirubin 0.09 AST 17 ALT 16 Alkaline Phosphatase 138 H Troponin I < 0.015 Total Protein 7.5 Albumin 3.2 Globulin 4.3 H Lipase 471 H Urine Color Straw Urine Clarity Sl. Cloudy Urine pH 6.0 Ur Specific [place] 1.010 Urine Protein Negative Urine Glucose (UA) Normal Urine Ketones Negative Urine Occult Blood Negative Urine Nitrite Negative Urine Bilirubin Negative Urine Urobilinogen Normal Ur Leukocyte Esterase 500 H Urine RBC 0 SEEN Urine WBC 0-5 SEEN Ur Squamous Epith Cells 0-5 SEEN Urine Bacteria RARE Urine Mucus 0 SEEN Clinical Impression(s) from Imaging Studies Chest X-Ray 02/25/18 10:00 IMPRESSION: 1. Spiculated opacities in the right upper lobe may represent pulmonary nodules versus focal airspace disease. 2. Underexpanded lungs with mild pulmonary congestion. Electronically Signed: Paola Kwok MD at 10:52 EDT , Service support , Lumbar Spine X-Ray 02/25/18 11:30 IMPRESSION: Suspect a left-sided sacral insufficiency fracture. Mild dextro convex lumbar scoliotic curvature with spondylotic changes. Diffuse osteopenia. Electronically Signed: Jose A Golden at 11:55 EDT Tel , Service support , Assessment/Plan This is a 72 years old female patient presented to the emergency room because of mid back pain after she had a fall 1 week ago in context of history of chronic back pain, fibromyalgia, osteoarthritis and rheumatoid arthritis, found to have suspected left sacral fracture on lumbar spine x-ray and she is being admitted for intractable back pain for evaluation and treatment. #1 acute on chronic back pain: This pain started after she had a fall 1 week ago, it is in the mid back, look different from her chronic back pain. She had lumbar and thoracic spine x-ray on February 20, 2018 by her PCP after she had a fall and both revealed degenerative and arthritic changes without acute fractures or dislocations. Lumbar spine x-ray done today and revealed suspected left sacral fracture. Routine blood work is remarkable for leukocytosis which is likely because of prednisone but she has been on for the last week, creatinine is 1.26 which is chronic at her baseline. [facility], ambulate as tolerated, CT scan lumbar and thoracic spine, continue DuoNeb 3 times daily, IV Dilaudid as needed, OxyIR as needed for pain, consult Dr. Piper, repeat CBC and CMP tomorrow morning, PT OT evaluation and treatment when appropriate. #2 suspected left sacral fracture: Although she denied any left hip or left groin pain. X-ray of the lumbar spine revealed suspected left sacral fracture. Plan: CT scan pelvis without contrast, pain control as above. #3 questionable right upper lobe lung nodules: This is an incidental finding on chest x-ray reported by radiologist. She denies any significant cough or sputum production, no fever. At this time, I doubt pneumonia. She does have leukocytosis which can be explained by prednisone. Plan: CT scan chest without contrast. #4 debility/functional decline: Secondary to chronic back pain, osteoarthritis, rheumatoid arthritis and fibromyalgia. Patient lives alone and because of this pain, she is not able to do her daily activities. Plan for PT OT evaluation and treatment when appropriate, patient may need [facility] to [facility]. #5 elevated pancreatic lipase: Denies any significant abdominal pain but she does have chronic vague abdominal discomfort. Lipase is 471. LFTs normal. This could be due to medication side effects including prednisone and Lipitor. Plan for IV fluids, repeat CMP and lipase tomorrow morning. #6 stage III chronic kidney disease: Baseline creatinine has been around 1.2-1.7 mg/dL. Admission creatinine is 1.36, stable at baseline. #8 paroxysmal A. fib: Status post ablation. She is in sinus rhythm, rate is controlled. She is not on any medication for rate control and not on anticoagulation. #9 rheumatoid arthritis: Continue Lyrica and methadone, IV hydromorphone as above. #10 hyperlipidemia: Continue statins. #11 chronic pain syndrome: Continue methadone 3 times daily, Lyrica, IV hydromorphone, OxyIR as needed for pain. #12 DVT prophylaxis: Subcu heparin. This note was generated with [employer] dictation software. It may contain incorrect words, spelling, and punctuation that were not noted in checking the note before signing. Code Visit Inpatient E&M: 94933 Init Hosp L3
--- NOTE | 2018-02-25 14:15 | HP.PCM_ITS ---
Problem List (1) Fibromyalgia Status: Chronic (2) HTN (hypertension) Status: Chronic (3) Rheumatoid arthritis Status: Chronic Comment: on no medications for RA - diagnosed in [place] many years ago (4) Dyslipidemia Status: Chronic (5) CKD (chronic kidney disease), stage III Status: Chronic (6) Cephalalgia Status: Chronic (7) IBS (irritable bowel syndrome) Status: Chronic (8) PUD (peptic ulcer disease) Status: Suspected (9) Osteoarthritis Status: Chronic History of Present Illness Date of Admission: 02/25/18 Chief Complaint: Fall, mid back pain. The patient is a 72 year old F with past medical history as mentioned above presented to the emergency room because of mid back pain. This past Monday, she had a fall and she started having back pain. She does have history of chronic back pain but this pain is different, it is in the mid back, grabbing pain, 10 out of 10 in severity, not radiating, no associated symptoms and no aggravating or relieving factors. The pain has been constant over the last week without any improvement. 3 days after the onset of the back pain, she saw Dr. Barone who is her PCP who gave her IM injections and she was started on prednisone. 2 days later, she saw Dr. Piper and she received cervical steroid injections according to the patient. She has been seeing him for long time for chronic pain management. She complains of generalized body pains and aches that has been going on for some time because of history of fibromyalgia and rheumatoid arthritis as well as osteoarthritis. She mentioned that she came in today because of this mid back pain that has not been improving over the last week. She reported chronic numbness and tingling of both legs secondary to chronic neuropathy. Denied bowel or bladder incontinence. She denied focal leg weakness. She denies fever or chills. In the emergency department, her vital signs were stable. Her routine blood work is remarkable for leukocytosis , creatinine 1.36. Her LFT was unremarkable. Troponin was negative. Lipase was 471. Urinalysis revealed cloudy urine, negative for nitrite, there was 500 leukocyte esterase, 0-5 WBCs and rare bacteria. EKG revealed normal sinus rhythm without evidence of acute ischemic changes or cardiac arrhythmias. Chest x-ray reported by radiology showing spiculated opacities in the right upper lobe. X-ray lumbar spine revealed suspected left-sided sacral fracture, osteopenia. She is being admitted for acute on chronic back pain, debility, suspected left sacral fracture and new findings on chest x-ray with spiculated opacities in the right upper lung. Past Medical History Past Medical History (Chronic Problems): Chronic Problems (Last Updated 10/25/17 @ 16:34 by Noris Nunez) Fibromyalgia (Chronic) HTN (hypertension) (Chronic) Rheumatoid arthritis (Chronic) on no medications for RA - diagnosed in [place] many years ago Dyslipidemia (Chronic) Sjogren's syndrome (Chronic) Myocardial infarct, old (Chronic) CKD (chronic kidney disease), stage III (Chronic) history of PULMONARY EMBOLI (Chronic) Diastolic CHF (Chronic) Cephalalgia (Chronic) IBS (irritable bowel syndrome) (Chronic) Osteoarthritis (Chronic) History of radiofrequency ablation (RFA) procedure for cardiac arrhythmia ( Chronic) Allergies acetaminophen [From Tylox] Allergy (Verified 02/25/18 09:54) Other amoxicillin Allergy (Verified 02/25/18 09:54) Hives ciprofloxacin [From Cipro] Allergy (Verified 02/25/18 09:54) Other ciprofloxacin HCl [From Cipro] Allergy (Verified 02/25/18 09:54) Other indomethacin Allergy (Verified 02/25/18 09:54) Unknown nortriptyline HCl [From Pamelor] Allergy (Verified 02/25/18 09:54) Unknown oxycodone [From Tylox] Allergy (Verified 02/25/18 09:54) Other Sulfa (Sulfonamide Antibiotics) Allergy (Verified 02/25/18 09:54) Unknown warfarin [From Coumadin] Allergy (Verified 02/25/18 09:54) Unknown iodine Adverse Reaction (Verified 02/25/18 09:54) Itching nortriptyline [Nortriptyline] Adverse Reaction (Verified 02/25/18 09:54) Itching warfarin sodium [From Coumadin] Adverse Reaction (Verified 02/25/18 09:54) Itching Home Medications: Ambulatory Orders Medication Instructions Recorded Atorvastatin Calcium [Lipitor] 20 mg PO DAILY 01/14/18 Pregabalin [Lyrica] 100 mg PO QHS 01/14/18 Sertraline HCl [Zoloft] 200 mg PO DAILY 01/14/18 Baclofen 10 mg PO DAILY 02/25/18 Diclofenac [Voltaren] 50 mg PO BIDCM 02/25/18 Methadone HCl 10 mg PO 4X/DAY 02/25/18 Phenytoin Na [Dilantin] 200 mg PO BID 02/25/18 Prednisone 20 mg PO DAILY 02/25/18 Topiramate [Topiramate ER] 50 mg PO BID 02/25/18 Surgical History: angioplasty - pt denies this - she says that she only had an ablation and she does not have any hx of CAD., appendectomy, hysterectomy, total hip arthroplasty - recent right hip replacement, tonsillectomy, - - craniotomy to remove blood clots after a fall. 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 Denies: Anorexia, Chills, Fever Eyes: Denies: Blurred vision, Double vision, Drainage, Redness HEENT: Denies: Difficulty Hearing, Dysphasia, Ear Pain, Eye Pain, Nasal Congestion, Sore Throat Cardiovascular: Denies: Chest Pain, Chest Pressure, Chest Tightness, Heaviness, Paroxysmal Noc. Dyspnea, Syncope Respiratory: Denies: Cough, Pleuritic Pain, Shortness of Breath, Sputum production, Wheezing Gastrointestinal: Reports: Diarrhea. Denies: Abdominal Pain, Constipation, Nausea, Vomiting Genitourinary: Denies: Dysuria, Frequency, Hematuria Musculoskeletal: Reports: Back Pain. Denies: Arm Pain, Foot Pain, Joint Tenderness, Leg Pain, Shoulder Pain Skin: Denies: Dryness, Rash Neurological: Reports: Numbness, Tingling. Denies: Balance problems, Double vision, Change in Speech, Slurred speech, Confusion, Focal weakness, Headaches Psychiatric: Denies: Anxiety, Depression Endocrine: Denies: Change in Body Habitus, Polydipsia VTE Information - Inpt Only VTE Present on Admission: No VTE Mechan Device Prophylaxis: None VTE Pharm Prophylaxis ordered?: Yes - Physical Exam General: Alert, Oriented x3, Cooperative, No apparent distress HEENT: Atraumatic, PERRLA, EOMI Oral: Moist Mucosa, No Gingival or Mucosal Lesions/ Ulcerations Neck: Supple, No JVD, Negative Carotid Bruits, Trachea Midline, Thyroid Normal Size and Texture Lungs: Clear to auscultation, No rhonchi, No wheeze, No rales, Diminished Cardiovascular: Regular rate, Regular Rhythm, Normal S1, Normal S2, PMI Normal Abdomen: Bowel Sounds Present, Soft, Non Tender, Non-Distended, No Hepato- splenomegaly Extremities: No clubbing, No cyanosis, No edema Skin: No rashes, No breakdown Lymphatic: No Cervical, Supraclavicular, or Inguinal Adenopathy Neurological: Cranial nerves II-XII grossly intact, Motor Exam 5/5 strength throughout Psych/Mental Status: Normal Affect, Appropriate, Alert and oriented to time, place, person, mood and affect Vital Signs Temp Pulse Resp BP Pulse Ox 97.2 F L 75 15 131/79 H 98 02/25/18 09:48 02/25/18 13:58 02/25/18 13:58 02/25/18 13:58 02/25/18 13:58 Oxygen Flow Rate (L/min) 2 Oxygen Delivery Method Nasal Cannula Weight: 168 lb 6.931 oz Body Mass Index (BMI) 26.4 Finger Stick Blood Glucose 107 Laboratory Tests Past 24 Hrs 02/25/18 02/25/18 02/25/18 10:28 10:28 10:45 WBC 14.4 H RBC 4.55 Hgb 13.1 Hct 39.5 MCV 86.8 MCH 28.8 MCHC 33.2 RDW 17.0 H RDW Differential 53.5 H Plt Count 251 MPV 10.5 Immature Gran % (Auto) 0.300 Neut % (Auto) 61.1 Lymph % (Auto) 22.5 [place] % (Auto) 8.7 Eos % (Auto) 7.1 H Baso % (Auto) 0.3 Absolute Neuts (auto) 8.8 H Absolute Lymphs (auto) 3.24 Total Counted Not Reportable Sodium 143 Potassium 3.6 Chloride 113 H Carbon Dioxide 19.0 L Anion Gap 11 BUN 20 H Creatinine 1.36 H Estim Creat Clear Calc 35.29 Est GFR (MDRD) Af Amer 49 L Est GFR (MDRD) Non-Af 40 L BUN/Creatinine Ratio 14.7 Glucose 91 Calcium 8.9 Total Bilirubin 0.30 Direct Bilirubin 0.09 AST 17 ALT 16 Alkaline Phosphatase 138 H Troponin I < 0.015 Total Protein 7.5 Albumin 3.2 Globulin 4.3 H Lipase 471 H Urine Color Straw Urine Clarity Sl. Cloudy Urine pH 6.0 Ur Specific [place] 1.010 Urine Protein Negative Urine Glucose (UA) Normal Urine Ketones Negative Urine Occult Blood Negative Urine Nitrite Negative Urine Bilirubin Negative Urine Urobilinogen Normal Ur Leukocyte Esterase 500 H Urine RBC 0 SEEN Urine WBC 0-5 SEEN Ur Squamous Epith Cells 0-5 SEEN Urine Bacteria RARE Urine Mucus 0 SEEN Clinical Impression(s) from Imaging Studies Chest X-Ray 02/25/18 10:00 IMPRESSION: 1. Spiculated opacities in the right upper lobe may represent pulmonary nodules versus focal airspace disease. 2. Underexpanded lungs with mild pulmonary congestion. Electronically Signed: Paola wKok MD at 10:52 EDT , Service support , Lumbar Spine X-Ray 02/25/18 11:30 IMPRESSION: Suspect a left-sided sacral insufficiency fracture. Mild dextro convex lumbar scoliotic curvature with spondylotic changes. Diffuse osteopenia. Electronically Signed: Jose A Golden at 11:55 EDT Tel , Service support , Assessment/Plan This is a 72 years old female patient presented to the emergency room because of mid back pain after she had a fall 1 week ago in context of history of chronic back pain, fibromyalgia, osteoarthritis and rheumatoid arthritis, found to have suspected left sacral fracture on lumbar spine x-ray and she is being admitted for intractable back pain for evaluation and treatment. #1 acute on chronic back pain: This pain started after she had a fall 1 week ago , it is in the mid back, look different from her chronic back pain. She had lumbar and thoracic spine x-ray on February 20, 2018 by her PCP after she had a fall and both revealed degenerative and arthritic changes without acute fractures or dislocations. Lumbar spine x-ray done today and revealed suspected left sacral fracture. Routine blood work is remarkable for leukocytosis which is likely because of prednisone but she has been on for the last week, creatinine is 1.26 which is chronic at her baseline. Plan: [facility], ambulate as tolerated, CT scan lumbar and thoracic spine, continue DuoNeb 3 times daily, IV Dilaudid as needed, OxyIR as needed for pain, consult Dr. Piper, repeat CBC and CMP tomorrow morning, PT OT evaluation and treatment when appropriate. #2 suspected left sacral fracture: Although she denied any left hip or left groin pain. X-ray of the lumbar spine revealed suspected left sacral fracture. Plan: CT scan pelvis without contrast, pain control as above. #3 questionable right upper lobe lung nodules: This is an incidental finding on chest x-ray reported by radiologist. She denies any significant cough or sputum production, no fever. At this time, I doubt pneumonia. She does have leukocytosis which can be explained by prednisone. Plan: CT scan chest without contrast. #4 debility/functional decline: Secondary to chronic back pain, osteoarthritis, rheumatoid arthritis and fibromyalgia. Patient lives alone and because of this pain, she is not able to do her daily activities. Plan for PT OT evaluation and treatment when appropriate, patient may need placement to snf facility. #5 elevated pancreatic lipase: Denies any significant abdominal pain but she does have chronic vague abdominal discomfort. Lipase is 471. LFTs normal. This could be due to medication side effects including prednisone and Lipitor. Plan for IV fluids, repeat CMP and lipase tomorrow morning. #6 stage III chronic kidney disease: Baseline creatinine has been around 1.2- 1.7 mg/dL. Admission creatinine is 1.36, stable at baseline. #8 paroxysmal A. fib: Status post ablation. She is in sinus rhythm, rate is controlled. She is not on any medication for rate control and not on anticoagulation. #9 rheumatoid arthritis: Continue Lyrica and methadone, IV hydromorphone as above. #10 hyperlipidemia: Continue statins. #11 chronic pain syndrome: Continue methadone 3 times daily, Lyrica, IV hydromorphone, OxyIR as needed for pain. #12 DVT prophylaxis: Subcu heparin. This note was generated with [employer] dictation software. It may contain incorrect words, spelling, and punctuation that were not noted in checking the note before signing. Code Visit Inpatient E&M: 91580 Init Hosp L3
--- NOTE | 2018-02-25 14:43 | CT_ITS ---
STUDY: CT THORACIC SPINE WITHOUT CONTRAST REASON FOR EXAM: Female, 72 years old. Fall. Previous compression fracture and kyphoplasty. RADIATION DOSAGE (If Supplied By Facility): CTDIvol = ( 18.45 ) mGy, DLP = ( 1049.48 ) mGycm TECHNIQUE: The patient was scanned in a multi detector CT scanner. High resolution imaging was performed. Images were obtained from to . Sagittal and coronal images were reconstructed. Individualized dose optimization techniques were used for this CT. COMPARISON: Plain films 02/24/2015, and 02/20/2018. FINDINGS: Normal visualized cervical spine. Stable appearance of focal kyphosis centered at T8. Partial compression fracture of T9 appears stable since previous studies. Mild partial compression fracture of T10 is new since prior studies. No retropulsed fragments. There has been a long segment posterior decompression between T6, T7, T8. Visualized soft tissues show fibrotic changes and/or atelectasis in the visualized lungs. CT/Spine Thoracic without Contras IMPRESSION: Compression fractures of T8 and T9 appear stable. Partial compression fracture of T10 appears new. Electronically Signed: Bulmaro Kay MD at 16:13 EDT , Service support ,
--- NOTE | 2018-02-25 14:43 | CT_ITS ---
STUDY: CT CHEST WITHOUT CONTRAST REASON FOR EXAM: Female, 72 years old. Fall RADIATION DOSAGE (If Supplied By Facility): CTDIvol = ( 10.90 ) mGy, DLP = ( 345.90 ) mGycm TECHNIQUE: Transaxial imaging was performed without the administration of intravenous contrast material. Individualized dose optimization techniques were used for this CT. COMPARISON: August 26, [address] FINDINGS: Approximately 6 mm nodule in the left upper lobe. Peripheral reticulations also seen bilaterally. Differential considerations include interstitial lung disease. No pneumothorax. No lung contusion. Scattered borderline enlarged mediastinal lymph nodes. Coronary vascular calcifications. Mild cardiomegaly Small right-sided pleural effusion with subsegmental atelectasis Degenerative changes in the thoracic spine. Multilevel laminectomies in the mid thoracic spine. Degenerative changes in thoracic spine with diffuse osteopenia. Subtle compression deformity of the T6. T7 vertebral body kyphoplasty noted. Multilevel neural foraminal narrowing. Acute T8 vertebral body noted with approximately 30-40% loss of vertebral body height without retropulsion. Acute compression fracture of the T9 vertebral body with approximately 50% loss of vertebral body height and minimal retropulsion of the posterior-superior cortex.. IMPRESSION: Approximately 6 mm nodule in the left upper lobe which needs follow-up assessment with chest CT in 3-6 months. Peripheral reticulations in the lung parenchyma may relate with interstitial lung disease nonemergent high-resolution chest CT is suggested. Subtle reticulonodular opacities in the right upper lobe possibly relate with developing infiltrates not present on previous examination Mediastinal adenopathy. Coronary vascular calcifications. Acute T8 vertebral body noted with approximately 30-40% loss of vertebral body height without retropulsion. Acute compression fracture of the T9 vertebral body with approximately 50% loss of vertebral body height and minimal retropulsion of the posterior-superior cortex.. Electronically Signed: Jose A Golden, at 16:22 EDT Tel , Service support , CT/Chest without Contrast
--- NOTE | 2018-02-25 14:43 | CT_ITS ---
STUDY: CT LUMBAR SPINE WITHOUT CONTRAST REASON FOR EXAM: Female, 72 years old. Fall. RADIATION DOSAGE (If Supplied By Facility): CTDIvol = ( 21.87 ) mGy, DLP = ( 689.97 ) mGycm TECHNIQUE: The patient was scanned in a multi detector CT scanner. High resolution transaxial imaging was performed. Sagittal and coronal images were reconstructed. Individualized dose optimization techniques were used for this CT. COMPARISON: 02/25/2018, and CT scan 10/09/2017 FINDINGS: Severe diffuse demineralization. No compression fractures. Grossly normal curvature and alignment. Multilevel degenerative disc disease most pronounced at L4-L5. Multilevel facet joint degenerative disease. Multilevel spondylosis. Axial images show moderate spinal stenosis from disc bulge at L2-L3 worse to the right, moderate spinal stenosis and bilateral neural foraminal narrowing at L3-L4. Moderate spinal stenosis and bilateral neural foraminal narrowing at L4-L5. Bilateral neural foraminal narrowing at L5-S1. This exam confirms a chronic left sacral insufficiency fracture that appears to have been acute on CT scan of 10/09/2017. Visualized paraspinal soft tissues and structures show heavily calcified aorta and no acute abnormalities. CT/Spine Lumbar without Contrast IMPRESSION: No acute abnormality. Demineralization and degenerative changes. Chronic left sacral insufficiency fracture. Electronically Signed: Bulmaro Kay MD at 16:19 EDT , Service support ,
--- NOTE | 2018-02-25 14:43 | CT_ITS ---
STUDY: CT PELVIS WITHOUT CONTRAST REASON FOR EXAM: Female, 72 years old. Fall. Bilateral hip surgeries. RADIATION DOSAGE (If Supplied By Facility): CTDIvol = ( 30.14 ) mGy, DLP = ( 1031.00 ) mGycm TECHNIQUE: Transaxial imaging of the pelvis was performed with oral contrast, and without intravenous administration of contrast material. Individualized dose optimization techniques were used for this CT. COMPARISON: 10/09/2017. FINDINGS: There is severe demineralization. There is a chronic nondisplaced sacral insufficiency fracture on the left with extensive new bone formation but the fracture line is still evident. There are also chronic ununited fractures of both inferior pubic rami, the medial aspect of the right superior pubic ramus and the mid left superior pubic ramus. All these fractures appear to have occurred in October 04, 2017. Normal urinary bladder. Normal visualized small intestine. There are multiple colonic diverticula of the sigmoid colon consistent with chronic diverticulosis. There is no pelvic fluid. There is no pelvic mass lesion or lymphadenopathy. Normal visualized pelvic arteries. Normal abdominal wall. There is a right hip arthroplasty and orthopedic nails through the left femoral neck. CT/Pelvis without IV Contrast IMPRESSION: No definite acute fracture, but chronic ununited nondisplaced fractures are seen of the left sacrum, and bilateral superior and inferior pubic rami. Electronically Signed: Bulmaro Kay MD at 16:24 EDT , Service support ,
[2018-02-25] MEDS: HYDROmorphone 1 MG/ML Syringe IV (15:25)
[2018-02-25] MEDS: Lactated Ringers 1,000 ML 75 ML IV (15:26)
[2018-02-25] MEDS: DiphenhydrAMINE 50 MG/ML Syringe 25 MG IV ×2 (16:52→23:55)
[2018-02-25] MEDS: Methadone 10 MG Tablet PO ×2 (16:55→21:04)
[2018-02-25] MEDS: Heparin Injection (Vial) 5,000 UNIT/ML VIAL 5000 UNIT SC ×2 (16:55→21:04)
[2018-02-25] MEDS: Phenytoin Na 100 MG Capsule 200 MG PO (16:56)
[2018-02-25] MEDS: oxyCODONE 5 MG Tablet PO ×2 (19:43→23:55)
[2018-02-25] MEDS: Pregabalin 50 MG Capsule 100 MG PO (21:04)
[2018-02-25] MEDS: Topiramate 50 MG Tablet PO (21:04)
[2018-02-25] MEDS: 0.9% NaCl Peripheral Flush Adult/Peds IV ×2 (22:06→23:56)
[2018-02-25] MEDS: Ketorolac 30 MG/ML Syringe IV (22:06)
[2018-02-25] MEDS: CYCLOBENZAPRINE HCL 5 MG TABLET PO (22:06)
[2018-02-26 02:00] VITALS: BP 146/61; PULSE 65; RESP 16; TEMP 36.8; O2SAT 98
[2018-02-26] MEDS: Methadone 10 MG Tablet PO ×4 (04:33→21:31)
[2018-02-26] MEDS: Heparin Injection (Vial) 5,000 UNIT/ML VIAL 5000 UNIT SC ×3 (05:27→21:31)
[2018-02-26] MEDS: CYCLOBENZAPRINE HCL 5 MG TABLET PO ×3 (05:27→21:31)
[2018-02-26 06:06] LABS: Absolute Lymphocyte Count 2.77 X10^3/ul (0.83-4.51); Absolute Neutrophil Count 3.5 X10^3/uL (2.0-7.7); Basophil# 0.03 X10^3/uL; Basophil% 0.4 % (0-1); Eosinophils% 10.2 % (0-5); Hematocrit 32.6 % (37-47); Hemoglobin 10.4 g/dl (12.0-15.0); Lymphocyte # 2.77 X10^3/ul (4.0); Lymphocyte % 35.5 % (19-41); Mean Corp Hgb Conc 31.9 g/gl (32-36); Mean Corpuscular Hgb 28.2 pg (27.0-32.0); Mean Corpuscular Volume 88.3 fL (81-99); Mean Platelet Vol. 10.5 fl (6.2-12.0); Monocyte# 0.72 X10^3/uL; Monocyte% 9.2 % (0-10); Neutrophil # 3.48 X10^3/uL (2.7-7.7); Neutrophil % 44.6 % (47-70); Platelet Count 199 K/mm3 (150-450); RBC Distribution Width CV 16.8 % (11.6-14.6); RBC Distribution Width SD 52.6 fl (35.1-43.9); Red Blood Count 3.69 M/mm3 (4.2-5.4); White Blood Count 7.8 K/mm3 (4.4-11.0)
[2018-02-26 06:11] LABS: POSITIVE COUNT NO; POSITIVE DIFFERENTIAL NO; POSITIVE MORPHOLOGY NO
[2018-02-26 06:16] LABS: ALB/GLOB Ratio 0.8 RATIO (0.9-2.4); AST(SGOT) 16 U/L (15-37); Alanine Aminotransfer ALT/SGPT 12 U/L (13-56); Albumin, Serum 2.5 g/dL (3.2-5.0); Alkaline Phosphatase 105 U/L (45-117); Anion Gap 10 (5-15); BUN 19 mg/dL (7-18); BUN/Creat Ratio 16.1 RATIO (10-20); Chloride 116 mmol/L (98-107); Creatinine, Serum 1.18 mg/dL (0.55-1.02); EST Glomerular Filtration Rate 48 mL/min (>60); Est Glom Filt Rate - Afr Amer 58 mL/min (>60); Estimated Creatinine Clearance 40.68 ml/min; Globulin 3.2 g/dL (2.2-4.2); Glucose 89 mg/dL (74-106); Lipase 219 U/L (73-393); Potassium 3.9 mmol/L (3.5-5.1); Protein, Total 5.7 g/dL (6.4-8.2); Sodium Level 146 mmol/L (136-145)
[2018-02-26] MEDS: Sertraline 100 MG Tablet 200 MG PO (07:53)
[2018-02-26] MEDS: Phenytoin Na 100 MG Capsule 200 MG PO ×2 (07:53→16:32)
[2018-02-26] MEDS: oxyCODONE 5 MG Tablet PO (07:53)
[2018-02-26] MEDS: Baclofen 10 MG Tablet PO (07:53)
[2018-02-26 07:57] VITALS: BP 124/60; PULSE 64; RESP 18; TEMP 36.7; O2SAT 97
--- NOTE | 2018-02-26 08:09 | PCM.PROGNOTE ---
Subjective: Chief complaint: Follow-up after admission for intractable acute and chronic back pain, suspected left sacral fracture, questionable right upper lobe lung nodules and elevated lactate and lipase. Patient seen and examined. No no acute events overnight. This morning, she mentioned that her back pain is getting better, was able to sleep last night. This morning, she asks for pain medication because it has been getting a little bit worse than last night. All over, she is feeling a little bit better. Denied chest pain or shortness of breath. Denied abdominal pain, nausea or vomiting. Her vital signs are stable. - Physical Exam General: Alert, Oriented x3, Cooperative, No apparent distress HEENT: Atraumatic, PERRLA, EOMI Oral: Moist Mucosa, No Gingival or Mucosal Lesions/ Ulcerations Neck: Supple, No JVD, Negative Carotid Bruits, Trachea Midline, Thyroid Normal Size and Texture Lungs: Clear to auscultation, No rhonchi, No wheeze, No rales, Diminished Cardiovascular: Regular rate, Regular Rhythm, Normal S1, Normal S2 Abdomen: Bowel Sounds Present, Soft, Non Tender, Non-Distended, No Hepato-splenomegaly Extremities: No clubbing, No cyanosis, No edema Skin: No rashes, No breakdown Lymphatic: No Cervical, Supraclavicular, or Inguinal Adenopathy Neurological: Cranial nerves II-XII grossly intact, Neuro grossly intact Psych/Mental Status: Normal Affect, Appropriate, Alert and oriented to time, place, person, mood and affect Vital Signs Temp Pulse Resp BP Pulse Ox 98.0 F 64 18 124/60 H 97 02/26/18 07:57 02/26/18 07:57 02/26/18 07:57 02/26/18 07:57 02/26/18 07:57 Oxygen Flow Rate (L/min) 2 Oxygen Delivery Method Room Air Weight: 161 lb 9 oz Body Mass Index (BMI) 25.2 Intake and Output for Last 24 Hours 02/24/18 02/25/18 02/26/18 23:59 23:59 23:59 Intake Total 1027 / 1027 443 / 443 Output Total 200 / 200 Balance 1027 / 1027 243 / 243 Laboratory Tests Past 24 Hrs 02/26/18 02/26/18 05:20 05:20 WBC 7.8 RBC 3.69 L Hgb 10.4 L Hct 32.6 L MCV 88.3 MCH 28.2 MCHC 31.9 L RDW 16.8 H RDW Differential 52.6 H Plt Count 199 MPV 10.5 Immature Gran % (Auto) 0.100 Neut % (Auto) 44.6 L Lymph % (Auto) 35.5 Mora % (Auto) 9.2 Eos % (Auto) 10.2 H Baso % (Auto) 0.4 Absolute Neuts (auto) 3.5 Absolute Lymphs (auto) 2.77 Total Counted Not Reportable Sodium 146 H Potassium 3.9 Chloride 116 H Carbon Dioxide 20.0 L Anion Gap 10 BUN 19 H Creatinine 1.18 H Estim Creat Clear Calc 40.68 Est GFR (MDRD) Af Amer 58 L Est GFR (MDRD) Non-Af 48 L BUN/Creatinine Ratio 16.1 Glucose 89 Calcium 8.0 L Total Bilirubin 0.30 AST 16 ALT 12 L Alkaline Phosphatase 105 Total Protein 5.7 L Albumin 2.5 L Globulin 3.2 Albumin/Globulin Ratio 0.8 L Lipase 219 Medical Necessity - Tobacco Use Smoking Status: Former smoker Assessment/Plan This is a 72 years old female patient presented to the emergency room because of mid back pain after she had a fall 1 week ago in context of history of chronic back pain, fibromyalgia, osteoarthritis and rheumatoid arthritis, found to have suspected left sacral fracture on lumbar spine x-ray and she is being admitted for intractable back pain for evaluation and treatment. #1 acute on chronic back pain: She is on IV hydromorphone, OxyIR as needed as well as methadone every 8 hours and Lyrica. She reports that her pain is slightly getting better. CT scan lumbar and thoracic spine were done but result is pending. She had lumbar and thoracic spine x-ray on February 20, 2018 by her PCP after she had a fall and both revealed degenerative and arthritic changes without acute fractures or dislocations. Lumbar spine x-ray done today and revealed suspected left sacral fracture. Repeat CBC and BMP reviewed. Plan to continue same treatment, awaiting the results of the thoracic and lumbar spine CT scan. #2 suspected left sacral fracture: She denies any left hip or left groin pain.. X-ray of the lumbar spine revealed suspected left sacral fracture. CT scan pelvis performed, awaiting results. #3 questionable right upper lobe lung nodules: This is an incidental finding on chest x-ray reported by radiologist. She denies any significant cough or sputum production, no fever. At this time, I doubt pneumonia. CT scan chest without contrast performed, awaiting the official report. #4 debility/functional decline: Secondary to chronic back pain, osteoarthritis, rheumatoid arthritis and fibromyalgia. Patient lives alone and because of this pain, she is not able to do her daily activities. Plan for PT OT evaluation and treatment when appropriate, patient may need placement to nursing home facility. #5 elevated pancreatic lipase: Denies any significant abdominal pain but she does have chronic vague abdominal discomfort. Lipase is 471. LFTs normal. This could be due to medication side effects including prednisone and Lipitor. Lipase came down back to normal today as well as LFT. #6 stage III chronic kidney disease: Baseline creatinine has been around 1.2-1.7 mg/dL. Admission creatinine is 1.36, today's creatinine is 1.18, stable at baseline. #8 paroxysmal A. fib: Status post ablation. She is in sinus rhythm, rate is controlled. She is not on any medication for rate control and not on anticoagulation. #9 rheumatoid arthritis: Continue Lyrica and methadone, IV hydromorphone as above. #10 hyperlipidemia: Continue statins. #11 chronic pain syndrome: Continue methadone 3 times daily, Lyrica, IV hydromorphone, OxyIR as needed for pain. #12 DVT prophylaxis: Subcu heparin. This note was generated with [email or web address] dictation software. It may contain incorrect words, spelling, and punctuation that were not noted in checking the note before signing. Code Visit Inpatient E&M: 90114 Subs Hosp L2
[2018-02-26] MEDS: 0.45% Normal Saline 1,000 ML 75 ML IV (09:59)
[2018-02-26] MEDS: 0.9% NaCl Peripheral Flush Adult/Peds IV (10:00)
[2018-02-26] MEDS: Ondansetron 4 MG/2 ML Vial IV (10:18)
[2018-02-26] MEDS: Topiramate 50 MG Tablet PO ×2 (11:06→21:31)
[2018-02-26] MEDS: Atorvastatin Calcium 20 MG Tablet PO (11:06)
--- NOTE | 2018-02-26 12:22 | NURSING ---
spoke with Farhana in [place] regarding results of CT yesterday as they are not resulted on nursing side- Farhana states she will look into it.
--- NOTE | 2018-02-26 12:41 | CASEMGMT ---
See LISA DAI Assessment Link. DC PLAN: undetermined. -Pt living in [facility]. Recent discharge from [facility] 2 weeks ago to home. Pt states she has private pay nursing center tutor from 9-5pm, and her sister is staying with her also. Pt would like to be able to return home, however states she is in too much pain now. -LISA DAI discussed possible return to SNF. Pt requests if she is unable to return home- referral be placed to [facility]- but does not wish to return to [facility]. -[facility] PH: FX: [facility] is active with PT/OT and RN- will resume on dc if pt returns home. Pushpa VINESN RN AC
[2018-02-26 14:09] VITALS: BP 111/61; PULSE 66; RESP 18; TEMP 36.3; O2SAT 96
--- NOTE | 2018-02-26 14:57 | CHAPLAIN ---
Type of Pastoral Visit _x__ Initial Visit ___ Follow-up Visit ___ On-call Visit ___ General Patient Visit ___ Spiritual Assessment ___ Family Conference ___ Bereavement ___ Rapid Response ___ Code Blue ___ Other (describe below) Pastoral Care Referral From _x__ Patient ___ Family ___ Nurse ___ Physician ___ Route Sales Delivery Driver ___ Alligator Shear Operator ___ Other (describe below) Sacrament/Intervention _x__ Active listening ___ Anointing ___ Jew ___ Bereavement ___ Communion ___ Desi exploration ___ ___ Life review _x__ Prayer ___ Reconciliation ___ Sacrament of Sick _x__ Supportive presence ___ Wedding ___ Other (describe below) Pastoral Comments
[2018-02-26] MEDS: DiphenhydrAMINE 50 MG/ML Syringe 25 MG IV (19:26)
[2018-02-26 20:25] VITALS: BP 146/82; PULSE 59; RESP 18; TEMP 36.8; O2SAT 98
[2018-02-26] MEDS: fentaNYL 25 MCG Patch TRANSDERM. (20:27)
[2018-02-26] MEDS: Pregabalin 50 MG Capsule 100 MG PO (21:31)
[2018-02-27 02:35] VITALS: BP 120/66; PULSE 60; RESP 16; TEMP 36.7; O2SAT 96
[2018-02-27] MEDS: Methadone 10 MG Tablet PO ×4 (05:12→21:04)
[2018-02-27] MEDS: CYCLOBENZAPRINE HCL 5 MG TABLET PO ×3 (05:12→21:04)
[2018-02-27] MEDS: Heparin Injection (Vial) 5,000 UNIT/ML VIAL 5000 UNIT SC ×3 (05:12→21:04)
[2018-02-27 06:37] VITALS: O2SAT 96
--- NOTE | 2018-02-27 08:12 | PCM.PROGNOTE ---
Subjective: Chief complaint: Follow-up after admission for intractable acute and chronic back pain, suspected left sacral fracture, questionable right upper lobe lung nodules and elevated lipase. Patient seen and examined. No acute events overnight. Today, she reported that her back pain is getting better after started on fentanyl patch but still there. She is able to ambulate. Denies any new complaints. Vital signs are stable. - Physical Exam General: Alert, Oriented x3, Cooperative, No apparent distress HEENT: Atraumatic, PERRLA, EOMI Oral: Moist Mucosa, No Gingival or Mucosal Lesions/ Ulcerations Neck: Supple, No JVD, Negative Carotid Bruits, Trachea Midline, Thyroid Normal Size and Texture Lungs: Clear to auscultation, No rhonchi, No wheeze, No rales, Diminished Cardiovascular: Regular rate, Regular Rhythm, Normal S1, Normal S2 Abdomen: Bowel Sounds Present, Soft, Non Tender, Non-Distended, No Hepato-splenomegaly Extremities: No clubbing, No cyanosis, No edema Skin: No rashes, No breakdown Lymphatic: No Cervical, Supraclavicular, or Inguinal Adenopathy Neurological: Cranial nerves II-XII grossly intact, Motor Exam 5/5 strength throughout Psych/Mental Status: Normal Affect, Appropriate Vital Signs Temp Pulse Resp BP Pulse Ox 98.1 F 60 16 120/66 96 02/27/18 02:35 02/27/18 02:35 02/27/18 02:35 02/27/18 02:35 02/27/18 02:35 Oxygen Flow Rate (L/min) 2 Oxygen Delivery Method Room Air Weight: 161 lb 9.017 oz Body Mass Index (BMI) 25.2 Intake and Output for Last 24 Hours 02/25/18 02/26/18 02/27/18 23:59 23:59 23:59 Intake Total 1027 / 1027 1745 / 1745 Output Total 650 / 650 750 / 750 Balance 1027 / 1027 1095 / 1095 -750 / -750 Medical Necessity - Tobacco Use Smoking Status: Former smoker Assessment/Plan This is a 72 years old female patient presented to the emergency room because of mid back pain after she had a fall 1 week ago in context of history of chronic back pain, fibromyalgia, osteoarthritis and rheumatoid arthritis, found to have suspected left sacral fracture on lumbar spine x-ray and she is being admitted for intractable back pain for evaluation and treatment. #1 acute on chronic back pain/thoracic vertebra compression fractures: She is on IV hydromorphone, OxyIR as needed as well as methadone every 8 hours and Lyrica. She was started on fentanyl patch yesterday, reported improvement of her back pain. CT scan thoracic spine revealed compression fracture of T8 and T9, partial compression fracture of T10 which appears to be new. CT scan of the lumbar spine showed chronic changes, no acute fractures or dislocations. started him on fentanyl patch, no plan for interventions. Patient reported improvement. Plan: PT OT eval and treatment, patient will need placement to [facility] facility. #2 suspected left sacral fracture: She denies any left hip or left groin pain.. X-ray of the lumbar spine revealed suspected left sacral fracture. CT scan pelvis revealed chronic pelvic fractures. #3 questionable right upper lobe lung nodules: This is an incidental finding on chest x-ray reported by radiologist. She denies any significant cough or sputum production, no fever. At this time, I doubt pneumonia. CT scan chest revealed left upper lung nodule, reticulonodular opacities in the right upper lobe which could be due to scarring from previous pneumonia, I doubt acute pneumonia. Plan to repeat CT scan chest as outpatient in 3-6 months. #4 debility/functional decline: Secondary to chronic back pain, osteoarthritis, rheumatoid arthritis and fibromyalgia. Patient lives alone and because of this pain, she is not able to do her daily activities. Plan for PT OT evaluation and treatment when appropriate, patient may need placement to [facility] facility. #5 elevated pancreatic lipase: Resolved. Denies any significant abdominal pain but she does have chronic vague abdominal discomfort. Lipase is 471. LFTs normal. This could be due to medication side effects including prednisone and Lipitor. Lipase came down back to normal as well as LFT. #6 stage III chronic kidney disease: Baseline creatinine has been around 1.2-1.7 mg/dL. Admission creatinine is 1.36, yesterday's creatinine is 1.18, stable at baseline. #8 paroxysmal A. fib: Status post ablation. She is in sinus rhythm, rate is controlled. She is not on any medication for rate control and not on anticoagulation. #9 rheumatoid arthritis: Continue Lyrica and methadone, fentanyl patch, IV hydromorphone as above. #10 hyperlipidemia: Continue statins. #11 chronic pain syndrome: Continue methadone 3 times daily, Lyrica, fentanyl patch, IV hydromorphone, OxyIR as needed for pain. #12 DVT prophylaxis: Subcu heparin. This note was generated with [email or web address] dictation software. It may contain incorrect words, spelling, and punctuation that were not noted in checking the note before signing. Code Visit Inpatient E&M: 42880 Subs Hosp L2
--- NOTE | 2018-02-27 08:18 | PN_ITS ---
Subjective: Chief complaint: Follow-up after admission for intractable acute and chronic back pain, suspected left sacral fracture, questionable right upper lobe lung nodules and elevated lipase. Patient seen and examined. No acute events overnight. Today, she reported that her back pain is getting better after started on fentanyl patch but still there. She is able to ambulate. Denies any new complaints. Vital signs are stable. - Physical Exam General: Alert, Oriented x3, Cooperative, No apparent distress HEENT: Atraumatic, PERRLA, EOMI Oral: Moist Mucosa, No Gingival or Mucosal Lesions/ Ulcerations Neck: Supple, No JVD, Negative Carotid Bruits, Trachea Midline, Thyroid Normal Size and Texture Lungs: Clear to auscultation, No rhonchi, No wheeze, No rales, Diminished Cardiovascular: Regular rate, Regular Rhythm, Normal S1, Normal S2 Abdomen: Bowel Sounds Present, Soft, Non Tender, Non-Distended, No Hepato- splenomegaly Extremities: No clubbing, No cyanosis, No edema Skin: No rashes, No breakdown Lymphatic: No Cervical, Supraclavicular, or Inguinal Adenopathy Neurological: Cranial nerves II-XII grossly intact, Motor Exam 5/5 strength throughout Psych/Mental Status: Normal Affect, Appropriate Vital Signs Temp Pulse Resp BP Pulse Ox 98.1 F 60 16 120/66 96 02/27/18 02:35 02/27/18 02:35 02/27/18 02:35 02/27/18 02:35 02/27/18 02:35 Oxygen Flow Rate (L/min) 2 Oxygen Delivery Method Room Air Weight: 161 lb 9.017 oz Body Mass Index (BMI) 25.2 Intake and Output for Last 24 Hours 02/25/18 02/26/18 02/27/18 23:59 23:59 23:59 Intake Total 1027 / 1027 1745 / 1745 Output Total 650 / 650 750 / 750 Balance 1027 / 1027 1095 / 1095 -750 / -750 Medical Necessity - Tobacco Use Smoking Status: Former smoker Assessment/Plan This is a 72 years old female patient presented to the emergency room because of mid back pain after she had a fall 1 week ago in context of history of chronic back pain, fibromyalgia, osteoarthritis and rheumatoid arthritis, found to have suspected left sacral fracture on lumbar spine x-ray and she is being admitted for intractable back pain for evaluation and treatment. #1 acute on chronic back pain/thoracic vertebra compression fractures: She is on IV hydromorphone, OxyIR as needed as well as methadone every 8 hours and Lyrica. She was started on fentanyl patch yesterday, reported improvement of her back pain. CT scan thoracic spine revealed compression fracture of T8 and T9, partial compression fracture of T10 which appears to be new. CT scan of the lumbar spine showed chronic changes, no acute fractures or dislocations. started him on fentanyl patch, no plan for interventions. Patient reported improvement. Plan: PT OT eval and treatment, patient will need placement to intermediate facility. #2 suspected left sacral fracture: She denies any left hip or left groin pain.. X-ray of the lumbar spine revealed suspected left sacral fracture. CT scan pelvis revealed chronic pelvic fractures. #3 questionable right upper lobe lung nodules: This is an incidental finding on chest x-ray reported by radiologist. She denies any significant cough or sputum production, no fever. At this time, I doubt pneumonia. CT scan chest revealed left upper lung nodule, reticulonodular opacities in the right upper lobe which could be due to scarring from previous pneumonia, I doubt acute pneumonia. Plan to repeat CT scan chest as outpatient in 3-6 months. #4 debility/functional decline: Secondary to chronic back pain, osteoarthritis, rheumatoid arthritis and fibromyalgia. Patient lives alone and because of this pain, she is not able to do her daily activities. Plan for PT OT evaluation and treatment when appropriate, patient may need placement to intermediate facility. #5 elevated pancreatic lipase: Resolved. Denies any significant abdominal pain but she does have chronic vague abdominal discomfort. Lipase is 471. LFTs normal. This could be due to medication side effects including prednisone and Lipitor. Lipase came down back to normal as well as LFT. #6 stage III chronic kidney disease: Baseline creatinine has been around 1.2- 1.7 mg/dL. Admission creatinine is 1.36, yesterday's creatinine is 1.18, stable at baseline. #8 paroxysmal A. fib: Status post ablation. She is in sinus rhythm, rate is controlled. She is not on any medication for rate control and not on anticoagulation. #9 rheumatoid arthritis: Continue Lyrica and methadone, fentanyl patch, IV hydromorphone as above. #10 hyperlipidemia: Continue statins. #11 chronic pain syndrome: Continue methadone 3 times daily, Lyrica, fentanyl patch, IV hydromorphone, OxyIR as needed for pain. #12 DVT prophylaxis: Subcu heparin. This note was generated with [email or web address] dictation software. It may contain incorrect words, spelling, and punctuation that were not noted in checking the note before signing. Code Visit Inpatient E&M: 34595 Subs Hosp L2
--- NOTE | 2018-02-27 08:31 | NURSING ---
Dr. Piper was in 02/26/18 at 1915 to assess patient. New order was placed for Fentanyl patch 25mcg and dilaudid was d/c'ed.
[2018-02-27 08:35] VITALS: BP 140/76; PULSE 62; RESP 18; TEMP 36.8; O2SAT 99
[2018-02-27] MEDS: Topiramate 50 MG Tablet PO ×2 (08:45→21:04)
[2018-02-27] MEDS: Sertraline 100 MG Tablet 200 MG PO (08:45)
[2018-02-27] MEDS: Phenytoin Na 100 MG Capsule 200 MG PO ×2 (08:45→17:39)
[2018-02-27] MEDS: Baclofen 10 MG Tablet PO (08:45)
--- NOTE | 2018-02-27 10:15 | CASEMGMT ---
Per physician rounds, anticipate pt will need SNF on discharge. Pt was agreeable to [facility] if not able to return home. Message left for YAHAIRA Leung and consult placed. Pushpa VINESN RN ACM
--- NOTE | 2018-02-27 10:26 | CASEMGMT ---
Social Work Note SW received message from RN SUHAS Shearer stating that pt is now interested in placement. Per Cecil, pt's choice is [facility] [place]. SW will follow up with pt to confirm discharge plans. Plan: Placement for rehabilitation Xochitl Velez COMMUNITY ASSOCIATION MANAGER, TORCH HEATER
--- NOTE | 2018-02-27 12:21 | CASEMGMT ---
Addendum entered by Xochitl Velez 02/27/18 12:51: SW received a call from Greta at [facility] stating that she will look over pt and give this worker a call back. Original Note: Social Work Note SW met with pt to discuss discharge planning. SW introduced self and role at [facility]. Per previous notes pt is interested in placement at [facility] [place]. Pt confirms that she would like placement at [facility] [place]. SW informed pt that pt will need a three midnight stay for Medicare to cover stay at SNF. Pt states understanding. Pt's third midnight stay will be tonight and if medically cleared and [facility] can accept pt could discharge tomorrow. This worker faxed referral to [facility] [place]. SW will continue to follow along to assist with discharge planning. Plan: [facility] pending acceptance Xochitl Velez SMALL PRODUCTS ASSEMBLER, ATHLETIC EQUIPMENT MANAGER
[2018-02-27] MEDS: DiphenhydrAMINE 50 MG/ML Syringe 25 MG IV (13:05)
[2018-02-27] MEDS: 0.9% NaCl Peripheral Flush Adult/Peds IV (13:06)
--- NOTE | 2018-02-27 13:24 | CASEMGMT ---
Social Work Note SW received call from Greta at [facility] stating that pt has used all of her skilled days while she was at [facility]. Greta states that pt's secondary insurance [employer] is not in network with them as they are only in network with Medicare and Medicaid at this time. Greta states that she can accept pt but that it would be private pay. SW will attempt to meet with pt again as time allows. SW on assigned floor can continue to follow with pt if this worker is unable to. Plan: BÁRBARA Velez CERTIFIED PESTICIDE APPLICATOR, CORE FEEDER
[2018-02-27 14:20] VITALS: BP 118/68; PULSE 66; RESP 18; TEMP 36.4; O2SAT 97
[2018-02-27] MEDS: oxyCODONE 5 MG Tablet PO (17:40)
[2018-02-27 19:45] VITALS: BP 121/56; PULSE 65; RESP 16; TEMP 36.7; O2SAT 96
[2018-02-27] MEDS: Pregabalin 50 MG Capsule 100 MG PO (21:04)
[2018-02-27] MEDS: Atorvastatin Calcium 20 MG Tablet PO (21:04)
[2018-02-28 02:00] VITALS: BP 119/65; PULSE 66; RESP 18; TEMP 36.9; O2SAT 96
[2018-02-28] MEDS: Methadone 10 MG Tablet PO ×2 (04:12→08:12)
[2018-02-28] MEDS: CYCLOBENZAPRINE HCL 5 MG TABLET PO (05:52)
[2018-02-28 08:00] VITALS: BP 126/66; PULSE 61; RESP 18; TEMP 37.1; O2SAT 96
[2018-02-28] MEDS: Phenytoin Na 100 MG Capsule 200 MG PO (08:08)
[2018-02-28] MEDS: Baclofen 10 MG Tablet PO (08:09)
[2018-02-28] MEDS: Topiramate 50 MG Tablet PO (08:10)
[2018-02-28] MEDS: Sertraline 100 MG Tablet 200 MG PO (08:10)
[2018-02-28] MEDS: Senna Tablet 1 TABLET PO (08:10)
--- NOTE | 2018-02-28 09:34 | CASEMGMT ---
Addendum entered by Angelita Hylton 02/28/18 13:20: SW faxed all discharge instructions with order to resume home health to [facility]. No further needs, pt was discharged. NORY Prather, EMI Original Note: Addendum entered by Angelita Hylton 02/28/18 10:18: SW spoke w/pt again, she has decided that she will go home, with private hire aides during the day, home health with [facility], and she has someone today with her at night. Pt explains her sister was staying with her the last three weeks, but wants to go home. Pt explains she did find someone to stay w/her her at night however and is agreeable to go home. SW explained will call [facility] and let them know pt is going home today, and will also let the physician know. SW texted physician to let him know pt will go home w/home health care today. NORY Prather, EMI Original Note: SW spoke w/pt, explained to her that [facility] does not take her secondary insurance. Pt states she was at [facility] a long time, does not know how long, and if she has days left or not for her shelter benefit. She would like to go to [facility] if she cannot go to [facility]. SW called [facility], faxed referral. SW then called [facility], pt did use all 100 days, so has no skilled days left. SW spoke w/pt again, explained she did use all of her days for SNF, and if she wants to go to SNF it would be private pay or depending on her financial situation we can look into applying for Medicaid. Pt does understand this, did not seem surprised by this information. SW let pt know the private [facility] cost for [facility]. Pt is going to call her sister and SW will check back w/her shortly. SW also called [facility] and left a message to confirm pricing and to ask about the short term AL rooms, as pt may be a good candidate for this as well. SW will continue to follow, will wait for WVM to call back and will go back in to speak w/pt shortly. NORY Prather, EMI
--- NOTE | 2018-02-28 10:52 | PCM.DC ---
You will use the following diet at home:: Regular Your food should be the consistency of: Regular Discharge Activity: Return to Normal Activity Weight Bearing Status: Weight bearing as tolerated Call your doctor if you observe: Fever of 101 or Higher, Shortness of breath, Dizziness, Fainting spells, Chest pain, Increased palpitations (irregular heartbeat), Uncontrolled pain Allergies/Adverse Reactions: Allergies acetaminophen [From Tylox] Allergy (Verified 02/25/18 09:54) Other amoxicillin Allergy (Verified 02/25/18 09:54) Hives ciprofloxacin [From Cipro] Allergy (Verified 02/25/18 09:54) Other ciprofloxacin HCl [From Cipro] Allergy (Verified 02/25/18 09:54) Other indomethacin Allergy (Verified 02/25/18 09:54) Unknown nortriptyline HCl [From Pamelor] Allergy (Verified 02/25/18 09:54) Unknown oxycodone [From Tylox] Allergy (Verified 02/25/18 09:54) Other Sulfa (Sulfonamide Antibiotics) Allergy (Verified 02/25/18 09:54) Unknown warfarin [From Coumadin] Allergy (Verified 02/25/18 09:54) Unknown iodine Adverse Reaction (Verified 02/25/18 09:54) Itching nortriptyline [Nortriptyline] Adverse Reaction (Verified 02/25/18 09:54) Itching warfarin sodium [From Coumadin] Adverse Reaction (Verified 02/25/18 09:54) Itching Medications to take at Discharge Atorvastatin Calcium [Lipitor] 20 mg PO QHS 01/14/18 Pregabalin [Lyrica] 100 mg PO QHS 01/14/18 Sertraline HCl [Zoloft] 200 mg PO DAILY 01/14/18 Baclofen 10 mg PO DAILY 02/25/18 Diclofenac [Voltaren] 50 mg PO BIDCM 02/25/18 Methadone HCl 10 mg PO 4X/DAY 02/25/18 Phenytoin Na [Dilantin] 200 mg PO BID 02/25/18 Topiramate [Topiramate ER] 50 mg PO BID 02/25/18 Oxycodone [Oxyir] 5 - 10 mg PO Q6H PRN PRN #14 tab 02/28/18 Senna [Senokot] 1 tab PO BID #30 tab 02/28/18 Sumatriptan Succinate 100 mg PO DAILY PRN PRN 02/28/18 fentaNYL patch [Duragesic patch] 25 mcg TRANSDERM. Q3D 9 Days #3 patch 02/28/18 The following prescriptions were given: Oxycodone [Oxyir] 5 - 10 mg PO Q6H PRN PRN #14 tab PRN Reason: Severe Pain (6-10/10) fentaNYL patch [Duragesic patch] 25 mcg TRANSDERM. Q3D 9 Days #3 patch Senna [Senokot] 1 tab PO BID #30 tab Primary Care Physician: Abhijit Jett Chi, MD [Primary Care Provider] - Please follow up with your Primary Care Physician in: 1 week. Please Follow Up With: Mary Piper MD When: please call his office.
[2018-02-28 11:33] VITALS: BP 121/68; PULSE 64; RESP 16; TEMP 36.3; O2SAT 98
--- NOTE | 2018-02-28 17:55 | PCM.DC.SUM ---
Discharge Date and Diagnosis Date of Admission: 02/25/18 Date of Discharge: 02/28/18 - Primary Discharge Diagnosis #1 acute on chronic low back pain. #2 acute partial compression fracture of T10, compression fractures of T8 and T9 which seemed to be chronic. 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 #4 left upper lobe nodule, right upper lobe opacities. - Secondary Discharge Diagnosis Chronic Problems (Last Updated 10/25/17 @ 16:34 by Noris Nunez) Fibromyalgia (Chronic) HTN (hypertension) (Chronic) Rheumatoid arthritis (Chronic) on no medications for RA - diagnosed in [place] many years ago Dyslipidemia (Chronic) Sjogren's syndrome (Chronic) Myocardial infarct, old (Chronic) CKD (chronic kidney disease), stage III (Chronic) history of PULMONARY EMBOLI (Chronic) Diastolic CHF (Chronic) Cephalalgia (Chronic) IBS (irritable bowel syndrome) (Chronic) Osteoarthritis (Chronic) History of radiofrequency ablation (RFA) procedure for cardiac arrhythmia (Chronic) Hospital Course and Treatment Imaging Results: Clinical Impression(s) from Imaging Studies Chest X-Ray 02/25/18 10:00 IMPRESSION: 1. Spiculated opacities in the right upper lobe may represent pulmonary nodules versus focal airspace disease. 2. Underexpanded lungs with mild pulmonary congestion. Electronically Signed: Paola Kwok MD at 10:52 EDT , Service support , Lumbar Spine X-Ray 02/25/18 11:[address] 02/25/18 14:[address] 02/25/18 14:43 IMPRESSION: No acute abnormality. Demineralization and degenerative changes. Chronic left sacral insufficiency fracture. Electronically Signed: Bulmaro Kay MD at 16:19 EDT , Service support , Pelvis CT 02/25/18 14:43 IMPRESSION: No definite acute fracture, but chronic ununited nondisplaced fractures are seen of the left sacrum, and bilateral superior and inferior pubic rami. Electronically Signed: Bulmaro Kay MD at 16:24 EDT , Service support , Thoracic Spine CT 02/25/18 14:43 IMPRESSION: Compression fractures of T8 and T9 appear stable. Partial compression fracture of T10 appears new. Electronically Signed: Bulmaro Kay MD at 16:13 EDT , Service support , , pain management. Operations: None, - - Right hip hemiarthroplasty 09/07/13 Procedures: None Summary of Care Provided: Patient seen and examined on the day of discharge and appeared to be stable to be discharged home. She stated that her back pain is getting better every day and she has been able to ambulate back and forth to the bathroom. Her vital signs are stable. - Physical Exam General: Alert, Oriented x3, Cooperative, No apparent distress. HEENT: Atraumatic, PERRLA, EOMI. Neck: Supple, No JVD, Negative Carotid Bruits, Trachea Midline, Thyroid Normal. Lungs: Diminished breath sounds bilateral, otherwise clear, no rhonchi, No wheeze, No rales. Cardiovascular: Regular rate, Regular Rhythm, Normal S1, Normal S2, PMI Normal. Abdomen: Bowel Sounds Present, Soft, Non Tender, Non-Distended, No Hepato-splenomegaly. Extremities: No clubbing, No cyanosis, No edema Skin: No rashes, No breakdown Neurological: Neuro grossly intact Vital Signs are stable. Hospital course: The patient is a 72 year old F admitted because of acute and chronic mid back pain after she had a fall 1 week ago at home. She was seen as outpatient by her PCP and x-ray of the thoracic and lumbar spine performed and there was no evidence of acute fractures or dislocations. During this hospital stay, CT scan of the thoracic spine performed and revealed partial compression fracture of T10 which is acute as well as stable compression fractures of T8 and T9. This patient with history of chronic back pain secondary to multiple thoracic vertebral compression fractures and she has been on pain management for long time. X-ray of the lumbar spine revealed suspected left sacral fracture. 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 She denies any pelvic pain at this time. She was treated with IV Dilaudid, OxyIR as needed and was started on fentanyl patch by Dr. Piper. After started on fentanyl patch, capital start to improve and she was able to ambulate. CT scan chest done because chest x-ray revealed questionable right upper lobe nodules. CT scan chest done and revealed left upper lobe nodule and right upper lobe opacities. She has a history of recent pneumonia which could be the reason for the right upper lobe opacities. She was seen by PT OT but she was refused to go to assisted facility. Patient elected to go home. She was discharged to home in a stable medical condition, discharged on fentanyl patch 25 mcg every 3 days, discharged on OxyIR as needed for pain, continued on her chronic home medications include Lyrica, recommended follow-up with PCP in 1 week, follow-up with Dr. Piper after calling his office, recommend repeat CT scan chest in 3-6 months to evaluate the left upper lobe nodule and right upper lobe opacities this should be taken care of by her PCP. Discharge Activity: Return to Normal Activity Weight Bearing Status: Weight bearing as tolerated Call your doctor if you observe: Fever of 101 or Higher, Shortness of breath, Dizziness, Fainting spells, Chest pain, Increased palpitations (irregular heartbeat), Uncontrolled pain Home Medications: Medications to take at Discharge Atorvastatin Calcium [Lipitor] 20 mg PO QHS 01/14/18 Pregabalin [Lyrica] 100 mg PO QHS 01/14/18 Sertraline HCl [Zoloft] 200 mg PO DAILY 01/14/18 Baclofen 10 mg PO DAILY 02/25/18 Diclofenac [Voltaren] 50 mg PO BIDCM 02/25/18 Methadone HCl 10 mg PO 4X/DAY 02/25/18 Phenytoin Na [Dilantin] 200 mg PO BID 02/25/18 Topiramate [Topiramate ER] 50 mg PO BID 02/25/18 Oxycodone [Oxyir] 5 - 10 mg PO Q6H PRN PRN #14 tab 02/28/18 Senna [Senokot] 1 tab PO BID #30 tab 02/28/18 Sumatriptan Succinate 100 mg PO DAILY PRN PRN 02/28/18 fentaNYL patch [Duragesic patch] 25 mcg TRANSDERM. Q3D 9 Days #3 patch 02/28/18 Following Prescrptions Were Given to Patient: Oxycodone [Oxyir] 5 - 10 mg PO Q6H PRN PRN #14 tab PRN Reason: Severe Pain (6-07/25) fentaNYL patch [Duragesic patch] 25 mcg TRANSDERM. Q3D 9 Days #3 patch Senna [Senokot] 1 tab PO BID #30 tab Primary Care Physician: Abhijit Jett Chi, MD [Primary Care Provider] - Please follow up with your Primary Care Physician in: 1 week. Please Follow Up With: Mary Piper MD When: please call his office. Please Follow Up With: Abhijit Jett Chi, MD When: Call office to schedule an appt Disposition: Home Minutes spent on discharge:: 32 Patient Condition:: Stable Medical Necessity - Tobacco Use Smoking Status: Former smoker Meaningful Use Info Meaningful Use Diagnoses (Choose all that apply): None applicable Code Visit Inpatient E&M: 54692 Disch Hosp
--- NOTE | 2018-03-02 09:50 | CASEMGMT ---
RN SUHAS DC F/U phone call. Intro role of CM to patient via her home phone. Pt states she is doing well since discharge. Has prescriptions filled, no questions re: medications. Pt is able to f/u with physicians- sister or vocational aide can assist with transportation. No complaints voiced. Pushpa VINESN RN ACM
--- NOTE | 2018-03-02 09:54 | CASEMGMT ---
RN CM DC F/U phone call attempted. No answer, message left for return call if pt would like. Pushpa GONZALEZ BSN ACM.
== END 2018-02-28 12:16 | disposition home health service (06) | DRG 552 ==
LOC: ED 11:03 → MS2 14:17
PROVIDERS: Admitting Provider Hospitalist; Emergency Provider Emergency Medicine; Family Provider Family Medicine Geriatric Medicine; PCP Family Medicine Geriatric Medicine; Visit Provider Hospitalist
DX: S22.069A Unspecified fracture of T7-T8 vertebra, initial encounter for closed fracture (principal); S32.10XA Unspecified fracture of sacrum, initial encounter for closed fracture; S32.592A Other specified fracture of left pubis, initial encounter for closed fracture; I13.0 Hypertensive heart and chronic kidney disease with heart failure and stage 1 through stage 4 chronic kidney disease, or unspecified chronic kidney disease; I50.32 Chronic diastolic (congestive) heart failure; M80.08XA Age-related osteoporosis with current pathological fracture, vertebra(e), initial encounter for fracture; S22.079A Unspecified fracture of T9-T10 vertebra, initial encounter for closed fracture; W18.30XA Fall on same level, unspecified, initial encounter; Y93.89 Activity, other specified; Y92.009 Unspecified place in unspecified non-institutional (private) residence as the place of occurrence of the external cause; Y99.8 Other external cause status; M54.5 Low back pain; R91.1 Solitary pulmonary nodule; G89.4 Chronic pain syndrome; R53.81 Other malaise; N18.3 Chronic kidney disease, stage 3 (moderate); M06.9 Rheumatoid arthritis, unspecified; M19.90 Unspecified osteoarthritis, unspecified site; M79.7 Fibromyalgia; R79.89 Other specified abnormal findings of blood chemistry; I48.0 Paroxysmal atrial fibrillation; E78.5 Hyperlipidemia, unspecified; K58.0 Irritable bowel syndrome with diarrhea; D72.829 Elevated white blood cell count, unspecified; I25.2 Old myocardial infarction; M35.00 Sjogren syndrome, unspecified; Z86.711 Personal history of pulmonary embolism; Z87.891 Personal history of nicotine dependence; Z79.52 Long term (current) use of systemic steroids; Z79.899 Other long term (current) drug therapy; Z79.891 Long term (current) use of opiate analgesic; M51.17 Intervertebral disc disorders with radiculopathy, lumbosacral region; M96.1 Postlaminectomy syndrome, not elsewhere classified
CPT/HCPCS: 36415; 71045; 71250; 72100; 72128; 72131; 72192; 80048; 80053; 80076; 81001; 83690; 84484; 85025; 87086; 93005; 97110; 97116; 97162; 97166; 97530; 99285; J7030; J7040; J7120; A4216; J2405

== ENCOUNTER 2018-03-05 10:17 | Emergency (ER) | payer MEDICARE, OTHER, SELFPAY ==
[2018-03-05 10:17] VITALS: BP 155/93; PULSE 95; RESP 14; TEMP 36.5; O2SAT 98; BMI 25.6
--- NOTE | 2018-03-05 10:28 | ED.RN ---
pt states that she hurts all over.
--- NOTE | 2018-03-05 10:32 | EKG12_ITS ---
Test Reason : FALL Blood Pressure : / mmHG Vent. Rate : 090 BPM Atrial Rate : 090 BPM P-R Int : 174 ms QRS Dur : 074 ms QT Int : 352 ms P-R-T Axes : 014 -09 -11 degrees QTc Int : 430 ms Normal sinus rhythm Inferior infarct , age undetermined Abnormal ECG Confirmed by CHASE COLEMAN, FELIX ([id number]), technical editor AVEL REYES ([id number]) on 03/06/2018 3:15:20 PM Referred By: DONYA Confirmed By:FELIX STONE MD
--- NOTE | 2018-03-05 10:37 | RAD_ITS ---
STUDY: X-RAY CHEST REASON FOR EXAM: Female, 72 years old. Back pain and anterior right rib pain. TECHNIQUE: Single AP portable view of the chest. COMPARISON: Comparison is made with prior examination February 25, 2018. FINDINGS: Increased interstitial markings with areas of confluence in the right upper lobe. Mild degree of increased interstitial markings with confluence in the left lower lobe. This is suggestive of scarring. Stable blunting of the left costophrenic angle. Normal size heart. Normal mediastinum and maged. Normal visualized pulmonary arteries. There is atherosclerotic calcification of the aortic arch with tortuosity. There is demineralization of the osseous structures. Prior vertebroplasty of an upper dorsal vertebrae. Normal visualized ribs, clavicles, and shoulders. There is no demonstrated abnormality of the visualized soft tissue structures of the upper abdomen. RAD/Chest 1 View (Portable) IMPRESSION: Stable examination suggestive of scarring in the right upper and left lower lobes. Electronically Signed: Yony Bonds MD at 11:22 EDT Tel [phone], Service support ,
--- NOTE | 2018-03-05 10:50 | ED.VISSUMM ---
- ER Visit Summary Date of Service: 03/05/18 Chief Complaint: Vomiting History of Present Illness: The patient is a 72 F who states that she vomited yesterday. She has had a decreased appetite for couple days. She tried a Reglan this morning. She also states that she is in severe pain all over her body. This comes from a fall that happened a couple weeks ago. She was admitted into the hospital and saw her pain management doctor. A fentanyl patch 25 mcg was placed. Patient also takes methadone and oxycodone IR. The patient states that the fentanyl helped a little but now is not because it is only 25 mcg and not the 100 that she would like. The patient states that she has pain in her back where she sustained a compression fracture as well as pain in her abdomen. Patient states that she would like just something through the IV to take the edge off. Patient was supposed to see her primary care physician today but came to the emergency room. Physical Examination: Afebrile vital signs are stable Gen: Well-nourished well-developed Head: Normocephalic atraumatic Eyes: Perrl EOMI ENT: TMs clear no rhinorrhea moist mucous membranes Neck: Supple no lymphadenopathy no JVD nontender CVS: Regular rate rhythm no murmurs normal S1-S2 Respiratory: No distress clear to auscultation bilaterally chest nontender Abdomen: Soft nontender nondistended normal bowel sounds no masses Back: Tender over the thoracic spine Extremity: Nontender no edema Skin: Normal color no rash Neuro: alert orientated ?3 CN II-XII intact normal strength sensation reflexes Psych: Normal affect normal mood Test Results: CBC chemistries liver lipase urinalysis troponin essentially negative. EKG sinus at a rate of 90. Chest x-ray negative. CT of abdomen pelvis negative for acute. Emergency Department Course and Treatment: The patient has received IV fluids. Patient does not clinically or laboratory pearce show evidence of dehydration. This despite several days of decreased appetite and not wishing to eat or drink. The patient has repeatedly asked for pain medication. I think the patient has developed a tolerance for narcotics. I think that there is a degree of addiction that is affecting her care. The patient herself states that she would probably benefit from going to rehab and getting off the pain medications. Apparently this idea has also been discussed with her primary care doctor. I feel the patient can be adequately discharged home given a negative CT of her abdomen and no evidence of dehydration. The patient called Dr. Piper's office and informed us that he wished to speak with me. I had nursing paged him and he stated that he did not necessarily need to speak with me. He will discuss pain management with the patient and the office at her next appointment. Impression: 1. Back pain 2. Abdominal pain This note was generated with [employer] dictation software. It may contain incorrect words, spelling, and punctuation that were not noted in review of the chart prior to signing ED Disposition - Plan for ED Patient: Disposition: Home or Assisted Living Chief Complaint: Fall Instructions: ED Chronic Pain Management Referrals: Abhijit Jett Chi, MD [Primary Care Provider] - Keep Yordy appointment
[2018-03-05 11:46] LABS: Bacteria 0 SEEN /hpf (None Seen); Mucous, Urine 0 SEEN /hpf (<or=2+); Red Blood Cells-Urine 0 SEEN /hpf (0-5)
[2018-03-05 11:59] LABS: Color, Urine Yellow (Yellow); Glucose, Dipstick Normal (Normal); Ketone-Dipstick Negative (Negative); Leukocyte Esterase-Dipstick Negative /ul (Negative); Nitrite-Dipstick Negative (Negative); Occult Blood-Urine Negative /ul (Negative); Protein-Dipstick Negative (Negative); Urine Bilirubin Dipstick Negative (Negative); Urine Clarity Clear (Clear); Urine Urobilinogen Normal (Normal)
[2018-03-05 12:20] LABS: Hematocrit 38.1 % (37-47); Hemoglobin 12.5 g/dl (12.0-15.0); Mean Corp Hgb Conc 32.8 g/gl (32-36); Mean Corpuscular Hgb 28.9 pg (27.0-32.0); Mean Platelet Vol. 10.2 fl (6.2-12.0); Platelet Count 330 K/mm3 (150-450); RBC Distribution Width CV 16.4 % (11.6-14.6); RBC Distribution Width SD 52.1 fl (35.1-43.9); Red Blood Count 4.33 M/mm3 (4.2-5.4); White Blood Count 10.7 K/mm3 (4.4-11.0)
[2018-03-05 12:26] LABS: ALB/GLOB Ratio 0.8 RATIO (0.9-2.4); AST(SGOT) 17 U/L (15-37); Alanine Aminotransfer ALT/SGPT 13 U/L (13-56); Albumin, Serum 3.4 g/dL (3.2-5.0); Alkaline Phosphatase 181 U/L (45-117); Anion Gap 10 (5-15); BUN 10 mg/dL (7-18); BUN/Creat Ratio 8.6 RATIO (10-20); Calcium,Total 9.5 mg/dL (8.5-10.1); Chloride 106 mmol/L (98-107); Creatinine, Serum 1.16 mg/dL (0.55-1.02); EST Glomerular Filtration Rate 49 mL/min (>60); Est Glom Filt Rate - Afr Amer 59 mL/min (>60); Estimated Creatinine Clearance 41.38 ml/min; Globulin 4.3 g/dL (2.2-4.2); Glucose 105 mg/dL (74-106); Lipase 163 U/L (73-393); Potassium 3.9 mmol/L (3.5-5.1); Protein, Total 7.7 g/dL (6.4-8.2); Scan Indicated on CBC? Y/N NO; Sodium Level 141 mmol/L (136-145)
[2018-03-05 12:29] LABS: Squamous Epithelial Cells - UA 0-5 SEEN /hpf (5-10); White Blood Cells 0-5 SEEN /hpf (0-5)
[2018-03-05] MEDS: 0.9% Normal Saline 1,000 ML 1000 ML IV (12:37)
[2018-03-05 12:38] VITALS: BP 163/81; PULSE 99; RESP 18; O2SAT 98
--- NOTE | 2018-03-05 12:46 | CT_ITS ---
STUDY: CT ABDOMEN AND PELVIS WITHOUT CONTRAST REASON FOR EXAM: Female, 72 years old. Abdominal pain. RADIATION DOSAGE (If Supplied By Facility): CTDIvol = ( 13.39 ) mGy, DLP = ( 699.41 ) mGycm TECHNIQUE: Transaxial images were obtained from the dome of the diaphragm to the symphysis pubis without oral contrast, and without intravenous contrast. Sagittal and coronal images were reconstructed. Individualized dose optimization techniques were used for this CT. COMPARISON: Comparison is made with prior study of December 27, 2012. FINDINGS: Coarsened increased markings at the lung bases suggestive of scarring. Coronary artery calcification. Normal liver. There are surgical clips in the gallbladder fossa consistent with a prior cholecystectomy. Normal spleen. Normal pancreas. Normal bilateral adrenal glands. Normal right kidney. Normal left kidney. There is a small hiatal hernia. Normal small intestine. Normal colon. The patient is status post appendectomy. There is diffuse atherosclerotic calcification of the abdominal aorta, without a demonstrated aneurysm. Normal inferior vena cava. Normal retroperitoneum. Normal urinary bladder. There is absence of the uterus consistent with a prior hysterectomy. Normal abdominal wall. There are diffuse degenerative changes of the visualized lumbar spine. Status post right hip replacement. Prior vertebroplasty of the T7 vertebrae. Loss of height of the T8 and T9 vertebrae. CT/Abdomen/Pelvis without Cont IMPRESSION: No acute abnormality is seen. Electronically Signed: Yony Bonds MD at 13:46 EDT Tel [phone], Service support ,
[2018-03-05 14:11] VITALS: BP 137/80; PULSE 60; RESP 18; O2SAT 99
[2018-03-05] MEDS: 0.9% Normal Saline 1,000 ML 150 ML IV (14:57)
[2018-03-05 15:31] VITALS: BP 148/96; PULSE 96; RESP 16; O2SAT 98
--- NOTE | 2018-03-05 15:32 | ED.RN ---
PT GIVEN WRITTEN AND VERBAL DISCHARGE INSTRUCTIONS. PT VERBALIZES UNDERSTANDING AND DENIES ANY FURTHER QUESTIONS. IV D/C AND COVERED WITH 2X2 GAUZE DRESSING AND PAPER TAPE. MINIMAL BLEEDING NOTED. PT ASSISTED BY THIS RN INTO WHEELCHAIR AND WHEELED TO FAMILY VEHICLE.
== END 2018-03-05 15:34 | disposition home or self-care (01) ==
PROVIDERS: Emergency Provider Emergency Medicine; Family Provider Family Medicine Geriatric Medicine; PCP Family Medicine Geriatric Medicine
DX: R10.9 Unspecified abdominal pain (principal); M54.6 Pain in thoracic spine; G89.4 Chronic pain syndrome; I50.9 Heart failure, unspecified; E78.00 Pure hypercholesterolemia, unspecified; I73.9 Peripheral vascular disease, unspecified; Z86.711 Personal history of pulmonary embolism; Z87.891 Personal history of nicotine dependence; Z79.891 Long term (current) use of opiate analgesic; Z79.899 Other long term (current) drug therapy
CPT/HCPCS: 71045; 74176; 80053; 81001; 83690; 84484; 85027; 93005; 96360; 96361; 99285; J7030; A4216

== ENCOUNTER → 2018-04-09 16:40 | Outpatient (CLI) | payer MEDICARE, OTHER, SELFPAY | PROVIDERS: Family Provider Family Medicine Geriatric Medicine; PCP Family Medicine Geriatric Medicine; Visit Provider Family Medicine Geriatric Medicine | DX: N39.0 Urinary tract infection, site not specified (principal) | CPT/HCPCS: 87077; 87086; 87088; 87186 ==

== ENCOUNTER 2018-04-10 05:30 | Inpatient (IN) | payer MEDICARE, OTHER, SELFPAY ==
[2018-04-10 05:31] VITALS: BP 146/84; PULSE 64; RESP 18; TEMP 36.7; O2SAT 95; BMI 26.7
[2018-04-10 06:05] VITALS: BP 130/72; PULSE 67; RESP 11; O2SAT 94
--- NOTE | 2018-04-10 06:05 | RAD_ITS ---
STUDY: X-RAY CHEST REASON FOR EXAM: Female, 72 years old. Dizziness TECHNIQUE: 1 view COMPARISON: March 05, 2018 FINDINGS: Increased interstitial changes in the right upper lobe. The left lung also shows mild fibrotic changes. The heart is normal in size.. There is a thoracic scoliosis with convexity to the left.2 Normal visualized ribs, clavicles, and shoulders. There is no demonstrated abnormality of the visualized soft tissue structures of the upper abdomen. RAD/Chest 1 View IMPRESSION: Fibrotic changes in the right upper lobe and in the left base. Electronically Signed: Earl Flynn, at 6:45 EDT Tel , Service support ,
--- NOTE | 2018-04-10 06:05 | EKG12_ITS ---
Test Reason : DIZZY Blood Pressure : / mmHG Vent. Rate : 061 BPM Atrial Rate : 061 BPM P-R Int : 200 ms QRS Dur : 078 ms QT Int : 394 ms P-R-T Axes : 082 -08 -01 degrees QTc Int : 396 ms Normal sinus rhythm Inferior infarct (cited on or before 14-JAN-2018) Abnormal ECG Confirmed by CHASE COLEMAN, FELIX ([id number]), acquisition editor JAVON LESTER ([id number]) on 04/12/2018 4:28:14 PM Referred By: GATO Confirmed By:FELIX STONE MD
--- NOTE | 2018-04-10 06:05 | CT_ITS ---
STUDY: CT BRAIN WITHOUT CONTRAST REASON FOR EXAM: Female, 72 years old. RADIATION DOSAGE (If Supplied By Facility): CTDIvol = ( 44.99 ) mGy, DLP = ( 745.49 ) mGycm TECHNIQUE: Transaxial CT imaging of the brain was performed without administration of intravenous contrast material. Individualized dose optimization techniques were used for this CT. COMPARISON: January 15, 2018 FINDINGS: Continues to be a left-sided craniotomy involving the frontal temporal and parietal lobes. There is no demonstration of any acute hemorrhage or acute infarction and no intra or extra-axial tumor. The ventricles, basal cisterns and cortical sulci are normal. The orbits, paranasal sinuses and mastoid air cells are normal. CT/Brain/Head without Contrast IMPRESSION: No acute findings in the brain. Left hemispheric craniotomy. No change since the last study of January 15, 2018 Electronically Signed: Earl Flynn, at 7:04 EDT Tel , Service support ,
--- NOTE | 2018-04-10 06:11 | ED.DCSUM_ITS ---
- ER Visit Summary Date of Service: 04/10/18 Chief Complaint: [Dizziness] History of Present Illness: The patient is a 72 F [who presents the emergency department with dizziness. It started last . It got worse on Monday. She states she is walking like a drunk person. She states that her vision is off. She generally does not feel well and her head feels like it swimming. She saw her primary care doctor yesterday who diagnosed her with a urinary tract infection she got a shot of antibiotics and fluids and was sent home on Cipro but has not started it yet. Today she cannot walk at all without assistance. Usually she is ambulatory on her own. She does have 24-hour caregiver.] Physical Examination: [] Afebrile vital signs within acceptable limits WN WD NAD frail PERRL EOMI horizontal nystagmus at rest and with lateral gaze in any direction MMM NECK supple and nontender, no masses RRR no murmur rub or gallop, no peripheral edema, symmetric radial pulses CTAB no respiratory distress ABDOMEN is soft and nontender, normal bowel sounds, no distension, no rebound or guarding SKIN is warm and dry no rashes Alert and Oriented x3, CN II-XII in tact, no motor or sensory deficits, gait normal NIH is 0 No lymphadenopathy Test Results: [] Emergency Department Course and Treatment: [Patient was given fluids. CT the head was obtained and showed chronic changes but nothing acute. Creatinine was 1.25. Dilantin level is pending. Urinalysis does not appear infected. Patient has normal horizontal nystagmus at rest. She was given meclizine. She is old and frail has a history of multiple fractures and cannot stand or walk on her own due to the vertigo. This time she will be admitted to the hospital.] Treatment Plan: [] Disposition: [Admit] Impression: [Vertigo] This note was generated with [employer] dictation software. It may contain incorrect words, spelling, and punctuation that were not noted in review of the chart prior to signing ED Disposition - Plan for ED Patient: Chief Complaint: Dizziness Referrals: Abhijit Jett Chi, MD [Primary Care Provider] -
[2018-04-10 06:16] LABS: Mucous, Urine 0 SEEN /hpf (<or=2+); Squamous Epithelial Cells - UA 0 SEEN /hpf (5-10)
[2018-04-10 06:28] LABS: Color, Urine Yellow (Yellow); Glucose, Dipstick Normal (Normal); Ketone-Dipstick Negative (Negative); Leukocyte Esterase-Dipstick 25 /ul (Negative); Nitrite-Dipstick Negative (Negative); Occult Blood-Urine 10 /ul (Negative); Protein-Dipstick Negative (Negative); Urine Bilirubin Dipstick Negative (Negative); Urine Clarity Clear (Clear); Urine Urobilinogen Normal (Normal)
[2018-04-10 06:40] LABS: Amorphous Sediment 1+; Bacteria 1+ /hpf (None Seen); Red Blood Cells-Urine 0-5 SEEN /hpf (0-5); White Blood Cells 0-5 SEEN /hpf (0-5)
[2018-04-10 06:45] LABS: Absolute Neutrophil Count 5.6 X10^3/uL (2.0-7.7); Basophil# 0.02 X10^3/uL; Basophil% 0.2 % (0-1); Eosinophils% 5.2 % (0-5); Hematocrit 37.4 % (37-47); Hemoglobin 11.6 g/dl (12.0-15.0); Mean Corpuscular Hgb 28.5 pg (27.0-32.0); Mean Corpuscular Volume 91.9 fL (81-99); Mean Platelet Vol. 9.5 fl (6.2-12.0); Monocyte# 0.94 X10^3/uL; Monocyte% 9.8 % (0-10); Neutrophil # 5.63 X10^3/uL (2.7-7.7); Neutrophil % 58.6 % (47-70); POSITIVE COUNT NO; POSITIVE DIFFERENTIAL NO; POSITIVE MORPHOLOGY NO; Platelet Count 217 K/mm3 (150-450); RBC Distribution Width CV 16.4 % (11.6-14.6); RBC Distribution Width SD 55.4 fl (35.1-43.9); Red Blood Count 4.07 M/mm3 (4.2-5.4); White Blood Count 9.6 K/mm3 (4.4-11.0)
[2018-04-10 06:47] LABS: International Normalized Ratio 1.1
[2018-04-10 06:48] LABS: Partial Thromboplast Time 42.6 Seconds (24.1-36.2)
[2018-04-10 06:57] LABS: Anion Gap 7 (5-15); BUN 18 mg/dL (7-18); BUN/Creat Ratio 14.4 RATIO (10-20); Calcium,Total 8.7 mg/dL (8.5-10.1); Chloride 109 mmol/L (98-107); Creatinine, Serum 1.25 mg/dL (0.55-1.02); EST Glomerular Filtration Rate 45 mL/min (>60); Est Glom Filt Rate - Afr Amer 54 mL/min (>60); Glucose 76 mg/dL (74-106); Potassium 4.6 mmol/L (3.5-5.1); Sodium Level 142 mmol/L (136-145)
--- NOTE | 2018-04-10 08:00 | PCM.HP.STD ---
Problem List (1) Vertigo Status: Acute History of Present Illness Date of Admission: 04/10/18 Chief Complaint: dizziness and falls The patient is a 72 year old F presents with a four-day history of dizziness. Patient state that change position does not really affect her but she just constantly dizzy. Unable to do that anything and has been falling. Patient developed a skin tear on her left arm due to 1 of her falls. Patient is unable to maintain at home. Patient states that she is able to get up and stand on her own independently before this happened. She has never had this happen before. Patient presented to the emergency room no acute process. She did receive meclizine which has not helped her yet. [] Past Medical History Past Medical History (Chronic Problems): Chronic Problems (Last Updated 10/25/17 @ 16:34 by Noris Nunez) Fibromyalgia (Chronic) HTN (hypertension) (Chronic) Rheumatoid arthritis (Chronic) on no medications for RA - diagnosed in [place] many years ago Dyslipidemia (Chronic) Sjogren's syndrome (Chronic) Myocardial infarct, old (Chronic) CKD (chronic kidney disease), stage III (Chronic) history of PULMONARY EMBOLI (Chronic) Diastolic CHF (Chronic) Cephalalgia (Chronic) IBS (irritable bowel syndrome) (Chronic) Osteoarthritis (Chronic) History of radiofrequency ablation (RFA) procedure for cardiac arrhythmia (Chronic) Medical History: Medical History (Last Reviewed 04/10/18 @ 08:02 by Kishan Loco DO) CVA (cerebral vascular accident) I63.9 Chronic kidney disease N18.9 Depression F32.9 H/O deep venous thrombosis Z86.718 Allergies acetaminophen [From Tylox] Allergy (Verified 04/10/18 05:34) Other amoxicillin Allergy (Verified 04/10/18 05:34) Hives ciprofloxacin [From Cipro] Allergy (Verified 04/10/18 05:34) Other ciprofloxacin HCl [From Cipro] Allergy (Verified 04/10/18 05:34) Other indomethacin Allergy (Verified 04/10/18 05:34) Unknown nortriptyline HCl [From Pamelor] Allergy (Verified 04/10/18 05:34) Unknown oxycodone [From Tylox] Allergy (Verified 04/10/18 05:34) Other Sulfa (Sulfonamide Antibiotics) Allergy (Verified 04/10/18 05:34) Unknown warfarin [From Coumadin] Allergy (Verified 04/10/18 05:34) Unknown iodine Adverse Reaction (Verified 04/10/18 05:34) Itching nortriptyline [Nortriptyline] Adverse Reaction (Verified 03/05/18 10:23) Itching warfarin sodium [From Coumadin] Adverse Reaction (Verified 03/05/18 10:23) Itching Home Medications: Ambulatory Orders Medication Instructions Recorded Atorvastatin Calcium [Lipitor] 20 mg PO QHS 01/14/18 Pregabalin [Lyrica] 100 mg PO QHS 01/14/18 Sertraline HCl [Zoloft] 100 mg PO BID 01/14/18 Diclofenac [Voltaren] 50 mg PO BIDCM 02/25/18 Phenytoin Na [Dilantin] 200 mg PO BID 02/25/18 Topiramate [Topiramate ER] 25 mg PO BID 02/25/18 Oxycodone [Oxyir] 5 - 10 mg PO Q6H PRN PRN #14 tab 02/28/18 Sumatriptan Succinate 100 mg PO DAILY PRN PRN 02/28/18 fentaNYL patch [Duragesic patch] 25 mcg TRANSDERM. Q3D 9 Days #3 02/28/18 patch Hydroxyzine HCl 50 mg PO DAILY 03/05/18 Metoclopramide [Reglan] 10 mg PO TID 03/05/18 Surgical History: Surgical History (Last Reviewed 04/10/18 @ 08:02 by Kishan Loco DO) History of hysterectomy Z98.890, Z90.710 1976 gallbladder removal Surgical History: angioplasty - pt denies this - she says that she only had an ablation and she does not have any hx of CAD., appendectomy, hysterectomy, total hip arthroplasty - recent right hip replacement, tonsillectomy, - - craniotomy to remove blood clots after a fall. Psychiatric History: No pertinent psych hx CLINICAL RECRUITER History: No pertinent CLINICAL RECRUITER history Smoking Status: Former smoker - *Family History Sibling History Items: COPD Maternal History Items: No pertinent history, - Review of Systems Constitutional: Denies: Anorexia, Chills, Fever Eyes: Reports: Blurred vision. Denies: Double vision HEENT: Denies: Head Aches, Sinus Congestion, Sinus Drainage Cardiovascular: Denies: Chest Pain, Palpitations Respiratory: Denies: Cough, Shortness of breath at rest, Sputum production Gastrointestinal: Denies: Abdominal Pain, Nausea, Vomiting Genitourinary: Denies: Dysuria Musculoskeletal: Reports: Back Pain - Chronic, - - Rib pain Skin: Reports: - - Skin tear left upper extremity. Denies: Dryness, Jaundice Neurological: Reports: Balance problems, Blurred vision. Denies: Double vision, Numbness Psychiatric: Denies: Anxiety, Depression Endocrine: Denies: Change in Body Habitus, Heat/ Cold Intolerance Hematologic/ Lymphatic: Denies: Easy Bruising, Easy Bleeding, Hx of blood clot VTE Information - Inpt Only VTE Present on Admission: No VTE Mechan Device Prophylaxis: None VTE Pharm Prophylaxis ordered?: Yes Patient Problems: Active and Suspected Problems (Last Updated 10/25/17 @ 16:34 by Noris Nunez) Vertigo (Acute) - Physical Exam General: Alert, Cooperative, No apparent distress HEENT: Atraumatic, PERRLA, EOMI - Bilateral lateral nystagmus, Normocephalic Neck: No Nodes, Thyroid Normal Size and Texture Lungs: Clear to auscultation, Normal air movement, No rhonchi, No wheeze Cardiovascular: Regular rate, Regular Rhythm, Normal S1, Normal S2, No murmurs Abdomen: Bowel Sounds Present, Soft, Non Tender, Non-Distended, No Hepato-splenomegaly Extremities: No edema, No Calf Tenderness Skin: No rashes Musculoskeletal: No Tenderness to Palpation of Joints or Extremities, No Muscle Wasting Neurological: Cranial nerves II-XII grossly intact, - - Muscle strength 5 out of 5 in the upper extremities bilaterally I have in the lower extremities bilaterally. Patient states that she flat, therefore, I was unable to do a [place]-Hallpike maneuver due to patient's chronic rib and back pain. Psych/Mental Status: Normal Affect, Appropriate Vital Signs Temp Pulse Resp BP Pulse Ox 36.7 C 64 18 146/84 H 95 04/10/18 05:31 04/10/18 05:31 04/10/18 05:31 04/10/18 05:31 04/10/18 05:31 Oxygen Delivery Method Room Air Weight: 77.4 kg Body Mass Index (BMI) 26.7 Finger Stick Blood Glucose 107 Laboratory Tests Past 24 Hrs 04/10/18 04/10/18 04/10/18 05:47 06:25 06:25 WBC 9.6 RBC 4.07 L Hgb 11.6 L Hct 37.4 MCV 91.9 MCH 28.5 MCHC 31.0 L RDW 16.4 H RDW Differential 55.4 H Plt Count 217 MPV 9.5 Immature Gran % (Auto) 0.200 Neut % (Auto) 58.6 Lymph % (Auto) 26.0 [place] % (Auto) 9.8 Eos % (Auto) 5.2 H Baso % (Auto) 0.2 Absolute Neuts (auto) 5.6 Absolute Lymphs (auto) 2.50 Total Counted Not Reportable PT 14.0 INR 1.1 APTT 42.6 H Sodium Potassium Chloride Carbon Dioxide Anion Gap BUN Creatinine Estim Creat Clear Calc Est GFR (MDRD) Af Amer Est GFR (MDRD) Non-Af BUN/Creatinine Ratio Glucose Calcium Troponin I Urine Color Yellow Urine Clarity Clear Urine pH 8.0 Ur Specific [place] 1.010 Urine Protein Negative Urine Glucose (UA) Normal Urine Ketones Negative Urine Occult Blood 10 H Urine Nitrite Negative Urine Bilirubin Negative Urine Urobilinogen Normal Ur Leukocyte Esterase 25 H Urine RBC 0-5 SEEN Urine WBC 0-5 SEEN Ur Squamous Epith Cells 0 SEEN Amorphous Sediment 1+ Urine Bacteria 1+ Urine Mucus 0 SEEN Phenytoin 04/10/18 04/10/18 06:25 07:39 WBC RBC Hgb Hct MCV MCH MCHC RDW RDW Differential Plt Count MPV Immature Gran % (Auto) Neut % (Auto) Lymph % (Auto) [place] % (Auto) Eos % (Auto) Baso % (Auto) Absolute Neuts (auto) Absolute Lymphs (auto) Total Counted PT INR APTT Sodium 142 Potassium 4.6 Chloride 109 H Carbon Dioxide 26.0 Anion Gap 7 BUN 18 Creatinine 1.25 H Estim Creat Clear Calc 38.40 Est GFR (MDRD) Af Amer 54 L Est GFR (MDRD) Non-Af 45 L BUN/Creatinine Ratio 14.4 Glucose 76 Calcium 8.7 Troponin I < 0.015 Urine Color Urine Clarity Urine pH Ur Specific [place] Urine Protein Urine Glucose (UA) Urine Ketones Urine Occult Blood Urine Nitrite Urine Bilirubin Urine Urobilinogen Ur Leukocyte Esterase Urine RBC Urine WBC Ur Squamous Epith Cells Amorphous Sediment Urine Bacteria Urine Mucus Phenytoin Pending EKG showed normal sinus rhythm without any acute processes. Clinical Impression(s) from Imaging Studies Brain CT 04/10/18 06:05 IMPRESSION: No acute findings in the brain. Left hemispheric craniotomy. No change since the last study of January 15, 2018 Electronically Signed: Earl Flynn, at 7:04 EDT Tel , Service support , Chest X-Ray 04/10/18 06:05 IMPRESSION: Fibrotic changes in the right upper lobe and in the left base. Electronically Signed: Earl Flynn, at 6:45 EDT Tel , Service support , Assessment/Plan All Active Problems (Last Updated 10/25/17 @ 16:34 by Noris Nunez) Vertigo (Acute) Acute delirium (Resolved) Bradycardia (Resolved) Cystitis, acute (Resolved) Dizziness (Resolved) Fall (Resolved) Meningitis (Resolved) 1. Vertigo This is more benign paroxysmal positional vertigo Patient did have increased symptoms with lateral gaze Would continue with as needed meclizine plus patient evaluated by physical and occupational therapies. Ideally, patient should have vestibular rehab, but on sure how patient would be able to tolerate it given her chronic musculoskeletal complaints Reassurance was provided to the patient that this is generally a benign process despite her symptoms. 2. CODE STATUS Discussed DNR and advanced care directives with patient. Patient wishes to be DNR Comfort Care arrest, no intubation and no PEG tube. 3. DVT prophylaxis with Lovenox Code Visit OBSV E&M: 74530 Initial observation care L3
--- NOTE | 2018-04-10 08:07 | HP.PCM_ITS ---
Problem List (1) Vertigo Status: Acute History of Present Illness Date of Admission: 04/10/18 Chief Complaint: dizziness and falls The patient is a 72 year old F presents with a four-day history of dizziness. Patient state that change position does not really affect her but she just constantly dizzy. Unable to do that anything and has been falling. Patient developed a skin tear on her left arm due to 1 of her falls. Patient is unable to maintain at home. Patient states that she is able to get up and stand on her own independently before this happened. She has never had this happen before. Patient presented to the emergency room no acute process. She did receive meclizine which has not helped her yet. [] Past Medical History Past Medical History (Chronic Problems): Chronic Problems (Last Updated 10/25/17 @ 16:34 by Noris Nunez) Fibromyalgia (Chronic) HTN (hypertension) (Chronic) Rheumatoid arthritis (Chronic) on no medications for RA - diagnosed in [place] many years ago Dyslipidemia (Chronic) Sjogren's syndrome (Chronic) Myocardial infarct, old (Chronic) CKD (chronic kidney disease), stage III (Chronic) history of PULMONARY EMBOLI (Chronic) Diastolic CHF (Chronic) Cephalalgia (Chronic) IBS (irritable bowel syndrome) (Chronic) Osteoarthritis (Chronic) History of radiofrequency ablation (RFA) procedure for cardiac arrhythmia ( Chronic) Medical History: Medical History (Last Reviewed 04/10/18 @ 08:02 by Kishan Loco DO) CVA (cerebral vascular accident) I63.9 Chronic kidney disease N18.9 Depression F32.9 H/O deep venous thrombosis Z86.718 Allergies acetaminophen [From Tylox] Allergy (Verified 04/10/18 05:34) Other amoxicillin Allergy (Verified 04/10/18 05:34) Hives ciprofloxacin [From Cipro] Allergy (Verified 04/10/18 05:34) Other ciprofloxacin HCl [From Cipro] Allergy (Verified 04/10/18 05:34) Other indomethacin Allergy (Verified 04/10/18 05:34) Unknown nortriptyline HCl [From Pamelor] Allergy (Verified 04/10/18 05:34) Unknown oxycodone [From Tylox] Allergy (Verified 04/10/18 05:34) Other Sulfa (Sulfonamide Antibiotics) Allergy (Verified 04/10/18 05:34) Unknown warfarin [From Coumadin] Allergy (Verified 04/10/18 05:34) Unknown iodine Adverse Reaction (Verified 04/10/18 05:34) Itching nortriptyline [Nortriptyline] Adverse Reaction (Verified 03/05/18 10:23) Itching warfarin sodium [From Coumadin] Adverse Reaction (Verified 03/05/18 10:23) Itching Home Medications: Ambulatory Orders Medication Instructions Recorded Atorvastatin Calcium [Lipitor] 20 mg PO QHS 01/14/18 Pregabalin [Lyrica] 100 mg PO QHS 01/14/18 Sertraline HCl [Zoloft] 100 mg PO BID 01/14/18 Diclofenac [Voltaren] 50 mg PO BIDCM 02/25/18 Phenytoin Na [Dilantin] 200 mg PO BID 02/25/18 Topiramate [Topiramate ER] 25 mg PO BID 02/25/18 Oxycodone [Oxyir] 5 - 10 mg PO Q6H PRN PRN #14 tab 02/28/18 Sumatriptan Succinate 100 mg PO DAILY PRN PRN 02/28/18 fentaNYL patch [Duragesic patch] 25 mcg TRANSDERM. Q3D 9 Days #3 02/28/18 patch Hydroxyzine HCl 50 mg PO DAILY 03/05/18 Metoclopramide [Reglan] 10 mg PO TID 03/05/18 Surgical History: Surgical History (Last Reviewed 04/10/18 @ 08:02 by Kishan Loco DO) History of hysterectomy Z98.890, Z90.710 1976 gallbladder removal Surgical History: angioplasty - pt denies this - she says that she only had an ablation and she does not have any hx of CAD., appendectomy, hysterectomy, total hip arthroplasty - recent right hip replacement, tonsillectomy, - - craniotomy to remove blood clots after a fall. Psychiatric History: No pertinent psych hx DATE NIGHT CAREGIVER History: No pertinent DATE NIGHT CAREGIVER history Smoking Status: Former smoker - *Family History Sibling History Items: COPD Maternal History Items: No pertinent history, - Review of Systems Constitutional: Denies: Anorexia, Chills, Fever Eyes: Reports: Blurred vision. Denies: Double vision HEENT: Denies: Head Aches, Sinus Congestion, Sinus Drainage Cardiovascular: Denies: Chest Pain, Palpitations Respiratory: Denies: Cough, Shortness of breath at rest, Sputum production Gastrointestinal: Denies: Abdominal Pain, Nausea, Vomiting Genitourinary: Denies: Dysuria Musculoskeletal: Reports: Back Pain - Chronic, - - Rib pain Skin: Reports: - - Skin tear left upper extremity. Denies: Dryness, Jaundice Neurological: Reports: Balance problems, Blurred vision. Denies: Double vision , Numbness Psychiatric: Denies: Anxiety, Depression Endocrine: Denies: Change in Body Habitus, Heat/ Cold Intolerance Hematologic/ Lymphatic: Denies: Easy Bruising, Easy Bleeding, Hx of blood clot VTE Information - Inpt Only VTE Present on Admission: No VTE Mechan Device Prophylaxis: None VTE Pharm Prophylaxis ordered?: Yes Patient Problems: Active and Suspected Problems (Last Updated 10/25/17 @ 16:34 by Noris Nunez) Vertigo (Acute) - Physical Exam General: Alert, Cooperative, No apparent distress HEENT: Atraumatic, PERRLA, EOMI - Bilateral lateral nystagmus, Normocephalic Neck: No Nodes, Thyroid Normal Size and Texture Lungs: Clear to auscultation, Normal air movement, No rhonchi, No wheeze Cardiovascular: Regular rate, Regular Rhythm, Normal S1, Normal S2, No murmurs Abdomen: Bowel Sounds Present, Soft, Non Tender, Non-Distended, No Hepato- splenomegaly Extremities: No edema, No Calf Tenderness Skin: No rashes Musculoskeletal: No Tenderness to Palpation of Joints or Extremities, No Muscle Wasting Neurological: Cranial nerves II-XII grossly intact, - - Muscle strength 5 out of 5 in the upper extremities bilaterally I have in the lower extremities bilaterally. Patient states that she flat, therefore, I was unable to do a [place]- Hallpike maneuver due to patient's chronic rib and back pain. Psych/Mental Status: Normal Affect, Appropriate Vital Signs Temp Pulse Resp BP Pulse Ox 36.7 C 64 18 146/84 H 95 04/10/18 05:31 04/10/18 05:31 04/10/18 05:31 04/10/18 05:31 04/10/18 05:31 Oxygen Delivery Method Room Air Weight: 77.4 kg Body Mass Index (BMI) 26.7 Finger Stick Blood Glucose 107 Laboratory Tests Past 24 Hrs 04/10/18 04/10/18 04/10/18 05:47 06:25 06:25 WBC 9.6 RBC 4.07 L Hgb 11.6 L Hct 37.4 MCV 91.9 MCH 28.5 MCHC 31.0 L RDW 16.4 H RDW Differential 55.4 H Plt Count 217 MPV 9.5 Immature Gran % (Auto) 0.200 Neut % (Auto) 58.6 Lymph % (Auto) 26.0 [place] % (Auto) 9.8 Eos % (Auto) 5.2 H Baso % (Auto) 0.2 Absolute Neuts (auto) 5.6 Absolute Lymphs (auto) 2.50 Total Counted Not Reportable PT 14.0 INR 1.1 APTT 42.6 H Sodium Potassium Chloride Carbon Dioxide Anion Gap BUN Creatinine Estim Creat Clear Calc Est GFR (MDRD) Af Amer Est GFR (MDRD) Non-Af BUN/Creatinine Ratio Glucose Calcium Troponin I Urine Color Yellow Urine Clarity Clear Urine pH 8.0 Ur Specific [place] 1.010 Urine Protein Negative Urine Glucose (UA) Normal Urine Ketones Negative Urine Occult Blood 10 H Urine Nitrite Negative Urine Bilirubin Negative Urine Urobilinogen Normal Ur Leukocyte Esterase 25 H Urine RBC 0-5 SEEN Urine WBC 0-5 SEEN Ur Squamous Epith Cells 0 SEEN Amorphous Sediment 1+ Urine Bacteria 1+ Urine Mucus 0 SEEN Phenytoin 04/10/18 04/10/18 06:25 07:39 WBC RBC Hgb Hct MCV MCH MCHC RDW RDW Differential Plt Count MPV Immature Gran % (Auto) Neut % (Auto) Lymph % (Auto) [place] % (Auto) Eos % (Auto) Baso % (Auto) Absolute Neuts (auto) Absolute Lymphs (auto) Total Counted PT INR APTT Sodium 142 Potassium 4.6 Chloride 109 H Carbon Dioxide 26.0 Anion Gap 7 BUN 18 Creatinine 1.25 H Estim Creat Clear Calc 38.40 Est GFR (MDRD) Af Amer 54 L Est GFR (MDRD) Non-Af 45 L BUN/Creatinine Ratio 14.4 Glucose 76 Calcium 8.7 Troponin I < 0.015 Urine Color Urine Clarity Urine pH Ur Specific [place] Urine Protein Urine Glucose (UA) Urine Ketones Urine Occult Blood Urine Nitrite Urine Bilirubin Urine Urobilinogen Ur Leukocyte Esterase Urine RBC Urine WBC Ur Squamous Epith Cells Amorphous Sediment Urine Bacteria Urine Mucus Phenytoin Pending EKG showed normal sinus rhythm without any acute processes. Clinical Impression(s) from Imaging Studies Brain CT 04/10/18 06:05 IMPRESSION: No acute findings in the brain. Left hemispheric craniotomy. No change since the last study of January 15, 2018 Electronically Signed: Earl Flynn, at 7:04 EDT Tel , Service support , Chest X-Ray 04/10/18 06:05 IMPRESSION: Fibrotic changes in the right upper lobe and in the left base. Electronically Signed: Earl Flynn, at 6:45 EDT Tel , Service support , Assessment/Plan All Active Problems (Last Updated 10/25/17 @ 16:34 by Noris Nunez) Vertigo (Acute) Acute delirium (Resolved) Bradycardia (Resolved) Cystitis, acute (Resolved) Dizziness (Resolved) Fall (Resolved) Meningitis (Resolved) 1. Vertigo * This is more benign paroxysmal positional vertigo * Patient did have increased symptoms with lateral gaze * Would continue with as needed meclizine plus patient evaluated by physical and occupational therapies. * Ideally, patient should have vestibular rehab, but on sure how patient would be able to tolerate it given her chronic musculoskeletal complaints * Reassurance was provided to the patient that this is generally a benign process despite her symptoms. 2. CODE STATUS * Discussed DNR and advanced care directives with patient. Patient wishes to be DNR Comfort Care arrest, no intubation and no PEG tube. 3. DVT prophylaxis with Lovenox Code Visit OBSV E&M: 69334 Initial observation care L3
[2018-04-10] MEDS: Meclizine HCl 25 MG Tablet PO (08:22)
[2018-04-10 08:25] VITALS: BP 130/72; PULSE 68; RESP 18; O2SAT 95
[2018-04-10 08:38] LABS: Phenytoin (Dilantin) Level 38.5 mL (10.0-20.0)
[2018-04-10 09:25] VITALS: BMI 26.2; BMI 26.7
[2018-04-10 09:26] VITALS: BP 128/64; PULSE 66; RESP 18; TEMP 36.6; O2SAT 96
[2018-04-10] MEDS: Phenytoin Na 100 MG Capsule 200 MG PO ×2 (11:58→18:06)
[2018-04-10] MEDS: Enoxaparin 40 MG/0.4 ML Syringe SC (11:58)
[2018-04-10] MEDS: fentaNYL 25 MCG Patch TRANSDERM. (11:59)
[2018-04-10] MEDS: Topiramate 25 MG Tablet PO ×2 (11:59→21:41)
[2018-04-10] MEDS: Sertraline 100 MG Tablet PO ×2 (11:59→21:41)
[2018-04-10] MEDS: oxyCODONE 5 MG Tablet PO ×2 (12:09→18:05)
[2018-04-10 14:46] VITALS: BP 104/47; PULSE 71; RESP 16; TEMP 36.6; O2SAT 97
--- NOTE | 2018-04-10 15:43 | CASEMGMT ---
Social Work Assessment Referral Date: 04/10/2018 Date of Assessment: 04/10/2018 Reason for consult: Pt recently admitted into hospital and previous visit pt was interested in SNF at discharge Informant: YAHAIRA Personal Status: SW met with pt to complete initial assessment. Pt is alert and orientated x4. SW introduced self and role at [facility]. Pt states that she lives alone, but has aides that come to see her in a one story home. Pt states that she hires private aides named Timothy and Racheal that are with her 08/05 at her home. Pt states that she has informed Timothy and Racheal of her being in the hospital and states that she will let them know when she discharges and that Timothy will be able to transport pt home. Pt states that there are four steps she takes to get enter her home and she was previously independent with steps. Pt states that she was also independent with cooking, bathing, and dressing but hires a cleaning lady to clean her home. DME include cane and walker. Pt states that her plan is to return home at discharge. Pt states that she would like a bedside commode and hospital bed for home. SW informed pt that this worker is unsure if her insurance will pay for equipment but that this worker will update RN SUHAS who will check. Pt states understanding. SW updated RN SUHAS Booth of this. Pt denied additional needs or concerns at this time. Substance Abuse Hx: Pt denied Mental Health Hx: Pt denied Plan: Pt to return home at discharge and resume private aide services. LISA DAI to follow up with DME. Xochitl Velez GUARD RAIL INSTALLER, HUMAN RESOURCES OPERATIONS COORDINATOR
[2018-04-10] MEDS: hydrOXYzine PAM 25 MG Capsule 50 MG PO (19:45)
[2018-04-10] MEDS: Rizatriptan Benzoate 10 MG Tablet PO (19:45)
[2018-04-10 20:46] VITALS: BP 102/54; PULSE 65; RESP 18; TEMP 37.3; O2SAT 95
[2018-04-10] MEDS: Pregabalin 50 MG Capsule 100 MG PO (21:41)
[2018-04-10] MEDS: Atorvastatin Calcium 20 MG Tablet PO (21:41)
[2018-04-10] MEDS: DiphenhydrAMINE 25 MG Capsule PO (23:21)
[2018-04-11 02:39] VITALS: BP 139/70; PULSE 59; RESP 16; TEMP 36.6; O2SAT 95
[2018-04-11 09:37] VITALS: BP 115/65; PULSE 64; RESP 16; TEMP 36.5; O2SAT 96
[2018-04-11] MEDS: oxyCODONE 5 MG Tablet PO ×3 (09:38→21:35)
[2018-04-11] MEDS: Enoxaparin 40 MG/0.4 ML Syringe SC (09:39)
[2018-04-11] MEDS: Topiramate 25 MG Tablet PO ×2 (09:39→21:35)
[2018-04-11] MEDS: Sertraline 100 MG Tablet PO ×2 (09:39→21:35)
[2018-04-11] MEDS: DiphenhydrAMINE 25 MG Capsule PO ×2 (09:47→23:54)
--- NOTE | 2018-04-11 10:35 | PCM.PN.HOSP ---
Patient Problems: Active and Suspected Problems (Last Reviewed 04/10/18 @ 08:02 by Kishan Loco DO) Vertigo (Acute) Subjective: This is doing better but still persistent. Vitals/I&O's: Vital Signs Temp Pulse Resp BP Pulse Ox 36.5 C L 64 16 115/65 96 04/11/18 09:37 04/11/18 09:37 04/11/18 09:37 04/11/18 09:37 04/11/18 09:37 Oxygen Delivery Method Room Air Weight: 75.9 kg Body Mass Index (BMI) 26.2 General: Alert, No apparent distress HEENT: Atraumatic, Normocephalic, - - Still with bilateral lateral nystagmus that seems equal on both sides Oral: Moist Mucosa, No Gingival or Mucosal Lesions/ Ulcerations Neck: No Nodes, Thyroid Normal Size and Texture Lungs: Clear to auscultation, Normal air movement, No rhonchi, No wheeze Cardiovascular: Regular rate, Regular Rhythm, Normal S1, Normal S2, No murmurs Abdomen: Bowel Sounds Present, Soft, Non Tender, Non-Distended, No Hepato-splenomegaly Extremities: No edema, No Calf Tenderness Psych/Mental Status: Normal Affect, Appropriate Current Medications Acetaminophen (Tylenol) 650 mg PO Q6H PRN PRN PRN Reason: Mild Pain (1-3)/Temp > 100.7 F Atorvastatin Calcium (Lipitor) 20 mg PO QHS [facility] Last Admin: 04/10/18 21:41 Dose: 20 mg Diclofenac Sodium (Voltaren) 50 mg PO BIDCM [facility] Last Admin: 04/11/18 09:39 Dose: 50 mg Diphenhydramine HCl (Benadryl) 25 mg PO TID PRN PRN PRN Reason: ITCHING Last Admin: 04/11/18 09:47 Dose: 25 mg Enoxaparin Sodium (Lovenox) 40 mg SC DAILY@1000 [facility] Last Admin: 04/11/18 09:39 Dose: 40 mg Fentanyl (Duragesic Patch) 25 mcg TRANSDERM. Q3D [facility] Last Admin: 04/10/18 11:59 Dose: 25 mcg Hydroxyzine Pamoate (Vistaril Pamoate Capsule) 50 mg PO DAILY PRN PRN Last Admin: 04/10/18 19:45 Dose: 50 mg Sodium Chloride () 500 mls @ 999 mls/hr IV .Q31M ONE Last Admin: 04/10/18 06:34 Dose: 999 mls/hr Magnesium Hydroxide (Milk Of Magnesia) 30 ml PO DAILY PRN PRN PRN Reason: Constipation Meclizine HCl (Antivert) 25 mg PO TID PRN PRN PRN Reason: Vertigo Metoclopramide HCl (Reglan) 10 mg PO TID PRN PRN Ondansetron HCl (Zofran) 4 mg IV Q8H PRN PRN PRN Reason: NAUSEA Oxycodone HCl (Oxyir) 5 - 10 mg PO Q6H PRN PRN PRN Reason: SEVERE PAIN (6-10/10) Last Admin: 04/11/18 09:38 Dose: 5 mg Pregabalin (Lyrica) 100 mg PO QHS [facility] Last Admin: 04/10/18 21:41 Dose: 100 mg Rizatriptan Benzoate (Maxalt) 10 mg PO DAILY PRN PRN Reason: MIGRAINE SYMPTOMS Last Admin: 04/10/18 19:45 Dose: 10 mg Sertraline HCl (Zoloft) 100 mg PO BID [facility] Last Admin: 04/11/18 09:39 Dose: 100 mg Sodium Chloride () 5 - 30 ml IV UD PRN PRN Reason: SALINE FLUSH Topiramate (Topamax) 25 mg PO BID [facility] Last Admin: 04/11/18 09:39 Dose: 25 mg Medical Necessity - Tobacco Use Smoking Status: Former smoker Assessment/Plan All Active Problems (Last Reviewed 04/10/18 @ 08:02 by Kishan Loco DO) Vertigo (Acute) Acute delirium (Resolved) Bradycardia (Resolved) Cystitis, acute (Resolved) Dizziness (Resolved) Fall (Resolved) Meningitis (Resolved) 1. Vertigo I suspect this is actually more from Dilantin toxicity rather than benign vertigo Dilantin level was elevated at 30.5 on the 26. Patient did have increased symptoms with lateral gaze Would continue with as needed meclizine plus patient evaluated by physical and occupational therapies. 2. Dilantin toxicity As above, I feel that is contributing to her dizziness Hold Dilantin Recheck level in the morning Patient was on 200 twice daily at home and once her level becomes less than 20 could start 100 twice daily. 3. CODE STATUS Discussed DNR and advanced care directives with patient. Patient wishes to be DNR Comfort Care arrest, no intubation and no PEG tube. 4. DVT prophylaxis with Lovenox Code Visit Inpatient E&M: 33776 Subs Hosp L2
--- NOTE | 2018-04-11 10:38 | PN_ITS ---
Patient Problems: Active and Suspected Problems (Last Reviewed 04/10/18 @ 08:02 by Kishan Loco DO) Vertigo (Acute) Subjective: This is doing better but still persistent. Vitals/I&O's: Vital Signs Temp Pulse Resp BP Pulse Ox 36.5 C L 64 16 115/65 96 04/11/18 09:37 04/11/18 09:37 04/11/18 09:37 04/11/18 09:37 04/11/18 09:37 Oxygen Delivery Method Room Air Weight: 75.9 kg Body Mass Index (BMI) 26.2 General: Alert, No apparent distress HEENT: Atraumatic, Normocephalic, - - Still with bilateral lateral nystagmus that seems equal on both sides Oral: Moist Mucosa, No Gingival or Mucosal Lesions/ Ulcerations Neck: No Nodes, Thyroid Normal Size and Texture Lungs: Clear to auscultation, Normal air movement, No rhonchi, No wheeze Cardiovascular: Regular rate, Regular Rhythm, Normal S1, Normal S2, No murmurs Abdomen: Bowel Sounds Present, Soft, Non Tender, Non-Distended, No Hepato- splenomegaly Extremities: No edema, No Calf Tenderness Psych/Mental Status: Normal Affect, Appropriate Current Medications Acetaminophen (Tylenol) 650 mg PO Q6H PRN PRN PRN Reason: Mild Pain (1-3)/Temp > 100.7 F Atorvastatin Calcium (Lipitor) 20 mg PO QHS [facility] Last Admin: 04/10/18 21:41 Dose: 20 mg Diclofenac Sodium (Voltaren) 50 mg PO BIDCM [facility] Last Admin: 04/11/18 09:39 Dose: 50 mg Diphenhydramine HCl (Benadryl) 25 mg PO TID PRN PRN PRN Reason: ITCHING Last Admin: 04/11/18 09:47 Dose: 25 mg Enoxaparin Sodium (Lovenox) 40 mg SC DAILY@1000 [facility] Last Admin: 04/11/18 09:39 Dose: 40 mg Fentanyl (Duragesic Patch) 25 mcg TRANSDERM. Q3D [facility] Last Admin: 04/10/18 11:59 Dose: 25 mcg Hydroxyzine Pamoate (Vistaril Pamoate Capsule) 50 mg PO DAILY PRN PRN Last Admin: 04/10/18 19:45 Dose: 50 mg Sodium Chloride () 500 mls @ 999 mls/hr IV .Q31M [facility] Last Admin: 04/10/18 06:34 Dose: 999 mls/hr Magnesium Hydroxide (Milk Of Magnesia) 30 ml PO DAILY PRN PRN PRN Reason: Constipation Meclizine HCl (Antivert) 25 mg PO TID PRN PRN PRN Reason: Vertigo Metoclopramide HCl (Reglan) 10 mg PO TID PRN PRN Ondansetron HCl (Zofran) 4 mg IV Q8H PRN PRN PRN Reason: NAUSEA Oxycodone HCl (Oxyir) 5 - 10 mg PO Q6H PRN PRN PRN Reason: SEVERE PAIN (6-10/10) Last Admin: 04/11/18 09:38 Dose: 5 mg Pregabalin (Lyrica) 100 mg PO QHS [facility] Last Admin: 04/10/18 21:41 Dose: 100 mg Rizatriptan Benzoate (Maxalt) 10 mg PO DAILY PRN PRN Reason: MIGRAINE SYMPTOMS Last Admin: 04/10/18 19:45 Dose: 10 mg Sertraline HCl (Zoloft) 100 mg PO BID [facility] Last Admin: 04/11/18 09:39 Dose: 100 mg Sodium Chloride () 5 - 30 ml IV UD PRN PRN Reason: SALINE FLUSH Topiramate (Topamax) 25 mg PO BID [facility] Last Admin: 04/11/18 09:39 Dose: 25 mg Medical Necessity - Tobacco Use Smoking Status: Former smoker Assessment/Plan All Active Problems (Last Reviewed 04/10/18 @ 08:02 by Kishan Loco DO) Vertigo (Acute) Acute delirium (Resolved) Bradycardia (Resolved) Cystitis, acute (Resolved) Dizziness (Resolved) Fall (Resolved) Meningitis (Resolved) 1. Vertigo * I suspect this is actually more from Dilantin toxicity rather than benign vertigo * Dilantin level was elevated at 30.5 on the 26. * Patient did have increased symptoms with lateral gaze * Would continue with as needed meclizine plus patient evaluated by physical and occupational therapies. 2. Dilantin toxicity * As above, I feel that is contributing to her dizziness * Hold Dilantin * Recheck level in the morning * Patient was on 200 twice daily at home and once her level becomes less than 20 could start 100 twice daily. 3. CODE STATUS * Discussed DNR and advanced care directives with patient. Patient wishes to be DNR Comfort Care arrest, no intubation and no PEG tube. 4. DVT prophylaxis with Lovenox Code Visit Inpatient E&M: 40184 Subs Hosp L2
[2018-04-11 15:30] VITALS: BP 120/60; PULSE 69; RESP 16; TEMP 36.7; O2SAT 94
[2018-04-11] MEDS: 0.9% NaCl Peripheral Flush Adult/Peds IV (15:38)
--- NOTE | 2018-04-11 17:53 | CHAPLAIN ---
Type of Pastoral Visit _x__ Initial Visit ___ Follow-up Visit ___ On-call Visit ___ General Patient Visit ___ Spiritual Assessment ___ Family Conference ___ Bereavement ___ Rapid Response ___ Code Blue ___ Other (describe below) Pastoral Care Referral From _x__ Patient ___ Family ___ Nurse ___ Physician ___ Principal Software Architect ___ Public Relations ___ Other (describe below) Sacrament/Intervention _x__ Active listening ___ Anointing ___ Restorationist ___ Bereavement ___ Communion ___ Desi exploration ___ _x__ Life review _x__ Prayer ___ Reconciliation ___ Sacrament of Sick _x__ Supportive presence ___ Wedding ___ Other (describe below) Pastoral Comments
[2018-04-11] MEDS: Mag Hydrox/Al Hydrox/Simeth 30 ML UDC PO (20:03)
[2018-04-11 20:26] VITALS: BP 121/73; PULSE 66; RESP 16; TEMP 36.7; O2SAT 95
[2018-04-11] MEDS: Atorvastatin Calcium 20 MG Tablet PO (21:35)
[2018-04-11] MEDS: Pregabalin 50 MG Capsule 100 MG PO (21:36)
[2018-04-12 03:33] VITALS: BP 116/63; PULSE 57; RESP 16; TEMP 36.4; O2SAT 94
[2018-04-12 07:04] LABS: Phenytoin (Dilantin) Level 35.5 mL (10.0-20.0)
[2018-04-12 08:57] VITALS: BP 137/87; PULSE 77; RESP 18; TEMP 37.3; O2SAT 97
[2018-04-12] MEDS: oxyCODONE 5 MG Tablet PO ×2 (09:07→14:45)
[2018-04-12 09:10] VITALS: PULSE 76
--- NOTE | 2018-04-12 09:44 | PCM.PN.HOSP ---
Patient Problems: Active and Suspected Problems (Last Reviewed 04/10/18 @ 08:02 by Kishan Loco DO) Vertigo (Acute) Phenytoin toxicity (Acute) Subjective: still with dizziness. complains of dysuria for the past several days. 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 never had a seizure since (that she is aware of. never had her dilantin checked since then. never saw a neurologist since then either. Vitals/I&O's: Vital Signs Temp Pulse Resp BP Pulse Ox 37.3 C 77 18 137/87 H 97 04/12/18 08:57 04/12/18 08:57 04/12/18 08:57 04/12/18 08:57 04/12/18 08:57 Oxygen Delivery Method Room Air Intake and Output for Last 24 Hours 04/10/18 04/11/18 04/12/18 23:59 23:59 23:59 Intake Total 500 / 500 Balance 500 / 500 General: Alert, No apparent distress HEENT: Atraumatic, Normocephalic, - - bilateral lateral nystagmus. Oral: Moist Mucosa Neck: No Nodes, Thyroid Normal Size and Texture Lungs: Clear to auscultation, Normal air movement, No rhonchi, No wheeze Cardiovascular: Regular rate, Regular Rhythm, Normal S1, Normal S2, No murmurs Abdomen: Bowel Sounds Present, Soft, Non Tender, Non-Distended, No Hepato-splenomegaly, Passing Flatus Extremities: No edema, No Calf Tenderness Skin: No rashes, No breakdown Musculoskeletal: No Tenderness to Palpation of Joints or Extremities, No Muscle Wasting Neurological: Sensory exam intact to light touch and pain, Coordination normal Psych/Mental Status: Normal Affect, Appropriate Laboratory Results 04/12/18 06:06: Phenytoin 35.5 H* Current Medications Acetaminophen (Tylenol) 650 mg PO Q6H PRN PRN PRN Reason: Mild Pain (1-3)/Temp > 100.7 F Al Hydroxide/Mg Hydroxide (Mylanta Ii) 10 - 15 ml PO Q6H PRN PRN PRN Reason: indigestion Last Admin: 04/11/18 20:03 Dose: 15 ml Atorvastatin Calcium (Lipitor) 20 mg PO QHS [facility] Last Admin: 04/11/18 21:35 Dose: 20 mg [facility]ac [facility] Last Admin: 04/12/18 09:03 Dose: 50 mg Diphenhydramine HCl (Benadryl) 25 mg PO TID PRN PRN PRN Reason: ITCHING Last Admin: 04/11/18 23:54 Dose: 25 mg Enoxaparin Sodium (Lovenox) 40 mg SC DAILY@1000 [facility] Last Admin: 04/11/18 09:39 Dose: 40 mg Fentanyl (Duragesic Patch) 25 mcg TRANSDERM. Q3D [facility] Last Admin: 04/10/18 11:59 Dose: 25 mcg Hydroxyzine Pamoate (Vistaril Pamoate Capsule) 50 mg PO DAILY PRN PRN Last Admin: 04/10/18 19:45 Dose: 50 mg Sodium Chloride () 500 mls @ 999 mls/hr IV .Q31M [facility] Last Admin: 04/10/18 06:34 Dose: 999 mls/hr Magnesium Hydroxide (Milk Of Magnesia) 30 ml PO DAILY PRN PRN PRN Reason: Constipation Meclizine HCl (Antivert) 25 mg PO TID PRN PRN PRN Reason: Vertigo Metoclopramide HCl (Reglan) 10 mg PO TID PRN PRN Ondansetron HCl (Zofran) 4 mg IV Q8H PRN PRN PRN Reason: NAUSEA Oxycodone HCl (Oxyir) 5 - 10 mg PO Q6H PRN PRN PRN Reason: SEVERE PAIN (6-10/10) Last Admin: 04/12/18 09:07 Dose: 5 mg Pregabalin (Lyrica) 100 mg PO QHS [facility] Last Admin: 04/11/18 21:36 Dose: 100 mg Rizatriptan Benzoate (Maxalt) 10 mg PO DAILY PRN PRN Reason: MIGRAINE SYMPTOMS Last Admin: 04/10/18 19:45 Dose: 10 mg Sertraline HCl (Zoloft) 100 mg PO BID [facility] Last Admin: 04/11/18 21:35 Dose: 100 mg Sodium Chloride () 5 - 30 ml IV UD PRN PRN Reason: SALINE FLUSH Last Admin: 04/11/18 15:38 Dose: 10 ml Topiramate (Topamax) 25 mg PO BID [facility] Last Admin: 04/11/18 21:35 Dose: 25 mg Medical Necessity - Tobacco Use Smoking Status: Former smoker Assessment/Plan All Active Problems (Last Reviewed 04/10/18 @ 08:02 by Kishan Loco DO) Vertigo (Acute) Phenytoin toxicity (Acute) Acute delirium (Resolved) Bradycardia (Resolved) Cystitis, acute (Resolved) Dizziness (Resolved) Fall (Resolved) Meningitis (Resolved) 1. Vertigo I suspect this is actually more from Dilantin toxicity rather than benign vertigo Dilantin level was elevated at 38.5 on the . Down to 35.5 today. Patient did have increased symptoms with lateral gaze Would continue with as needed meclizine plus patient evaluated by physical and occupational therapies. 2. Dilantin toxicity As above, I feel that is contributing to her dizziness Hold Dilantin Recheck level in the morning 3. 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 CODE STATUS Discussed DNR and advanced care directives with patient. Patient wishes to be DNR Comfort Care arrest, no intubation and no PEG tube. 5. DVT prophylaxis with Lovenox 6. Dysuria has been going on for several days UA on was negative no additional testing unless symptoms worsen Code Visit Inpatient E&M: 07104 [facility] Hosp L3
--- NOTE | 2018-04-12 09:53 | PN_ITS ---
Patient Problems: Active and Suspected Problems (Last Reviewed 04/10/18 @ 08:02 by Kishan Loco DO) Vertigo (Acute) Phenytoin toxicity (Acute) Subjective: still with dizziness. complains of dysuria for the past several days. 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 never had a seizure since (that she is aware of. never had her dilantin checked since then. never saw a neurologist since then either. Vitals/I&O's: Vital Signs Temp Pulse Resp BP Pulse Ox 37.3 C 77 18 137/87 H 97 04/12/18 08:57 04/12/18 08:57 04/12/18 08:57 04/12/18 08:57 04/12/18 08:57 Oxygen Delivery Method Room Air Intake and Output for Last 24 Hours 04/10/18 04/11/18 04/12/18 23:59 23:59 23:59 Intake Total 500 / 500 Balance 500 / 500 General: Alert, No apparent distress HEENT: Atraumatic, Normocephalic, - - bilateral lateral nystagmus. Oral: Moist Mucosa Neck: No Nodes, Thyroid Normal Size and Texture Lungs: Clear to auscultation, Normal air movement, No rhonchi, No wheeze Cardiovascular: Regular rate, Regular Rhythm, Normal S1, Normal S2, No murmurs Abdomen: Bowel Sounds Present, Soft, Non Tender, Non-Distended, No Hepato- splenomegaly, Passing Flatus Extremities: No edema, No Calf Tenderness Skin: No rashes, No breakdown Musculoskeletal: No Tenderness to Palpation of Joints or Extremities, No Muscle Wasting Neurological: Sensory exam intact to light touch and pain, Coordination normal Psych/Mental Status: Normal Affect, Appropriate Laboratory Results 04/12/18 06:06: Phenytoin 35.5 H* Current Medications Acetaminophen (Tylenol) 650 mg PO Q6H PRN PRN PRN Reason: Mild Pain (1-3)/Temp > 100.7 F Al Hydroxide/Mg Hydroxide (Mylanta Ii) 10 - 15 ml PO Q6H PRN PRN PRN Reason: indigestion Last Admin: 04/11/18 20:03 Dose: 15 ml Atorvastatin Calcium (Lipitor) 20 mg PO QHS [facility] Last Admin: 04/11/18 21:35 Dose: 20 mg [facility]enac [facility] ([facility]) [facility] Last Admin: 04/12/18 09:03 Dose: 50 mg Diphenhydramine HCl (Benadryl) 25 mg PO TID PRN PRN PRN Reason: ITCHING Last Admin: 04/11/18 23:54 Dose: 25 mg Enoxaparin Sodium (Lovenox) 40 mg SC DAILY@1000 [facility] Last Admin: 04/11/18 09:39 Dose: 40 mg Fentanyl (Duragesic Patch) 25 mcg TRANSDERM. Q3D [facility] Last Admin: 04/10/18 11:59 Dose: 25 mcg Hydroxyzine Pamoate (Vistaril Pamoate Capsule) 50 mg PO DAILY PRN PRN Last Admin: 04/10/18 19:45 Dose: 50 mg Sodium Chloride () 500 mls @ 999 mls/hr IV .Q31M [facility] Last Admin: 04/10/18 06:34 Dose: 999 mls/hr Magnesium Hydroxide (Milk Of Magnesia) 30 ml PO DAILY PRN PRN PRN Reason: Constipation Meclizine HCl (Antivert) 25 mg PO TID PRN PRN PRN Reason: Vertigo Metoclopramide HCl (Reglan) 10 mg PO TID PRN PRN Ondansetron HCl (Zofran) 4 mg IV Q8H PRN PRN PRN Reason: NAUSEA Oxycodone HCl (Oxyir) 5 - 10 mg PO Q6H PRN PRN PRN Reason: SEVERE PAIN (6-10/10) Last Admin: 04/12/18 09:07 Dose: 5 mg Pregabalin (Lyrica) 100 mg PO QHS [facility] Last Admin: 04/11/18 21:36 Dose: 100 mg Rizatriptan Benzoate (Maxalt) 10 mg PO DAILY PRN PRN Reason: MIGRAINE SYMPTOMS Last Admin: 04/10/18 19:45 Dose: 10 mg Sertraline HCl (Zoloft) 100 mg PO BID [facility] Last Admin: 04/11/18 21:35 Dose: 100 mg Sodium Chloride () 5 - 30 ml IV UD PRN PRN Reason: SALINE FLUSH Last Admin: 04/11/18 15:38 Dose: 10 ml Topiramate (Topamax) 25 mg PO BID [facility] Last Admin: 04/11/18 21:35 Dose: 25 mg Medical Necessity - Tobacco Use Smoking Status: Former smoker Assessment/Plan All Active Problems (Last Reviewed 04/10/18 @ 08:02 by Kishan Loco DO) Vertigo (Acute) Phenytoin toxicity (Acute) Acute delirium (Resolved) Bradycardia (Resolved) Cystitis, acute (Resolved) Dizziness (Resolved) Fall (Resolved) Meningitis (Resolved) 1. Vertigo * I suspect this is actually more from Dilantin toxicity rather than benign vertigo * Dilantin level was elevated at 38.5 on the . Down to 35.5 today. * Patient did have increased symptoms with lateral gaze * Would continue with as needed meclizine plus patient evaluated by physical and occupational therapies. 2. Dilantin toxicity * As above, I feel that is contributing to her dizziness * Hold Dilantin * Recheck level in the morning 3. Seizure * x1 after brain surgery 4-5 years ago * has been on Dilantin with no monitoring since then and no neurologic follow up * will consult neurology for input, if to resume dilantin once levels become normal, change to another antiepileptic med (Keppra), or stop altogether * check records from [facility] (where the surgery was performed) 4. CODE STATUS * Discussed DNR and advanced care directives with patient. Patient wishes to be DNR Comfort Care arrest, no intubation and no PEG tube. 5. DVT prophylaxis with Lovenox 6. Dysuria * has been going on for several days * UA on was negative * no additional testing unless symptoms worsen Code Visit Inpatient E&M: 99520 [facility] Hosp L3
--- NOTE | 2018-04-12 10:59 | CON.PCM_ITS ---
Reason for Consult Date of Consultation: 04/12/18 Reason for Consultation: dilantin toxicity History of Present Illness: The patient is a 72 year old F who 4 years ago suffered a fall, and had to undergo craniotomy ?2 presumably for subdural hematoma at [facility] in [place]. There was a suspicion of a seizure ?1 around that time and she was placed on Dilantin 200 mg twice daily. She has never changed the dose, never seen a neurologist since, and has never had her Dilantin level checked however she says approximately 1 week ago the Dilantin net lead developer changed. I showed her pictures of the pills and confirmed that she does in deed take 200 mg twice daily however they are different manufacturers. Proximal only 4 days ago she noted dizziness, was admitted to the hospital and was found to have a Dilantin level very high initially 38.5. Her most recent level is now 35.5. She also started OxyContin about a week ago. She does not believe that she ever had a seizure. She lives alone but she does have aids at home. She does continue to drive when she is able. Denies any nocturnal spells, no tongue biting or urinary incontinence. per admit h&p:The patient is a 72 year old F presents with a four-day history of dizziness. Patient state that change position does not really affect her but she just constantly dizzy. Unable to do that anything and has been falling. Patient developed a skin tear on her left arm due to 1 of her falls. Patient is unable to maintain at home. Patient states that she is able to get up and stand on her own independently before this happened. She has never had this happen before. Patient presented to the emergency room no acute process. She did receive meclizine which has not helped her yet. Past Medical History Past Medical History (Chronic Problems): Chronic Problems (Last Reviewed 04/10/18 @ 08:02 by Kishan Loco DO) Fibromyalgia (Chronic) HTN (hypertension) (Chronic) Rheumatoid arthritis (Chronic) on no medications for RA - diagnosed in [place] many years ago Dyslipidemia (Chronic) Sjogren's syndrome (Chronic) Myocardial infarct, old (Chronic) CKD (chronic kidney disease), stage III (Chronic) history of PULMONARY EMBOLI (Chronic) Diastolic CHF (Chronic) Cephalalgia (Chronic) IBS (irritable bowel syndrome) (Chronic) Osteoarthritis (Chronic) History of radiofrequency ablation (RFA) procedure for cardiac arrhythmia ( Chronic) Medical History: Medical History (Last Reviewed 04/10/18 @ 08:02 by Kishan Loco DO) CVA (cerebral vascular accident) I63.9 Chronic kidney disease N18.9 Depression F32.9 H/O deep venous thrombosis Z86.718 Allergies acetaminophen [From Tylox] Allergy (Verified 04/10/18 10:05) sees critters amoxicillin Allergy (Verified 04/10/18 05:34) Hives ciprofloxacin [From Cipro] Allergy (Verified 04/10/18 10:05) Itching ciprofloxacin HCl [From Cipro] Allergy (Verified 04/10/18 10:05) Itching indomethacin Allergy (Verified 04/10/18 10:05) Itching nortriptyline HCl [From Pamelor] Allergy (Verified 04/10/18 10:05) see animals coming out of floor oxycodone [From Tylox] Allergy (Verified 04/10/18 10:05) sees critters Sulfa (Sulfonamide Antibiotics) Allergy (Verified 04/10/18 10:05) Itching warfarin [From Coumadin] Allergy (Verified 04/10/18 10:05) Itching iodine Adverse Reaction (Verified 04/10/18 05:34) Itching nortriptyline [Nortriptyline] Adverse Reaction (Verified 04/10/18 10:05) see animals coming out of floor warfarin sodium [From Coumadin] Adverse Reaction (Verified 03/05/18 10:23) Itching Home Medications: Ambulatory Orders Medication Instructions Recorded Atorvastatin Calcium [Lipitor] 20 mg PO QHS 01/14/18 Pregabalin [Lyrica] 100 mg PO TID 01/14/18 Sertraline HCl [Zoloft] 150 mg PO BID 01/14/18 Phenytoin Na [Dilantin] 200 mg PO BID 02/25/18 Oxycodone [Oxyir] 5 - 10 mg PO Q6H PRN PRN #14 tab 02/28/18 Sumatriptan Succinate 100 mg PO DAILY PRN PRN 02/28/18 fentaNYL patch [Duragesic patch] 25 mcg TRANSDERM. Q3D 9 Days #3 02/28/18 patch Hydroxyzine HCl 50 mg PO DAILY PRN 03/05/18 Metoclopramide [Reglan] 10 mg PO TID PRN 03/05/18 Alendronate Sodium 100 mg PO QWEEK 04/10/18 Topiramate [Topamax] 50 mg PO BID 04/10/18 Zofran 20 mg PO Q8H PRN PRN 04/10/18 Surgical History: Surgical History (Last Reviewed 04/10/18 @ 08:02 by Kishan Loco DO) History of hysterectomy Z98.890, Z90.710 1976 gallbladder removal Surgical History: angioplasty - pt denies this - she says that she only had an ablation and she does not have any hx of CAD., appendectomy, hysterectomy, total hip arthroplasty - recent right hip replacement, tonsillectomy, - - craniotomy to remove blood clots after a fall. Psychiatric History: No pertinent psych hx SWITCH BOX INSTALLER History: No pertinent SWITCH BOX INSTALLER history Smoking Status: Former smoker - *Family History Sibling History Items: COPD Maternal History Items: No pertinent history, - Review of Systems Constitutional: Denies: Chills, Fever, Weight Change Eyes: Reports: Blurred vision, Double vision HEENT: Denies: Head Aches, Sinus Congestion, Sinus Drainage Cardiovascular: Denies: Chest Pain, Palpitations Respiratory: Denies: Cough, Shortness of breath at rest, Sputum production Gastrointestinal: Denies: Abdominal Pain, Nausea, Vomiting Genitourinary: Denies: Dysuria Musculoskeletal: Denies: Joint Pain, Joint Tenderness Skin: Denies: Rash, Wounds Neurological: Reports: Balance problems, Blurred vision, Double vision. Denies : Focal weakness, Numbness, Tingling Psychiatric: Denies: Anxiety, Depression, Homicidal Ideations, Suicidal Ideations Hematologic/ Lymphatic: Denies: Easy Bruising, Easy Bleeding Patient Problems: Active and Suspected Problems (Last Reviewed 04/10/18 @ 08:02 by Kishan Loco DO) Phenytoin toxicity (Acute) Vertigo (Acute) - Physical Exam General: Alert, Oriented x3, Cooperative HEENT: Atraumatic, PERRLA, EOMI, Normocephalic Neck: Supple, No JVD, Negative Carotid Bruits Lungs: Clear to auscultation, Normal air movement Cardiovascular: Regular rate, No murmurs Abdomen: Bowel Sounds Present, Soft, Non Tender Extremities: No edema, Capillary Refill Less than 3 Seconds Skin: No rashes, No breakdown Musculoskeletal: No Tenderness to Palpation of Joints or Extremities Neurological: Cranial nerves II-XII grossly intact Psych/Mental Status: Normal Affect, Appropriate Vital Signs Temp Pulse Resp BP Pulse Ox 37.3 C 77 18 137/87 H 97 04/12/18 08:57 04/12/18 08:57 04/12/18 08:57 04/12/18 08:57 04/12/18 08:57 Oxygen Delivery Method Room Air Intake and Output for Last 24 Hours 04/10/18 04/11/18 04/12/18 23:59 23:59 23:59 Intake Total 500 / 500 Balance 500 / 500 Laboratory Tests Past 24 Hrs 04/12/18 06:06 Phenytoin 35.5 H* Laboratory Results - last 24 hr 04/12/18 06:06 Phenytoin 35.5 H* Current Home Med List Medication Instructions Recorded Confirmed Type Atorvastatin Calcium [Lipitor] 20 mg PO QHS 01/14/18 04/10/18 History Pregabalin [Lyrica] 100 mg PO TID 01/14/18 04/10/18 History Sertraline HCl [Zoloft] 150 mg PO BID 01/14/18 04/10/18 History Phenytoin Na [Dilantin] 200 mg PO BID 02/25/18 04/10/18 History Oxycodone [Oxyir] 5 - 10 mg PO Q6H PRN PRN #14 tab 02/28/18 04/10/18 Rx Sumatriptan Succinate 100 mg PO DAILY PRN PRN 02/28/18 04/10/18 History fentaNYL patch [Duragesic patch] 25 mcg TRANSDERM. Q3D 9 Days #3 02/28/18 Rx patch Hydroxyzine HCl 50 mg PO DAILY PRN 03/05/18 04/10/18 History Metoclopramide [Reglan] 10 mg PO TID PRN 03/05/18 04/10/18 History Alendronate Sodium 100 mg PO QWEEK 04/10/18 04/10/18 History Topiramate [Topamax] 50 mg PO BID 04/10/18 04/10/18 History Zofran 20 mg PO Q8H PRN PRN 04/10/18 History Current Medications Generic Name Dose Route Start Last Admin Trade Name Freq PRN Reason Stop Dose Admin Acetaminophen 650 mg 04/10/18 09:23 Tylenol PO Q6H PRN PRN Mild Pain (1-3)/Temp > 100.7 F Al Hydroxide/Mg Hydroxide 10 - 15 ml 04/11/18 19:41 04/11/18 20:03 Mylanta Ii PO 15 ml Q6H PRN PRN Administration indigestion Atorvastatin Calcium 20 mg 04/10/18 22:00 04/11/18 21:35 Lipitor PO 20 mg QHS [facility] Administration Diclofenac Sodium 50 mg 04/10/18 10:00 04/12/18 09:03 Voltaren PO 50 mg BIDCM [facility] Administration Diphenhydramine HCl 25 mg 04/10/18 23:10 04/11/18 23:54 Benadryl PO 25 mg TID PRN PRN Administration ITCHING Enoxaparin Sodium 40 mg 04/10/18 10:00 04/11/18 09:39 Lovenox SC 40 mg DAILY@1000 [facility] Administration Fentanyl 25 mcg 04/10/18 11:00 04/10/18 11:59 Duragesic Patch TRANSDERM. 25 mcg Q3D [facility] Administration Hydroxyzine Pamoate 50 mg 04/10/18 10:45 04/10/18 19:45 Vistaril Pamoate Capsule PO 50 mg DAILY PRN PRN Administration Sodium Chloride 500 mls @ 999 mls/hr 04/10/18 06:05 04/10/18 06:34 IV 999 mls/hr .Q31M ONE Administration Magnesium Hydroxide 30 ml 04/10/18 09:23 Milk Of Magnesia PO DAILY PRN PRN Constipation Meclizine HCl 25 mg 04/10/18 09:23 Antivert PO TID PRN PRN Vertigo Metoclopramide HCl 10 mg 04/10/18 14:00 Reglan PO TID PRN PRN Ondansetron HCl 4 mg 04/10/18 09:23 Zofran IV Q8H PRN PRN NAUSEA Oxycodone HCl 5 - 10 mg 04/10/18 09:23 04/12/18 09:07 Oxyir PO 5 mg Q6H PRN PRN Administration SEVERE PAIN (6-10/10) Pregabalin 100 mg 04/10/18 22:00 04/11/18 21:36 Lyrica PO 100 mg QHS [facility] Administration Rizatriptan Benzoate 10 mg 04/10/18 09:59 04/10/18 19:45 Maxalt PO 10 mg DAILY PRN Administration MIGRAINE SYMPTOMS Sertraline HCl 100 mg 04/10/18 10:00 04/11/18 21:35 Zoloft PO 100 mg BID [facility] Administration Sodium Chloride 5 - 30 ml 04/10/18 11:06 04/11/18 15:38 IV 10 ml UD PRN Administration SALINE FLUSH Topiramate 25 mg 04/10/18 10:00 04/11/18 21:35 Topamax PO 25 mg BID [facility] Administration Assessment/Plan All Active Problems (Last Reviewed 04/10/18 @ 08:02 by Kishan Loco DO) Phenytoin toxicity (Acute) Vertigo (Acute) Acute delirium (Resolved) Bradycardia (Resolved) Cystitis, acute (Resolved) Dizziness (Resolved) Fall (Resolved) Meningitis (Resolved) dilantin toxicity: Agree with discontinuation completely of Dilantin at this point. It is not clear if she ever had a seizure, this will need to be followed as an outpatient and [facility] however when she is discharged from the hospital I would recommend Keppra 500 mg twice daily and discontinue Dilantin completely.
[2018-04-12] MEDS: DiphenhydrAMINE 25 MG Capsule PO ×2 (11:30→17:43)
[2018-04-12] MEDS: Topiramate 25 MG Tablet PO ×2 (11:30→22:34)
[2018-04-12] MEDS: Sertraline 100 MG Tablet PO ×2 (11:30→22:34)
[2018-04-12] MEDS: Enoxaparin 40 MG/0.4 ML Syringe SC (11:30)
--- NOTE | 2018-04-12 11:31 | PCA ---
got patient signature for [facility] medical records then I faxed it to [facility]. Waiting on them to fax records back
[2018-04-12 14:39] VITALS: BP 98/55; PULSE 77; RESP 18; TEMP 36.8; O2SAT 92
[2018-04-12] MEDS: Mag Hydrox/Al Hydrox/Simeth 30 ML UDC PO (14:45)
--- NOTE | 2018-04-12 15:13 | CASEMGMT ---
RN CM Note. Intro role of CM to patient in room. Pt states she plans to return home, has aides that assist with personal care, driving, shopping, meals, physician appointments. Discussed PT/OT recommendation for outpt therapy. Pt states she is agreeable to outpt therapy @ [facility] and her assistants can provide transportation. Pt has walker, raised toilet seat. No other DME needs noted at this time. -Will need script for Outpt therapy to be given to pt on discharge. Pushpa LEE RN ACM
[2018-04-12] MEDS: hydrOXYzine PAM 25 MG Capsule 50 MG PO (22:34)
[2018-04-12] MEDS: Pregabalin 50 MG Capsule 100 MG PO (22:34)
[2018-04-12] MEDS: Atorvastatin Calcium 20 MG Tablet PO (22:34)
[2018-04-12 22:39] VITALS: BP 119/59; PULSE 71; RESP 18; TEMP 36.6; O2SAT 95
[2018-04-13] MEDS: oxyCODONE 5 MG Tablet PO ×2 (00:58→08:41)
[2018-04-13] MEDS: DiphenhydrAMINE 25 MG Capsule PO (00:58)
[2018-04-13 05:21] VITALS: BP 143/68; PULSE 60; RESP 18; TEMP 36.4; O2SAT 97
[2018-04-13 06:56] LABS: Phenytoin (Dilantin) Level 31.1 mL (10.0-20.0)
[2018-04-13] MEDS: Meclizine HCl 25 MG Tablet PO (08:41)
[2018-04-13 08:42] VITALS: BP 110/67; PULSE 65; RESP 18; TEMP 36.7; O2SAT 95
[2018-04-13 08:45] VITALS: PULSE 64
--- NOTE | 2018-04-13 09:14 | PCA ---
Got medical records from [facility] for patient placed in chart
--- NOTE | 2018-04-13 09:41 | PCM.PN.HOSP ---
Patient Problems: Active and Suspected Problems (Last Reviewed 04/10/18 @ 08:02 by Kishan Loco DO) Vertigo (Acute) Subjective: feels better. ready to go home. Vitals/I&O's: Vital Signs Temp Pulse Resp BP Pulse Ox 36.7 C 64 18 110/67 95 04/13/18 08:42 04/13/18 08:45 04/13/18 08:42 04/13/18 08:42 04/13/18 08:42 Oxygen Delivery Method Room Air Intake and Output for Last 24 Hours 04/11/18 04/12/18 04/13/18 23:59 23:59 23:59 Intake Total 1200 / 1200 100 / 100 Balance 1200 / 1200 100 / 100 General: Alert, No apparent distress HEENT: Atraumatic, Normocephalic, - - bilateral lateral nystagmus, with slower lateral beat. Laboratory Results 04/13/18 05:45: Phenytoin 31.1 H* Current Medications Acetaminophen (Tylenol) 650 mg PO Q6H PRN PRN PRN Reason: Mild Pain (1-3)/Temp > 100.7 F Al Hydroxide/Mg Hydroxide (Mylanta Ii) 10 - 15 ml PO Q6H PRN PRN PRN Reason: indigestion Last Admin: 04/12/18 14:45 Dose: 15 ml Atorvastatin Calcium (Lipitor) 20 mg PO QHS [facility] Last Admin: 04/12/18 22:34 Dose: 20 mg Diclofenac Sodium (Voltaren) 50 mg PO BIDCM [facility] Last Admin: 04/13/18 08:41 Dose: 50 mg Diphenhydramine HCl (Benadryl) 25 mg PO TID PRN PRN PRN Reason: ITCHING Last Admin: 04/13/18 00:58 Dose: 25 mg Enoxaparin Sodium (Lovenox) 40 mg SC DAILY@1000 [facility] Last Admin: 04/12/18 11:30 Dose: 40 mg Fentanyl (Duragesic Patch) 25 mcg TRANSDERM. Q3D [facility] Last Admin: 04/10/18 11:59 Dose: 25 mcg Hydroxyzine Pamoate (Vistaril Pamoate Capsule) 50 mg PO DAILY PRN PRN Last Admin: 04/12/18 22:34 Dose: 50 mg Sodium Chloride () 500 mls @ 999 mls/hr IV .Q31M ONE Last Admin: 04/10/18 06:34 Dose: 999 mls/hr Magnesium Hydroxide (Milk Of Magnesia) 30 ml PO DAILY PRN PRN PRN Reason: Constipation Meclizine HCl (Antivert) 25 mg PO TID PRN PRN PRN Reason: Vertigo Last Admin: 04/13/18 08:41 Dose: 25 mg Metoclopramide HCl (Reglan) 10 mg PO TID PRN PRN Ondansetron HCl (Zofran) 4 mg IV Q8H PRN PRN PRN Reason: NAUSEA Oxycodone HCl (Oxyir) 5 - 10 mg PO Q6H PRN PRN PRN Reason: SEVERE PAIN (6-10/10) Last Admin: 04/13/18 08:41 Dose: 5 mg Pregabalin (Lyrica) 100 mg PO QHS [facility] Last Admin: 04/12/18 22:34 Dose: 100 mg Rizatriptan Benzoate (Maxalt) 10 mg PO DAILY PRN PRN Reason: MIGRAINE SYMPTOMS Last Admin: 04/10/18 19:45 Dose: 10 mg Sertraline HCl (Zoloft) 100 mg PO BID [facility] Last Admin: 04/12/18 22:34 Dose: 100 mg Sodium Chloride () 5 - 30 ml IV UD PRN PRN Reason: SALINE FLUSH Last Admin: 04/11/18 15:38 Dose: 10 ml Topiramate (Topamax) 25 mg PO BID [facility] Last Admin: 04/12/18 22:34 Dose: 25 mg Medical Necessity - Tobacco Use Smoking Status: Former smoker Assessment/Plan All Active Problems (Last Reviewed 04/10/18 @ 08:02 by Kishan Loco DO) Phenytoin toxicity (Acute) Vertigo (Acute) Acute delirium (Resolved) Bradycardia (Resolved) Cystitis, acute (Resolved) Dizziness (Resolved) Fall (Resolved) Meningitis (Resolved) 1. Vertigo I suspect this is actually more from Dilantin toxicity rather than benign vertigo Dilantin level was elevated at 38.5 on the 26. Down to 35.5 today. Patient did have increased symptoms with lateral gaze Would continue with as needed meclizine plus patient evaluated by physical and occupational therapies. 2. Dilantin toxicity As above, I feel that is contributing to her dizziness Hold Dilantin Recheck level in the morning 3. 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 Will start 04/16, as dilantin level still elevated. follow up with neurology to see if Keppra needs to be continued. 4. CODE STATUS Discussed DNR and advanced care directives with patient. Patient wishes to be DNR Comfort Care arrest, no intubation and no PEG tube. 5. DVT prophylaxis with Lovenox 6. Dysuria has been going on for several days UA on was negative no additional testing unless symptoms worsen 7. history of SDH reviewed records from [facility] patient sustained a SDH w midline shift. Had evacuation 10/23/2014. Then had repeat evacuation on 11/04/2014.
--- NOTE | 2018-04-13 09:49 | CASEMGMT ---
LISA DAI obtained script from physician for outpatient PT/OT. RN CM faxed script to [facility] and gave script to patient. CM will continue to follow this patient and plan for safe discharge.
--- NOTE | 2018-04-13 09:51 | PN_ITS ---
Patient Problems: Active and Suspected Problems (Last Reviewed 04/10/18 @ 08:02 by Kishan Loco DO) Vertigo (Acute) Subjective: feels better. ready to go home. Vitals/I&O's: Vital Signs Temp Pulse Resp BP Pulse Ox 36.7 C 64 18 110/67 95 04/13/18 08:42 04/13/18 08:45 04/13/18 08:42 04/13/18 08:42 04/13/18 08:42 Oxygen Delivery Method Room Air Intake and Output for Last 24 Hours 04/11/18 04/12/18 04/13/18 23:59 23:59 23:59 Intake Total 1200 / 1200 100 / 100 Balance 1200 / 1200 100 / 100 General: Alert, No apparent distress HEENT: Atraumatic, Normocephalic, - - bilateral lateral nystagmus, with slower lateral beat. Laboratory Results 04/13/18 05:45: Phenytoin 31.1 H* Current Medications Acetaminophen (Tylenol) 650 mg PO Q6H PRN PRN PRN Reason: Mild Pain (1-3)/Temp > 100.7 F Al Hydroxide/Mg Hydroxide (Mylanta Ii) 10 - 15 ml PO Q6H PRN PRN PRN Reason: indigestion Last Admin: 04/12/18 14:45 Dose: 15 ml Atorvastatin Calcium (Lipitor) 20 mg PO QHS [facility] Last Admin: 04/12/18 22:34 Dose: 20 mg Diclofenac Sodium (Voltaren) 50 mg PO BIDCM [facility] Last Admin: 04/13/18 08:41 Dose: 50 mg Diphenhydramine HCl (Benadryl) 25 mg PO TID PRN PRN PRN Reason: ITCHING Last Admin: 04/13/18 00:58 Dose: 25 mg Enoxaparin Sodium (Lovenox) 40 mg SC DAILY@1000 [facility] Last Admin: 04/12/18 11:30 Dose: 40 mg Fentanyl (Duragesic Patch) 25 mcg TRANSDERM. Q3D [facility] Last Admin: 04/10/18 11:59 Dose: 25 mcg Hydroxyzine Pamoate (Vistaril Pamoate Capsule) 50 mg PO DAILY PRN PRN Last Admin: 04/12/18 22:34 Dose: 50 mg Sodium Chloride () 500 mls @ 999 mls/hr IV .Q31M ONE Last Admin: 04/10/18 06:34 Dose: 999 mls/hr Magnesium Hydroxide (Milk Of Magnesia) 30 ml PO DAILY PRN PRN PRN Reason: Constipation Meclizine HCl (Antivert) 25 mg PO TID PRN PRN PRN Reason: Vertigo Last Admin: 04/13/18 08:41 Dose: 25 mg Metoclopramide HCl (Reglan) 10 mg PO TID PRN PRN Ondansetron HCl (Zofran) 4 mg IV Q8H PRN PRN PRN Reason: NAUSEA Oxycodone HCl (Oxyir) 5 - 10 mg PO Q6H PRN PRN PRN Reason: SEVERE PAIN (6-10/10) Last Admin: 04/13/18 08:41 Dose: 5 mg Pregabalin (Lyrica) 100 mg PO QHS [facility] Last Admin: 04/12/18 22:34 Dose: 100 mg Rizatriptan Benzoate (Maxalt) 10 mg PO DAILY PRN PRN Reason: MIGRAINE SYMPTOMS Last Admin: 04/10/18 19:45 Dose: 10 mg Sertraline HCl (Zoloft) 100 mg PO BID [facility] Last Admin: 04/12/18 22:34 Dose: 100 mg Sodium Chloride () 5 - 30 ml IV UD PRN PRN Reason: SALINE FLUSH Last Admin: 04/11/18 15:38 Dose: 10 ml Topiramate (Topamax) 25 mg PO BID [facility] Last Admin: 04/12/18 22:34 Dose: 25 mg Medical Necessity - Tobacco Use Smoking Status: Former smoker Assessment/Plan All Active Problems (Last Reviewed 04/10/18 @ 08:02 by Kishan Loco DO) Phenytoin toxicity (Acute) Vertigo (Acute) Acute delirium (Resolved) Bradycardia (Resolved) Cystitis, acute (Resolved) Dizziness (Resolved) Fall (Resolved) Meningitis (Resolved) 1. Vertigo * I suspect this is actually more from Dilantin toxicity rather than benign vertigo * Dilantin level was elevated at 38.5 on the 26. Down to 35.5 today. * Patient did have increased symptoms with lateral gaze * Would continue with as needed meclizine plus patient evaluated by physical and occupational therapies. 2. Dilantin toxicity * As above, I feel that is contributing to her dizziness * Hold Dilantin * Recheck level in the morning 3. Seizure * x1 after brain surgery 4-5 years ago * has been on Dilantin with no monitoring since then and no neurologic follow up * will consult neurology for input, if to resume dilantin once levels become normal, change to another antiepileptic med (Keppra), or stop altogether * recommended Keppra 500 BID. Will start 04/16, as dilantin level still elevated. * follow up with neurology to see if Keppra needs to be continued. 4. CODE STATUS * Discussed DNR and advanced care directives with patient. Patient wishes to be DNR Comfort Care arrest, no intubation and no PEG tube. 5. DVT prophylaxis with Lovenox 6. Dysuria * has been going on for several days * UA on was negative * no additional testing unless symptoms worsen 7. history of SDH * reviewed records from [facility] * patient sustained a SDH w midline shift. Had evacuation 10/23/2014. Then had repeat evacuation on 11/04/2014.
--- NOTE | 2018-04-13 10:02 | PCM.DC ---
- Discharge Diagnoses Current Active Problems: Current Active and Chronic Problems (Last Reviewed 04/10/18 @ 08:02 by Kishan Loco DO) Vertigo (Acute) You will use the following diet at home:: No restrictions Your food should be the consistency of: Regular Discharge Activity: Return to Normal Activity Call your doctor if you observe: Fever of 101 or Higher, Fainting spells, - - worsening vertigo/dizziness. Allergies/Adverse Reactions: Allergies acetaminophen [From Tylox] Allergy (Verified 04/10/18 10:05) sees critters amoxicillin Allergy (Verified 04/10/18 05:34) Hives ciprofloxacin [From Cipro] Allergy (Verified 04/10/18 10:05) Itching ciprofloxacin HCl [From Cipro] Allergy (Verified 04/10/18 10:05) Itching indomethacin Allergy (Verified 04/10/18 10:05) Itching nortriptyline HCl [From Pamelor] Allergy (Verified 04/10/18 10:05) see animals coming out of floor oxycodone [From Tylox] Allergy (Verified 04/10/18 10:05) sees jaden Sulfa (Sulfonamide Antibiotics) Allergy (Verified 04/10/18 10:05) Itching warfarin [From Coumadin] Allergy (Verified 04/10/18 10:05) Itching iodine Adverse Reaction (Verified 04/10/18 05:34) Itching nortriptyline [Nortriptyline] Adverse Reaction (Verified 04/10/18 10:05) see animals coming out of floor warfarin sodium [From Coumadin] Adverse Reaction (Verified 03/05/18 10:23) Itching Medications to take at Discharge Atorvastatin Calcium [Lipitor] 20 mg PO QHS 01/14/18 Pregabalin [Lyrica] 100 mg PO TID 01/14/18 Sertraline HCl [Zoloft] 150 mg PO BID 01/14/18 Oxycodone [Oxyir] 5 - 10 mg PO Q6H PRN PRN #14 tab 02/28/18 Sumatriptan Succinate 100 mg PO DAILY PRN PRN 02/28/18 fentaNYL patch [Duragesic patch] 25 mcg TRANSDERM. Q3D 9 Days #3 patch 02/28/18 Hydroxyzine HCl 50 mg PO DAILY PRN 03/05/18 Metoclopramide [Reglan] 10 mg PO TID PRN 03/05/18 Alendronate Sodium 100 mg PO QWEEK 04/10/18 Topiramate [Topamax] 50 mg PO BID 04/10/18 Zofran 20 mg PO Q8H PRN PRN 04/10/18 Levetiracetam [Keppra] 500 mg PO BID #60 tab 04/13/18 The following prescriptions were given: Levetiracetam [Keppra] 500 mg PO BID #60 tab Primary Care Physician: Abhijit Jett Chi, MD [Primary Care Provider] - Within 2 Weeks Please Follow Up With: Messi Hart MD - Neurology for dizziness/vertigo When: 2-4 weeks Please Follow Up With: Physical Therapy When: 1-2 weeks Proposed Discharge Date: 04/13/18
--- NOTE | 2018-04-13 10:03 | PCM.DC.SUM ---
Discharge Date and Diagnosis - Problem List Patient Problems: Active and Suspected Problems (Last Reviewed 04/10/18 @ 08:02 by Kishan Loco DO) Vertigo (Acute) Date of Admission: 04/10/18 Date of Discharge: 04/13/18 - Primary Discharge Diagnosis Active and Suspected Problems (Last Reviewed 04/10/18 @ 08:02 by Kishan Loco DO) Vertigo (Acute) - Secondary Discharge Diagnosis Chronic Problems (Last Reviewed 04/10/18 @ 08:02 by Kishan Loco DO) Fibromyalgia (Chronic) HTN (hypertension) (Chronic) Rheumatoid arthritis (Chronic) on no medications for RA - diagnosed in [place] many years ago Dyslipidemia (Chronic) Sjogren's syndrome (Chronic) Myocardial infarct, old (Chronic) CKD (chronic kidney disease), stage III (Chronic) history of PULMONARY EMBOLI (Chronic) Diastolic CHF (Chronic) Cephalalgia (Chronic) IBS (irritable bowel syndrome) (Chronic) Osteoarthritis (Chronic) History of radiofrequency ablation (RFA) procedure for cardiac arrhythmia (Chronic) Hospital Course and Treatment Imaging Results: Clinical Impression(s) from Imaging Studies Brain CT 04/10/18 06:05 IMPRESSION: No acute findings in the brain. Left hemispheric craniotomy. No change since the last study of January 15, 2018 Electronically Signed: Earl Flynn, at 7:04 EDT Tel , Service support , Chest X-Ray 04/10/18 06:05 IMPRESSION: Fibrotic changes in the right upper lobe and in the left base. Electronically Signed: Earl Flynn, at 6:45 EDT Tel , Service support , Operations: None, - - Right hip hemiarthroplasty 09/07/13 Procedures: None Summary of Care Provided: The patient is a 72 year old F presents with vertigo. Patient found to be phenytoin toxic, which was the likely etiology of her dizziness. Phenytoin was held and she improved. 1. Vertigo I suspect this is actually more from Dilantin toxicity rather than benign vertigo Dilantin level was elevated at 38.5 on the . Down to 35.5 today. Patient did have increased symptoms with lateral gaze Would continue with as needed meclizine plus patient evaluated by physical and occupational therapies. 2. Dilantin toxicity As above, I feel that is contributing to her dizziness Hold Dilantin Recheck level in the morning 3. 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 Will start 04/16, as dilantin level still elevated. follow up with neurology to see if Keppra needs to be continued. 4. CODE STATUS Discussed DNR and advanced care directives with patient. Patient wishes to be DNR Comfort Care arrest, no intubation and no PEG tube. 5. Dysuria has been going on for several days UA on was negative no additional testing unless symptoms worsen 7. history of SDH reviewed records from [facility] patient sustained a SDH w midline shift. Had evacuation 10/23/2014. Then had repeat evacuation on 11/04/2014.[] Discharge Diet: No Restrictions Discharge Activity: Return to Normal Activity Call your doctor if you observe: Fever of 101 or Higher, Fainting spells, - - worsening vertigo/dizziness. Home Medications: Medications to take at Discharge Atorvastatin Calcium [Lipitor] 20 mg PO QHS 01/14/18 Pregabalin [Lyrica] 100 mg PO TID 01/14/18 Sertraline HCl [Zoloft] 150 mg PO BID 01/14/18 Oxycodone [Oxyir] 5 - 10 mg PO Q6H PRN PRN #14 tab 02/28/18 Sumatriptan Succinate 100 mg PO DAILY PRN PRN 02/28/18 fentaNYL patch [Duragesic patch] 25 mcg TRANSDERM. Q3D 9 Days #3 patch 02/28/18 Hydroxyzine HCl 50 mg PO DAILY PRN 03/05/18 Metoclopramide [Reglan] 10 mg PO TID PRN 03/05/18 Alendronate Sodium 100 mg PO QWEEK 04/10/18 Topiramate [Topamax] 50 mg PO BID 04/10/18 Zofran 20 mg PO Q8H PRN PRN 04/10/18 Levetiracetam [Keppra] 500 mg PO BID #60 tab 04/13/18 Following Prescrptions Were Given to Patient: Levetiracetam [Keppra] 500 mg PO BID #60 tab Primary Care Physician: Abhijit Jett Chi, MD [Primary Care Provider] - Within 2 Weeks Please Follow Up With: Messi Hart MD - Neurology for dizziness/vertigo When: 2-4 weeks Please Follow Up With: Physical Therapy When: 1-2 weeks Disposition: Home Minutes spent on discharge:: 32 Patient Condition:: Good Medical Necessity - Tobacco Use Smoking Status: Former smoker Meaningful Use Info Meaningful Use Diagnoses (Choose all that apply): None applicable Code Visit Inpatient E&M: 84121 Disch Hosp
--- NOTE | 2018-04-13 10:06 | DS.PCM_ITS ---
Discharge Date and Diagnosis - Problem List Patient Problems: Active and Suspected Problems (Last Reviewed 04/10/18 @ 08:02 by Kishan Loco DO) Vertigo (Acute) Date of Admission: 04/10/18 Date of Discharge: 04/13/18 - Primary Discharge Diagnosis Active and Suspected Problems (Last Reviewed 04/10/18 @ 08:02 by Kishan Loco DO) Vertigo (Acute) - Secondary Discharge Diagnosis Chronic Problems (Last Reviewed 04/10/18 @ 08:02 by Kishan Loco DO) Fibromyalgia (Chronic) HTN (hypertension) (Chronic) Rheumatoid arthritis (Chronic) on no medications for RA - diagnosed in [place] many years ago Dyslipidemia (Chronic) Sjogren's syndrome (Chronic) Myocardial infarct, old (Chronic) CKD (chronic kidney disease), stage III (Chronic) history of PULMONARY EMBOLI (Chronic) Diastolic CHF (Chronic) Cephalalgia (Chronic) IBS (irritable bowel syndrome) (Chronic) Osteoarthritis (Chronic) History of radiofrequency ablation (RFA) procedure for cardiac arrhythmia ( Chronic) Hospital Course and Treatment Imaging Results: Clinical Impression(s) from Imaging Studies Brain CT 04/10/18 06:05 IMPRESSION: No acute findings in the brain. Left hemispheric craniotomy. No change since the last study of January 15, 2018 Electronically Signed: Earl Flynn, at 7:04 EDT Tel , Service support , Chest X-Ray 04/10/18 06:05 IMPRESSION: Fibrotic changes in the right upper lobe and in the left base. Electronically Signed: Earl Flynn, at 6:45 EDT Tel , Service support , Operations: None, - - Right hip hemiarthroplasty 09/07/13 Procedures: None Summary of Care Provided: The patient is a 72 year old F presents with vertigo. Patient found to be phenytoin toxic, which was the likely etiology of her dizziness. Phenytoin was held and she improved. 1. Vertigo * I suspect this is actually more from Dilantin toxicity rather than benign vertigo * Dilantin level was elevated at 38.5 on the . Down to 35.5 today. * Patient did have increased symptoms with lateral gaze * Would continue with as needed meclizine plus patient evaluated by physical and occupational therapies. 2. Dilantin toxicity * As above, I feel that is contributing to her dizziness * Hold Dilantin * Recheck level in the morning 3. Seizure * x1 after brain surgery 4-5 years ago * has been on Dilantin with no monitoring since then and no neurologic follow up * will consult neurology for input, if to resume dilantin once levels become normal, change to another antiepileptic med (Keppra), or stop altogether * recommended Keppra 500 BID. Will start 04/16, as dilantin level still elevated. * follow up with neurology to see if Keppra needs to be continued. 4. CODE STATUS * Discussed DNR and advanced care directives with patient. Patient wishes to be DNR Comfort Care arrest, no intubation and no PEG tube. 5. Dysuria * has been going on for several days * UA on was negative * no additional testing unless symptoms worsen 7. history of SDH * reviewed records from [facility] * patient sustained a SDH w midline shift. Had evacuation 10/23/2014. Then had repeat evacuation on 11/04/2014.[] Discharge Diet: No Restrictions Discharge Activity: Return to Normal Activity Call your doctor if you observe: Fever of 101 or Higher, Fainting spells, - - worsening vertigo/dizziness. Home Medications: Medications to take at Discharge Atorvastatin Calcium [Lipitor] 20 mg PO QHS 01/14/18 Pregabalin [Lyrica] 100 mg PO TID 01/14/18 Sertraline HCl [Zoloft] 150 mg PO BID 01/14/18 Oxycodone [Oxyir] 5 - 10 mg PO Q6H PRN PRN #14 tab 02/28/18 Sumatriptan Succinate 100 mg PO DAILY PRN PRN 02/28/18 fentaNYL patch [Duragesic patch] 25 mcg TRANSDERM. Q3D 9 Days #3 patch 02/28/18 Hydroxyzine HCl 50 mg PO DAILY PRN 03/05/18 Metoclopramide [Reglan] 10 mg PO TID PRN 03/05/18 Alendronate Sodium 100 mg PO QWEEK 04/10/18 Topiramate [Topamax] 50 mg PO BID 04/10/18 Zofran 20 mg PO Q8H PRN PRN 04/10/18 Levetiracetam [Keppra] 500 mg PO BID #60 tab 04/13/18 Following Prescrptions Were Given to Patient: Levetiracetam [Keppra] 500 mg PO BID #60 tab Primary Care Physician: Abhijit Jett Chi, MD [Primary Care Provider] - Within 2 Weeks Please Follow Up With: Messi Hart MD - Neurology for dizziness/vertigo When: 2-4 weeks Please Follow Up With: Physical Therapy When: 1-2 weeks Disposition: Home Minutes spent on discharge:: 32 Patient Condition:: Good Medical Necessity - Tobacco Use Smoking Status: Former smoker Meaningful Use Info Meaningful Use Diagnoses (Choose all that apply): None applicable Code Visit Inpatient E&M: 51265 Disch Hosp
[2018-04-13] MEDS: Topiramate 25 MG Tablet PO (10:22)
[2018-04-13] MEDS: Sertraline 100 MG Tablet PO (10:22)
[2018-04-13] MEDS: Enoxaparin 40 MG/0.4 ML Syringe SC (10:22)
[2018-04-13] MEDS: fentaNYL 25 MCG Patch TRANSDERM. (10:23)
--- NOTE | 2018-04-13 11:07 | PCA ---
made appointments for patient discharge
[2018-04-13 12:11] VITALS: BP 138/67; PULSE 79; RESP 16; TEMP 36.7; O2SAT 92
--- NOTE | 2018-04-16 15:43 | CASEMGMT ---
LISA DAI Discharge Follow-up Phone Call: ANTONI: Kerri Strata: 4 Call Date: 04/16/18 Discharge Date: 04/13/18 Time of Call: 1540 Duration: 3 min Admitting Diagnosis: Vertigo LISA DAI completed follow-up phone call after recent hospitalization. Patient states that she is doing well and feeling much better. Patient had no questions regarding discharge plans or medications. Patient has follow-up appt with PCP on 04/17. Patient states that she will call [facility] to schedule outpt therapy.
== END 2018-04-13 13:16 | disposition home or self-care (01) | DRG 149 ==
LOC: ED 06:16 → MS3 08:12
PROVIDERS: Emergency Provider Emergency Medicine; Family Provider Family Medicine Geriatric Medicine; PCP Family Medicine Geriatric Medicine
DX: R42 Dizziness and giddiness (principal); I13.0 Hypertensive heart and chronic kidney disease with heart failure and stage 1 through stage 4 chronic kidney disease, or unspecified chronic kidney disease; I50.30 Unspecified diastolic (congestive) heart failure; T42.0X5A Adverse effect of hydantoin derivatives, initial encounter; Y92.019 Unspecified place in single-family (private) house as the place of occurrence of the external cause; Z66 Do not resuscitate; I25.2 Old myocardial infarction; N18.3 Chronic kidney disease, stage 3 (moderate); Z86.79 Personal history of other diseases of the circulatory system; E78.5 Hyperlipidemia, unspecified; Z86.711 Personal history of pulmonary embolism; M79.7 Fibromyalgia; M19.90 Unspecified osteoarthritis, unspecified site
CPT/HCPCS: 36415; 70450; 71045; 80048; 80185; 81001; 84484; 85025; 85610; 85730; 87077; 87086; 87088; 87186; 93005; 97110; 97116; 97162; 97165; 97530; 97535; 97802; 99285; J7030; J7040; A4216

== ENCOUNTER → 2018-04-25 11:32 | Outpatient (CLI) | payer MEDICARE, OTHER, SELFPAY ==
--- NOTE | 2018-04-25 11:42 | RAD_ITS ---
STUDY: X-RAY - LUMBAR SPINE REASON FOR EXAM: Female, 72 years old. Chronic low back pain. TECHNIQUE: AP and lateral view(s) of the lumbar spine were obtained. COMPARISON: Comparison is made with prior study dated February 20, 2018. FINDINGS: There is straightening of the normal lumbar lordosis. There is a minimal dextroscoliosis of the lumbar spine. There is a normal alignment of the vertebrae. There is multilevel endplate spondylosis of the lumbar vertebrae. There is multi-level degenerative disc disease with multi-level disc space narrowing. Once again, there is asymmetric sclerotic appearance of the left sacrum. This may represent a healing sacral insufficiency fractures. There is atherosclerotic calcification of the abdominal aorta without a demonstrated aneurysm. RAD/Lumbar Spine 2 or 3 Views IMPRESSION: Degenerative changes of the spine, as detailed above. Stable examination. Electronically Signed: Yony Bonds MD at 15:20 EDT Tel [phone], Service support ,
== END ==
PROVIDERS: Family Provider Family Medicine Geriatric Medicine; PCP Family Medicine Geriatric Medicine; Visit Provider Anesthesiology Pain Medicine
DX: M54.5 Low back pain (principal)
CPT/HCPCS: 72100

== ENCOUNTER → 2018-04-27 14:51 | Outpatient (CLI) | payer MEDICARE, OTHER, SELFPAY ==
[2018-04-27 17:10] LABS: Phenytoin (Dilantin) Level 1.3 mL (10.0-20.0)
== END ==
PROVIDERS: Family Provider Family Medicine Geriatric Medicine; PCP Family Medicine Geriatric Medicine; Visit Provider Nurse Practitioner Acute Care
DX: T42.0X5A Adverse effect of hydantoin derivatives, initial encounter (principal)
CPT/HCPCS: 36415; 80185

== ENCOUNTER 2018-05-15 21:02 | Inpatient (IN) | payer MEDICARE, OTHER, SELFPAY ==
[2018-05-15 21:03] VITALS: BP 111/71; PULSE 83; RESP 18; TEMP 36.8; O2SAT 93; BMI 26.0
--- NOTE | 2018-05-15 21:43 | EKG12_ITS ---
Test Reason : FATIGUE Blood Pressure : / mmHG Vent. Rate : 069 BPM Atrial Rate : 069 BPM P-R Int : 192 ms QRS Dur : 074 ms QT Int : 392 ms P-R-T Axes : 027 -09 -01 degrees QTc Int : 420 ms Normal sinus rhythm Inferior infarct , age undetermined, cannot be excluded Abnormal ECG Confirmed by BHANU COLEMAN, STEVE ([id number]), assignment desk editor AVEL REYES ([id number]) on 05/17/2018 11:49:58 AM Referred By: BOBBI Confirmed By:STEVE DRUMMOND MD
--- NOTE | 2018-05-15 21:45 | RAD_ITS ---
STUDY: X-RAY CHEST REASON FOR EXAM: Female, 72 years old. Weakness. TECHNIQUE: Single AP portable view of the chest. COMPARISON: 04/10/2018. FINDINGS: Low lung volumes. Stable fibrotic changes of the right upper lobe. No definite acute infiltrates or effusions. There is mild cardiac enlargement. Normal mediastinum and maged. Normal visualized pulmonary arteries. There is atherosclerotic tortuosity of the aortic arch and descending thoracic aorta. There are diffuse degenerative changes of the visualized thoracic spine. Normal visualized ribs, clavicles, and shoulders. There is no demonstrated abnormality of the visualized soft tissue structures of the upper abdomen. RAD/Chest 1 View (Portable) IMPRESSION: No definite acute chest disease. No significant change. Electronically Signed: Bulmaro Kay MD at 22:10 EDT , Service support ,
[2018-05-15 22:12] LABS: Anion Gap 8 (5-15); BUN 26 mg/dL (7-18); Calcium,Total 8.6 mg/dL (8.5-10.1); Chloride 116 mmol/L (98-107); Creatinine, Serum 1.53 mg/dL (0.55-1.02); EST Glomerular Filtration Rate 35 mL/min (>60); Est Glom Filt Rate - Afr Amer 43 mL/min (>60); Glucose 101 mg/dL (74-106); POSITIVE DIFFERENTIAL NO; POSITIVE MORPHOLOGY NO; Potassium 4.3 mmol/L (3.5-5.1); RBC Distribution Width CV 13.5 % (11.6-14.6); RBC Distribution Width SD 45.6 fl (35.1-43.9); Sodium Level 146 mmol/L (136-145)
[2018-05-15 22:17] LABS: Red Blood Count 4.06 M/mm3 (4.2-5.4); White Blood Count 8.9 K/mm3 (4.4-11.0)
[2018-05-15 22:18] LABS: Hematocrit 37.5 % (37-47); Hemoglobin 11.8 g/dl (12.0-15.0); Mean Corp Hgb Conc 31.5 g/gl (32-36); Mean Corpuscular Hgb 29.1 pg (27.0-32.0); Mean Corpuscular Volume 92.4 fL (81-99)
[2018-05-15 22:19] LABS: Mean Platelet Vol. 9.7 fl (6.2-12.0); Neutrophil % 54.9 % (47-70); POSITIVE COUNT NO; Platelet Count 177 K/mm3 (150-450)
[2018-05-15 22:20] LABS: Basophil% 0.1 % (0-1); Lymphocyte % 27.7 % (19-41); Monocyte% 10.2 % (0-10)
[2018-05-15 22:21] LABS: Absolute Lymphocyte Count 2.46 X10^3/ul (0.83-4.51); Absolute Neutrophil Count 4.9 X10^3/uL (2.0-7.7); Eosinophil# 0.62 X10^3/uL; Lymphocyte # 2.46 X10^3/ul (4.0); Monocyte# 0.91 X10^3/uL; Neutrophil # 4.88 X10^3/uL (2.7-7.7)
[2018-05-15 22:22] LABS: Basophil# 0.01 X10^3/uL
[2018-05-15 22:25] LABS: Bacteria 0 SEEN /hpf (None Seen); Mucous, Urine 0 SEEN /hpf (<or=2+); Red Blood Cells-Urine 0 SEEN /hpf (0-5); Squamous Epithelial Cells - UA 0 SEEN /hpf (5-10); White Blood Cells 0 SEEN /hpf (0-5)
[2018-05-15 22:26] LABS: Color, Urine Yellow (Yellow); Glucose, Dipstick Normal (Normal); Ketone-Dipstick Negative (Negative); Leukocyte Esterase-Dipstick Negative /ul (Negative); Nitrite-Dipstick Negative (Negative); Occult Blood-Urine Negative /ul (Negative); Protein-Dipstick Negative (Negative); Specific Gravity, Urine 1.015 (1.002-1.030); Urine Bilirubin Dipstick Negative (Negative); Urine Clarity Clear (Clear); Urine Urobilinogen Normal (Normal)
--- NOTE | 2018-05-15 22:37 | ED.RN ---
DR. MURRAY WAS MADE AWARE OF MULTIPLE IV FAILURES AND ONE INFILTRATION. HE SAID THAT PATIENT WILL BE OK WITHOUT AN IV OVERNIGHT BUT WOULD NEED ONE AND IV THERAPY CAN PUT AN ADVANCED IV LINE IN TOMORROW.
[2018-05-15 22:41] VITALS: BP 113/68; PULSE 66; RESP 10; O2SAT 95
--- NOTE | 2018-05-15 23:05 | HP.PCM_ITS ---
Problem List (1) Vertigo Status: Chronic (2) Fibromyalgia Status: Chronic (3) HTN (hypertension) Status: Chronic Qualifiers: Hypertension type: essential hypertension Qualified Code(s): I10 - Essential (primary) hypertension (4) Rheumatoid arthritis Status: Chronic Qualifiers: Rheumatoid arthritis location: unspecified site Comment: on no medications for RA - diagnosed in [place] many years ago (5) Dyslipidemia Status: Chronic (6) Sjogren's syndrome Status: Chronic Qualifiers: Sjogren's organ involvement: unspecified organ involvement Qualified Code(s ): M35.00 - Sicca syndrome, unspecified (7) CKD (chronic kidney disease), stage III Status: Chronic (8) history of PULMONARY EMBOLI Status: Chronic (9) Diastolic CHF Status: Chronic Qualifiers: Heart failure chronicity: chronic Qualified Code(s): I50.32 - Chronic diastolic (congestive) heart failure (10) IBS (irritable bowel syndrome) Status: Chronic Qualifiers: Irritable bowel syndrome type: unspecified Qualified Code(s): K58.9 - Irritable bowel syndrome without diarrhea (11) PUD (peptic ulcer disease) Status: Chronic (12) Osteoarthritis Status: Chronic Qualifiers: Osteoarthritis location: unspecified site Osteoarthritis type: unspecified Qualified Code(s): M19.90 - Unspecified osteoarthritis, unspecified site History of Present Illness Date of Admission: 05/15/18 Chief Complaint: Fatigue, Weakness, Unable to Ambulate, Unable to Care for self The patient is a 72 y/o F w/ PMHx: Chronic Pain Syndrome/Fibromyalgia following w/ Dr. Piper, Rheumatoid Arthritis, HTN, Hx Vertigo, CKD stage III, History of PE, IBS, PUD/GERD, PAF s/p RFA, ? Diastolic CHF who has had recent serial admissions who presents to the [facility] ED on 05/15/18 with 3 day history of ongoing notable increased generalized weakness, fatigue, lethargy with inability for her older caregivers who come daily to care for her safely. She notes she usually uses a walker but recently could not even safely use the walker. The caregiver on day of ED presentation notes she had to slid her to the floor as she could not safely keep her up without harming herself. Patient denies any recent illness, abdominal, or pulmonary symptoms. She denies any recent changes to her pain regimen per Dr. Piper. In the ED work-up included T 98.1, heart rate 69, BP 116/59, respiratory rate 16, 94% on room air, CBC with WBC 8.9 , hemoglobin 11.8, platelet 177 without market left shift, CMP with sodium 146, chloride 116, BUN/creatinine 26/1.53, alkaline phosphatase 52, troponin less than 0.15, urinalysis Unremarkable, chest x-ray with no acute findings. In the ED patient administered normal saline. Past Medical History Past Medical History (Chronic Problems): Chronic Problems (Last Reviewed 04/10/18 @ 08:02 by Kishan Loco DO) Vertigo (Chronic) Fibromyalgia (Chronic) HTN (hypertension) (Chronic) Rheumatoid arthritis (Chronic) on no medications for RA - diagnosed in [place] many years ago Dyslipidemia (Chronic) Sjogren's syndrome (Chronic) Myocardial infarct, old (Chronic) CKD (chronic kidney disease), stage III (Chronic) history of PULMONARY EMBOLI (Chronic) Diastolic CHF (Chronic) Cephalalgia (Chronic) IBS (irritable bowel syndrome) (Chronic) PUD (peptic ulcer disease) (Chronic) Osteoarthritis (Chronic) History of radiofrequency ablation (RFA) procedure for cardiac arrhythmia ( Chronic) Medical History: Medical History (Last Reviewed 04/10/18 @ 08:02 by Kishan Loco DO) CVA (cerebral vascular accident) I63.9 Chronic kidney disease N18.9 Depression F32.9 H/O deep venous thrombosis Z86.718 Allergies acetaminophen [From Tylox] Allergy (Verified 04/10/18 10:05) sees critters amoxicillin Allergy (Verified 04/10/18 05:34) Hives ciprofloxacin [From Cipro] Allergy (Verified 04/10/18 10:05) Itching ciprofloxacin HCl [From Cipro] Allergy (Verified 04/10/18 10:05) Itching indomethacin Allergy (Verified 04/10/18 10:05) Itching nortriptyline HCl [From Pamelor] Allergy (Verified 04/10/18 10:05) see animals coming out of floor oxycodone [From Tylox] Allergy (Verified 04/10/18 10:05) sees critters Sulfa (Sulfonamide Antibiotics) Allergy (Verified 04/10/18 10:05) Itching warfarin [From Coumadin] Allergy (Verified 04/10/18 10:05) Itching iodine Adverse Reaction (Verified 04/10/18 05:34) Itching nortriptyline [Nortriptyline] Adverse Reaction (Verified 04/10/18 10:05) see animals coming out of floor warfarin sodium [From Coumadin] Adverse Reaction (Verified 03/05/18 10:23) Itching Home Medications: Ambulatory Orders Medication Instructions Recorded Atorvastatin Calcium [Lipitor] 20 mg PO QHS 01/14/18 Pregabalin [Lyrica] 100 mg PO TID 01/14/18 Sertraline HCl [Zoloft] 100 mg PO BID 01/14/18 Oxycodone [Oxyir] 5 - 10 mg PO Q6H PRN PRN #14 tab 02/28/18 Sumatriptan Succinate 100 mg PO DAILY PRN PRN 02/28/18 fentaNYL patch [Duragesic patch] 25 mcg TRANSDERM. Q3D 9 Days #3 02/28/18 patch Hydroxyzine HCl 50 mg PO DAILY PRN 03/05/18 Metoclopramide [Reglan] 10 mg PO TID PRN 03/05/18 Alendronate Sodium 100 mg PO QWEEK 04/10/18 Topiramate [Topamax] 25 mg PO BID 04/10/18 Zofran 4 mg PO Q8H PRN PRN 04/10/18 Levetiracetam [Keppra] 500 mg PO BID #60 tab 04/13/18 Surgical History: Surgical History (Last Reviewed 04/10/18 @ 08:02 by Kishan Loco DO) History of hysterectomy Z98.890, Z90.710 1976 gallbladder removal Surgical History: angioplasty - pt denies this - she says that she only had an ablation and she does not have any hx of CAD., appendectomy, hysterectomy, total hip arthroplasty - recent right hip replacement, tonsillectomy, - - craniotomy to remove blood clots after a fall. 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 Denies: Chills, Fever, Weight Change HEENT: Denies: Head Aches, Sinus Congestion, Sinus Drainage Cardiovascular: Denies: Chest Pain, Palpitations Respiratory: Denies: Cough, Shortness of breath at rest, Sputum production Gastrointestinal: Denies: Abdominal Pain, Nausea, Vomiting Genitourinary: Denies: Dysuria, Frequency, Hesitancy, Retention, Urgency Musculoskeletal: Reports: Back Pain, Joint stiffness. Denies: Joint Pain, Joint Tenderness Skin: Denies: Rash, Wounds Neurological: Denies: Numbness, Tingling, Focal weakness Psychiatric: Reports: Anxiety, Depression. Denies: Homicidal Ideations, Suicidal Ideations Hematologic/ Lymphatic: Denies: Easy Bruising, Easy Bleeding VTE Information - Inpt Only VTE Present on Admission: No VTE Mechan Device Prophylaxis: SCD's VTE Pharm Prophylaxis ordered?: Yes Subjective: Seated upright in the ED bed, fatigued appearance, no acute distress. Objective: Physical Examination: General: awake, alert, oriented x 3 and cooperative, seated upright in the ED bed in no apparent distress, fatigued appearance. Skin: normal color, turgor, no icterus, cyanosis. HEENT: AT/NC, EOMI, PERRLA, currently dry MM, no carotid bruits or JVD noted. Lungs: Decreased breath sounds bases, mild effort, no rales, ronchi or wheezing. Heart: Regular rate and rhythm; no gallop, rub audible. Abdomen: soft, NTTP, ND, normal BS, no HSM. Extremities: no cyanosis, clubbing, or edema. Neurological: patient awake, alert, oriented x 3; cognitive function intact; pupils equally reactive to light and accomodation; cranial nerves II-XII grossly normal, moving all 4 extremities, no focal deficits, strength moderately to severely globally decreased, given reported severity of weakness with ambulatory attempts, deferred. Psychiatric: affect appears flat, fatigued, no acute evidence of depressive or anxiety feelings. - Physical Exam Vital Signs Temp Pulse Resp BP Pulse Ox 98.2 F 66 10 L 113/68 95 05/15/18 21:03 05/15/18 22:41 05/15/18 22:41 05/15/18 22:41 05/15/18 22:41 Oxygen Delivery Method Room Air Weight: 161 lb 6.054 oz Body Mass Index (BMI) 26.0 Finger Stick Blood Glucose 107 Microbiology Past 72 Hours 05/15/18 21:45 Group A Streptococcus Rapid Screen - Preliminary Mucosa - Throat Laboratory Tests Past 24 Hrs 05/15/18 05/15/18 05/15/18 21:29 21:29 22:14 WBC 8.9 RBC 4.06 L Hgb 11.8 L Hct 37.5 MCV 92.4 MCH 29.1 MCHC 31.5 L RDW 13.5 RDW Differential 45.6 H Plt Count 177 MPV 9.7 Immature Gran % (Auto) 0.100 Neut % (Auto) 54.9 Lymph % (Auto) 27.7 Isabella % (Auto) 10.2 H Eos % (Auto) 7.0 H Baso % (Auto) 0.1 Absolute Neuts (auto) 4.9 Absolute Lymphs (auto) 2.46 Total Counted Not Reportable Sodium 146 H Potassium 4.3 Chloride 116 H Carbon Dioxide 22.0 Anion Gap 8 BUN 26 H Creatinine 1.53 H Estim Creat Clear Calc 30.20 Est GFR (MDRD) Af Amer 43 L Est GFR (MDRD) Non-Af 35 L BUN/Creatinine Ratio 17.0 Glucose 101 Calcium 8.6 Troponin I < 0.015 Urine Color Yellow Urine Clarity Clear Urine pH 5.0 Ur Specific [place] 1.015 Urine Protein Negative Urine Glucose (UA) Normal Urine Ketones Negative Urine Occult Blood Negative Urine Nitrite Negative Urine Bilirubin Negative Urine Urobilinogen Normal Ur Leukocyte Esterase Negative Urine RBC 0 SEEN Urine WBC 0 SEEN Ur Squamous Epith Cells 0 SEEN Urine Bacteria 0 SEEN Urine Mucus 0 SEEN Assessment/Plan All Active Problems (Last Reviewed 04/10/18 @ 08:02 by Kishan Loco DO) Phenytoin toxicity (Acute) Acute delirium (Resolved) Bradycardia (Resolved) Cystitis, acute (Resolved) Dizziness (Resolved) Fall (Resolved) Meningitis (Resolved) The patient is a 72 y/o F w/ PMHx: Chronic Pain Syndrome/Fibromyalgia following w/ Dr. Piper, Rheumatoid Arthritis, HTN, Hx Vertigo, CKD stage III, History of PE, IBS, PUD/GERD, PAF s/p RFA, ? Diastolic CHF who has had recent serial admissions who presents to the [facility] ED on 05/15/18 with 3 day history of ongoing notable increased generalized weakness, fatigue, lethargy with inability for her older caregivers who come daily to care for her safely. (1) Debility, weakness, failure to thrive and adult: Unclear specific etiology, unremarkable ED evaluation including stable appearing labs, unremarkable imaging , normal urine. May be related to patient chronic pain with serial admissions over the last several months. Will admit to [facility], maintain on fall precautions, frequent positioning, continue home pain regimen, consult PT and OT for evaluation, CM consultation for likely SNF need. (2) Chronic Pain Syndrome/Fibromyalgia: Maintain on home pain regimen, PT and OT assessment, CM consulted for SNF, following w/ Dr. Piper. (3) Chronic Kidney Disease Stage III: Admission BUN/Cr 26/1.53, baseline renal function 1.4-1.7, repeat BMP in AM. (4) Migraines: Maintain on home Topamax regimen. (5) Anxiety and Depression: Maintain on home Zoloft regimen. (6) PAF: s/p RFA, EKG SR, maintain on asa. (7) ? Diastolic CHF: Noted in prior history, maintain on asa, statin, not on BB or ACEI. BP mildly elevated, add regimen if appropriate. (8) hypertension, not on regimen, BP in ED appropriate, continue to monitor, PRN hydralazine. (9) Hyperlipidemia: Continue home statin regimen. (10) GERD/PUD Hx: PPI. (11) DVT Prophylaxis: SCDs heparin. (12) CODE status: Discussed CODE status at length including difference between FULL code, DNR-CCA and DNR-CC status. Patient confirms she has living will and HCPOA in place. Following discussions about the differences in these status, requested DNR-CCA, no intubation status. Advanced Care Planning Face to Face Time: 17 minutes. Code Visit OBSV E&M: 99383 Initial observation care L3 Procedures: 06153 Advncd Care Plan 30 Min
[2018-05-15 23:15] VITALS: BP 116/59; PULSE 69; RESP 16; TEMP 36.7; O2SAT 94
[2018-05-15 23:52] VITALS: BP 146/70; PULSE 69; RESP 16; TEMP 36.7; O2SAT 95; BMI 25.7; BMI 26.0
[2018-05-16 00:22] LABS: AST(SGOT) 24 U/L (15-37); Alanine Aminotransfer ALT/SGPT 20 U/L (13-56); Albumin, Serum 3.3 g/dL (3.2-5.0); Alkaline Phosphatase 152 U/L (45-117); Bilirubin, Direct 0.14 mg/dL (0.00-0.30); Globulin 3.5 g/dL (2.2-4.2); Magnesium 1.5 mg/dL (1.6-2.6); Protein, Total 6.8 g/dL (6.4-8.2); Thyroid Stim Hormone (TSH) 1.52 uIU/mL (0.358-3.74)
[2018-05-16] MEDS: levETIRAcetam 500 MG Tablet PO ×3 (01:02→21:49)
[2018-05-16] MEDS: Pantoprazole Sodium 20 MG Tablet PO ×3 (01:02→21:49)
[2018-05-16] MEDS: oxyCODONE 5 MG Tablet PO ×3 (01:02→23:23)
[2018-05-16] MEDS: Pregabalin 50 MG Capsule 100 MG PO ×4 (01:02→22:03)
[2018-05-16] MEDS: hydrOXYzine PAM 25 MG Capsule 50 MG PO ×2 (01:05→20:43)
--- NOTE | 2018-05-16 01:12 | ED.DCSUM_ITS ---
- ER Visit Summary Date of Service: 05/16/18 Chief Complaint: Weakness History of Present Illness: The patient is a [address] Jett. She reports that she has generalized weakness that began 3 days ago. This evening she was so weak that she could not even stand to try to go use the commode. Patient reports that she has a sore throat Zeta 10 severity. This is been present for the past 3 days. She denies any fever or cough. Had one episode of diarrhea today. No blood in her stools or black tarry stools. She denies any abdominal pain, nausea, or vomiting. She denies dysuria or frequency. She denies headache or paresthesias. Physical Examination: Vitals: Stable. Afebrile. General: Well-nourished and well-developed. Head: Normocephalic atraumatic. Neck: Supple, no lymphadenopathy. No JVD. Nontender. Cardiovascular: Regular rate and rhythm. 2 out of 6 systolic murmur. Respiratory: No respiratory distress. Clear to auscultation bilaterally. Abdominal: Soft, nontender, nondistended, normal bowel sounds. No guarding, rebound, or peritoneal signs. Back: Nontender. Extremities: Nontender, no edema. Skin: Normal color, no rash. Neurologic: Alert and oriented ?3. Cranial nerves II through XII are intact. Normal sensation. 4 out of 5 strength throughout. Psych: Normal affect. Test Results: EKG is sinus at 69 with inferior Q waves. This is unchanged from last month. Troponins negative. Strep is negative. UA is normal. Chem-7 is more for sodium 146, chloride 116, BUN 26, creatinine 1.53. CBC is more for a hemoglobin 11.8, monocytes of 10, eosinophils 7. Chest x-ray shows chronic changes. Emergency Department Course and Treatment: Patient was very difficult to obtain IV access on. Multiple attempts were made without success. Treatment Plan: I had a prolonged discussion the patient about her symptoms and weakness. She does admit that she is unlikely to be able to function at home any longer. She was discussed with Dr. Louis and will be admitted to the hospital for further relation and treatment. Disposition: Admitted in stable condition. Impression: 1. Generalized weakness. 2. Inability ambulate. 3. Chronic renal insufficiency. This note was generated with [employer] software. It may contain incorrect words, spelling, and punctuation that were not noted in review of the chart prior to signing ED Disposition - Plan for ED Patient: Disposition: Acute Care Hospital [facility] Chief Complaint: Fatigue
[2018-05-16 03:55] VITALS: O2SAT 91
[2018-05-16 05:29] VITALS: BP 111/67; PULSE 67; RESP 16; TEMP 36.4; O2SAT 94
[2018-05-16 06:53] LABS: Absolute Lymphocyte Count 3.19 X10^3/ul (0.83-4.51); Absolute Neutrophil Count 4.5 X10^3/uL (2.0-7.7); Basophil# 0.03 X10^3/uL; Basophil% 0.3 % (0-1); Eosinophil# 0.84 X10^3/uL; Eosinophils% 8.7 % (0-5); Hematocrit 38.8 % (37-47); Hemoglobin 12.2 g/dl (12.0-15.0); Lymphocyte # 3.19 X10^3/ul (4.0); Mean Corp Hgb Conc 31.4 g/gl (32-36); Mean Corpuscular Hgb 29.2 pg (27.0-32.0); Mean Corpuscular Volume 92.8 fL (81-99); Monocyte# 1.09 X10^3/uL; Monocyte% 11.3 % (0-10); Neutrophil # 4.49 X10^3/uL (2.7-7.7); Neutrophil % 46.5 % (47-70); Platelet Count 155 K/mm3 (150-450); RBC Distribution Width CV 13.4 % (11.6-14.6); RBC Distribution Width SD 45.3 fl (35.1-43.9); Red Blood Count 4.18 M/mm3 (4.2-5.4); White Blood Count 9.7 K/mm3 (4.4-11.0)
[2018-05-16 06:54] LABS: POSITIVE COUNT NO; POSITIVE DIFFERENTIAL NO; POSITIVE MORPHOLOGY NO
[2018-05-16 07:12] LABS: Anion Gap 8 (5-15); BUN 27 mg/dL (7-18); BUN/Creat Ratio 19.7 RATIO (10-20); Calcium,Total 8.6 mg/dL (8.5-10.1); Chloride 116 mmol/L (98-107); Creatinine, Serum 1.37 mg/dL (0.55-1.02); EST Glomerular Filtration Rate 40 mL/min (>60); Est Glom Filt Rate - Afr Amer 48 mL/min (>60); Estimated Creatinine Clearance 33.73 ml/min; Glucose 82 mg/dL (74-106); Potassium 4.5 mmol/L (3.5-5.1); Sodium Level 144 mmol/L (136-145)
--- NOTE | 2018-05-16 09:53 | CASEMGMT ---
Social Work Assessment: Referral Date: 05/16/2018 Date of Assessment: 05/16/2018 Reason for consult: Pt came in with weakness, debility Informant: Admitting Personal Status: SW met with pt to confirm discharge plans. This SW is familiar with pt from previous visits. SW introduced self and role at [facility]. Pt is alert and orientated x3. Pt states that she lives alone but she has aides 08/05 in her home. Pt states that she hires private pay nursing assistance named Tosin and [facility]acheal. Pt states that she has informed her aides that she is in the hospital. Pt denied currently receiving home health care stating I haven't had Home Health Care in a long time. Pt states that she was previously independent with ADLs up until about a week ago when she came increasingly weak. Pt states that she thinks she has to go to SNF this time and would like a referral sent to [facility] [place]. SW explained that pt is currently in observation status and if she is not changed to inpatient, SNF would be private pay. SW explained to pt that this worker will follow along with pt and determine if pt will be made inpatient or left in observation status. SW informed pt that if she is made to inpatient status she would need three midnight stay for Medicare to cover SNF. Pt states understanding. SW will follow along with pt to determine discharge needs. SW waiting to see if pt will be made inpatient or kept in observation. Substance Abuse Hx: Pt denied Mental Health Hx: Pt denied This SW made referral to Greta at [facility] [place]. Plan: TBD. Pt is interested in [facility] [place] for skilled rehabilitation. SW waiting to see if pt will be made inpatient or left in observation. Xochitl Velez FREIGHT CAR INSPECTOR, SUBGRADE ROLLER OPERATOR
[2018-05-16 11:40] VITALS: BP 100/59; PULSE 68; RESP 16; TEMP 36.7; O2SAT 97
[2018-05-16 11:50] VITALS: O2SAT 95
[2018-05-16] MEDS: Aspirin 81 MG TAB.CHEW PO (13:01)
[2018-05-16] MEDS: Heparin Injection (Vial) 5,000 UNIT/ML VIAL 5000 UNIT SC ×2 (13:02→21:51)
[2018-05-16] MEDS: 0.9% Normal Saline 1,000 ML 100 ML IV ×2 (13:09→23:28)
[2018-05-16] MEDS: Sertraline 100 MG Tablet PO ×2 (13:09→21:49)
[2018-05-16] MEDS: Topiramate 25 MG Tablet PO ×2 (14:53→21:49)
[2018-05-16 14:56] VITALS: BP 97/52; PULSE 71; RESP 16; TEMP 36.9; O2SAT 94
--- NOTE | 2018-05-16 17:24 | CASEMGMT ---
Social Work Note YAHAIRA received message from Greta at [facility] [place] stating that pt has used all of her Medicare days (all 100 of them) and no longer has skilled days available. Greta states that she placed a call to Medicare and pt's last used day was April 13. YAHAIRA looked up recent visits and pt was in [facility] in March. Greta states that pt needs 90 days of wellness (no hospital visits or SNF) for Medicare days to reset. Greta states that pt would have to pay private pay which is $250 a day. SW in to update pt of this. Pt would like this worker to find out the cost of other nursing facilities in [place]. YAHAIRA placed a call to SNF in [place], [place]. [facility] = about $190 a day which equals about $5,700 a month. [facility] = $230 day for shared room with roommate ($6,900) a month and $270 a day for private room which is $8,100 a month. [facility] is around $240 a day. YAHAIRA placed a call to [facility] and left a message for Shannan asking about private pay costs. SW in to update pt of SNF private pay. Pt states that she would still like to go to [facility] [place] as she knows where this is located at. YAHAIRA placed a call to Greta at [facility] informing her that pt is willing to pay private pay. YAHAIRA waiting for call back from Greta to confirm if she is able to accept pt. YAHAIRA received a call from Shannan at [facility] stating that their private pay cost for SNF is $167 a day and for assisted living is $77 a day. YAHAIRA will update pt of these rates tomorrow. Plan: SNF pending acceptance Xochitl Velez TISSUE PACKER, BOAT DISPATCHER
--- NOTE | 2018-05-16 20:02 | PN_ITS ---
Subjective: Patient was seen and examined today, she states she is having back pain and when I relayed this to her nurse, her nurse stated that she was just in the room the patient had no complaints. Patient also stated that she received some pain medication from the nursing staff although the nursing staff states that she did not receive any pain medication. - Physical Exam General: Alert, Cooperative, No apparent distress, Well developed HEENT: Atraumatic, PERRLA, EOMI, Normocephalic Oral: Moist Mucosa Neck: Supple, No JVD, No Nuchal Rigidity, Trachea Midline, Thyroid Normal Size and Texture Lungs: Clear to auscultation, Normal air movement, No rhonchi, No wheeze, No rales Cardiovascular: Regular rate, Regular Rhythm, Normal S1, Normal S2, No murmurs, No Ectopic Activity, PMI Normal, No rub noted, No Gallop Abdomen: Bowel Sounds Present, Soft, Non Tender, Non-Distended, No hernias noted Extremities: No clubbing, No cyanosis, No edema Skin: No rashes Musculoskeletal: - - Patient has severe arthritic deformity of her neck along with thoracic kyphosis Neurological: Cranial nerves II-XII grossly intact, Neuro grossly intact, Sensory exam intact to light touch and pain Psych/Mental Status: Flat Affect, - - Patient is alert and responds to some questions appropriately Vital Signs Temp Pulse Resp BP Pulse Ox 98.5 F 71 16 97/52 L 94 05/16/18 14:56 05/16/18 14:56 05/16/18 14:56 05/16/18 14:56 05/16/18 14:56 Oxygen Delivery Method Room Air Intake and Output for Last 24 Hours 05/14/18 05/15/18 05/16/18 23:59 23:59 23:59 Intake Total 968 / 1368 Output Total 650 / 650 Balance 318 / 718 Medical Necessity - Tobacco Use Smoking Status: Former smoker Tobacco Use: Non-smoker Assessment/Plan All Active Problems (Last Reviewed 04/10/18 @ 08:02 by Kishan Loco DO) Phenytoin toxicity (Resolved) Myocardial infarct, old (Resolved) Acute delirium (Resolved) Bradycardia (Resolved) Cystitis, acute (Resolved) Dizziness (Resolved) Fall (Resolved) Meningitis (Resolved) #1 generalized debility-patient will need placement in a residential facility, she was made an admission today, PT and OT are continuing to see the patient #2 chronic pain syndrome secondary to fibromyalgia and rheumatoid arthritis as well as compression fractures #3 hypertension #4 hyperlipidemia #5 coronary artery disease-stable #6 chronic kidney disease stage III Code Visit Inpatient E&M: 58685 Subs Hosp L2
[2018-05-16 20:56] VITALS: BP 110/69; PULSE 68; RESP 16; TEMP 36.5; O2SAT 96
[2018-05-16] MEDS: Atorvastatin Calcium 20 MG Tablet PO (21:49)
[2018-05-17 02:56] VITALS: BP 116/54; PULSE 73; RESP 16; TEMP 36.4; O2SAT 93
[2018-05-17] MEDS: Pregabalin 50 MG Capsule 100 MG PO ×2 (05:41→13:08)
[2018-05-17] MEDS: oxyCODONE 5 MG Tablet PO (05:41)
[2018-05-17 07:30] VITALS: O2SAT 87
--- NOTE | 2018-05-17 09:42 | NURSING ---
wasted 25mcg fentanyl patch with Brittney De La Rosa RN, Patch flushed down commode
[2018-05-17 09:43] VITALS: BP 116/57; PULSE 69; RESP 18; TEMP 36.4; O2SAT 93
[2018-05-17] MEDS: fentaNYL 25 MCG Patch TRANSDERM. (09:47)
[2018-05-17] MEDS: Pantoprazole Sodium 20 MG Tablet PO (09:47)
[2018-05-17] MEDS: Sertraline 100 MG Tablet PO (09:47)
[2018-05-17] MEDS: Aspirin 81 MG TAB.CHEW PO (09:48)
[2018-05-17] MEDS: Topiramate 25 MG Tablet PO (09:48)
[2018-05-17] MEDS: levETIRAcetam 500 MG Tablet PO (09:48)
[2018-05-17] MEDS: Heparin Injection (Vial) 5,000 UNIT/ML VIAL 5000 UNIT SC (09:48)
[2018-05-17 14:08] VITALS: BP 111/69; PULSE 74; RESP 16; TEMP 36.7; O2SAT 94
--- NOTE | 2018-05-17 15:53 | CASEMGMT ---
Social Work Note YAHAIRA met with pt. SW updated pt that private pay for [facility] is $167 a day. Pt states that she wishes to still discharge to [facility]. SW placed a call to Greta at [facility]. Greta states that she is able to accept pt. SW informed pt that this worker is unsure when pt will be discharged. SW will continue to follow along to assist with discharge planning. Plan: Pt to discharge to [facility] when medically cleared Xochitl Velez ENVIRONMENTAL AID, LOSS PREVENTION LEAD
--- NOTE | 2018-05-17 16:27 | CASEMGMT ---
Social Work Note YAHAIRA updated Dr. Gr that pt that [facility] [place] have accepted pt and pt is able to discharge today. Dr. Gr states that pt could discharged today if medically cleared. YAHAIRA completed convalescent [facility] in [facility] and placed green sheet on chart. YAHAIRA placed a call to Greta at [facility] [place] and left her a message that pt should be discharged today. Plan: Pt to discharge to [facility]. Green sheet on chart Xochitl Velez SALES AND SERVICE SPECIALIST, ATHLETE MARKETING AGENT
--- NOTE | 2018-05-17 18:05 | PCM.TXEXTCAR ---
- Diet regular - Routine Orders/Code Status [facility] Problem/Diagnosis (1) Compression fracture of body of thoracic vertebra Status: Chronic Current Visit: Yes (2) Fibromyalgia Status: Chronic Current Visit: No (3) HTN (hypertension) Status: Chronic Current Visit: No (4) Rheumatoid arthritis Status: Chronic Comment: on no medications for RA - diagnosed in [place] many years ago Current Visit: No (5) Osteoarthritis Status: Chronic Current Visit: No - Allergies/Procedures Done in Hospital Allergies/Adverse Reactions: Allergies acetaminophen [From Tylox] Allergy (Verified 04/10/18 10:05) sees critters amoxicillin Allergy (Verified 04/10/18 05:34) Hives ciprofloxacin [From Cipro] Allergy (Verified 04/10/18 10:05) Itching ciprofloxacin HCl [From Cipro] Allergy (Verified 04/10/18 10:05) Itching indomethacin Allergy (Verified 04/10/18 10:05) Itching nortriptyline HCl [From Pamelor] Allergy (Verified 04/10/18 10:05) see animals coming out of floor oxycodone [From Tylox] Allergy (Verified 04/10/18 10:05) sees critters Sulfa (Sulfonamide Antibiotics) Allergy (Verified 04/10/18 10:05) Itching warfarin [From Coumadin] Allergy (Verified 04/10/18 10:05) Itching iodine Adverse Reaction (Verified 04/10/18 05:34) Itching nortriptyline [Nortriptyline] Adverse Reaction (Verified 04/10/18 10:05) see animals coming out of floor warfarin sodium [From Coumadin] Adverse Reaction (Verified 03/05/18 10:23) Itching Procedures: None - Type of Care/Length of Stay Estimated LOS: Convalescent Care Less Than 30 days Type of Care Needed: Intermediate/Assisted Living Rehab Potential: Good Prognosis: Good - Additional Orders/Day of Discharge H&P will serve as current which was dated: 05/15/18 Day of Discharge: 05/17/18 - Follow Up Care Primary Care Physician: Abhijit Jett Chi, MD [Primary Care Provider] -
--- NOTE | 2018-05-17 18:10 | TREXTCAR_ITS ---
- Diet regular - Routine Orders/Code Status [facility] - Problem/Diagnosis (1) Compression fracture of body of thoracic vertebra Status: Chronic Current Visit: Yes (2) Fibromyalgia Status: Chronic Current Visit: No (3) HTN (hypertension) Status: Chronic Current Visit: No (4) Rheumatoid arthritis Status: Chronic Comment: on no medications for RA - diagnosed in [place] many years ago Current Visit: No (5) Osteoarthritis Status: Chronic Current Visit: No - Allergies/Procedures Done in Hospital Allergies/Adverse Reactions: Allergies acetaminophen [From Tylox] Allergy (Verified 04/10/18 10:05) sees critters amoxicillin Allergy (Verified 04/10/18 05:34) Hives ciprofloxacin [From Cipro] Allergy (Verified 04/10/18 10:05) Itching ciprofloxacin HCl [From Cipro] Allergy (Verified 04/10/18 10:05) Itching indomethacin Allergy (Verified 04/10/18 10:05) Itching nortriptyline HCl [From Pamelor] Allergy (Verified 04/10/18 10:05) see animals coming out of floor oxycodone [From Tylox] Allergy (Verified 04/10/18 10:05) sees critters Sulfa (Sulfonamide Antibiotics) Allergy (Verified 04/10/18 10:05) Itching warfarin [From Coumadin] Allergy (Verified 04/10/18 10:05) Itching iodine Adverse Reaction (Verified 04/10/18 05:34) Itching nortriptyline [Nortriptyline] Adverse Reaction (Verified 04/10/18 10:05) see animals coming out of floor warfarin sodium [From Coumadin] Adverse Reaction (Verified 03/05/18 10:23) Itching Procedures: None - Type of Care/Length of Stay Estimated LOS: Convalescent Care Less Than 30 days Type of Care Needed: [facility]/Assisted Living Rehab Potential: Good Prognosis: Good - Additional Orders/Day of Discharge H&P will serve as current which was dated: 05/15/18 Day of Discharge: 05/17/18 - Follow Up Care Primary Care Physician: Abhijit Jett Chi, MD [Primary Care Provider] -
[2018-05-17 20:09] VITALS: BP 98/53; PULSE 74; RESP 16; TEMP 36.6; O2SAT 93
[2018-05-17 20:35] VITALS: BP 98/53; PULSE 74; RESP 16; TEMP 36.6; O2SAT 93
--- NOTE | 2018-05-19 15:44 | PCM.DC.SUM ---
Discharge Date and Diagnosis Date of Admission: 05/15/18 Date of Discharge: 05/17/18 - Primary Discharge Diagnosis #1 generalized debility-secondary to rheumatoid arthritis, multiple old compression fractures, and fibromyalgia #2 chronic pain syndrome secondary to fibromyalgia and rheumatoid arthritis as well as compression fractures (old) #3 hypertension #4 hyperlipidemia #5 coronary artery disease-stable #6 chronic kidney disease stage III #7 osteoporosis - Secondary Discharge Diagnosis Chronic Problems (Last Reviewed 04/10/18 @ 08:02 by Kishan Loco DO) Compression fracture of body of thoracic vertebra (Chronic) Vertigo (Chronic) Fibromyalgia (Chronic) HTN (hypertension) (Chronic) Rheumatoid arthritis (Chronic) on no medications for RA - diagnosed in [place] many years ago Dyslipidemia (Chronic) Sjogren's syndrome (Chronic) CKD (chronic kidney disease), stage III (Chronic) Diastolic CHF (Chronic) Cephalalgia (Chronic) IBS (irritable bowel syndrome) (Chronic) PUD (peptic ulcer disease) (Chronic) Osteoarthritis (Chronic) Hospital Course and Treatment Operations: None, - - Right hip hemiarthroplasty 09/07/13 Procedures: None Summary of Care Provided: The patient is a 72 year old F seen in the emergency room at [facility] with generalized weakness ?3 days. Patient has no focal weakness. Patient lives alone but has nurses aides 24 hour a day 7 days a week at home. Workup in the emergency room included labs that were remarkable for hemoglobin of 11.8, creatinine was elevated at 1.53, urinalysis was unremarkable, alkaline phosphatase was elevated at 152, magnesium was 1.5. Chest x-ray was unremarkable. Patient was admitted to [place] [address], she was seen by PT and OT, arrangements were made for the patient to go to detention facility under self-pay. On 05/17/18, patient was seen and examined felt to be stable for transfer to detention facility for further [facility] Medications: Medications to take at Discharge Atorvastatin Calcium [Lipitor] 20 mg PO QHS 01/14/18 Sertraline HCl [Zoloft] 100 mg PO BID 01/14/18 Sumatriptan Succinate 100 mg PO DAILY PRN PRN 02/28/18 Hydroxyzine HCl 50 mg PO DAILY PRN 03/05/18 Metoclopramide [Reglan] 10 mg PO TID PRN 03/05/18 Alendronate Sodium 100 mg PO QWEEK 04/10/18 Topiramate [Topamax] 25 mg PO BID 04/10/18 Zofran 4 mg PO Q8H PRN PRN 04/10/18 Levetiracetam [Keppra] 500 mg PO BID #60 tab 04/13/18 Aspirin [Aspirin, Baby] 81 mg PO DAILY@0800 tab.chew 05/17/18 Oxycodone [Oxyir] 5 - 10 mg PO Q6H PRN PRN 7 Days #20 tab 05/17/18 Pregabalin [Lyrica] 100 mg PO TID 10 Days #30 cap 05/17/18 fentaNYL patch [Duragesic patch] 25 mcg TRANSDERM. Q3D 9 Days #3 patch 05/17/18 Following Prescrptions Were Given to Patient: Oxycodone [Oxyir] 5 - 10 mg PO Q6H PRN PRN 7 Days #20 tab PRN Reason: Severe Pain (6-10/10) fentaNYL patch [Duragesic patch] 25 mcg TRANSDERM. Q3D 9 Days #3 patch Pregabalin [Lyrica] 100 mg PO TID 10 Days #30 cap Primary Care Physician: Abhijit Jett Chi, MD [Primary Care Provider] - Disposition: Jail facility Minutes spent on discharge:: 31 Patient Condition:: Stable Medical Necessity - Tobacco Use Smoking Status: Former smoker Tobacco Use: Non-smoker Meaningful Use Info Meaningful Use Diagnoses (Choose all that apply): None applicable Code Visit Inpatient E&M: 63472 Disch Hosp
--- NOTE | 2018-05-19 15:50 | DS.PCM_ITS ---
Discharge Date and Diagnosis Date of Admission: 05/15/18 Date of Discharge: 05/17/18 - Primary Discharge Diagnosis #1 generalized debility-secondary to rheumatoid arthritis, multiple old compression fractures, and fibromyalgia #2 chronic pain syndrome secondary to fibromyalgia and rheumatoid arthritis as well as compression fractures (old) #3 hypertension #4 hyperlipidemia #5 coronary artery disease-stable #6 chronic kidney disease stage III #7 osteoporosis - Secondary Discharge Diagnosis Chronic Problems (Last Reviewed 04/10/18 @ 08:02 by Kishan Loco DO) Compression fracture of body of thoracic vertebra (Chronic) Vertigo (Chronic) Fibromyalgia (Chronic) HTN (hypertension) (Chronic) Rheumatoid arthritis (Chronic) on no medications for RA - diagnosed in [place] many years ago Dyslipidemia (Chronic) Sjogren's syndrome (Chronic) CKD (chronic kidney disease), stage III (Chronic) Diastolic CHF (Chronic) Cephalalgia (Chronic) IBS (irritable bowel syndrome) (Chronic) PUD (peptic ulcer disease) (Chronic) Osteoarthritis (Chronic) Hospital Course and Treatment Operations: None, - - Right hip hemiarthroplasty 09/07/13 Procedures: None Summary of Care Provided: The patient is a 72 year old F seen in the emergency room at [facility] with generalized weakness ?3 days. Patient has no focal weakness. Patient lives alone but has nurses aides 24 hour a day 7 days a week at home. Workup in the emergency room included labs that were remarkable for hemoglobin of 11.8, creatinine was elevated at 1.53, urinalysis was unremarkable, alkaline phosphatase was elevated at 152, magnesium was 1.5. Chest x-ray was unremarkable. Patient was admitted to [place] [address], she was seen by PT and OT, arrangements were made for the patient to go to snf facility under self-pay. On 05/17/18, patient was seen and examined felt to be stable for transfer to snf facility for further long term Medications: Medications to take at Discharge Atorvastatin Calcium [Lipitor] 20 mg PO QHS 01/14/18 Sertraline HCl [Zoloft] 100 mg PO BID 01/14/18 Sumatriptan Succinate 100 mg PO DAILY PRN PRN 02/28/18 Hydroxyzine HCl 50 mg PO DAILY PRN 03/05/18 Metoclopramide [Reglan] 10 mg PO TID PRN 03/05/18 Alendronate Sodium 100 mg PO QWEEK 04/10/18 Topiramate [Topamax] 25 mg PO BID 04/10/18 Zofran 4 mg PO Q8H PRN PRN 04/10/18 Levetiracetam [Keppra] 500 mg PO BID #60 tab 04/13/18 Aspirin [Aspirin, Baby] 81 mg PO DAILY@0800 tab.chew 05/17/18 Oxycodone [Oxyir] 5 - 10 mg PO Q6H PRN PRN 7 Days #20 tab 05/17/18 Pregabalin [Lyrica] 100 mg PO TID 10 Days #30 cap 05/17/18 fentaNYL patch [Duragesic patch] 25 mcg TRANSDERM. Q3D 9 Days #3 patch 05/17/18 Following Prescrptions Were Given to Patient: Oxycodone [Oxyir] 5 - 10 mg PO Q6H PRN PRN 7 Days #20 tab PRN Reason: Severe Pain (6-10/10) fentaNYL patch [Duragesic patch] 25 mcg TRANSDERM. Q3D 9 Days #3 patch Pregabalin [Lyrica] 100 mg PO TID 10 Days #30 cap Primary Care Physician: Abhijit Jett Chi, MD [Primary Care Provider] - Disposition: Intermediate facility Minutes spent on discharge:: 31 Patient Condition:: Stable Medical Necessity - Tobacco Use Smoking Status: Former smoker Tobacco Use: Non-smoker Meaningful Use Info Meaningful Use Diagnoses (Choose all that apply): None applicable Code Visit Inpatient E&M: 42089 Disch Hosp
== END 2018-05-17 20:35 | disposition intermediate care facility (04) | DRG 948 ==
LOC: ED 21:54 → MS3 23:26
PROVIDERS: Admitting Provider Family Medicine; Emergency Provider Emergency Medicine; Family Provider Family Medicine Geriatric Medicine; PCP Family Medicine Geriatric Medicine; Visit Provider Internal Medicine
DX: R53.81 Other malaise (principal); M48.50XA Collapsed vertebra, not elsewhere classified, site unspecified, initial encounter for fracture; I13.0 Hypertensive heart and chronic kidney disease with heart failure and stage 1 through stage 4 chronic kidney disease, or unspecified chronic kidney disease; I50.32 Chronic diastolic (congestive) heart failure; R62.7 Adult failure to thrive; R53.1 Weakness; M06.9 Rheumatoid arthritis, unspecified; M79.7 Fibromyalgia; G89.4 Chronic pain syndrome; N18.3 Chronic kidney disease, stage 3 (moderate); Z87.891 Personal history of nicotine dependence; E78.5 Hyperlipidemia, unspecified; I25.10 Atherosclerotic heart disease of native coronary artery without angina pectoris; M81.0 Age-related osteoporosis without current pathological fracture; G43.909 Migraine, unspecified, not intractable, without status migrainosus; F41.9 Anxiety disorder, unspecified; F32.9 Major depressive disorder, single episode, unspecified; K21.9 Gastro-esophageal reflux disease without esophagitis; Z66 Do not resuscitate; M35.00 Sjogren syndrome, unspecified; K27.9 Peptic ulcer, site unspecified, unspecified as acute or chronic, without hemorrhage or perforation; M19.90 Unspecified osteoarthritis, unspecified site; Z86.73 Personal history of transient ischemic attack (TIA), and cerebral infarction without residual deficits; Z87.440 Personal history of urinary (tract) infections; Z79.891 Long term (current) use of opiate analgesic; Z79.899 Other long term (current) drug therapy
CPT/HCPCS: 36415; 71045; 80048; 80076; 81001; 83735; 84443; 84484; 85025; 87880; 93005; 97110; 97116; 97162; 97165; 97530; 97802; 99285; J7030; J7040; P9612

== ENCOUNTER → 2018-05-22 05:00 | Outpatient (REF) | payer MEDICARE, OTHER, SELFPAY ==
[2018-05-22 09:50] LABS: Absolute Lymphocyte Count 3.54 X10^3/ul (0.83-4.51); Absolute Neutrophil Count 3.2 X10^3/uL (2.0-7.7); Basophil# 0.03 X10^3/uL; Basophil% 0.4 % (0-1); Eosinophil# 0.66 X10^3/uL; Eosinophils% 7.8 % (0-5); Hematocrit 35.4 % (37-47); Hemoglobin 11.3 g/dl (12.0-15.0); Lymphocyte # 3.54 X10^3/ul (4.0); Mean Corp Hgb Conc 31.9 g/gl (32-36); Mean Corpuscular Hgb 29.4 pg (27.0-32.0); Mean Corpuscular Volume 92.2 fL (81-99); Mean Platelet Vol. 10.6 fl (6.2-12.0); Monocyte# 0.97 X10^3/uL; Monocyte% 11.5 % (0-10); Neutrophil # 3.22 X10^3/uL (2.7-7.7); Neutrophil % 38.2 % (47-70); Platelet Count 213 K/mm3 (150-450); RBC Distribution Width CV 12.7 % (11.6-14.6); RBC Distribution Width SD 41.1 fl (35.1-43.9); Red Blood Count 3.84 M/mm3 (4.2-5.4); White Blood Count 8.4 K/mm3 (4.4-11.0)
[2018-05-22 09:51] LABS: POSITIVE COUNT NO; POSITIVE DIFFERENTIAL NO; POSITIVE MORPHOLOGY NO
[2018-05-22 10:05] LABS: ALB/GLOB Ratio 0.9 RATIO (0.9-2.4); AST(SGOT) 25 U/L (15-37); Alanine Aminotransfer ALT/SGPT 19 U/L (13-56); Albumin, Serum 3.2 g/dL (3.2-5.0); Alkaline Phosphatase 139 U/L (45-117); Anion Gap 8 (5-15); BUN 24 mg/dL (7-18); BUN/Creat Ratio 17.1 RATIO (10-20); Calcium,Total 8.7 mg/dL (8.5-10.1); Chloride 108 mmol/L (98-107); Cholesterol 131 mg/dL (200); EST Glomerular Filtration Rate 39 mL/min (>60); Est Glom Filt Rate - Afr Amer 47 mL/min (>60); Globulin 3.6 g/dL (2.2-4.2); Glucose 75 mg/dL (74-106); High Density Lipoprotein 44 mg/dL; Potassium 4.8 mmol/L (3.5-5.1); Protein, Total 6.8 g/dL (6.4-8.2); Sodium Level 142 mmol/L (136-145); Triglycerides 116 mg/dL; Very Low Density Lipoprotein 23 mg/dL (5-40)
[2018-05-25 11:32] LABS: KEPPRA (LEVETIRACETAM) 48.6 ug/mL (10.0-40.0)
== END ==
LOC: OLS.AVEB 05:00
PROVIDERS: Visit Provider Family Medicine
DX: D64.9 Anemia, unspecified (principal); R53.83 Other fatigue; R56.9 Unspecified convulsions
CPT/HCPCS: 36415; 80053; 80061; 80177; 85025

== ENCOUNTER → 2018-06-01 05:00 | Outpatient (REF) | payer MEDICARE, OTHER, SELFPAY ==
[2018-06-04 11:07] LABS: KEPPRA (LEVETIRACETAM) 39.1 ug/mL (10.0-40.0)
== END ==
LOC: OLS.AVED 05:00
PROVIDERS: Visit Provider Family Medicine
DX: Z79.899 Other long term (current) drug therapy (principal)
CPT/HCPCS: 36415; 80177

== ENCOUNTER 2018-07-03 17:29 | Inpatient (IN) | payer MEDICARE, OTHER, SELFPAY ==
[2018-07-03] VITALS (7 sets, daily range): BP systolic 102–152; BP diastolic 51–87; PULSE 65–75; RESP 16–18; TEMP 36.4–36.7; O2SAT 93–100; BMI 24.7; BMI 24.8
--- NOTE | 2018-07-03 18:34 | HP.PCM_ITS ---
Problem List (1) Pain pump trial Status: Acute (2) Epidural analgesia Status: Acute (3) Compression fracture of body of thoracic vertebra Status: Chronic (4) Phenytoin toxicity Status: Resolved (5) Vertigo Status: Chronic (6) Fibromyalgia Status: Chronic (7) HTN (hypertension) Status: Chronic Qualifiers: Hypertension type: essential hypertension Qualified Code(s): I10 - Essential (primary) hypertension (8) Rheumatoid arthritis Status: Chronic Qualifiers: Rheumatoid arthritis location: unspecified site Comment: on no medications for RA - diagnosed in [place] many years ago (9) Dyslipidemia Status: Chronic (10) Sjogren's syndrome Status: Chronic Qualifiers: Sjogren's organ involvement: unspecified organ involvement Qualified Code(s ): M35.00 - Sicca syndrome, unspecified (11) Myocardial infarct, old Status: Resolved (12) CKD (chronic kidney disease), stage III Status: Chronic (13) history of PULMONARY EMBOLI Status: Inactive (14) Diastolic CHF Status: Chronic Qualifiers: Heart failure chronicity: chronic Qualified Code(s): I50.32 - Chronic diastolic (congestive) heart failure (15) Cephalalgia Status: Chronic (16) IBS (irritable bowel syndrome) Status: Chronic Qualifiers: Irritable bowel syndrome type: unspecified Qualified Code(s): K58.9 - Irritable bowel syndrome without diarrhea (17) PUD (peptic ulcer disease) Status: Chronic (18) Osteoarthritis Status: Chronic Qualifiers: Osteoarthritis location: unspecified site Osteoarthritis type: unspecified Qualified Code(s): M19.90 - Unspecified osteoarthritis, unspecified site (19) History of radiofrequency ablation (RFA) procedure for cardiac arrhythmia Status: Inactive History of Present Illness Date of Admission: 07/03/18 Chief Complaint: Chronic back pain The patient is a 72 year old F with history of chronic back pain status post spine surgery in the past is being admitted for pain pump trial. Patient had epidural catheter by Dr. Piper and is being put on Dilaudid drip. Currently, patient complained of pain in thoracic and lumbar spine. Patient has history of generalized weakness and debility secondary to rheumatoid arthritis as well as old compression fracture of thoracic vertebra, fibromyalgia, Sjogren syndrome and osteoarthritis. She was last admitted on May 15, 2018 for generalized weakness and debility. [] Past Medical History Past Medical History (Chronic Problems): Chronic Problems (Last Reviewed 04/10/18 @ 08:02 by Kishan Loco DO) Compression fracture of body of thoracic vertebra (Chronic) Vertigo (Chronic) Fibromyalgia (Chronic) HTN (hypertension) (Chronic) Rheumatoid arthritis (Chronic) on no medications for RA - diagnosed in [place] many years ago Dyslipidemia (Chronic) Sjogren's syndrome (Chronic) CKD (chronic kidney disease), stage III (Chronic) Diastolic CHF (Chronic) Cephalalgia (Chronic) IBS (irritable bowel syndrome) (Chronic) PUD (peptic ulcer disease) (Chronic) Osteoarthritis (Chronic) Medical History: Medical History (Last Reviewed 04/10/18 @ 08:02 by Kishan Loco DO) CVA (cerebral vascular accident) I63.9 Chronic kidney disease N18.9 Depression F32.9 H/O deep venous thrombosis Z86.718 Allergies acetaminophen [From Tylox] Allergy (Verified 04/10/18 10:05) sees critters amoxicillin Allergy (Verified 04/10/18 05:34) Hives ciprofloxacin [From Cipro] Allergy (Verified 04/10/18 10:05) Itching ciprofloxacin HCl [From Cipro] Allergy (Verified 04/10/18 10:05) Itching indomethacin Allergy (Verified 04/10/18 10:05) Itching nortriptyline HCl [From Pamelor] Allergy (Verified 04/10/18 10:05) see animals coming out of floor oxycodone [From Tylox] Allergy (Verified 04/10/18 10:05) sees critters Sulfa (Sulfonamide Antibiotics) Allergy (Verified 04/10/18 10:05) Itching warfarin [From Coumadin] Allergy (Verified 04/10/18 10:05) Itching iodine Adverse Reaction (Verified 04/10/18 05:34) Itching nortriptyline [Nortriptyline] Adverse Reaction (Verified 04/10/18 10:05) see animals coming out of floor warfarin sodium [From Coumadin] Adverse Reaction (Verified 03/05/18 10:23) Itching Home Medications: Ambulatory Orders Medication Instructions Recorded Atorvastatin Calcium [Lipitor] 20 mg PO QHS 01/14/18 Sertraline HCl [Zoloft] 100 mg PO BID 01/14/18 Sumatriptan Succinate 100 mg PO DAILY PRN PRN 02/28/18 Hydroxyzine HCl 50 mg PO DAILY PRN 03/05/18 Metoclopramide [Reglan] 10 mg PO TID PRN 03/05/18 Alendronate Sodium 100 mg PO MO 04/10/18 Topiramate [Topamax] 25 mg PO BID 04/10/18 Hydrocodone/Acetaminophen 1 each PO TID PRN PRN 07/03/18 [Hydrocodon-Acetaminophen 5-325] Levetiracetam [Keppra] 250 mg PO DAILY 07/03/18 Levetiracetam [Keppra] 500 mg PO QHS 07/03/18 Ondansetron HCl [Zofran] 4 mg PO Q8H PRN PRN 07/03/18 Pregabalin [Lyrica] 100 mg PO BID 07/03/18 fentaNYL patch [Duragesic patch] 25 mcg TRANSDERM. Q3D 07/03/18 Surgical History: Surgical History (Last Reviewed 04/10/18 @ 08:02 by Kishan Loco DO) History of hysterectomy Z98.890, Z90.710 1976 gallbladder removal Surgical History: angioplasty - pt denies this - she says that she only had an ablation and she does not have any hx of CAD., appendectomy, hysterectomy, total hip arthroplasty - recent right hip replacement, tonsillectomy, - - craniotomy to remove blood clots after a fall. 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 Denies: Chills, Fever, Weight Change HEENT: Denies: Head Aches, Sinus Congestion, Sinus Drainage Cardiovascular: Denies: Chest Pain, Chest Pressure, Palpitations Respiratory: Denies: Cough, Shortness of breath at rest, Sputum production Gastrointestinal: Reports: Diarrhea - Chronic diarrhea secondary to IBS. Denies : Abdominal Pain, Nausea, Vomiting Genitourinary: Denies: Dysuria, Frequency, Hematuria, Hesitancy Musculoskeletal: Reports: Back Pain, Foot Pain, Joint Pain, Joint stiffness, Joint Tenderness, Muscle pain Skin: Denies: Rash, Wounds Neurological: Denies: Numbness, Tingling, Focal weakness Psychiatric: Reports: Anxiety. Denies: Depression, Homicidal Ideations, Suicidal Ideations Hematologic/ Lymphatic: Denies: Easy Bruising, Easy Bleeding VTE Information - Inpt Only VTE Present on Admission: No VTE Mechan Device Prophylaxis: SCD's, None Reason prophylaxis not ordered:: Medical Contraindication - Has epidural catheter Patient Problems: Active and Suspected Problems (Last Reviewed 04/10/18 @ 08:02 by Kishan Loco DO) Pain pump trial (Acute) Epidural analgesia (Acute) - Physical Exam General: Alert, Oriented x3, Cooperative HEENT: Atraumatic, PERRLA, EOMI, Normocephalic Neck: Supple, No JVD, Negative Carotid Bruits Lungs: Clear to auscultation, No rhonchi, No rales, Diminished Cardiovascular: Regular rate, Normal S1, Normal S2, No murmurs Abdomen: Bowel Sounds Present, Soft, Non Tender, Non-Distended Extremities: No edema, Capillary Refill Less than 3 Seconds Skin: No rashes, No breakdown Musculoskeletal: Arthritic Changes, Muscle Wasting, Tenderness Neurological: Cranial nerves II-XII grossly intact, Neuro grossly intact Psych/Mental Status: Normal Affect, Appropriate Vital Signs Resp Pulse Ox 16 100 07/03/18 18:30 07/03/18 18:30 Oxygen Delivery Method Room Air Finger Stick Blood Glucose 107 Assessment/Plan All Active Problems (Last Reviewed 04/10/18 @ 08:02 by Kishan Loco DO) Pain pump trial (Acute) Epidural analgesia (Acute) Phenytoin toxicity (Resolved) Myocardial infarct, old (Resolved) Acute delirium (Resolved) Bradycardia (Resolved) Cystitis, acute (Resolved) Dizziness (Resolved) Fall (Resolved) Meningitis (Resolved) The patient is a 72 year old F with history of chronic back pain status post spine surgery in the past is being admitted for pain pump trial. Patient had epidural catheter by Dr. Piper and is being put on Dilaudid drip. Currently, patient complained of pain in thoracic and lumbar spine. Patient has history of generalized weakness and debility secondary to rheumatoid arthritis as well as old compression fracture of thoracic vertebra, fibromyalgia, Sjogren syndrome and osteoarthritis. She was last admitted on May 15, 2018 for generalized weakness and debility. [ 1. Pain pump trial through epidural catheter for chronic pain mainly thoracic spine: Patient is being admitted at the request of Dr. Kelly. He will titrate the dose of Dilaudid through epidural catheter. Supportive treatment as needed for nausea, vomiting. 2 generalized debility with multiple rheumatological disease secondary to rheumatoid arthritis, Sjogren's syndrome, osteoarthritis with osteoporosis. Continue home medication. Need PT and OT after epidural catheter is taken out 3. Chronic diastolic heart failure: Patient denies chest pain, shortness of breath and does not seem to be acute heart failure. 4. Seizure disorder, chronic migraine headache, peripheral neuropathy of lower extremities: Patient has chronic numbness and tingling neuropathic pain of lower extremities. Patient is on Topamax, Keppra and sumatriptan as needed for headache. 5. CKD stage III, hypertension, IBS, diarrhea type, peptic ulcer disease: Home medication reconciliation done. DVT prophylaxis: Bilateral SCDs. Pharmacological prophylaxis contraindicated because of epidural catheter. Code Visit Inpatient E&M: 58766 In Hosp L3
--- NOTE | 2018-07-03 19:01 | NURSING ---
Fentanyl patch removed per verbal order from Hermila Luna Rn witnessed this nurse removing it and destroying.
[2018-07-03] MEDS: 0.9% Normal Saline 1,000 ML 50 ML IV (19:47)
[2018-07-03] MEDS: Atorvastatin Calcium 20 MG Tablet PO (21:13)
[2018-07-03] MEDS: levETIRAcetam 500 MG Tablet PO (21:13)
[2018-07-03] MEDS: Sertraline 100 MG Tablet PO (21:13)
[2018-07-03] MEDS: HYDROcodone Bitartrate/Apap 5/325 Tablet PO (21:14)
[2018-07-03] MEDS: Topiramate 25 MG Tablet PO (21:14)
[2018-07-03] MEDS: Pregabalin 50 MG Capsule 100 MG PO (21:14)
[2018-07-04] VITALS (19 sets, daily range): BP systolic 76–112; BP diastolic 44–70; PULSE 52–64; RESP 12–19; TEMP 36.3–36.8; O2SAT 90–100
--- NOTE | 2018-07-04 04:10 | NURSING ---
pt has been up to bathroom several times. Pt had a bm but not voided. pt bladder scan for 405cc. instructed pt we may need to be straight cath. pt refused.Stated i will try later
--- NOTE | 2018-07-04 06:36 | NURSING ---
PT HAS BEEN UP TO BS X3. PT UNABLE TO VOID. NOTIFIED. PT STRAIGHT CATH FOR 400CC OF CLEAR YELLOW URINE
[2018-07-04 06:52] LABS: Absolute Lymphocyte Count 2.35 X10^3/ul (0.83-4.51); Absolute Neutrophil Count 3.3 X10^3/uL (2.0-7.7); Basophil# 0.03 X10^3/uL; Basophil% 0.4 % (0-1); Eosinophil# 0.51 X10^3/uL; Eosinophils% 7.3 % (0-5); Hematocrit 32.4 % (37-47); Hemoglobin 10.4 g/dl (12.0-15.0); Lymphocyte # 2.35 X10^3/ul (4.0); Lymphocyte % 33.5 % (19-41); Mean Corp Hgb Conc 32.1 g/gl (32-36); Mean Corpuscular Hgb 29.7 pg (27.0-32.0); Mean Corpuscular Volume 92.6 fL (81-99); Mean Platelet Vol. 10.8 fl (6.2-12.0); Monocyte# 0.79 X10^3/uL; Monocyte% 11.3 % (0-10); Neutrophil # 3.33 X10^3/uL (2.7-7.7); Neutrophil % 47.4 % (47-70); Platelet Count 181 K/mm3 (150-450); RBC Distribution Width CV 14.2 % (11.6-14.6); RBC Distribution Width SD 46.6 fl (35.1-43.9)
[2018-07-04 07:10] LABS: POSITIVE COUNT NO; POSITIVE DIFFERENTIAL NO; POSITIVE MORPHOLOGY NO
[2018-07-04 07:11] LABS: Anion Gap 8 (5-15); BUN 18 mg/dL (7-18); BUN/Creat Ratio 16.2 RATIO (10-20); Chloride 115 mmol/L (98-107); Creatinine, Serum 1.11 mg/dL (0.55-1.02); EST Glomerular Filtration Rate 51 mL/min (>60); Est Glom Filt Rate - Afr Amer 62 mL/min (>60); Estimated Creatinine Clearance 43.24 ml/min; Glucose 80 mg/dL (74-106); Potassium 4.1 mmol/L (3.5-5.1); Sodium Level 146 mmol/L (136-145)
[2018-07-04] MEDS: 0.9% Normal Saline 1,000 ML 50 ML IV (07:14)
--- NOTE | 2018-07-04 10:45 | CASEMGMT ---
RN SUHAS Face to Face with patient for initial transition planning/care coordination assessment. RN CM introduced self and role at [facility]. Patient lying in bed, alert and oriented. Patient willing to participate in assessment and is able to answer all questions appropriately. Care providers, pharmacy, and demographics verified. See link attached. Patient wishes to discharge home, requesting C for long-term and would prefer [facility]. Patient states she has no further needs or concerns at this time. Referral made to [facility] and they are able to accept the patient. CM to follow for discharge planning needs that may arise. Disposition Plan: Patient to discharge home with HHC, family support, and follow-up plans in place. Xochitl LEE, RN, CM
--- NOTE | 2018-07-04 10:49 | NURSING ---
DR ZHU TO SEE PATIENT. GERMANI DC'ED INTRATHECAL CATH. AND INFUSION.
--- NOTE | 2018-07-04 10:50 | PCM.DC ---
- Discharge Diagnoses Current Active Problems: Current Active and Chronic Problems (Last Reviewed 04/10/18 @ 08:02 by Kishan Loco DO) Pain pump trial (Acute) Epidural analgesia (Acute) Reason(s) for Visit for Discharge Instructions: Chronic back pain You will use the following diet at home:: Cardiac Your food should be the consistency of: Regular Your liquids should be the consistency of: Regular/Thin Discharge Activity: Return to Normal Activity Additional Instructions: Note changes to your medications. Continue to follow-up closely with Dr. Piper and your primary care doctor. Allergies/Adverse Reactions: Allergies acetaminophen [From Tylox] Allergy (Verified 04/10/18 10:05) sees critters amoxicillin Allergy (Verified 04/10/18 05:34) Hives ciprofloxacin [From Cipro] Allergy (Verified 04/10/18 10:05) Itching ciprofloxacin HCl [From Cipro] Allergy (Verified 04/10/18 10:05) Itching indomethacin Allergy (Verified 04/10/18 10:05) Itching nortriptyline HCl [From Pamelor] Allergy (Verified 04/10/18 10:05) see animals coming out of floor oxycodone [From Tylox] Allergy (Verified 04/10/18 10:05) sees critters Sulfa (Sulfonamide Antibiotics) Allergy (Verified 04/10/18 10:05) Itching warfarin [From Coumadin] Allergy (Verified 04/10/18 10:05) Itching iodine Adverse Reaction (Verified 04/10/18 05:34) Itching nortriptyline [Nortriptyline] Adverse Reaction (Verified 04/10/18 10:05) see animals coming out of floor warfarin sodium [From Coumadin] Adverse Reaction (Verified 03/05/18 10:23) Itching Medications to take at Discharge Atorvastatin Calcium [Lipitor] 20 mg PO QHS 01/14/18 Sertraline HCl [Zoloft] 100 mg PO BID 01/14/18 Sumatriptan Succinate 100 mg PO DAILY PRN PRN 02/28/18 Hydroxyzine HCl 50 mg PO DAILY PRN 03/05/18 Metoclopramide [Reglan] 10 mg PO TID PRN 03/05/18 Alendronate Sodium 100 mg PO MO 04/10/18 Topiramate [Topamax] 25 mg PO BID 04/10/18 Hydrocodone/Acetaminophen [Hydrocodone-Acetamin 5-325 mg] 1 each PO TID PRN PRN 07/03/18 Ondansetron HCl [Zofran] 4 mg PO Q8H PRN PRN 07/03/18 Pregabalin [Lyrica] 100 mg PO BID 07/03/18 Tamsulosin HCl [Flomax] 0.4 mg PO DAILY@1730 #30 cap 07/04/18 Primary Care Physician: Abhijit Jett Chi, MD [Primary Care Provider] - Please follow up with your Primary Care Physician in: within 2 weeks Test Results: Test results from this visit will be discussed in further detail at your follow-up appointment, if applicable. Please Follow Up With: Mary Piper MD When: at discharge for adjustment in pain medications Proposed Discharge Date: 07/04/18
--- NOTE | 2018-07-04 10:56 | DCINST_ITS ---
- Discharge Diagnoses Current Active Problems: Current Active and Chronic Problems (Last Reviewed 04/10/18 @ 08:02 by Kishan Loco DO) Pain pump trial (Acute) Epidural analgesia (Acute) Reason(s) for Visit for Discharge Instructions: Chronic back pain You will use the following diet at home:: Cardiac Your food should be the consistency of: Regular Your liquids should be the consistency of: Regular/Thin Discharge Activity: Return to Normal Activity Additional Instructions: Note changes to your medications. Continue to follow- up closely with Dr. Piper and your primary care doctor. Allergies/Adverse Reactions: Allergies acetaminophen [From Tylox] Allergy (Verified 04/10/18 10:05) sees critters amoxicillin Allergy (Verified 04/10/18 05:34) Hives ciprofloxacin [From Cipro] Allergy (Verified 04/10/18 10:05) Itching ciprofloxacin HCl [From Cipro] Allergy (Verified 04/10/18 10:05) Itching indomethacin Allergy (Verified 04/10/18 10:05) Itching nortriptyline HCl [From Pamelor] Allergy (Verified 04/10/18 10:05) see animals coming out of floor oxycodone [From Tylox] Allergy (Verified 04/10/18 10:05) sees critters Sulfa (Sulfonamide Antibiotics) Allergy (Verified 04/10/18 10:05) Itching warfarin [From Coumadin] Allergy (Verified 04/10/18 10:05) Itching iodine Adverse Reaction (Verified 04/10/18 05:34) Itching nortriptyline [Nortriptyline] Adverse Reaction (Verified 04/10/18 10:05) see animals coming out of floor warfarin sodium [From Coumadin] Adverse Reaction (Verified 03/05/18 10:23) Itching Medications to take at Discharge Atorvastatin Calcium [Lipitor] 20 mg PO QHS 01/14/18 Sertraline HCl [Zoloft] 100 mg PO BID 01/14/18 Sumatriptan Succinate 100 mg PO DAILY PRN PRN 02/28/18 Hydroxyzine HCl 50 mg PO DAILY PRN 03/05/18 Metoclopramide [Reglan] 10 mg PO TID PRN 03/05/18 Alendronate Sodium 100 mg PO MO 04/10/18 Topiramate [Topamax] 25 mg PO BID 04/10/18 Hydrocodone/Acetaminophen [Hydrocodone-Acetamin 5-325 mg] 1 each PO TID PRN PRN 07/03/18 Ondansetron HCl [Zofran] 4 mg PO Q8H PRN PRN 07/03/18 Pregabalin [Lyrica] 100 mg PO BID 07/03/18 Tamsulosin HCl [Flomax] 0.4 mg PO DAILY@1730 #30 cap 07/04/18 Primary Care Physician: Abhijit Jett Chi, MD [Primary Care Provider] - Please follow up with your Primary Care Physician in: within 2 weeks Test Results: Test results from this visit will be discussed in further detail at your follow- up appointment, if applicable. Please Follow Up With: Mary Piper MD When: at discharge for adjustment in pain medications Proposed Discharge Date: 07/04/18
--- NOTE | 2018-07-04 11:00 | DS.PCM_ITS ---
Discharge Date and Diagnosis - Problem List Patient Problems: Active and Suspected Problems (Last Reviewed 04/10/18 @ 08:02 by Kishan Loco DO) Pain pump trial (Acute) Epidural analgesia (Acute) Date of Admission: 07/03/18 Date of Discharge: 07/04/18 - Primary Discharge Diagnosis Active and Suspected Problems (Last Reviewed 04/10/18 @ 08:02 by Kishan Loco DO) Pain pump trial (Acute) Epidural analgesia (Acute) Hypotension - Secondary Discharge Diagnosis Chronic Problems (Last Reviewed 04/10/18 @ 08:02 by Kishan Loco DO) Compression fracture of body of thoracic vertebra (Chronic) Vertigo (Chronic) Fibromyalgia (Chronic) HTN (hypertension) (Chronic) Rheumatoid arthritis (Chronic) on no medications for RA - diagnosed in [place] many years ago Dyslipidemia (Chronic) Sjogren's syndrome (Chronic) CKD (chronic kidney disease), stage III (Chronic) Diastolic CHF (Chronic) Cephalalgia (Chronic) IBS (irritable bowel syndrome) (Chronic) PUD (peptic ulcer disease) (Chronic) Osteoarthritis (Chronic) Hospital Course and Treatment Dr. Piper Operations: None, - - Right hip hemiarthroplasty 09/07/13 Procedures: - - Pain pump/intrathecal infusion Summary of Care Provided: The patient is a 72 year old F with past medical history of chronic back pain status post spine surgery, history of compression fracture of the thoracic vertebra, fibromyalgia, Sjogren's syndrome, follows with Dr. Piper in the outpatient for pain management. Patient was admitted for pain pump trial. She had an intrathecal placement and stayed overnight with Dilaudid IV pump. She had an uneventful night. She was found to be hypotensive in the morning of discharge, with decreased respiratory rate and lethargy. This was believed to be secondary to intrathecal Dilaudid. Patient was seen and examined together with Dr. Piper. Her intrathecal infusion catheter was removed with a blue tip intact. She received fluid boluses improvement with improvement in her blood pressure. She was also started on Flomax during this hospital stay for urine retention which she states was quite common for her. On discharge, patient has still not voided after so many hours of removal of Garcia catheter. She was discharged on Flomax and asked to follow-up in ED if she has still not voided. Discharge Diet: Low fat/ Low Cholesterol, 2000 mg Sodium Diet Discharge Activity: Return to Normal Activity Home Medications: Medications to take at Discharge Atorvastatin Calcium [Lipitor] 20 mg PO QHS 01/14/18 Sertraline HCl [Zoloft] 100 mg PO BID 01/14/18 Sumatriptan Succinate 100 mg PO DAILY PRN PRN 02/28/18 Hydroxyzine HCl 50 mg PO DAILY PRN 03/05/18 Metoclopramide [Reglan] 10 mg PO TID PRN 03/05/18 Alendronate Sodium 100 mg PO MO 04/10/18 Topiramate [Topamax] 25 mg PO BID 04/10/18 Hydrocodone/Acetaminophen [Hydrocodone-Acetamin 5-325 mg] 1 each PO TID PRN PRN 07/03/18 Ondansetron HCl [Zofran] 4 mg PO Q8H PRN PRN 07/03/18 Pregabalin [Lyrica] 100 mg PO BID 07/03/18 Tamsulosin HCl [Flomax] 0.4 mg PO DAILY@1730 #30 cap 07/04/18 Following Prescrptions Were Given to Patient: Tamsulosin HCl [Flomax] 0.4 mg PO DAILY@1730 #30 cap Primary Care Physician: Abhijit Jett Chi, MD [Primary Care Provider] - Please follow up with your Primary Care Physician in: within 2 weeks Please Follow Up With: Mary Piper MD When: at discharge for adjustment in pain medications Disposition: Home Minutes spent on discharge:: 40 Patient Condition:: Fair Medical Necessity - Tobacco Use Smoking Status: Former smoker Tobacco Use: Cigarettes Meaningful Use Info Meaningful Use Diagnoses (Choose all that apply): None applicable Code Visit OBSV E&M: 53376 Observation care discharge
[2018-07-04 12:45] LABS: Anion Gap 8 (5-15); BUN 17 mg/dL (7-18); BUN/Creat Ratio 14.8 RATIO (10-20); Calcium,Total 7.6 mg/dL (8.5-10.1); Chloride 116 mmol/L (98-107); Creatinine, Serum 1.15 mg/dL (0.55-1.02); EST Glomerular Filtration Rate 49 mL/min (>60); Est Glom Filt Rate - Afr Amer 59 mL/min (>60); Estimated Creatinine Clearance 41.74 ml/min; Glucose 87 mg/dL (74-106); Potassium 4.1 mmol/L (3.5-5.1); Sodium Level 143 mmol/L (136-145)
--- NOTE | 2018-07-04 13:20 | CHAPLAIN ---
Type of Pastoral Visit _x__ Initial Visit ___ Follow-up Visit ___ On-call Visit ___ General Patient Visit ___ Spiritual Assessment ___ Family Conference ___ Bereavement ___ Rapid Response ___ Code Blue ___ Other (describe below) Pastoral Care Referral From _x__ Patient ___ Family ___ Nurse ___ Physician ___ Technical Cable Jointer ___ Youth Advocate ___ Other (describe below) Sacrament/Intervention _x__ Active listening ___ Anointing ___ Sabianist ___ Bereavement ___ Communion ___ Desi exploration ___ ___ Life review _x__ Prayer ___ Reconciliation ___ Sacrament of Sick _x__ Supportive presence ___ Wedding ___ Other (describe below) Pastoral Comments
[2018-07-04] MEDS: Topiramate 25 MG Tablet PO (13:38)
[2018-07-04] MEDS: Sertraline 100 MG Tablet PO (13:38)
[2018-07-04] MEDS: Pregabalin 50 MG Capsule 100 MG PO (13:38)
[2018-07-04] MEDS: HYDROcodone Bitartrate/Apap 5/325 Tablet PO (14:58)
== END 2018-07-04 16:30 | disposition home or self-care (01) | DRG 92 ==
PROVIDERS: Admitting Provider Internal Medicine; Family Provider Family Medicine Geriatric Medicine; PCP Family Medicine Geriatric Medicine; Visit Provider Internal Medicine
DX: G89.29 Other chronic pain (principal); I13.0 Hypertensive heart and chronic kidney disease with heart failure and stage 1 through stage 4 chronic kidney disease, or unspecified chronic kidney disease; I50.32 Chronic diastolic (congestive) heart failure; M54.9 Dorsalgia, unspecified; M06.9 Rheumatoid arthritis, unspecified; N18.3 Chronic kidney disease, stage 3 (moderate); K58.0 Irritable bowel syndrome with diarrhea; G40.909 Epilepsy, unspecified, not intractable, without status epilepticus; M35.00 Sjogren syndrome, unspecified; E78.5 Hyperlipidemia, unspecified; M79.7 Fibromyalgia
CPT/HCPCS: 36415; 80048; 85025; 97161; 97166; J7030; J3490

== ENCOUNTER 2018-07-25 21:49 | Inpatient (IN) | payer MEDICARE, OTHER, SELFPAY ==
[2018-07-25 21:50] VITALS: BP 100/64; PULSE 76; RESP 18; TEMP 37.1; O2SAT 88; BMI 24.5
[2018-07-25 21:56] VITALS: O2SAT 93
--- NOTE | 2018-07-25 22:58 | RAD_ITS ---
STUDY: X-RAY CHEST REASON FOR EXAM: Female, 72 years old. SOB. TECHNIQUE: Portable chest. COMPARISON: 05/15/2018. FINDINGS: Low lung volumes, poor inspiration. Fibrotic changes are again noted in the right upper lobe. However, there is increased opacity in the right midlung suspicious for superimposed pneumonia. There are mild increased markings in the left lung base which may represent aspiration. Lung urbina are otherwise clear. Patient is status post prior vertebroplasty in the mid thoracic spine. Soft tissues and bony structures are otherwise unremarkable. RAD/Chest 1 View (Portable) IMPRESSION: Increased opacity in the right midlung and left lung base compared to the prior study, consistent with pneumonia. Electronically Signed: Prisca Schwartz MD at 23:24 EDT Tel , Service support ,
--- NOTE | 2018-07-25 22:58 | EKG12_ITS ---
Test Reason : FALL Blood Pressure : / mmHG Vent. Rate : 070 BPM Atrial Rate : 070 BPM P-R Int : 192 ms QRS Dur : 082 ms QT Int : 390 ms P-R-T Axes : 050 -16 -13 degrees QTc Int : 421 ms Normal sinus rhythm Inferior infarct , age undetermined Cannot rule out Anterior infarct , age undetermined Abnormal ECG Confirmed by CHASE COLEMAN, FELIX ([id number]), assistant editor AVEL REYES ([id number]) on 07/30/2018 3:58:46 PM Referred By: MR Confirmed By:FELIX STONE MD
[2018-07-25 23:01] VITALS: BP 93/65; PULSE 79; RESP 16; O2SAT 100
[2018-07-25 23:47] LABS: Basophil# 0.04 X10^3/uL; Basophil% 0.4 % (0-1); Eosinophil# 0.66 X10^3/uL; Eosinophils% 6.5 % (0-5); Hematocrit 36.7 % (37-47); Hemoglobin 11.9 g/dl (12.0-15.0); Lymphocyte % 23.6 % (19-41); Mean Corp Hgb Conc 32.4 g/gl (32-36); Mean Corpuscular Hgb 29.6 pg (27.0-32.0); Mean Corpuscular Volume 91.3 fL (81-99); Mean Platelet Vol. 10.9 fl (6.2-12.0); Monocyte# 1.02 X10^3/uL; Neutrophil # 6.03 X10^3/uL (2.7-7.7); Neutrophil % 59.2 % (47-70); Platelet Count 269 K/mm3 (150-450); RBC Distribution Width CV 14.7 % (11.6-14.6); RBC Distribution Width SD 48.2 fl (35.1-43.9); Red Blood Count 4.02 M/mm3 (4.2-5.4); White Blood Count 10.2 K/mm3 (4.4-11.0)
[2018-07-25 23:49] LABS: POSITIVE COUNT NO; POSITIVE DIFFERENTIAL NO; POSITIVE MORPHOLOGY NO
[2018-07-25 23:51] LABS: Bacteria 0 SEEN /hpf (None Seen); Red Blood Cells-Urine 0 SEEN /hpf (0-5); Squamous Epithelial Cells - UA 0 SEEN /hpf (5-10)
[2018-07-25 23:58] LABS: Color, Urine Yellow (Yellow); Glucose, Dipstick Normal (Normal); Ketone-Dipstick 5 mg/dl (Negative); Leukocyte Esterase-Dipstick 25 /ul (Negative); Nitrite-Dipstick Negative (Negative); Occult Blood-Urine Negative /ul (Negative); Protein-Dipstick 30 mg/dl (Negative); Urine Bilirubin Dipstick Negative (Negative); Urine Clarity Clear (Clear); Urine Urobilinogen 1 mg/dl (Normal)
[2018-07-26] VITALS (16 sets, daily range): BP systolic 82–106; BP diastolic 29–64; PULSE 57–77; RESP 16–18; TEMP 36–37.4; O2SAT 94–100; BMI 23.4
--- NOTE | 2018-07-26 00:03 | ED.DCSUM_ITS ---
- ER Visit Summary Date of Service: 07/26/18 Chief Complaint: Fall and hypoxia History of Present Illness: The patient is a 72 F presenting for evaluation secondary to fall. Patient has a relatively significant medical history including congestive heart failure A. fib rheumatoid arthritis and generalized d ebility. She lives at home with her sister and uses a walker to ambulate. Apparently the patient suffered a same level fall today. Patient reports that she was trying to ambulate and her legs just gave out from underneath her. She denies that she tripped, but also denies that she had or had loss consciousness, or that she has any sort of numbness or weakness. She suffered a skin tear on her right ankle her tetanus status is up-to-date. She states that she has baseline back pain that is unchanged. She denies any bowel or bladder incontinence. She denies that there is any sort of preceding chest pain shortness of breath or recent infectious signs or symptoms such as nausea vomiting diarrhea fevers dysuria or hematuria. Patient had EMS called on her, and she was noted to be hypoxic so she was recommended to come to the emergency department. Physical Examination: Vital signs notable for pulse ox of 88% on room air with hypoxia. Cachectic female no acute distress. Head normal cephalic atraumatic. PRL, EOMI no evidence of hemotympanum. Neck was nontender. Heart was regular rate and rhythm with a 1 out of 6 systolic murmur noted. Lung sounds showed sugar dence of shallow respirations with decreased breath sounds but no respiratory distress. Abdomen soft nontender. Back was diffusely tender in the lumbar region consistent with patient's history with no step-offs. Remedies were atraumatic except for the right lower extremity which shows a small skin tear over the medial portion of the patient's right ankle. Patient was alert and oriented without lateralizing deficits. Test Results: EKG demonstrates sinus rhythm at [address] segments, old inferior Q waves but new anterior Q waves that are changed from April of this year. CBC shows mild anemia 11.9, chemistry shows creatinine 1.63, urinalysis negative troponin negative BNP negative. Chest x-ray shows fluid in the lungs bilaterally. Emergency Department Course and Treatment: Patient presented for evaluation secondary to fall and was subsequently found to be hypoxic. Workup as noted above shows fluid in the patient's lungs. Patient does not have a leukocytosis she denies that she had any sort of infectious prodrome with this so I believe the likelihood of pneumonia is quite low. She does have a history of diastolic heart failure likely is the etiology. Patient was given a dose of Lasix in the emergency department. Patient's skin tear was dressed with bacitracin. She had no other evidence of trauma from her fall. Patient will be admitted under the hospitalist. Disposition: Admission Impression: 1. CHF exacerbation 2. Hypoxia This note was generated with [employer] dictation software. It may contain incorrect words, spelling, and punctuation that were not noted in review of the chart prior to signing ED Disposition - Plan for ED Patient: Chief Complaint: Fall Referrals: Abhijit Jett Chi, MD [Primary Care Provider] -
[2018-07-26 00:08] LABS: Hyaline Cast 0-5 SEEN /lpf (0-5); Mucous, Urine RARE /hpf (<or=2+); White Blood Cells 0-5 SEEN /hpf (0-5)
[2018-07-26 00:09] LABS: Amorphous Sediment R
[2018-07-26 00:15] LABS: Anion Gap 7 (5-15); BUN 22 mg/dL (7-18); BUN/Creat Ratio 13.5 RATIO (10-20); Calcium,Total 8.9 mg/dL (8.5-10.1); Chloride 109 mmol/L (98-107); Creatinine, Serum 1.63 mg/dL (0.55-1.02); EST Glomerular Filtration Rate 33 mL/min (>60); Est Glom Filt Rate - Afr Amer 40 mL/min (>60); Estimated Creatinine Clearance 29.45 ml/min; Glucose 97 mg/dL (74-106); Potassium 3.8 mmol/L (3.5-5.1); Sodium Level 139 mmol/L (136-145)
[2018-07-26 00:23] LABS: BNP,B-Type NATRIURETIC PEPTIDE 46.5 pg/mL (0-100)
--- NOTE | 2018-07-26 00:41 | HP.PCM_ITS ---
Problem List (1) Fall Status: Acute History of Present Illness Date of Admission: 07/26/18 Chief Complaint: fall The patient is a 72 year old F with an extensive PMH as listed above; She was admitted via the ED with a complaint of fall earlier on day of admission. Patient says her knee just fell weak and she fell. She denied hitting her head, and denied any lightheadedness, shortness of breath, dizziness or syncopal episode. She just felt weak and her knees gave out. She has had sevreal falls in the past, the last one being ~ 3 months ago. She lives with her sister who is 82 and takes care of her. She denied any lower extremity swelling. The ED, vitals were stable and chemistry was significant only for creatinine of 1.63 which is actually lower than her baseline. BNP was 46.5. Chest x-ray showed increased opacity in the right midlung and lung base compared to the previous study which is consistent with pneumonia. Lung urbina were otherwise clear. She is being admitted to be managed for recurrent falls due to debility. [] Past Medical History Past Medical History (Chronic Problems): Chronic Problems (Last Updated 07/26/18 @ 01:34 by Gwen Sarabia) Fibromyalgia (Chronic) HTN (hypertension) (Chronic) Rheumatoid arthritis (Chronic) on no medications for RA - diagnosed in [place] many years ago Dyslipidemia (Chronic) Sjogren's syndrome (Chronic) CKD (chronic kidney disease), stage III (Chronic) Diastolic CHF (Chronic) Cephalalgia (Chronic) IBS (irritable bowel syndrome) (Chronic) PUD (peptic ulcer disease) (Chronic) Osteoarthritis (Chronic) Vertigo (Chronic) Compression fracture of body of thoracic vertebra (Chronic) Medical History: Medical History (Last Updated 07/26/18 @ 01:34 by Gwen Sarabia) Afib I48.91 H/O Sjogren's disease Z87.39 CVA (cerebral vascular accident) I63.9 Chronic kidney disease N18.9 Depression F32.9 H/O deep venous thrombosis Z86.718 History of hysterectomy Z98.890, Z90.710 1976 Allergies acetaminophen [From Tylox] Allergy (Verified 07/25/18 22:00) sees critters amoxicillin Allergy (Verified 07/25/18 22:00) Hives ciprofloxacin [From Cipro] Allergy (Verified 07/25/18 22:00) Itching ciprofloxacin HCl [From Cipro] Allergy (Verified 07/25/18 22:00) Itching indomethacin Allergy (Verified 07/25/18 22:00) Itching nortriptyline HCl [From Pamelor] Allergy (Verified 07/25/18 22:00) see animals coming out of floor oxycodone [From Tylox] Allergy (Verified 07/25/18 22:00) sees critters Sulfa (Sulfonamide Antibiotics) Allergy (Verified 07/25/18 22:00) Itching warfarin [From Coumadin] Allergy (Verified 07/25/18 22:00) Itching iodine Adverse Reaction (Verified 07/25/18 22:00) Itching nortriptyline [Nortriptyline] Adverse Reaction (Verified 04/10/18 10:05) see animals coming out of floor warfarin sodium [From Coumadin] Adverse Reaction (Verified 03/05/18 10:23) Itching Home Medications: Ambulatory Orders Medication Instructions Recorded Atorvastatin Calcium [Lipitor] 20 mg PO QHS 01/14/18 Sertraline HCl [Zoloft] 100 mg PO BID 01/14/18 Sumatriptan Succinate 100 mg PO DAILY PRN PRN 02/28/18 Hydroxyzine HCl 50 mg PO DAILY PRN 03/05/18 Metoclopramide [Reglan] 10 mg PO TID PRN 03/05/18 Alendronate Sodium 70 mg PO MO 04/10/18 Topiramate [Topamax] 25 mg PO BID 04/10/18 Hydrocodone/Acetaminophen 1 each PO TID PRN PRN 07/03/18 [Hydrocodone-Acetamin 5-325 mg] Ondansetron HCl [Zofran] 4 mg PO Q8H PRN PRN 07/03/18 Pregabalin [Lyrica] 100 mg PO TID 07/03/18 Methadone HCl 07/26/18 Tamsulosin HCl [Flomax] 0.4 mg PO DAILY@1730 07/26/18 Surgical History: Surgical History (Last Updated 07/26/18 @ 03:10 by Gwen Sarabia) H/O brain surgery Z98.890 H/O eye surgery Z98.890 H/O foot surgery Z98.890 History of hip surgery Z98.890 gallbladder removal Surgical History: angioplasty - pt denies this - she says that she only had an ablation and she does not have any hx of CAD., appendectomy, hysterectomy, total hip arthroplasty - recent right hip replacement, tonsillectomy, - - craniotomy to remove blood clots after a fall. 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 Denies: Chills, Fever, Weight Change Eyes: Denies: Blurred vision HEENT: Denies: Head Aches, Sinus Congestion, Sinus Drainage Cardiovascular: Denies: Chest Pain, Edema, Heaviness, Light Headedness, Palpitations Respiratory: Denies: Cough, Shortness of Breath, Shortness of breath at rest, Sputum production Gastrointestinal: Denies: Abdominal Pain, Nausea, Vomiting Genitourinary: Denies: Dysuria Musculoskeletal: Denies: Foot Pain, Hand Pain, Joint Pain, Joint Tenderness Neurological: Reports: Balance problems. Denies: Focal weakness, Numbness, Tingling Psychiatric: Denies: Anxiety, Depression, Homicidal Ideations, Suicidal Ideations Hematologic/ Lymphatic: Denies: Easy Bruising, Easy Bleeding VTE Information - Inpt Only VTE Present on Admission: No VTE Mechan Device Prophylaxis: SCD's Patient Problems: Active and Suspected Problems (Last Updated 07/26/18 @ 01:34 by Gwen Sarabia) Fall (Acute) - Physical Exam General: Alert, Oriented x3, Cooperative, - - frail, lethargic HEENT: Atraumatic, PERRLA, EOMI, Normocephalic Oral: Dry Mucosa Neck: Supple, No JVD, Negative Carotid Bruits Lungs: Clear to auscultation, Normal air movement, No rhonchi, No wheeze, No rales Cardiovascular: Regular rate, Regular Rhythm, Normal S1, Normal S2, No murmurs Abdomen: Bowel Sounds Present, Soft, Non Tender, Non-Distended, No Hepato- splenomegaly Extremities: No clubbing, No cyanosis, No edema, Capillary Refill Less than 3 Seconds Skin: No breakdown, - - bleeding superficial abrasions on shins bilaterally, due to fall Musculoskeletal: No Tenderness to Palpation of Joints or Extremities Lymphatic: No Cervical, Supraclavicular, or Inguinal Adenopathy Neurological: Cranial nerves II-XII grossly intact, Neuro grossly intact Psych/Mental Status: Normal Affect, Appropriate, Alert and oriented to time, place, person, mood and affect Vital Signs Temp Pulse Resp BP Pulse Ox 98.7 F 79 16 93/65 100 07/25/18 21:50 07/25/18 23:01 07/25/18 23:01 07/25/18 23:01 07/25/18 23:01 Oxygen Flow Rate (L/min) 2 Oxygen Delivery Method Nasal Cannula Weight: 156 lb 4.924 oz Body Mass Index (BMI) 24.5 Finger Stick Blood Glucose 107 Laboratory Tests Past 24 Hrs 07/25/18 07/25/18 07/25/18 23:35 23:35 23:35 WBC 10.2 RBC 4.02 L Hgb 11.9 L Hct 36.7 L MCV 91.3 MCH 29.6 MCHC 32.4 RDW 14.7 H RDW Differential 48.2 H Plt Count 269 MPV 10.9 Immature Gran % (Auto) 0.300 Neut % (Auto) 59.2 Lymph % (Auto) 23.6 Frontier % (Auto) 10.0 Eos % (Auto) 6.5 H Baso % (Auto) 0.4 Absolute Neuts (auto) 6.0 Absolute Lymphs (auto) 2.40 Total Counted Not Reportable Sodium 139 Potassium 3.8 Chloride 109 H Carbon Dioxide 23.0 Anion Gap 7 BUN 22 H Creatinine 1.63 H Estim Creat Clear Calc 29.45 Est GFR (MDRD) Af Amer 40 L Est GFR (MDRD) Non-Af 33 L BUN/Creatinine Ratio 13.5 Glucose 97 Calcium 8.9 Troponin I < 0.015 B-Natriuretic Peptide 46.5 Urine Color Urine Clarity Urine pH Ur Specific Gulliver Urine Protein Urine Glucose (UA) Urine Ketones Urine Occult Blood Urine Nitrite Urine Bilirubin Urine Urobilinogen Ur Leukocyte Esterase Urine RBC Urine WBC Ur Squamous Epith Cells Amorphous Sediment Urine Bacteria Hyaline Casts Urine Mucus 07/25/18 23:45 WBC RBC Hgb Hct MCV MCH MCHC RDW RDW Differential Plt Count MPV Immature Gran % (Auto) Neut % (Auto) Lymph % (Auto) Frontier % (Auto) Eos % (Auto) Baso % (Auto) Absolute Neuts (auto) Absolute Lymphs (auto) Total Counted Sodium Potassium Chloride Carbon Dioxide Anion Gap BUN Creatinine Estim Creat Clear Calc Est GFR (MDRD) Af Amer Est GFR (MDRD) Non-Af BUN/Creatinine Ratio Glucose Calcium Troponin I B-Natriuretic Peptide Urine Color Yellow Urine Clarity Clear Urine pH 5.0 Ur Specific Gulliver 1.020 Urine Protein 30 H Urine Glucose (UA) Normal Urine Ketones 5 H Urine Occult Blood Negative Urine Nitrite Negative Urine Bilirubin Negative Urine Urobilinogen 1 H Ur Leukocyte Esterase 25 H Urine RBC 0 SEEN Urine WBC 0-5 SEEN Ur Squamous Epith Cells 0 SEEN Amorphous Sediment R Urine Bacteria 0 SEEN Hyaline Casts 0-5 SEEN Urine Mucus RARE Diagnostic Data Chest X-Ray 07/25/18 22:58 IMPRESSION: Increased opacity in the right midlung and left lung base compared to the prior study, consistent with pneumonia. Electronically Signed: Prisca Schwartz MD at 23:24 EDT Tel , Service support , Assessment/Plan All Active Problems (Last Updated 07/26/18 @ 01:34 by Gwen Sarabia) Myocardial infarct, old (Resolved) Phenytoin toxicity (Resolved) Pain pump trial (Acute) Epidural analgesia (Acute) Fall (Acute) Acute delirium (Resolved) Bradycardia (Resolved) Cystitis, acute (Resolved) Dizziness (Resolved) Fall (Resolved) Meningitis (Resolved) 72 y/o female presenting with history of fall and debility 1. Mechanical fall due to general debility * has been falling frequently at home * check orthostatics * fall precautions * hydrate with IVF NS @ 75cc/hr x 1 bag * PT/OT consult * case management consult for placement for rehab * 2. HFpEF * initially thought to have CHF exacerbation in ED. BNP however only 47 * says she has never been put on diuretics in the past as she didnt need it. * CXR showed possible pneumonia; however per my review of CXR, it is a very rotated film with poor inspiration * repeat CXR tomorrow * 2D echo (2012): EF of 70%., with normal LVSF nad mild concentric LVH.No regional wall motion abnormalities noted * will benefit from repeat echo * 3. History of urinary retention * stable. ON flomax * 4. Hyperlipidemia: stable. On atorvastatin. 5. Chronic back pain: on pain percocet and lyrica 6. FIbromyalgia and Sjogren's syndrome: on lyrica. DVT prophylaxis: SCDs Code status: full code. * Patient counselled about different types of code status, and differences between full code, DNRCC and DNRCCA. Patient elects to be full code. Total face to face time- 16 mins Code Visit Inpatient E&M: 75564 Init Hosp L3 Procedures: 99085 Advncd Care Plan 30 Min
[2018-07-26] MEDS: BACITRACIN 15 GM Tube 1 APPLIC TOPICAL (01:10)
[2018-07-26] MEDS: Furosemide 40 MG/4 ML Vial IV (01:10)
[2018-07-26] MEDS: 0.9% Normal Saline 1,000 ML 75 ML IV (04:09)
[2018-07-26] MEDS: 0.9% NaCl Peripheral Flush Adult/Peds IV ×2 (04:10→15:04)
--- NOTE | 2018-07-26 05:40 | NURSING ---
0450 Attempted IV start x 2, unsuccessful, called Agata RN nursing steel pan form placing supervisor to start.
--- NOTE | 2018-07-26 08:00 | ECHOD_ITS ---
Reason For Study: CHF Procedure This was a 2D Doppler, Color Flow transthoracic echocardiogram. Exam performed portable in patient room. Left Ventricle Normal size and thickness. The estimated ejection fraction is 65 %. Stage 1 diastolic dysfunction. No regional wall motion abnormalities noted. Right Ventricle Normal size and thickness. Normal systolic function. Atria The left atrium is mildly enlarged. Normal right atrium. Normal atrial septum. Mitral Valve Normal mitral valve. Tricuspid Valve Normal tricuspid valve. Mild (1+) tricuspid valve insufficiency. Right ventricular systolic pressure estimated to be 31 mmHg. Aortic Valve Trisinus/trileaflet aortic valve. Pulmonic Valve Normal pulmonic valve. Great Vessels Normal aortic root. Normal arch. Normal inferior vena cava. Inferior vena cava collapse with sniff. Pericardium/Pleural No pericardial effusion. MMode/2D Measurements & Calculations LVIDd: 4.8 cm IVSd: 1.1 cm Ao root diam: 3.3 cm LVIDs: 3.3 cm LVPWd: 0.99 cm LA dimension: 4.0 cm RVDd: 3.7 cm FS: 32.6 % LAV(MOD-bp): 77.2 ml EDV(MOD-sp4): 60.0 ml EDV(MOD-sp2): 40.0 ml LAV(MOD-bp) Indexed: 43.3 ml/m2 ESV(MOD-sp4): 27.1 ml EF(MOD-sp2): 49.3 % LAV(MOD-sp2): 74.6 ml EF(MOD-sp4): 54.7 % LAV(MOD-sp4): 71.3 ml SV(MOD-sp4): 32.8 ml SV(MOD-sp2): 19.7 ml LA A4 area: 22.7 cm2 Doppler Measurements & Calculations MV E max oleg: 71.7 cm/sec Lat Peak E' Oleg: 12.6 cm/sec Med Peak E' Oleg: 8.3 cm/sec MV A max oleg: 54.0 cm/sec E/E' lat: 5.7 E/E' med: 8.6 MV E/A: 1.3 Ao V2 max: 121.2 cm/sec LV V1 max: 76.9 cm/sec PA V2 max: 90.5 cm/sec Ao max P.9 mmHg LV V1 max P.4 mmHg TR max oleg: 246.6 cm/sec TR max P.4 mmHg Interpretation Summary The estimated ejection fraction is 65 %. Stage 1 diastolic dysfunction. Mild (1+) tricuspid valve insufficiency. Right ventricular systolic pressure estimated to be 31 mmHg. Compared to echo report dated 01/15/2013, no appreciable changes noted. Ordering Physician: Paula Sellers Referring Physician: Abhijit Jett Chi Performed By: Diana Hernadez, ARTHUR, RVT
[2018-07-26 08:02] LABS: Anion Gap 10 (5-15); BUN 25 mg/dL (7-18); BUN/Creat Ratio 16.9 RATIO (10-20); Calcium,Total 8.6 mg/dL (8.5-10.1); Chloride 109 mmol/L (98-107); Creatinine, Serum 1.48 mg/dL (0.55-1.02); EST Glomerular Filtration Rate 37 mL/min (>60); Est Glom Filt Rate - Afr Amer 44 mL/min (>60); Estimated Creatinine Clearance 32.43 ml/min; Glucose 77 mg/dL (74-106); Potassium 3.3 mmol/L (3.5-5.1); Sodium Level 140 mmol/L (136-145)
--- NOTE | 2018-07-26 09:28 | CASEMGMT ---
SW met with patient, introduced self and role at [facility]. Patient lives in a 1 story home with 4 entry steps. Her sister lives with her. She uses a walker usually. She has had home health in the past and she has been to many nursing homes for rehab before. She would like to go to the [facility] at d/c. YAHAIRA told her SW will work on this referral. Plan: [facility] [place]
[2018-07-26] MEDS: Sertraline 100 MG Tablet PO ×2 (09:45→23:08)
[2018-07-26] MEDS: Topiramate 25 MG Tablet PO ×2 (09:45→23:08)
--- NOTE | 2018-07-26 11:00 | RAD_ITS ---
STUDY: X-RAY CHEST REASON FOR EXAM: Female, 72 years old. SOB TECHNIQUE: Frontal and lateral views of the chest. COMPARISON: 07/25/2018 FINDINGS: Chronic interstitial lung changes without superimposed acute alveolar disease. There is no demonstrated pleural abnormality. Stable cardiac silhouette. Normal mediastinum and maged. Normal visualized pulmonary arteries. Normal visualized aortic arch and descending thoracic aorta. Thoracic kyphoplasty. Normal visualized ribs, clavicles, and shoulders. Abdominal clips. RAD/Chest PA and Lateral IMPRESSION: Chronic interstitial lung changes without superimposed acute alveolar disease. Electronically Signed: Nba Damon MD at 14:50 EDT Tel , Service support ,
--- NOTE | 2018-07-26 12:31 | PN_ITS ---
<Alicia Jackson - Last Filed: 07/26/18 12:32> Patient Problems: Active and Suspected Problems (Last Updated 07/26/18 @ 01:34 by Gwen Sarabia) Fall (Acute) Subjective: Patient seen and examined. Resting comfortably in bed. Denies current complaints. - Physical Exam General: Alert, Oriented x3, Cooperative, No apparent distress HEENT: Atraumatic, PERRLA, EOMI, Normocephalic Neck: Supple, No JVD, Negative Carotid Bruits Lungs: Clear to auscultation, Normal air movement Cardiovascular: Regular rate, Regular Rhythm, Normal S1, Normal S2, No murmurs Abdomen: Bowel Sounds Present, Soft, Non Tender, Non-Distended Extremities: No clubbing, No cyanosis, No edema, Capillary Refill Less than 3 Seconds Skin: No rashes, No breakdown, - - Scattered abrasions secondary to fall prior to admission Musculoskeletal: No Tenderness to Palpation of Joints or Extremities Neurological: Cranial nerves II-XII grossly intact, Neuro grossly intact Psych/Mental Status: Normal Affect, Appropriate Vital Signs Temp Pulse Resp BP Pulse Ox 97.8 F 68 16 97/48 L 100 07/26/18 10:55 07/26/18 11:06 07/26/18 10:55 07/26/18 10:55 07/26/18 10:55 Oxygen Flow Rate (L/min) 2 Oxygen Delivery Method Room Air Weight: 150 lb 12.739 oz Body Mass Index (BMI) 23.4 Finger Stick Blood Glucose 107 Intake and Output for Last 24 Hours 07/24/18 07/25/18 07/26/18 23:59 23:59 23:59 Intake Total 20 / 20 Output Total 700 / 700 Balance -680 / -680 Laboratory Tests Past 24 Hrs 07/25/18 07/25/18 07/25/18 23:35 23:35 23:35 WBC 10.2 Corrected WBC RBC 4.02 L Hgb 11.9 L Hct 36.7 L MCV 91.3 MCH 29.6 MCHC 32.4 RDW 14.7 H RDW Differential 48.2 H Plt Count 269 MPV 10.9 Immature Gran % (Auto) 0.300 Neut % (Auto) 59.2 Lymph % (Auto) 23.6 [place] % (Auto) 10.0 Eos % (Auto) 6.5 H Baso % (Auto) 0.4 Immature Gran # (Auto) Absolute Neuts (auto) 6.0 Absolute Lymphs (auto) 2.40 Absolute Monos (auto) Total Counted Not Reportable Neutrophils % (Manual) Band Neutrophils % Lymphocytes % (Manual) Monocytes % (Manual) Eosinophils % (Manual) Basophils % (Manual) Metamyelocytes % Myelocytes % Promyelocytes % Blast Cells % Plasma Cell % (Manual) Other Cells % Lymphocytes # Nucleated RBCs/100 WBC Differential Comment Diff Path Review Hypersegmented Neuts Atypical Lymphocytes Reactive Lymphocytes Smudge Cells Eosinophilia # Basophilia # Toxic Granulation Dohle Bodies Ludy Rods Platelet Estimate Plt Morphology Comment RBC Morphology Polychromasia Hypochromasia Poikilocytosis Basophilic Stippling Anisocytosis Microcytosis Macrocytosis Spherocytes Sickle Cells Target Cells Tear Drop Cells Ovalocytes Stomatocytes [place] Bodies [place] Cells Bite Cells Acanthocytes (Spur) Rouleaux Schistocytes Sodium 139 Potassium 3.8 Chloride 109 H Carbon Dioxide 23.0 Anion Gap 7 BUN 22 H Creatinine 1.63 H Estim Creat Clear Calc 29.45 Est GFR (MDRD) Af Amer 40 L Est GFR (MDRD) Non-Af 33 L BUN/Creatinine Ratio 13.5 Glucose 97 Calcium 8.9 Troponin I < 0.015 B-Natriuretic Peptide 46.5 Urine Color Urine Clarity Urine pH Ur Specific [place] Urine Protein Urine Glucose (UA) Urine Ketones Urine Occult Blood Urine Nitrite Urine Bilirubin Urine Urobilinogen Ur Leukocyte Esterase Urine RBC Urine WBC Ur Squamous Epith Cells Amorphous Sediment Urine Bacteria Hyaline Casts Urine Mucus 07/25/18 07/26/18 07/26/18 23:45 07:18 07:18 WBC Cancelled Corrected WBC Cancelled RBC Cancelled Hgb Cancelled Hct Cancelled MCV Cancelled MCH Cancelled MCHC Cancelled RDW Cancelled RDW Differential Cancelled Plt Count Cancelled MPV Cancelled Immature Gran % (Auto) Cancelled Neut % (Auto) Cancelled Lymph % (Auto) Cancelled [place] % (Auto) Cancelled Eos % (Auto) Cancelled Baso % (Auto) Cancelled Immature Gran # (Auto) Cancelled Absolute Neuts (auto) Cancelled Absolute Lymphs (auto) Cancelled Absolute Monos (auto) Cancelled Total Counted Cancelled Neutrophils % (Manual) Cancelled Band Neutrophils % Cancelled Lymphocytes % (Manual) Cancelled Monocytes % (Manual) Cancelled Eosinophils % (Manual) Cancelled Basophils % (Manual) Cancelled Metamyelocytes % Cancelled Myelocytes % Cancelled Promyelocytes % Cancelled Blast Cells % Cancelled Plasma Cell % (Manual) Cancelled Other Cells % Cancelled Lymphocytes # Cancelled Nucleated RBCs/100 WBC Cancelled Differential Comment Cancelled Diff Path Review Cancelled Hypersegmented Neuts Cancelled Atypical Lymphocytes Cancelled Reactive Lymphocytes Cancelled Smudge Cells Cancelled Eosinophilia # Cancelled Basophilia # Cancelled Toxic Granulation Cancelled Dohle Bodies Cancelled [place] Rods Cancelled Platelet Estimate Cancelled Plt Morphology Comment Cancelled RBC Morphology Cancelled Polychromasia Cancelled Hypochromasia Cancelled Poikilocytosis Cancelled Basophilic Stippling Cancelled Anisocytosis Cancelled Microcytosis Cancelled Macrocytosis Cancelled Spherocytes Cancelled Sickle Cells Cancelled Target Cells Cancelled Tear Drop Cells Cancelled Ovalocytes Cancelled Stomatocytes Cancelled [place] Bodies Cancelled [place] Cells Cancelled Bite Cells Cancelled Acanthocytes (Spur) Cancelled Rouleaux Cancelled Schistocytes Cancelled Sodium 140 Potassium 3.3 L Chloride 109 H Carbon Dioxide 21.0 Anion Gap 10 BUN 25 H Creatinine 1.48 H Estim Creat Clear Calc 32.43 Est GFR (MDRD) Af Amer 44 L Est GFR (MDRD) Non-Af 37 L BUN/Creatinine Ratio 16.9 Glucose 77 Calcium 8.6 Troponin I B-Natriuretic Peptide Urine Color Yellow Urine Clarity Clear Urine pH 5.0 Ur Specific [place] 1.020 Urine Protein 30 H Urine Glucose (UA) Normal Urine Ketones 5 H Urine Occult Blood Negative Urine Nitrite Negative Urine Bilirubin Negative Urine Urobilinogen 1 H Ur Leukocyte Esterase 25 H Urine RBC 0 SEEN Urine WBC 0-5 SEEN Ur Squamous Epith Cells 0 SEEN Amorphous Sediment R Urine Bacteria 0 SEEN Hyaline Casts 0-5 SEEN Urine Mucus RARE Medical Necessity - Tobacco Use Smoking Status: Never smoker Tobacco Use: Cigarettes Assessment/Plan All Active Problems (Last Updated 07/26/18 @ 01:34 by Gwen Sarabia) Myocardial infarct, old (Resolved) Phenytoin toxicity (Resolved) Pain pump trial (Acute) Epidural analgesia (Acute) Fall (Acute) Acute delirium (Resolved) Bradycardia (Resolved) Cystitis, acute (Resolved) Dizziness (Resolved) Fall (Resolved) Meningitis (Resolved) 1. General physical debility with mechanical fall prior to admission-frequent falls at home. PT/OT. SNF pending pre-cert. Check orthostatic vitals. Suspect gait instability may be due to narcotic regimen due to chronic back pain. Case management involved. 2. Chronic back pain secondary to rheumatoid arthritis, multiple old compression fractures and fibromyalgia-follows with pain management, Dr. Hernandez. Recent pain pump trial with observation admission in June. Continue outpatient follow-up with pain management. Continue as needed [place]. Lyrica regimen. Patient is also on methadone regimen at home. 3. Acute CHF/acute pneumonia-ruled out. BNP within normal limits. No evidence of acute CHF. Chest x-ray without evidence of pneumonia. Afebrile. No leukocytosis. Oxygen now 100% on room air. Prior echo with normal EF. Repeat echo ordered on admission and pending. 4. Acute kidney injury on chronic kidney disease stage III-improved with IV fluids. Trend BMP. 5. Mild hypotension-suspect secondary to dehydration/acute kidney injury. Improved with IV fluids. 6. Urinary retention during recent admission-continue Flomax regimen. 7. History of IN-continue statin. Not on aspirin or beta sahil regimen. 8. Chronic diastolic CHF-no acute exacerbation. Not on diuretic regimen, ACEi/ARB. 9. Hypertension-stable, not on regimen. 10. Hyperlipidemia- continue statin. 11. Osteoporosis- on alendronate regimen. 12. History of Sjogren's 13. Anxiety/depression-continue home sertraline regimen. 14. History of migraines-continue Topamax regimen. PRN triptan. DVT prophylaxis-heparin subcu. Discharge planning: SNF pending pre-cert. Plan for DC date 07/29/18. This patient was seen by PARTH Zarate under the supervision of Dr. Mcdermott. <Eliza Mcdermott - Last Filed: 07/26/18 17:10> - Physical Exam Vital Signs Temp Pulse Resp BP Pulse Ox 99.4 F H 69 18 101/52 L 94 07/26/18 16:54 07/26/18 16:54 07/26/18 16:54 07/26/18 16:54 07/26/18 16:54 Oxygen Flow Rate (L/min) 2 Oxygen Delivery Method Room Air Weight: 68.4 kg Body Mass Index (BMI) 23.4 Finger Stick Blood Glucose 107 Orthostatic Vital Signs Start: 10/11/18 03:42 Freq: q24h Status: Active Protocol: Activity Type Activity Date Activity User E-Sign Co-Sign Detail Recorded Client Recorded Date Recorded By Document 07/26/18 14:25 AMG [id number] 07/26/18 14:26 AMG 07/26/18 14:25 Orthostatic Vitals Standing -Blood Pressure (90/60-120/80) 101/54 L -Extremity Use Right Arm -Pulse Rate (60-100) 77 Sitting -Blood Pressure (90/60-120/80) 106/44 L -Extremity Use Right Arm -Pulse Rate (60-100) 72 Lying -Blood Pressure (90/60-120/80) 90/42 L -Extremity Use Right Arm -Pulse Rate (60-100) 42 L Intake and Output for Last 24 Hours 07/24/18 07/25/18 07/26/18 23:59 23:59 23:59 Intake Total 269 / 269 Output Total 700 / 700 Balance -431 / -431 Laboratory Tests Past 24 Hrs 07/25/18 07/25/18 07/25/18 23:35 23:35 23:35 WBC 10.2 Corrected WBC RBC 4.02 L Hgb 11.9 L Hct 36.7 L MCV 91.3 MCH 29.6 MCHC 32.4 RDW 14.7 H RDW Differential 48.2 H Plt Count 269 MPV 10.9 Immature Gran % (Auto) 0.300 Neut % (Auto) 59.2 Lymph % (Auto) 23.6 [place] % (Auto) 10.0 Eos % (Auto) 6.5 H Baso % (Auto) 0.4 Immature Gran # (Auto) Absolute Neuts (auto) 6.0 Absolute Lymphs (auto) 2.40 Absolute Monos (auto) Total Counted Not Reportable Neutrophils % (Manual) Band Neutrophils % Lymphocytes % (Manual) Monocytes % (Manual) Eosinophils % (Manual) Basophils % (Manual) Metamyelocytes % Myelocytes % Promyelocytes % Blast Cells % Plasma Cell % (Manual) Other Cells % Lymphocytes # Nucleated RBCs/100 WBC Differential Comment Diff Path Review Hypersegmented Neuts Atypical Lymphocytes Reactive Lymphocytes Smudge Cells Eosinophilia # Basophilia # Toxic Granulation Dohle Bodies [place] Rods Platelet Estimate Plt Morphology Comment RBC Morphology Polychromasia Hypochromasia Poikilocytosis Basophilic Stippling Anisocytosis Microcytosis Macrocytosis Spherocytes Sickle Cells Target Cells Tear Drop Cells Ovalocytes Stomatocytes [place] Bodies Debi Cells Bite Cells Acanthocytes (Spur) Rouleaux Schistocytes Sodium 139 Potassium 3.8 Chloride 109 H Carbon Dioxide 23.0 Anion Gap 7 BUN 22 H Creatinine 1.63 H Estim Creat Clear Calc 29.45 Est GFR (MDRD) Af Amer 40 L Est GFR (MDRD) Non-Af 33 L BUN/Creatinine Ratio 13.5 Glucose 97 Calcium 8.9 Troponin I < 0.015 B-Natriuretic Peptide 46.5 Urine Color Urine Clarity Urine pH Ur Specific [place] Urine Protein Urine Glucose (UA) Urine Ketones Urine Occult Blood Urine Nitrite Urine Bilirubin Urine Urobilinogen Ur Leukocyte Esterase Urine RBC Urine WBC Ur Squamous Epith Cells Amorphous Sediment Urine Bacteria Hyaline Casts Urine Mucus 07/25/18 07/26/18 07/26/18 23:45 07:18 07:18 WBC Cancelled Corrected WBC Cancelled RBC Cancelled Hgb Cancelled Hct Cancelled MCV Cancelled MCH Cancelled MCHC Cancelled RDW Cancelled RDW Differential Cancelled Plt Count Cancelled MPV Cancelled Immature Gran % (Auto) Cancelled Neut % (Auto) Cancelled Lymph % (Auto) Cancelled [place] % (Auto) Cancelled Eos % (Auto) Cancelled Baso % (Auto) Cancelled Immature Gran # (Auto) Cancelled Absolute Neuts (auto) Cancelled Absolute Lymphs (auto) Cancelled Absolute Monos (auto) Cancelled Total Counted Cancelled Neutrophils % (Manual) Cancelled Band Neutrophils % Cancelled Lymphocytes % (Manual) Cancelled Monocytes % (Manual) Cancelled Eosinophils % (Manual) Cancelled Basophils % (Manual) Cancelled Metamyelocytes % Cancelled Myelocytes % Cancelled Promyelocytes % Cancelled Blast Cells % Cancelled Plasma Cell % (Manual) Cancelled Other Cells % Cancelled Lymphocytes # Cancelled Nucleated RBCs/100 WBC Cancelled Differential Comment Cancelled Diff Path Review Cancelled Hypersegmented Neuts Cancelled Atypical Lymphocytes Cancelled Reactive Lymphocytes Cancelled Smudge Cells Cancelled Eosinophilia # Cancelled Basophilia # Cancelled Toxic Granulation Cancelled Dohle Bodies Cancelled [place] Rods Cancelled Platelet Estimate Cancelled Plt Morphology Comment Cancelled RBC Morphology Cancelled Polychromasia Cancelled Hypochromasia Cancelled Poikilocytosis Cancelled Basophilic Stippling Cancelled Anisocytosis Cancelled Microcytosis Cancelled Macrocytosis Cancelled Spherocytes Cancelled Sickle Cells Cancelled Target Cells Cancelled Tear Drop Cells Cancelled Ovalocytes Cancelled Stomatocytes Cancelled [place] Bodies Cancelled Debi Cells Cancelled Bite Cells Cancelled Acanthocytes (Spur) Cancelled Rouleaux Cancelled Schistocytes Cancelled Sodium 140 Potassium 3.3 L Chloride 109 H Carbon Dioxide 21.0 Anion Gap 10 BUN 25 H Creatinine 1.48 H Estim Creat Clear Calc 32.43 Est GFR (MDRD) Af Amer 44 L Est GFR (MDRD) Non-Af 37 L BUN/Creatinine Ratio 16.9 Glucose 77 Calcium 8.6 Troponin I B-Natriuretic Peptide Urine Color Yellow Urine Clarity Clear Urine pH 5.0 Ur Specific [place] 1.020 Urine Protein 30 H Urine Glucose (UA) Normal Urine Ketones 5 H Urine Occult Blood Negative Urine Nitrite Negative Urine Bilirubin Negative Urine Urobilinogen 1 H Ur Leukocyte Esterase 25 H Urine RBC 0 SEEN Urine WBC 0-5 SEEN Ur Squamous Epith Cells 0 SEEN Amorphous Sediment R Urine Bacteria 0 SEEN Hyaline Casts 0-5 SEEN Urine Mucus RARE 07/26/18 14:45 WBC 9.5 Corrected WBC RBC 3.88 L Hgb 11.0 L Hct 35.5 L MCV 91.5 MCH 28.4 MCHC 31.0 L RDW 14.7 H RDW Differential 49.6 H Plt Count 261 MPV 10.4 Immature Gran % (Auto) 0.100 Neut % (Auto) 62.7 Lymph % (Auto) 22.7 [place] % (Auto) 8.5 Eos % (Auto) 5.8 H Baso % (Auto) 0.2 Immature Gran # (Auto) Absolute Neuts (auto) 5.9 Absolute Lymphs (auto) 2.15 Absolute Monos (auto) Total Counted Not Reportable Neutrophils % (Manual) Band Neutrophils % Lymphocytes % (Manual) Monocytes % (Manual) Eosinophils % (Manual) Basophils % (Manual) Metamyelocytes % Myelocytes % Promyelocytes % Blast Cells % Plasma Cell % (Manual) Other Cells % Lymphocytes # Nucleated RBCs/100 WBC Differential Comment Diff Path Review Hypersegmented Neuts Atypical Lymphocytes Reactive Lymphocytes Smudge Cells Eosinophilia # Basophilia # Toxic Granulation Dohle Bodies [place] Rods Platelet Estimate Plt Morphology Comment RBC Morphology Polychromasia Hypochromasia Poikilocytosis Basophilic Stippling Anisocytosis Microcytosis Macrocytosis Spherocytes Sickle Cells Target Cells Tear Drop Cells Ovalocytes Stomatocytes [place] Bodies Debi Cells Bite Cells Acanthocytes (Spur) Rouleaux Schistocytes Sodium Potassium Chloride Carbon Dioxide Anion Gap BUN Creatinine Estim Creat Clear Calc Est GFR (MDRD) Af Amer Est GFR (MDRD) Non-Af BUN/Creatinine Ratio Glucose Calcium Troponin I B-Natriuretic Peptide Urine Color Urine Clarity Urine pH Ur Specific [place] Urine Protein Urine Glucose (UA) Urine Ketones Urine Occult Blood Urine Nitrite Urine Bilirubin Urine Urobilinogen Ur Leukocyte Esterase Urine RBC Urine WBC Ur Squamous Epith Cells Amorphous Sediment Urine Bacteria Hyaline Casts Urine Mucus Assessment/Plan This patient was seen in conjunction with Alicia Jackson NP. I have independently interviewed and examined the patient and reviewed pertinent historical, laboratory, and other data. Please refer to her note for patient's presentation, findings, and recommendations. 72-year-old female with multiple comorbidities significant for chronic back pain, chronic pain syndrome, follows in the outpatient with Dr. Piper, who comes in after a fall. Patient was seen and examined. Denies any new complaints. Her pain is fairly controlled. No acute events overnight since being admitted Vitals were reviewed -stable; blood pressure slightly low, started on IV fluids Labs were reviewed, showed hypokalemia Physical Exam: Gen: Appears comfortable, not pale, not jaundiced, alert oriented x3 CVS:HS I +II, regular, no murmurs RESP: Diminished at lung bases GI: Full, firm, nontender, no ballotable organs EXT:No edema, tenderness over the right hip ASSESSMENT: 1. Debility 2. Chronic back pain, Chronic pain syndrome, follows with Dr. Piper 3. [place] I on CKD stage III 4. Relative hypotension secondary to dehydration/medication side effect 5. History of urinary retention, on Flomax 6. Hypertension 7. Hyperlipidemia 8. Anxiety/depression Meds reviewed Plan: We will continue with gentle hydration, monitor blood pressure closely Continue on current pain regimen PT and OT to evaluate and treat Discussed with care management, patient will possibly be discharged on Monday Code Visit Inpatient E&M: 85996 Subs Hosp L2
--- NOTE | 2018-07-26 13:37 | CASEMGMT ---
SW spoke with patient about Palliative Care per her request. Patient was in agreement with a referral being made to Palliative Care. SW faxed referral and also called Anyi at Palliative with referral. Plan: [facility] [place] under skilled level of care Y[facility] [place]
[2018-07-26] MEDS: Pregabalin 50 MG Capsule 100 MG PO ×2 (14:59→23:15)
[2018-07-26 15:03] LABS: Absolute Lymphocyte Count 2.15 X10^3/ul (0.83-4.51); Absolute Neutrophil Count 5.9 X10^3/uL (2.0-7.7); Basophil# 0.02 X10^3/uL; Basophil% 0.2 % (0-1); Eosinophil# 0.55 X10^3/uL; Eosinophils% 5.8 % (0-5); Hematocrit 35.5 % (37-47); Lymphocyte # 2.15 X10^3/ul (4.0); Lymphocyte % 22.7 % (19-41); Mean Corpuscular Hgb 28.4 pg (27.0-32.0); Mean Corpuscular Volume 91.5 fL (81-99); Mean Platelet Vol. 10.4 fl (6.2-12.0); Monocyte# 0.81 X10^3/uL; Monocyte% 8.5 % (0-10); Neutrophil # 5.94 X10^3/uL (2.7-7.7); Neutrophil % 62.7 % (47-70); Platelet Count 261 K/mm3 (150-450); RBC Distribution Width CV 14.7 % (11.6-14.6); RBC Distribution Width SD 49.6 fl (35.1-43.9); Red Blood Count 3.88 M/mm3 (4.2-5.4); White Blood Count 9.5 K/mm3 (4.4-11.0)
[2018-07-26 15:08] LABS: POSITIVE COUNT NO; POSITIVE DIFFERENTIAL NO; POSITIVE MORPHOLOGY NO
[2018-07-26] MEDS: Tamsulosin HCl 0.4 MG Capsule PO (16:56)
[2018-07-26] MEDS: HYDROcodone Bitartrate/Apap 5/325 Tablet PO ×2 (16:58→23:14)
[2018-07-26] MEDS: Atorvastatin Calcium 20 MG Tablet PO (23:06)
[2018-07-26] MEDS: Heparin Injection (Vial) 5,000 UNIT/ML VIAL 5000 UNIT SC (23:07)
[2018-07-27] VITALS (7 sets, daily range): BP systolic 92; BP diastolic 49–53; PULSE 59–72; RESP 16; TEMP 36.4–36.6; O2SAT 91–95
[2018-07-27] MEDS: 0.9% NaCl Peripheral Flush Adult/Peds IV (04:40)
[2018-07-27 05:01] LABS: Anion Gap 8 (5-15); BUN 22 mg/dL (7-18); BUN/Creat Ratio 17.9 RATIO (10-20); Calcium,Total 8.2 mg/dL (8.5-10.1); Chloride 110 mmol/L (98-107); Creatinine, Serum 1.23 mg/dL (0.55-1.02); EST Glomerular Filtration Rate 45 mL/min (>60); Est Glom Filt Rate - Afr Amer 55 mL/min (>60); Estimated Creatinine Clearance 39.02 ml/min; Glucose 84 mg/dL (74-106); Potassium 3.9 mmol/L (3.5-5.1); Sodium Level 142 mmol/L (136-145)
[2018-07-27] MEDS: Pregabalin 50 MG Capsule 100 MG PO ×2 (06:30→13:47)
[2018-07-27] MEDS: HYDROcodone Bitartrate/Apap 5/325 Tablet PO (08:41)
[2018-07-27] MEDS: Topiramate 25 MG Tablet PO (09:53)
[2018-07-27] MEDS: Sertraline 100 MG Tablet PO (09:54)
[2018-07-27] MEDS: Heparin Injection (Vial) 5,000 UNIT/ML VIAL 5000 UNIT SC (09:54)
--- NOTE | 2018-07-27 10:46 | CASEMGMT ---
YAHAIRA spoke with Greta from [place]. Patient has exhausted her Medicare assisted days so she would be private pay. YAHAIRA spoke with patient and let her know this information. She said she cannot afford this and she will have to go home with home health. YAHAIRA reviewed OT note from today and she is recommending home health. YAHAIRA spoke with patient and she is in agreement with home health and she is ok with [facility]. YAHAIRA told her we will order Social Work for home health so they can talk with her about usp plans. YAHAIRA called Carolina with [facility] and made the referral. Yarelis from Palliative Care is here talking with patient. Plan: [facility] PT/OT and YAHAIRA [facility]OVAR DISPATCH MANAGER
--- NOTE | 2018-07-27 11:54 | DCINST_ITS ---
- Discharge Diagnoses Current Active Problems: Current Active and Chronic Problems (Last Updated 07/26/18 @ 01:34 by Gwen Sarabia) Fall (Acute) You will use the following diet at home:: No restrictions Discharge Activity: Return to Normal Activity Call your doctor if you observe: Shortness of breath, Dizziness, Fainting spells, Chest pain Allergies/Adverse Reactions: Allergies acetaminophen [From Tylox] Allergy (Verified 07/26/18 01:12) sees gokultters amoxicillin Allergy (Verified 07/26/18 01:12) Hives ciprofloxacin [From Cipro] Allergy (Verified 07/26/18 01:12) Itching ciprofloxacin HCl [From Cipro] Allergy (Verified 07/26/18 01:12) Itching indomethacin Allergy (Verified 07/26/18 01:12) Itching nortriptyline HCl [From Pamelor] Allergy (Verified 07/26/18 01:12) see animals coming out of floor oxycodone [From Tylox] Allergy (Verified 07/26/18 01:12) sees jaden Sulfa (Sulfonamide Antibiotics) Allergy (Verified 07/26/18 01:12) Itching warfarin [From Coumadin] Allergy (Verified 07/26/18 01:12) Itching iodine Adverse Reaction (Verified 07/26/18 01:12) Itching nortriptyline [Nortriptyline] Adverse Reaction (Verified 07/26/18 01:12) see animals coming out of floor warfarin sodium [From Coumadin] Adverse Reaction (Verified 07/26/18 01:12) Itching Medications to take at Discharge Atorvastatin Calcium [Lipitor] 20 mg PO QHS 01/14/18 Sertraline HCl [Zoloft] 100 mg PO BID 01/14/18 Sumatriptan Succinate 100 mg PO DAILY PRN PRN 02/28/18 Hydroxyzine HCl 50 mg PO DAILY PRN 03/05/18 Metoclopramide [Reglan] 10 mg PO TID PRN 03/05/18 Alendronate Sodium 70 mg PO MO 04/10/18 Topiramate [Topamax] 25 mg PO BID 04/10/18 Hydrocodone/Acetaminophen [Hydrocodone-Acetamin 5-325 mg] 1 each PO TID PRN PRN 07/03/18 Ondansetron HCl [Zofran] 4 mg PO Q8H PRN PRN 07/03/18 Pregabalin [Lyrica] 100 mg PO TID 07/03/18 Methadone HCl 07/26/18 Tamsulosin HCl [Flomax] 0.4 mg PO DAILY@1730 07/26/18 Primary Care Physician: Abhijit Jett Chi, MD [Primary Care Provider] - Please follow up with your Primary Care Physician in: 1 Week Test Results: Test results from this visit will be discussed in further detail at your follow- up appointment, if applicable. Please Follow Up With: Mary Piper MD When: As scheduled Proposed Discharge Date: 07/27/18
--- NOTE | 2018-07-27 12:02 | DS.PCM_ITS ---
<Alicia Jackson - Last Filed: 07/27/18 12:03> Discharge Date and Diagnosis Date of Admission: 07/26/18 Date of Discharge: 07/27/18 - Primary Discharge Diagnosis Active and Suspected Problems (Last Updated 07/26/18 @ 01:34 by Gwen Sarabia) 1. Physical debility with mechanical fall prior to admission 2. Chronic back pain secondary to rheumatoid arthritis, multiple old compression fractures and fibromyalgia 3. Acute CHF/pneumonia both ruled out 4. Acute kidney injury on chronic kidney disease stage III 5. Mild hypotension 6. Palliative care transition - Secondary Discharge Diagnosis Chronic Problems (Last Updated 07/26/18 @ 01:34 by Gwen Sarabia) Fibromyalgia (Chronic) HTN (hypertension) (Chronic) Rheumatoid arthritis (Chronic) on no medications for RA - diagnosed in [place] many years ago Dyslipidemia (Chronic) Sjogren's syndrome (Chronic) CKD (chronic kidney disease), stage III (Chronic) Diastolic CHF (Chronic) Cephalalgia (Chronic) IBS (irritable bowel syndrome) (Chronic) PUD (peptic ulcer disease) (Chronic) Osteoarthritis (Chronic) Vertigo (Chronic) Compression fracture of body of thoracic vertebra (Chronic) Hospital Course and Treatment Imaging Results: Diagnostic Data Chest X-Ray 07/26/18 11:00 IMPRESSION: Chronic interstitial lung changes without superimposed acute alveolar disease. Electronically Signed: Nba Damon MD at 14:50 EDT Tel , Service support , Operations: None, - - Right hip hemiarthroplasty 09/07/13 Procedures: None Summary of Care Provided: The patient is a 72 year old F admitted 07/26/2018 due to fall. 1. General physical debility with mechanical fall prior to admission-frequent falls at home. PT/OT. Not able to be discharged to SNF due to patient unable to afford self-pay and she has run out of Medicare days. orthostatic vitals negative. Suspect gait instability may be due to narcotic regimen due to chronic back pain. Patient agreeable to palliative care. She will be discharged home with home health and palliative care services. Follow-up with primary care physician in 1 week and pain management as scheduled. 2. Chronic back pain secondary to rheumatoid arthritis, multiple old compression fractures and fibromyalgia-follows with pain management, Dr. Hernandez. Recent pain pump trial with observation admission in June. Continue outpatient follow-up with pain management. Continue as needed Lanse. Lyrica regimen. Patient is also on methadone regimen at home. 3. Acute CHF/acute pneumonia-ruled out. BNP within normal limits. No evidence of acute CHF. Chest x-ray without evidence of pneumonia. Afebrile. No leukocytosis. Oxygen now 100% on room air. Prior echo with normal EF. Repeat echo during admission showed an EF of 65%, stage I diastolic dysfunction, mild tricuspid valve insufficiency, RVSP estimated to be 31 mmHg. 4. Acute kidney injury on chronic kidney disease stage III-Resolved with IV fluids. 5. Mild hypotension-suspect secondary to dehydration/acute kidney injury. Improved with IV fluids. 6. Urinary retention during recent admission-continue Flomax regimen. 7. History of AL-continue statin. Not on aspirin or beta sahil regimen. 8. Chronic diastolic CHF-no acute exacerbation. Not on diuretic regimen, ACEi/ARB. 9. Hypertension-stable, not on regimen. 10. Hyperlipidemia- continue statin. 11. Osteoporosis- on alendronate regimen. 12. History of Sjogren's 13. Anxiety/depression-continue home sertraline regimen. 14. History of migraines-continue Topamax regimen. PRN triptan. General: Alert, Oriented x3, Cooperative, No apparent distress HEENT: Atraumatic, PERRLA, EOMI, Normocephalic Neck: Supple, No JVD, Negative Carotid Bruits Lungs: Clear to auscultation, Normal air movement Cardiovascular: Regular rate, Regular Rhythm, Normal S1, Normal S2, No murmurs Abdomen: Bowel Sounds Present, Soft, Non Tender, Non-Distended Extremities: No clubbing, No cyanosis, No edema, Capillary Refill Less than 3 Seconds Skin: No rashes, No breakdown, - - Scattered abrasions secondary to fall prior to admission Musculoskeletal: No Tenderness to Palpation of Joints or Extremities Neurological: Cranial nerves II-XII grossly intact, Neuro grossly intact Psych/Mental Status: Normal Affect, Appropriate Patient seen exam prior to discharge. Physical assessment as noted above. Patient stable for discharge home with home health and transition to palliative care services. This patient was seen by PARTH Zarate under the supervision of Dr. Paintsil. - Physical Exam Vital Signs Temp Pulse Resp BP Pulse Ox 97.8 F 72 16 92/49 L 95 07/27/18 09:52 07/27/18 11:30 07/27/18 09:52 07/27/18 09:52 07/27/18 09:52 Oxygen Flow Rate (L/min) 2 Oxygen Delivery Method Room Air Weight: 153 lb 0.013 oz Body Mass Index (BMI) 23.4 Finger Stick Blood Glucose 107 Orthostatic Vital Signs Start: 07/26/18 03:42 Freq: q24h Status: Active Protocol: Activity Type Activity Date Activity User E-Sign Co-Sign Detail Recorded Client Recorded Date Recorded By Document 07/26/18 14:25 AMG [id number] 07/26/18 14:26 AMG 07/26/18 14:25 Orthostatic Vitals Standing -Blood Pressure (90/60-120/80) 101/54 L -Extremity Use Right Arm -Pulse Rate (60-100) 77 Sitting -Blood Pressure (90/60-120/80) 106/44 L -Extremity Use Right Arm -Pulse Rate (60-100) 72 Lying -Blood Pressure (90/60-120/80) 90/42 L -Extremity Use Right Arm -Pulse Rate (60-100) 62 Intake and Output for Last 24 Hours 07/25/18 07/26/18 07/27/18 23:59 23:59 23:59 Intake Total 1089 / 1089 0 / 0 Output Total 900 / 900 300 / 300 Balance 189 / 189 -300 / -300 Laboratory Tests Past 24 Hrs 07/26/18 07/27/18 14:45 04:35 WBC 9.5 RBC 3.88 L Hgb 11.0 L Hct 35.5 L MCV 91.5 MCH 28.4 MCHC 31.0 L RDW 14.7 H RDW Differential 49.6 H Plt Count 261 MPV 10.4 Immature Gran % (Auto) 0.100 Neut % (Auto) 62.7 Lymph % (Auto) 22.7 [place] % (Auto) 8.5 Eos % (Auto) 5.8 H Baso % (Auto) 0.2 Absolute Neuts (auto) 5.9 Absolute Lymphs (auto) 2.15 Total Counted Not Reportable Sodium 142 Potassium 3.9 Chloride 110 H Carbon Dioxide 24.0 Anion Gap 8 BUN 22 H Creatinine 1.23 H Estim Creat Clear Calc 39.02 Est GFR (MDRD) Af Amer 55 L Est GFR (MDRD) Non-Af 45 L BUN/Creatinine Ratio 17.9 Glucose 84 Calcium 8.2 L Discharge Diet: No Restrictions Discharge Activity: Return to Normal Activity Call your doctor if you observe: Shortness of breath, Dizziness, Fainting spells, Chest pain Home Medications: Medications to take at Discharge Atorvastatin Calcium [Lipitor] 20 mg PO QHS 01/14/18 Sertraline HCl [Zoloft] 100 mg PO BID 01/14/18 Sumatriptan Succinate 100 mg PO DAILY PRN PRN 02/28/18 Hydroxyzine HCl 50 mg PO DAILY PRN 03/05/18 Metoclopramide [Reglan] 10 mg PO TID PRN 03/05/18 Alendronate Sodium 70 mg PO MO 04/10/18 Topiramate [Topamax] 25 mg PO BID 04/10/18 Hydrocodone/Acetaminophen [Hydrocodone-Acetamin 5-325 mg] 1 each PO TID PRN PRN 07/03/18 Ondansetron HCl [Zofran] 4 mg PO Q8H PRN PRN 07/03/18 Pregabalin [Lyrica] 100 mg PO TID 07/03/18 Methadone HCl 07/26/18 Tamsulosin HCl [Flomax] 0.4 mg PO DAILY@1730 07/26/18 Primary Care Physician: Abhijit Jett Chi, MD [Primary Care Provider] - Please follow up with your Primary Care Physician in: 1 Week Please Follow Up With: Mary Piper MD When: As scheduled Disposition: Palliative care Minutes spent on discharge:: 35 Patient Condition:: Stable Medical Necessity - Tobacco Use Smoking Status: Never smoker Tobacco Use: Cigarettes Meaningful Use Info Meaningful Use Diagnoses (Choose all that apply): None applicable <Paintsil,[place] - Last Filed: 07/27/18 17:15> Discharge Date and Diagnosis - Secondary Discharge Diagnosis Chronic Problems (Last Updated 07/26/18 @ 01:34 by Gwen Sarabia) Fibromyalgia (Chronic) HTN (hypertension) (Chronic) Rheumatoid arthritis (Chronic) on no medications for RA - diagnosed in [place] many years ago Dyslipidemia (Chronic) Sjogren's syndrome (Chronic) CKD (chronic kidney disease), stage III (Chronic) Diastolic CHF (Chronic) Cephalalgia (Chronic) IBS (irritable bowel syndrome) (Chronic) PUD (peptic ulcer disease) (Chronic) Osteoarthritis (Chronic) Vertigo (Chronic) Compression fracture of body of thoracic vertebra (Chronic) Hospital Course and Treatment Summary of Care Provided: 72-year-old female with multiple comorbidities significant for chronic back pain, chronic pain syndrome, follows in the outpatient with Dr. Piper, who comes in after a fall. Patient had denied hitting her head or feeling lightheaded of short of breath or dizzy prior to the fall. She said her knees just felt weak and she fell. She was seen in the emergency department, workup was unremarkable. Patient was seen by physical and occupational therapy and home health was recommended for history of recurrent falls. Patient is at high risk for readmission considering concurrent comorbidities including osteoporosis, history of compression fracture, polypharmacy, chronic pain syndrome. She will be followed by palliative care. She should be followed by community care network closely. Subjective: Was seen and examined on the day of discharge. No new complaints. Denies any fever or chills or shortness of breath. Pain is fairly controlled on current regimen. Objective: Physical Exam: Gen: Appears comfortable, not pale, not jaundiced, alert oriented x3 CVS:HS I +II, regular, no murmurs RESP: Diminished at lung bases GI: Full, firm, nontender, no ballotable organs EXT:No edema, tenderness over the right hip - Physical Exam Vital Signs Temp Pulse Resp BP Pulse Ox 97.8 F 72 16 92/49 L 95 07/27/18 09:52 07/27/18 11:30 07/27/18 09:52 07/27/18 09:52 07/27/18 09:52 Oxygen Flow Rate (L/min) 2 Oxygen Delivery Method Room Air Weight: 69.4 kg Body Mass Index (BMI) 23.4 Finger Stick Blood Glucose 107 Intake and Output for Last 24 Hours 07/25/18 07/26/18 07/27/18 23:59 23:59 23:59 Intake Total 1089 / 1089 240 / 240 Output Total 900 / 900 300 / 300 Balance 189 / 189 -60 / -60 Laboratory Tests Past 24 Hrs 07/27/18 04:35 Sodium 142 Potassium 3.9 Chloride 110 H Carbon Dioxide 24.0 Anion Gap 8 BUN 22 H Creatinine 1.23 H Estim Creat Clear Calc 39.02 Est GFR (MDRD) Af Amer 55 L Est GFR (MDRD) Non-Af 45 L BUN/Creatinine Ratio 17.9 Glucose 84 Calcium 8.2 L Code Visit Inpatient E&M: 70600 Disch Hosp
--- NOTE | 2018-07-27 12:36 | CASEMGMT ---
Patient agreed to Palliative Care. YAHAIRA also called Dr Piper's office per patient's request to check on status of pain pump. Per his office they are waiting to check with insurance to see if it requires a pre-cert. YAHAIRA will notify patient. Plan: Home with [facility] PT/OT and Social Work and Palliative Care. Yee TOVAR MSW
--- NOTE | 2018-07-27 13:14 | CASEMGMT ---
Patient was asking about her Neurology appt. SW called [facility] and her appt was canceled for today. YAHAIRA rescheduled it for Monday08-03-18 at 330. SW wrote it on her discharge instructions and told patient. Patient also told SW she wants a walker to take home with her. SW told her we will get a walker for her and have it delivered to the hospital before she leaves. YAHAIRA asked RN Xochitl DAI to please work on this. Plan: home with [facility] PT/OT and YAHAIRA and Palliative Care. She also will leave with a ww. Yee TOVAR GREEN MARKETER
--- NOTE | 2018-07-27 13:20 | CASEMGMT ---
Script for wheeled walker faxed to [facility] [place] at this time along with facesheet. Quin GONZALEZ CM
--- NOTE | 2018-07-27 13:27 | PCA ---
has an appointment with doctor migue august 01 at 1100 am
--- NOTE | 2018-07-31 15:11 | CASEMGMT ---
LISA DAI Discharge F/U Phone Call LACE: 13 Strata: 4 Discharge date: 07/27/18 Call date: 07/31/18 Call time: 1510 Duration: 3 minutes Admission dx: Mechanical fall and debility Pt states has been 'doing ok' since discharge and states no concerns at this time. Pt states [facility] has been out a couple times already. Pt states the wheeled walker is 'wonderful' and she is working on getting a wheelchair also. Pt states no questions regarding discharge instructions or medications at this time. Pt states has appointments scheduled already and plans to keep them. Pt voices no further questions/concerns/needs at this time. SStaten LISA DAI
== END 2018-07-27 14:23 | disposition home or self-care (01) | DRG 948 ==
LOC: ED 07-26 00:46 → PCU 07-26 00:51
PROVIDERS: Nurse Practitioner Family; Admitting Provider Student in an Organized Health Care Education/Training Program; Emergency Provider Emergency Medicine; Family Provider Family Medicine Geriatric Medicine; PCP Family Medicine Geriatric Medicine; Visit Provider Internal Medicine
DX: R53.81 Other malaise (principal); I13.0 Hypertensive heart and chronic kidney disease with heart failure and stage 1 through stage 4 chronic kidney disease, or unspecified chronic kidney disease; I50.32 Chronic diastolic (congestive) heart failure; M48.54XA Collapsed vertebra, not elsewhere classified, thoracic region, initial encounter for fracture; N17.9 Acute kidney failure, unspecified; M06.9 Rheumatoid arthritis, unspecified; I48.91 Unspecified atrial fibrillation; M45.9 Ankylosing spondylitis of unspecified sites in spine; W18.30XA Fall on same level, unspecified, initial encounter; Y93.01 Activity, walking, marching and hiking; Y92.009 Unspecified place in unspecified non-institutional (private) residence as the place of occurrence of the external cause; Y99.8 Other external cause status; M79.7 Fibromyalgia; N18.3 Chronic kidney disease, stage 3 (moderate); R33.9 Retention of urine, unspecified; I25.2 Old myocardial infarction; E78.5 Hyperlipidemia, unspecified; M81.0 Age-related osteoporosis without current pathological fracture; M35.00 Sjogren syndrome, unspecified; F41.9 Anxiety disorder, unspecified; F32.9 Major depressive disorder, single episode, unspecified; G43.909 Migraine, unspecified, not intractable, without status migrainosus; Z79.899 Other long term (current) drug therapy; M19.90 Unspecified osteoarthritis, unspecified site; G89.4 Chronic pain syndrome; R29.6 Repeated falls; E87.6 Hypokalemia; E86.0 Dehydration; I95.9 Hypotension, unspecified
CPT/HCPCS: 36415; 71045; 71046; 80048; 81001; 83880; 84484; 85025; 93005; 93306; 97162; 97165; 97535; 97802; 99285; J7030; A4216; J1940

== ENCOUNTER 2018-08-26 13:33 | Emergency (ER) | payer MEDICARE, OTHER, SELFPAY ==
[2018-08-26 13:35] VITALS: BP 134/102; PULSE 83; RESP 12; TEMP 36.9; O2SAT 87; BMI 28.9
[2018-08-26 13:46] VITALS: BP 131/98; PULSE 80; RESP 19; O2SAT 98
--- NOTE | 2018-08-26 14:02 | RAD_ITS ---
STUDY: X-RAY CHEST REASON FOR EXAM: Female, 72 years old. Decreased mental status TECHNIQUE: Single AP portable view of the chest. COMPARISON: Including July 26, 2018 FINDINGS: There are monitoring devices. There are moderate fibrotic densities, similar to the prior exam. There is no demonstrated pleural abnormality. There is mild cardiac enlargement. Normal mediastinum and maged. Normal visualized pulmonary arteries. Normal visualized aortic arch and descending thoracic aorta. There is demineralization of the osseous structures. Kyphoplasty of mid thoracic vertebra. Normal visualized ribs, clavicles, and shoulders. There is no demonstrated abnormality of the visualized soft tissue structures of the upper abdomen. RAD/Chest 1 View (Portable) IMPRESSION: Degenerative changes, as described above. No demonstrated acute cardiopulmonary process. Electronically Signed: Yoshi Nicolas MD at 15:13 EST , Service support ,
--- NOTE | 2018-08-26 14:03 | EKG12_ITS ---
Test Reason : DYSRHYTMIA Blood Pressure : / mmHG Vent. Rate : 083 BPM Atrial Rate : 083 BPM P-R Int : 194 ms QRS Dur : 076 ms QT Int : 352 ms P-R-T Axes : 028 023 054 degrees QTc Int : 413 ms Sinus rhythm with Fusion complexes Low voltage QRS Possible Inferior infarct , age undetermined Abnormal ECG Confirmed by CHASE COLEMAN, FELIX ([id number]), video editor AVEL REYES ([id number]) on 08/29/2018 11:12:41 AM Referred By: JOHNSON Confirmed By:FELIX STONE MD
--- NOTE | 2018-08-26 14:11 | ED.DCSUM_ITS ---
- ER Visit Summary Date of Service: 08/26/18 Chief Complaint: Decreased mental status History of Present Illness: The patient is a 72 F history of CVA, rheumatoid arthritis, irritable bowel and DNR [facility] on hospice. Patient lives at home. She has 2 caregivers for about 10-12 hours a day. Her sister found her lying on the couch today was basically unresponsive. Called 1 of the caregivers who came over and then she was brought in the ER. Caregiver is at bedside. They know of no trauma. Patient not had a recent complaints other than some dysuria. She is not to be resuscitated or intubated. No CPR. Physical Examination: Older female. Obtunded. Does not open her eyes. Does not follow commands. Vital signs are stable. She is afebrile. She is hypoxic with a oxygen of 87% on room air. HEENT exam eyes are closed. When I open her eyes pupils are round reactive light. About 2-3 mm bilaterally. Equal and symmetrical. Not dilated. Mouth dry mucous membranes. Neck nontender. No signs of trauma to her face or scalp. Lungs diminished but equal and symmetr ical. No rales, rhonchi or wheezing. Heart regular rhythm rate about 80 no murmur. Abdomen is soft and nontender. Nondistended normal bowel sounds. No signs of obstruction. She does not move her extremities. Neurologically she is not responding to commands. She does not answer any questions. She has a significantly decreased mental status. Test Results: CBC White count 11.1. Hemoglobin 12. No bands. Electrolytes unremarkable gap is 6. Creatinine 1.52. UA normal except for rare bacteria. A culture was sent. EKG sinus rhythm rate 83 with no acute abnormality. Low voltage. Chest x-ray shows chronic changes no acute process read both by myself and the radiologist. Emergency Department Course and Treatment: On repeat exam the patient will open her eyes to command currently at 1555. One of her caregivers in the room is adamant this is a UTI. I explained to her that I sent a culture but the urinalysis at this time could not be termed a UTI. Treatment Plan: I will speak to the hospitalist about admission for generalized weakness. Disposition: Admission Impression: Acute decreased mental status Generalized weakness History of DNR [facility] on hospice This note was generated with [employer] software. It may contain incorrect words, spelling, and punctuation that were not noted in review of the chart prior to signing ED Disposition - Plan for ED Patient: Chief Complaint: Alt LOC Referrals: Abhijit Jett Chi, MD [Primary Care Provider] -
[2018-08-26 14:16] LABS: Absolute Lymphocyte Count 2.47 X10^3/ul (0.83-4.51); Absolute Neutrophil Count 7.6 X10^3/uL (2.0-7.7); Basophil# 0.02 X10^3/uL; Basophil% 0.2 % (0-1); Eosinophil# 0.09 X10^3/uL; Eosinophils% 0.8 % (0-5); Hematocrit 42.2 % (37-47); Hemoglobin 12.4 g/dl (12.0-15.0); Lymphocyte # 2.47 X10^3/ul (4.0); Lymphocyte % 22.3 % (19-41); Mean Corp Hgb Conc 29.4 g/gl (32-36); Mean Corpuscular Hgb 28.5 pg (27.0-32.0); Mean Platelet Vol. 10.9 fl (6.2-12.0); Monocyte# 0.89 X10^3/uL; Neutrophil # 7.59 X10^3/uL (2.7-7.7); Neutrophil % 68.5 % (47-70); Platelet Count 215 K/mm3 (150-450); RBC Distribution Width CV 16.4 % (11.6-14.6); RBC Distribution Width SD 58.7 fl (35.1-43.9); Red Blood Count 4.35 M/mm3 (4.2-5.4); White Blood Count 11.1 K/mm3 (4.4-11.0)
[2018-08-26 14:17] LABS: POSITIVE COUNT NO; POSITIVE DIFFERENTIAL NO; POSITIVE MORPHOLOGY NO
[2018-08-26] MEDS: 0.9% Normal Saline 1,000 ML 1000 ML IV (14:17)
[2018-08-26 14:24] LABS: Anion Gap 6 (5-15); BUN 20 mg/dL (7-18); BUN/Creat Ratio 13.2 RATIO (10-20); Calcium,Total 8.2 mg/dL (8.5-10.1); Chloride 110 mmol/L (98-107); Creatinine, Serum 1.52 mg/dL (0.55-1.02); EST Glomerular Filtration Rate 36 mL/min (>60); Est Glom Filt Rate - Afr Amer 43 mL/min (>60); Estimated Creatinine Clearance 28.04 ml/min; Glucose 101 mg/dL (74-106); Potassium 4.9 mmol/L (3.5-5.1); Sodium Level 141 mmol/L (136-145)
[2018-08-26 14:25] LABS: Mucous, Urine 0 SEEN /hpf (<or=2+); Red Blood Cells-Urine 0 SEEN /hpf (0-5); Squamous Epithelial Cells - UA 0 SEEN /hpf (5-10)
[2018-08-26 14:27] LABS: Color, Urine Yellow (Yellow); Glucose, Dipstick Normal (Normal); Ketone-Dipstick Negative (Negative); Leukocyte Esterase-Dipstick 500 /ul (Negative); Nitrite-Dipstick Negative (Negative); Occult Blood-Urine Negative /ul (Negative); Protein-Dipstick 15 mg/dl (Negative); Specific Gravity, Urine 1.015 (1.002-1.030); Urine Bilirubin Dipstick Negative (Negative); Urine Clarity Clear (Clear); Urine Urobilinogen Normal (Normal)
[2018-08-26 14:30] LABS: Bedside Glucose 90 mg/dL (70-110)
[2018-08-26 14:32] LABS: Bacteria RARE /hpf (None Seen); White Blood Cells 0-5 SEEN /hpf (0-5)
[2018-08-26 14:33] VITALS: BP 112/70; PULSE 76; RESP 13; O2SAT 100
--- NOTE | 2018-08-26 15:11 | ED.RN ---
PT NOW OPENING EYES SPONTANEOUSLY, REMAINS ORIENTED TO SELF, OCCASIONALLY TO PLACE.
[2018-08-26 16:00] VITALS: BP 109/68; PULSE 64; RESP 12; O2SAT 98
--- NOTE | 2018-08-26 16:41 | ED.RN ---
VERNON NGUYỄN PHONE NUMBER [phone]
[2018-08-26 17:00] VITALS: BP 105/64; PULSE 66; RESP 14; O2SAT 98
[2018-08-26 17:26] VITALS: BP 109/64; PULSE 66; RESP 14; O2SAT 97
--- NOTE | 2018-08-26 17:28 | ED.RN ---
PT DISCHARGED TO INPATIENT HOSPICE UNIT. HOSPICE NURSE AT BEDSIDE, REQUESTS CANTU AND IV LEFT IN PLACE. PT TRANSFERRED BY [facility]. VERNON VIDES AWARE OF TRANSFER.
== END 2018-08-26 17:30 | disposition home or self-care (01) ==
LOC: ED 14:36
PROVIDERS: Emergency Provider Emergency Medicine; Family Provider Family Medicine Geriatric Medicine; PCP Family Medicine Geriatric Medicine
DX: R41.82 Altered mental status, unspecified (principal); R53.1 Weakness; R09.02 Hypoxemia; M06.9 Rheumatoid arthritis, unspecified; Z66 Do not resuscitate; Z86.73 Personal history of transient ischemic attack (TIA), and cerebral infarction without residual deficits
CPT/HCPCS: 51702; 71045; 80048; 81001; 82962; 85025; 87077; 87086; 87088; 87186; 93005; 96360; 96361; 99285; J7030; A4216